=== PATIENT | male | born 1970 | race Caucasian/White ===

== ENCOUNTER 2018-02-13 12:53 | Inpatient (IN) | payer OTHER ==
[~2018-02-13] VITALS: Ht 175.3 cm; Wt 46.7 kg
--- NOTE | 2018-02-13 12:53 | NUR ---
PT BIBA ALS TO BED 5
[2018-02-13 12:59] VITALS: BP 98/42
[2018-02-13] MEDS ORDERED: NACL 0.9% 1,000 ML IV ONE (13:00)
--- NOTE | 2018-02-13 13:00 | NUR ---
47Y/M BIBA FROM [facility] PER NURSES PT HAS ABNORMAL HGB 5.8. UNABLE TO VERBALIZE BUT ALERT AND PERRLA. PT HAS MULTIPLE PRESSURE WOUNDS ON BACK AND HEELS. PT HAS G-TUBE, TRACH, KISER CATH AND FEVER OF 101.9, PT WAS GIVEN TYLENOL 650MG PER PROTOCOL. PT IS AAOX2, VSS AT THIS TIME, BED DOWN, BEDRAIL UP X 1, ER MD AWARE AND NOTIFIED OF PT STATUS. HX-- G TUBE, TRACH, MULTIPLE INFECTIONS (CHRONIC CRYPTOCOCCAL MENINGITIS, BACTEREMIA C/ KLEBSIELLA, PSEUDOMONAS AND VRE INFECTIONS) MEDS-- SEE MED REC
--- NOTE | 2018-02-13 13:10 | NUR ---
lab at bedside
[2018-02-13] MEDS ORDERED: LANS15EC28 PO (13:13)
[2018-02-13] MEDS ORDERED: DARBEPOETIN ALFA SQ (13:13)
[2018-02-13] MEDS ORDERED: ROC2I (13:13)
[2018-02-13] MEDS ORDERED: METO25TA PO (13:13)
[2018-02-13] MEDS ORDERED: DOCU-299 PO (13:13)
[2018-02-13] MEDS ORDERED: HYDR-5092 PO (13:13)
--- NOTE | 2018-02-13 13:13 | NUR ---
PT TRIAGED AND PLACED IN BED 5
[2018-02-13 13:30] LABS: BASOPHILS # (AUTO) 0.1 K/uL (0.00-0.22); BASOPHILS % (AUTO) 0.5 % (0.0-2.0); EOSINOPHILS # (AUTO) 0.2 K/uL (0-0.4); LYMPHOCYTES # (AUTO) 1.8 K/uL (2.0-11.5); LYMPHOCYTES % (AUTO) 9.4 % (20.5-51.1); MEAN CORPUSCULAR HEMOGLOBIN 23 pg (27-31); MEAN CORPUSCULAR HGB CONC 29 g/dL (33-37); MEAN CORPUSCULAR VOLUME 79.6 fL (80-94); MONOCYTES # (AUTO) 1.1 K/uL (0.8-1.0); MONOCYTES % (AUTO) 5.7 % (1.7-9.3); NEUTROPHILS # (AUTO) 15.6 K/uL (1.8-7.7); NEUTROPHILS % (AUTO) 83.4 % (42.2-75.2); RED BLOOD CELL COUNT(AUTO) 2.58 MIL/uL (4.20-6.10); RED CELL DISTRIBUTION WIDTH 18.5 % (11.6-13.7)
--- NOTE | 2018-02-13 13:36 | NUR ---
Patient being evaluated by physician at bedside.
[2018-02-13] MEDS ORDERED: ACETAMINOPHEN 650 MG SUPP RC ONE (13:41)
[2018-02-13 13:46] LABS: HEMATOCRIT 20.5 % (36-52)
[2018-02-13 13:48] LABS: PLATELET COUNT (AUTO) 1085 K/uL (140-450); PROTHROMBIN TIME 11.3 secs (10.8-13.4)
[2018-02-13 13:49] LABS: CARBON DIOXIDE 25.5 mmol/L (21-32); CREATININE 0.7 mg/dL (0.7-1.3); POTASSIUM 4.5 mmol/L (3.5-5.1)
[2018-02-13 13:50] LABS: WHITE BLOOD COUNT (AUTO) 18.7 K/uL (4.8-10.8)
[2018-02-13 13:55] LABS: COLOR,URINE YELLOW (YELLOW)
[2018-02-13 13:55] LABS: ALBUMIN 1.7 g/dL (3.4-5.0); TOTAL BILIRUBIN 0.2 mg/dL (0.0-1.0)
[2018-02-13 13:57] LABS: BILIRUBIN,URINE NEGATIVE (NEGATIVE); BLOOD, URINE TRACE (NEGATIVE); NITRITE, URINE NEGATIVE (NEGATIVE); UGLUCOSE NEGATIVE (NEGATIVE)
[2018-02-13 14:01] LABS: RBC,URINE 0-5 (RARE) /HPF (0-5); WBC,URINE TOO MANY TO COUNT /HPF (0-5)
--- NOTE | 2018-02-13 14:01 | NUR ---
XRAY AT BEDSIDE
[2018-02-13 14:04] LABS: APPEARANCE,URINE CLOUDY (CLEAR); LEUKOCYTE ESTERASE ,URINE 2+ (NEGATIVE)
[2018-02-13] MEDS ORDERED: LEVOFLOXACIN 500 MG/D5W PREMIX 100 ML IV ONE (14:55)
[2018-02-13] MEDS ORDERED: MORPHINE SULFATE 2 MG/ML SYR IVP ONE (15:55)
[2018-02-13] MEDS: DEXT 5% / NACL 0.45% 1,000 ML IV SCH (16:04)
[2018-02-13] MEDS ORDERED: ONDANSETRON 4 MG/2 ML VIAL IVP PRN (16:05)
[2018-02-13] MEDS ORDERED: ACETAMINOPHEN 325 MG TAB PO PRN (16:05)
--- NOTE | 2018-02-13 17:08 | NUR ---
Patient will be admitted to care of DR. GALLEGOS. Admited to ICU FOR TELE CONVENIENCE. Will go to room 1CU-1. Belongings list completed. Report to PIERRE WALKER.
--- NOTE | 2018-02-13 17:09 | NUR ---
PT TAKEN TO ICU 1 FOR CONVIENIENCE BY RN SANCHEZ AND EMT LAMONT
[2018-02-13 17:25] VITALS: BP 109/83
--- NOTE | 2018-02-13 17:25 | NUR ---
RECEIVED PT TRANSFERRED FROM ER VIA [facility], OBTAINED REPORT FROM SUPERVISOR STENO POOL AT BEDSIDE, PT IS AAOX2, APHASIC, ABLE TO FOLLOW COMMANDS AND MAKE NEEDS KNOWN. AFEBRILE, VSS, FLACC 0, TRACH TO T-PIECE WITH SETTING FIO2 28, O2 SAT 99%. NO S/S OF DISTRESS, CLEAR LUNG SOUNDS BLANCA. ST ON LEAD INFORMATICA DEVELOPER. SOFT ABDOMEN WITH ACTIVE BOWEL SOUND, GT IN PLACE, PATENT, NO FEEDING ORDERED AT THIS TIME. INCONTINENT WITH B&B'S, F/C IN PLACE WITH CLEAR YELLOW URINE VIA GRAVITY, SKIN IS WARM AND DRY TO TOUCH, MULTIPLE OPEN WOUND PRESENT, CONTRACTURES TO ALL EXTREMITIES NOTED, IV LINE TO RIGHT FOREARM, 24GA, PATENT AND SL, IV LINE TO LEFT WRIST, 22GA, PATENT AND SL. SAFETY MEASURES IN PLACE, HOB ELEVATED, PILLOW SUPPORT PROVIDED, CALL LIGHT WITHIN REACH, WILL CONTINUE TO MONITOR.
--- NOTE | 2018-02-13 17:45 | NUR ---
1 UNIT OF RBC TRANSFUSION STARTED, PT TOLERATED WELL, WILL CONTINUE TO MONITOR.
--- NOTE | 2018-02-13 19:15 | NUR ---
REPORT GIVEN TO CRIMPING MACHINE OPERATOR RN AT BEDSIDE FOR CONTINUE OF CARE, PT IS IN STABLE CONDITION AND STILL ON BLOOD TRANSFUSION.
--- NOTE | 2018-02-13 19:45 | NUR ---
PT AWAKE SITTING UP IN BED WATCHING TELEVISION. PT ABLE TO COMMUNICATE WITH HEAD NOD AND VERBALIZE SIMPLE COMMANDS OVER HIS TRACH. PT AAOX1 +4 PERRL UNABLE TO MOVE PERIPHERAL EXTREMITIES; CONTRACTED UPPER AND LOWER EXTREMITIES. PT HAS SHILEY XLT TRACH HOOKED TO T PIECE @ 28% FIO2 LUNGS CLEAR UPPER LOBES, DIMINISHED LOWER LOBES. SINUS TACHYCARDIA 120S, NO EDEMA NOTED, WEAK PALPABLE PULSES. ABD SOFT NON DISTENDED G TUBE PRESENT, + placement via auscultation, + BOWEL SOUNDS X4 QUADRANTS. KISER CATH IN PLACE CLEAR YELLOW URINE DRAINING VIA GRAVITY. SKIN NON INTACT, MULTIPLE OPEN WOUNDS/ PRESSURE ULCERS TO BONY PROMINENCES; SEE WOUND CARE ASSESSMENT FOR FURTHER DETAILS. PT ON AIR MATTRESS FOR SKIN PROTECTION, PT TOTAL ASSIST FOR TURNS AND REPOSITIONING. PERIPHERAL IVS TO L FOREARM 22 G AND R FOREARM 24 G PRESENT. BLOOD TRANSFUSION INFUSING NO S/S OF ACUTE DISTRESS NOTED. WILL CONTINUE TO OBSERVE.
--- NOTE | 2018-02-13 19:50 | NUR ---
CALLED DR GALLEGOS FOR PAIN MANAGEMENT.PT HAS MULTIPLE OPEN WOUNDS, CONTRACTED, UNABLE TO TURN INDEPENDENTLY. PT TACHYPNEIC HR 120S BP 114/73, RR 24 99% SPO2 PT VERBALIZED "IM IN PAIN" OVER TRACH. ORDERED MS CONTIN 15 MG PO VIA GTUBE PRN Q4H FOR MODERATE AND SEVERE PAIN, SEE EMAR FOR FURTHER DETAILS.
[2018-02-13] MEDS ORDERED: MORPHINE TAB ER 15 MG TABER PO PRN (19:55)
[2018-02-13 20:00] VITALS: BP 114/73
[2018-02-13] MEDS: MORPHINE TAB ER 15 MG TABER PO PRN (23:01)
[2018-02-14] VITALS: BP 120/68
[2018-02-14] MEDS: LORazepam 2 MG/ML VIAL IVP PRN ×2 (03:40→15:00)
[2018-02-14 04:00] VITALS: BP 108/60
[2018-02-14 06:57] LABS: RED BLOOD CELL COUNT(AUTO) 2.53 MIL/uL (4.20-6.10)
[2018-02-14 06:58] LABS: HEMATOCRIT 20.8 % (36-52); HEMOGLOBIN 6.7 g/dL (12.0-18.0); MEAN CORPUSCULAR VOLUME 82.4 fL (80-94)
[2018-02-14 06:59] LABS: MEAN CORPUSCULAR HEMOGLOBIN 26 pg (27-31); MEAN CORPUSCULAR HGB CONC 32 g/dL (33-37); RED CELL DISTRIBUTION WIDTH 17.3 % (11.6-13.7)
[2018-02-14 07:00] LABS: BASOPHILS % (AUTO) 0.3 % (0.0-2.0); EOSINOPHILS % (AUTO) 0.9 % (0.0-4.0); LYMPHOCYTES % (AUTO) 13.5 % (20.5-51.1); MONOCYTES % (AUTO) 5.6 % (1.7-9.3); NEUTROPHILS % (AUTO) 79.7 % (42.2-75.2); PLATELET COUNT (AUTO) 925 K/uL (140-450)
[2018-02-14 07:01] LABS: EOSINOPHILS # (AUTO) 0.1 K/uL (0-0.4); LYMPHOCYTES # (AUTO) 1.8 K/uL (2.0-11.5); MONOCYTES # (AUTO) 0.7 K/uL (0.8-1.0); NEUTROPHILS # (AUTO) 10.4 K/uL (1.8-7.7)
--- NOTE | 2018-02-14 07:07 | NUR ---
RECEIVED BEDSIDE REPORT FROMPREET, MEDICAL TRANSLATOR RN FOR CONTINUITY OF CARE. PATIENT IS AAOX1, NONVERBAL. PATIENT SKIN IS NOT INTACT, HE HAS MULTIPLE PRESSURE WOUNDS. PATIENT HAS PERIPHERAL IV SITE TO L. FA AND R. UA, ASYMPTOMATIC, PATENT AND INTACT. PATIENT HAS TRACH TO T-PIECE IN PLACE, BREATHING IS EVEN AND UNLABORED. PATIENT IS ST ON MONITOR, FLACC 0. PATIENT HAS PEG TUBE IN PLACE TO TUBE FEEDING, JEVITY AT 30ML/HR WITH 50 ML Q4H. PATIENT HAS KISER CATHETER IN PLACE TO YELLOW URINE. HOB IS 30 DEGREES IN LOW POSITION, NO SIGNS OF DISTRESS NOTED AT THIS TIME. ALL SAFETY PRECAUTIONS IN PLACE AND ENFORCED. CALL LIGHT WITHIN REACH, WILL CONTINUE TO MONITOR.
[2018-02-14 07:38] LABS: PHOSPHORUS 2.9 mg/dL (2.5-4.9)
[2018-02-14 07:39] LABS: ALBUMIN 1.6 g/dL (3.4-5.0); ANION GAP 8.8 (8-16); CARBON DIOXIDE 25.7 mmol/L (21-32); CREATININE 0.7 mg/dL (0.7-1.3); POTASSIUM 3.5 mmol/L (3.5-5.1); TOTAL BILIRUBIN 0.5 mg/dL (0.0-1.0)
[2018-02-14 08:00] VITALS: BP 124/66
--- NOTE | 2018-02-14 08:35 | NUR ---
PATIENT HAS BEEN SCREENED AND CATEGORIZED HIGH NUTRITION RISK. PATIENT WILL BE SEEN WITHIN 1-2 DAYS OF ADMISSION. 02/14/18 02/15/[address]
[2018-02-14] MEDS: FAMOTIDINE 20 MG TAB GT SCH (09:02)
--- NOTE | 2018-02-14 10:06 | NUR ---
DR. GALLEGOS IN TO SEE AND EXAMINE PATIENT, UPDATED ON PATIENT'S CONDITION. WILL FOLLOW UP WITH ANY ORDERS.
--- NOTE | 2018-02-14 10:29 | NUR ---
BLOOD TRANSFUSION STARTED, VS STABLE AT THIS TIME. WILL CONTINUE TO MONITOR PATIENT
[2018-02-14] MEDS: DEXT 5% / NACL 0.45% 1,000 ML IV SCH ×2 (10:59→18:09)
--- NOTE | 2018-02-14 11:12 | NUR ---
Initial review faxed to [facility].
[2018-02-14 12:00] VITALS: BP 126/74
--- NOTE | 2018-02-14 13:02 | NUR ---
BLOOD TRANSFUSION COMPLETE, NO S/S OF REACTION, NO SIGNS OF DISTRESS NOTED, DENIES ANY PAIN, . WILL CONTINUE TO MONITOR
--- NOTE | 2018-02-14 14:07 | NUR ---
02/14/18 RD INITIAL ASSESSMENT COMPLETED PLEASE REFER TO NUTRITION ASSESSMENT UNDER CARE ACTIVITY FOR ESTIMATED NUTRITIONAL NEEDS. 1. CONTINUE JEVITY @65 ML/HR WITH 1 PACK PROSOURCE TID -JEVITY WILL PROVIDE 1560 ML OF VOLUME, 1872 KCAL, 86 GM OF PROTEIN. -PROSOURCE TID WILL PROVIDE AN ADDITIONAL 120 KCAL AND 33 GM OF PROTEIN, WHICH IN TOTAL PROVIDES 1992 KCAL AND 119 GM OF PROTEIN. THIS WILL MEET 100% OF ESTIMATED NEEDS. 2. RECOMMEND INCREASING FREE WATER FLUSH TO 100 ML Q4H. 3. RECOMMEND FERROUS SULFATE QD, VITAMIN C 500 MG BID, AND ZINC SULFATE [address] TO FOLLOW-UP 2-3 DAYS, HIGH RISK JESSICA LEON RD
--- NOTE | 2018-02-14 14:26 | NUR ---
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 She stated patient's daughter Sho Khalil is his healthcare decision maker.
[2018-02-14] MEDS: MORPHINE TAB ER 15 MG TABER PO PRN (14:39)
[2018-02-14] MEDS ORDERED: LEVOFLOXACIN 500 MG/D5W PREMIX 100 ML IV SCH (15:00)
[2018-02-14] MEDS ORDERED: HYDROcodone/APAP 10/325 MG 1 TAB TAB GT PRN (15:55)
[2018-02-14 16:00] VITALS: BP 116/71
--- NOTE | 2018-02-14 16:03 | NUR ---
DR. STEVEN AT BEDSIDE TO EXAMINE AND SEE PATIENT, UPDATED ON PATIENT'S CONDITION. WILL FOLLOW UP ON ANY ORDERS.
[2018-02-14] MEDS: MORPHINE SULFATE 4 MG/ML SYR IVP PRN (16:24)
--- NOTE | 2018-02-14 17:45 | NUR ---
PT RECEIVED FROM ICU. PT IS NONVERBAL. AWAKE, AND ALERT X 1. PT IS TRACH TO T-PIECE. IV SITES NOTED ON L FA, 22 GAUGE, AND R FA 20 GAUGE. CURRENTLY INFUSING D5 1/2 NS AT 75 ML/HR. GEVITY INFUSING AT 65 ML/HR VIA PEG TUBE. PT HAS CONTRACTURES OF BLE'S AND BUE'S. PT HAS PRESSURE ULCERS ON BOTH BUTTOCKS AND SACRUM, L HIP, AND L FOOT. BLANCHABLE REDNESS ON R HIP AND R HEEL. PT'S VITAL SIGNS ARE STABLE AT THIS TIME, SINUS TACH ON TELE. CALL LIGHT WITHIN REACH. WILL CONTINUE TO MONITOR.
--- NOTE | 2018-02-14 17:50 | NUR ---
PT'S VITAL SIGNS UPON TRANSFER FROM ICU: BP 124/73, O2 97, HR 115, TEMP 99.3, RESP 20
--- NOTE | 2018-02-14 17:50 | NUR ---
TRANSFERRED PATIENT TO [facility], BED 113B. PATIENT HAD NO EPISODES OF DISTRESS DURING TRANSFER, VITAL SIGNS STABLE. ENDORSED CONTINUITY OF CARE TO [facility] RNJULIUS, FOR CONTINUITY OF CARE.
[2018-02-14] MEDS ORDERED: VANCOMYCIN PER PHARMACY MC PRN (18:35)
--- NOTE | 2018-02-14 19:15 | NUR ---
PT REPORT GIVEN AT BEDSIDE TO PLASMA CENTER NURSE NURSE. PT ENDORSED IN STABLE CONDITION.
--- NOTE | 2018-02-14 19:17 | NUR ---
RECEIVED PT FROM JULIUS RN PT ALERT IN PERSON CONTRACTED TRACH TO T PIECE 28% on telEmetry ST, skin with multiples ulcer g tube feeding well tolerated, FOLEYCATH DRAINIG WELL YELLLOW URINE NOT DISTRESS NOTED INITIAL ASSESSMENT DONE
[2018-02-14 20:00] VITALS: BP 124/77
--- NOTE | 2018-02-14 22:00 | NUR ---
RESP THERAPY IS HERE AND GIVE BREATHING TX PT SIS SUCTIONED NECESSARY ON TELEMETRY ST
[2018-02-14] MEDS: VANCOMYCIN 750 MG in DEXTROSE 5% 250 ML IV SCH (22:01)
[2018-02-15] VITALS: BP 129/73
[2018-02-15] MEDS: PIPER/TAZO 3.375GM/D5W PREMIX 50 ML IV SCH ×5 (00:30→23:08)
--- NOTE | 2018-02-15 02:00 | NUR ---
PT CONTRACTED REPOSITIONED NOT RESP DISTRESS NOTED ON TELE ST SUCTIONED NECESSARY
[2018-02-15 04:00] VITALS: BP 138/80
[2018-02-15] MEDS: DEXT 5% / NACL 0.45% 1,000 ML IV SCH ×2 (04:09→21:27)
--- NOTE | 2018-02-15 05:00 | NUR ---
SPONGE BATH GIVEN LINEN CHANGED PT CONTRACTED SUCTIONED NECESSARY ON TELEMETRY ST
--- NOTE | 2018-02-15 06:41 | NUR ---
NOT DISTRESS NOTED SUCTIONED CREAMY , PT CONTRACTED NOT DISTRESS NOTED
[2018-02-15 06:48] LABS: BASOPHILS # (AUTO) 0.1 K/uL (0.00-0.22); EOSINOPHILS # (AUTO) 0.1 K/uL (0-0.4); LYMPHOCYTES # (AUTO) 1.1 K/uL (2.0-11.5)
[2018-02-15 07:11] LABS: MEAN CORPUSCULAR HEMOGLOBIN 26 pg (27-31); MEAN CORPUSCULAR HGB CONC 31 g/dL (33-37)
[2018-02-15 07:21] LABS: RED BLOOD CELL COUNT(AUTO) 3.12 MIL/uL (4.20-6.10)
[2018-02-15 07:22] LABS: HEMATOCRIT 25.9 % (36-52); PLATELET COUNT (AUTO) 859 K/uL (140-450); RED CELL DISTRIBUTION WIDTH 17.7 % (11.6-13.7)
[2018-02-15 07:24] LABS: BASOPHILS % (AUTO) 0.7 % (0.0-2.0); EOSINOPHILS % (AUTO) 0.8 % (0.0-4.0); LYMPHOCYTES % (AUTO) 6.2 % (20.5-51.1); MONOCYTES % (AUTO) 5.7 % (1.7-9.3); NEUTROPHILS # (AUTO) 15.6 K/uL (1.8-7.7); NEUTROPHILS % (AUTO) 86.6 % (42.2-75.2)
[2018-02-15 07:43] LABS: ALBUMIN 1.5 g/dL (3.4-5.0); ANION GAP 15.2 (8-16); CARBON DIOXIDE 22.2 mmol/L (21-32); CREATININE 0.6 mg/dL (0.7-1.3); POTASSIUM 3.4 mmol/L (3.5-5.1); TOTAL BILIRUBIN 0.3 mg/dL (0.0-1.0)
--- NOTE | 2018-02-15 07:45 | NUR ---
PATIENT WAS AWAKE, RESPONSIVE TO NAME. RESPIRATION EVEN, UNLABOR ON TRACH TO TPIECE. SKIN DRY AND WARM. IV PATENT AND INTACT. GTUBE DRESSING DRY AND IN PLACE. FLACC 0. KISER DRAINING CLEAR YELLOW URINE. PLAN OF CARE WAS DISCUSSED WITH PATIENT. BED AT LOW POSITION, SIDE RAILS UP AND PADDED. CALL LIGHT WITHIN REACH
[2018-02-15 08:00] VITALS: BP 127/65
[2018-02-15] MEDS: FAMOTIDINE 20 MG TAB GT SCH (09:08)
[2018-02-15] MEDS: VANCOMYCIN 750 MG in DEXTROSE 5% 250 ML IV SCH ×2 (09:08→20:54)
--- NOTE | 2018-02-15 10:00 | NUR ---
WOUND DRESSING WAS CHANGED BY DENISE JAY. PATIENT WAS AWAKE, RESPONSIVE TO NAME. PATIENT WAS SUCTIONED WITH MODERATED WHITE SPUTUM. NO DISTRESS NOTED AT THIS TIME
--- NOTE | 2018-02-15 11:46 | NUR ---
called to room by nurse to changed trach raygoza and cielo pt large amt of frothy yellow secretions
--- NOTE | 2018-02-15 11:56 | NUR ---
WOUND CARE EVALUATION REASON FOR EVALUATION: LOW CECIL SCORE AND MULTIPLES PRESSURE INJURIES SKIN ASSESSMENT DONE WITH THIS 47 Y/O MALE PT ADMITTED FROM SNF TO [facility] WITH INITIAL DX FEVER. PAST MEDICAL HX INCLUDES CHRONIC TRACH, PRESSURE INJURY WOUNDS, QUADRIPLEGIA, CONTRACTURES, G-TUBE AND ENCEPHALOPATHY. ALL ABOVE INFORMATION OBTAINED FROM ADMISSION H&P. LABS ARE WBC 18, H/H 8.0/25.9, GLUCOSE 122 AND ALBUMIN 1.5. PT IS AWAKE. SKIN IS WARM AND DRY, BLE FEW HAIR GROWTH, NO EDEMA. DORSAL PEDAL PULSES PRESENT AND NORMAL. CAPILLARY REFILLED < 2 SEC. X 10 TOES. INCONTINENT OF BOWEL AND F/C PATENT WITH MODERATE AMOUNT OF CLEAR YELLOW URINE OUTPUT OBSERVED. PLAN OF CARE DISCUSSED WITH PRIMARY RN. INTEGUMENTARY: -TRACH SITE VAISHALI STOMA SKIN DRY AND CLEAN. SKIN INTACT. - GT SITE VAISHALI STOMA SKIN WITH SKIN INTACT. -INCONTINENT ASSOCIATE DERMATITIS TO R/L GIOVANNI AND SCROTUM, REDNESS WITH SKIN INTACT -PRESSURE INJURY STAGE 1 TO LEFT SCAPULAR 2X4CM PALE PINK IN COLOR - PRESSURE INJURY STAGE 4 TO LEFT TROCHANTER 7X9X0.3CM, UNDERMINING BETWEEN 6-12 OCLOCK WITH 0.5CM DEEP. WOUND BED IS RED, SMALL AMOUNT SEROUS DRAINAGE, NO ODOR, VAISHALI-WOUND SKIN INTACT -PRESSURE INJURY STAGE 4 TO LEFT ISCHIUM, 9.6X6.5X0.5 CM , UNDERMINING BETWEEN 10-1 OCLOCK 1CM DEEP, BONE OBSERVED IN THE CENTER OF WOUND BED, WOUND BED IS RED, SMALL AMOUNT SEROSANGUINEOUS DRAINAGE, NO ODOR, VAISHALI-WOUND SKIN INTACT. -PRESSURE INJURY STAGE 3 TO LEFT LATERAL FOOT, 6X2X0.5CM, WOUND BED IS RED, SMALL AMOUNT SEROSANGUINEOUS DRAINAGE, NO ODOR, VAISHALI-WOUND SKIN INTACT. -PRESSURE INJURY STAGE 4 TO RIGHT ISCHIUM, 5X5X0.8 CM , UNDERMINING BETWEEN 5-6 OCLOCK 1CM DEEP, WOUND BED IS RED, SMALL AMOUNT SEROSANGUINEOUS DRAINAGE, NO ODOR, VAISHALI-WOUND SKIN INTACT. -PRESSURE INJURY STAGE 4 TO RIGHT ISCHIUM, 5X5X0.8 CM , UNDERMINING BETWEEN 5-6 OCLOCK 1CM DEEP, WOUND BED IS RED, SMALL AMOUNT SEROSANGUINEOUS DRAINAGE, NO ODOR, VAISHALI-WOUND SKIN INTACT. --PRESSURE INJURY STAGE 1 TO RIGHT HEEL 3X3 CM. -PRESSURE INJURY STAGE 4 TO SACRALCOCCYX, BUTTERFLY SHAPE 6X11X0.5 CM , UNDERMINING BETWEEN 8-12OCLOCK WITH 1.5CM DEEP, WOUND BED IS RED, NO DRAINAGE, NO ODOR, VAISHALI-WOUND SKIN DENUDED RECOMMENDATIONS: -RECTAL BAG FOR MOISTURE CONTROL AND WOUND CARE MANAGEMENT -APPLY HYDRAGUARD TO R/L GROINS EXTENDED TO SCROTUM BID AND PRN IF SOILING, LEAVE IT OPEN TO AIR - CLEANSE MULTIPLE PRESSURE INJURIES STAGE 3 AND STAGE 4 WITH WOUND CLEANSING SOLUTION, PAT DRY AND APPLY HYDROGEL WITH ADAPTIC DRESSING AND COVER WITH DRY DRESSING SECURE WITH PAPER TAPE QD AND PRN IF SOILING -APPLY FORM DRESSING TO PRESSURE INJURIES STAGE 1 LEFT SCAPULAR AND RIGHT HEEL CHANGE Q7 DAYS AND PRN IF SOILING -APPLY HEEL RAISER TO BILATERAL HEELS AT ALL TIMES -PLEASE PLACE PILLOWS IN BETWEEN KNEES AT ALL TIMES -OFFLOAD BILATERAL HEELS BY PLACING PILLOWS UNDER CALVES UNLESS OTHERWISE CONTRAINDICATED -PRESSURE REDISTRIBUTION SURFACE THERAPY -KEEP SKIN DRY AND CLEAN AT ALL TIMES, PLEASE CHECK Q2H AND PRN -TURN AND REPOSITION Q2H, OFFLOAD SACRALCOCCYX AND BUTTOCKS -CONTINUE TO FOLLOW RD RECOMMENDATIONS COMORBIDITIES RELATED TO DELAY WOUND HEALING AND FURTHER SKIN BREAKS: INFECTION, SEVERE CONTRACTION TO LOWER EXTREMITIES, CHRONIC INCONTINENT OF BOWEL AND BLADDER AND HEAD OF BED ELEVATED MOST OF THE DAY DUE TO MEDICAL CONDITION. ALL ABOVE RECOMMENDATIONS DISCUSSED WITH PRIMARY RN. WILL FOLLOW UP PT Q7-10 DAYS. PLEASE CONTACT WOUND CARE NURSE FOR ANY QUESTION AND CHANGE OF WOUND CONDITION. Addendum: 02/15/18 at 1237 by Antonio Sevilla (Grace) RN PT. ADMITTED WITH PRESSURE INJURY STAGE 3 TO LEFT HEEL, 1.5X2X0.2CM,WOUND BED IS RED,NO DRAINAGE, NO ODOR, VAISHALI-WOUND SKIN INTACT.
[2018-02-15 12:00] VITALS: BP 113/78
--- NOTE | 2018-02-15 12:03 | NUR ---
increase fio2 to 30% cool aerosol spo2 94 i\l sx copious yellow
[2018-02-15] MEDS: HYDRAGUARD CREAM TP SCH (12:28)
[2018-02-15] MEDS: SKINTEGRITY HYDROGEL TP SCH ×2 (12:29)
--- NOTE | 2018-02-15 12:30 | NUR ---
PATIENT WAS RESTING COMFORTABLY. RESPIRATION EVEN, UNLABOR ON 30% TPIECE. FLACC 0. VS IS STABLE. NO DISTRESS NOTED AT THIS TIME. RESIDUAL CHECK AT 5ML. PATIENT TOLERATING FEEDING WELL. CALL LIGHT WITHIN REACH
--- NOTE | 2018-02-15 14:00 | NUR ---
PATIENT WAS RESTING COMFORTABLY. RESPIRATION EVEN, UNLABOR ON 30%TPIECE. NO DISTRESS NOTED AT THIS TIME. CALL LIGHT WITHIN REACH
--- NOTE | 2018-02-15 15:53 | NUR ---
PATIENT WAS AWAKE, RESPONSIVE TO NAME. RESPIRATION EVEN, UNLABOR ON 30% TPIECE. ORAL CARE WAS GIVEN. PATIENT WAS SUCTION WITH MODERATED AMOUNT OF WHITE SPUTUM. NO DISTRESS NOTED AT THIS TIME. CALL LIGHT WITHIN REACH
[2018-02-15 16:00] VITALS: BP 131/85
--- NOTE | 2018-02-15 16:14 | NUR ---
Concurrent review faxed to [facility] along with Software Development Specialist's Notes.
[2018-02-15] MEDS ORDERED: POTASSIUM CHLORIDE 20% 40 MEQ/15 ML UDC GT SCH (16:30)
--- NOTE | 2018-02-15 18:16 | NUR ---
PATIENT WAS RESTING COMFORTABLY. RESPIRATION EVEN, UNLABOR ON 30%TPIECE. IV PATENT AND INTACT. GTUBE RESIDUAL 5ML. PATIENT TOLERATING FEEDING WELL. NO DISTRESS NOTED AT THIS TIME. CALL LIGHT WITHIN REACH
--- NOTE | 2018-02-15 19:11 | NUR ---
ENDORSEMENT GIVEN TO THE HYPNOTHERAPIST NURSE. PATIENT IS STABLE AT THIS TIME
--- NOTE | 2018-02-15 19:12 | NUR ---
REPORT RECEIVED FROM AM NURSE AT BEDSIDE. PT IN STABLE CONDITION. AAOX1 AND EYES OPEN SPONTANEOUSLY. INTRODUCED SELF TO PT. BOARD UPDATED. IV SITE R FA 20G RUNNING D5 1/2NS@75ML/HR AND L WRIST 22G PATENT AND INTACT. SKIN WARM, DRY, AND NOT INTACT DUE TO WOUNDS ON THE L FOOT, L HIP, L BUTTOCK, AND SACRAL. WOUND CONSULT COMPLETE. PT HAS KISER DRAINING PROPERLY. PT HAS TRACH WITH O2@30%. PT IS CURRENTLY SINUS TACHY. PT ON TUBE FEEDING JEVITY @65ML/HR 50ML FLUSH Q4H. WOUND BED LOCKED IN LOW POSITION. CALL MURO WITHIN REACH. FLACC 0. NO SOB.
--- NOTE | 2018-02-15 19:40 | NUR ---
DELIVERY ARCHITECT SAYING PT HAS AN INCREASED AMOUNT OF FROTHY SPUTUM. WILL NOTIFY
[2018-02-15 20:00] VITALS: BP 129/82
--- NOTE | 2018-02-15 20:15 | NUR ---
PT HAD BIG BM. WOUND CARE DONE.
--- NOTE | 2018-02-15 20:54 | NUR ---
SIMON DWYER AND RUNNING. PT TOLERATING WELL.
--- NOTE | 2018-02-15 23:08 | NUR ---
WEN HUNG AND RUNNING. PT TOLERATING WELL.
[2018-02-16] VITALS: BP 122/84
[2018-02-16] MEDS: HYDRAGUARD CREAM TP SCH ×2 (01:16→13:00)
--- NOTE | 2018-02-16 02:45 | NUR ---
PT SLEEPING COMFORTABLY IN BED. NO S/S OF DISTRESS NOTED. WILL CONTINUE TO MONITOR.
[2018-02-16 04:00] VITALS: BP 134/79
[2018-02-16] MEDS: PIPER/TAZO 3.375GM/D5W PREMIX 50 ML IV SCH ×3 (05:14→18:34)
--- NOTE | 2018-02-16 05:14 | NUR ---
WEN DWYER AND RUNNING. PT TOLERATED WELL. Addendum: 02/16/18 at 0554 by Troy Gutierres RN PT HAS RESIDUAL OF 10ML. PT TOLERATING FEEDING WELL.
--- NOTE | 2018-02-16 07:15 | NUR ---
REPORT GIVEN TO AM NURSE AT BEDSIDE. PT IN STABLE CONDITION.
--- NOTE | 2018-02-16 07:16 | NUR ---
RECEIVED REPORT FORM PM NURSE AT BEDSIDE. PT LYING ON HIS BED. IS TRACH TO T-COLLAR DEPENDENT FOR RESPIRATION. PT ON CONTACT ISOLATION FOR MRSA IN WOUND. HAS FC IN PLACE. SKIN IS NON-INTACT. HAS G-TUBE FEEDING , INFUSING CONTINUOUSLY, PATENT . HAS IV ACCESS ON BOTH HAND, 22 G IV ON LFT FA , SALINE LOCK, HAS 20 G IV ACCESS ON RT FA, IVF INFUSING WELL. IV SITE INTACT AND PATENT. ALL SAFETY MEASURE IN PLACE. UPDATED BOARD.WILL CONTINUE TO MONITOR PT.
[2018-02-16 08:08] VITALS: BP 120/78
[2018-02-16 08:20] LABS: BASOPHILS # (AUTO) 0.1 K/uL (0.00-0.22); BASOPHILS % (AUTO) 0.5 % (0.0-2.0); EOSINOPHILS # (AUTO) 0.2 K/uL (0-0.4); EOSINOPHILS % (AUTO) 1.8 % (0.0-4.0); HEMATOCRIT 24.5 % (36-52); HEMOGLOBIN 7.6 g/dL (12.0-18.0); LYMPHOCYTES # (AUTO) 0.9 K/uL (2.0-11.5); LYMPHOCYTES % (AUTO) 7.7 % (20.5-51.1); MEAN CORPUSCULAR HEMOGLOBIN 26 pg (27-31); MEAN CORPUSCULAR HGB CONC 31 g/dL (33-37); MEAN CORPUSCULAR VOLUME 82.8 fL (80-94); MONOCYTES # (AUTO) 0.8 K/uL (0.8-1.0); MONOCYTES % (AUTO) 6.7 % (1.7-9.3); NEUTROPHILS # (AUTO) 10.3 K/uL (1.8-7.7); NEUTROPHILS % (AUTO) 83.3 % (42.2-75.2); RED BLOOD CELL COUNT(AUTO) 2.96 MIL/uL (4.20-6.10); RED CELL DISTRIBUTION WIDTH 18.2 % (11.6-13.7); WHITE BLOOD COUNT (AUTO) 12.3 K/uL (4.8-10.8)
[2018-02-16 08:42] LABS: ALBUMIN 1.5 g/dL (3.4-5.0); ANION GAP 13.5 (8-16); CARBON DIOXIDE 22.4 mmol/L (21-32); CREATININE 0.6 mg/dL (0.7-1.3); TOTAL BILIRUBIN 0.3 mg/dL (0.0-1.0)
[2018-02-16] MEDS: POTASSIUM CHLORIDE 20% 40 MEQ/15 ML UDC GT SCH (08:48)
[2018-02-16] MEDS: FAMOTIDINE 20 MG TAB GT SCH (08:49)
[2018-02-16 08:50] LABS: PLATELET COUNT (AUTO) 801 K/uL (140-450)
[2018-02-16] MEDS: VANCOMYCIN 750 MG in DEXTROSE 5% 250 ML IV SCH ×2 (08:51→20:21)
[2018-02-16 09:00] LABS: POTASSIUM 2.9 mmol/L (3.5-5.1)
--- NOTE | 2018-02-16 09:00 | NUR ---
ADMINISTERED MEDS TO PT. TOLERATED WELL. NO SIGN OF DISTRESS NOTED. ALL SAFETY MEASURE IN PLACE. WILL CONTINUE TO MONITOR PT.
--- NOTE | 2018-02-16 09:15 | NUR ---
INFORMED MD QUAN PT CRITICAL VALUE FOR LOWER POTASSIUM 2.9. REVEOVED TORB FOR K-RIDER INFUSION WITH LIDOCAINE. CALLED PHARMACY, PLACED ORDER FOR K-RIDER. WAITING FOR VERIFICATION. WILL CONTINUE TO MONITOR PT.
[2018-02-16] MEDS ORDERED: POTASSIUM CHLORIDE 40 MEQ, LIDOCAINE MPF 1% - 5 mL VIAL 25 MG in NACL 0.9% 250 ML IV SCH (10:30)
[2018-02-16] MEDS: DEXT 5% / NACL 0.45% 1,000 ML IV SCH ×2 (10:44→20:22)
[2018-02-16 12:00] VITALS: BP 113/79
[2018-02-16] MEDS: SKINTEGRITY HYDROGEL TP SCH ×2 (13:00)
--- NOTE | 2018-02-16 13:00 | NUR ---
CHANGED THE WOUND DRESSING X2, PER WOUND CARE NOTE. WILL CONTINUE TO MONITOR PT.
--- NOTE | 2018-02-16 14:10 | NUR ---
CM NOTE FAXED CLINICAL PACKET INCLUDING MICROBIOLOGY RESULTS TO [facility] [phone]. [facility] OF [facility] PH# [phone] AWARE.
--- NOTE | 2018-02-16 15:07 | NUR ---
CM NOTE RECEIVED CALL FROM KATHLEEN OF [facility] STATING THAT THEY ARE UNABLE TO TAKE BACK PATIENT TOMORROW UNLESS COLONIZED BECAUSE THEY DON'T HAVE ANY ISOLATION BED AVAILABLE. CHARGE NURSE NAKUL RAMIREZ.
[2018-02-16 16:00] VITALS: BP 117/77
--- NOTE | 2018-02-16 19:10 | NUR ---
ENDORSED PT TO PM NURSE AT BEDSIDE FOR CONTINUITY OF CARE. PT IN STABLE CONDITION.
--- NOTE | 2018-02-16 19:11 | NUR ---
REPORT RECEIVED FROM AM NURSE AT BEDSIDE. PT IN STABLE CONDITION. AAOX2. INTRODUCED SELF TO PT. BOARD UPDATED. FLACC 0. NO SOB. PT HAS TRACH TO T-PIECE RUNNING O2@30%. IV SITE R FA 20G RUNNING D5 1/2NS@75ML/HR AND L WRIST 22G SL PATENT AND INTACT. SKIN WARM, DRY, AND NOT INTACT DUE TO WOUNDS OF THE SACROCOCCYX, BUTTOCKS, HIPS, AND FEET. PT HAS KISER. TUBE FEEDING JEVITY 1.2 RUNNING @65ML/HR WITH A 50ML H2O FLUSH Q4H. WOUND BED LOCKED IN LOW POSITION. CALL MURO WITHIN REACH. SAFETY PRECAUTIONS IN PLACE.
[2018-02-16 20:00] VITALS: BP 126/76
--- NOTE | 2018-02-16 20:21 | NUR ---
SIMON DWYER AND RUNNING. PT TOLERATING WELL.
--- NOTE | 2018-02-16 21:03 | NUR ---
CRITICAL LAB VALUES FOR SPUTUM CULTURE IN. TRACHEA SITE HAS PSEUDOMONAS, FEW KLEBS, PNA, ESBL, NURSING MANAGER/MDRO.
--- NOTE | 2018-02-16 22:01 | NUR ---
PATIENT ASSESSED. VITALS STABLE. TRACH PATENT, DRY, AND CLEAN. PT ON AEROSOL 30%. NO SOB OR DISTRESS NOTED.
[2018-02-16] MEDS: MORPHINE SULFATE 4 MG/ML SYR IVP PRN (22:27)
--- NOTE | 2018-02-16 22:27 | NUR ---
MEDICATED FOR WOUND CARE. 02/01 PAIN ON THE WOUNDS.
--- NOTE | 2018-02-16 22:30 | NUR ---
WOUND CARE DONE. BUTTOCK, SACRAL, AND HIP DRESSINGS CHANGED. PT TOLERATED WELL.
[2018-02-17] VITALS: BP 118/78
--- NOTE | 2018-02-17 01:00 | NUR ---
NEW JEVITY 1.2 FEEDING HUNG. PROSOURCE MIXED WITH 30ML OF WATER AND GIVEN THROUGH GTUBE. PT TOLERATED WELL. FEEDING TOLERATED WELL. RESIDUAL OF 45 ML.
[2018-02-17] MEDS: HYDRAGUARD CREAM TP SCH ×2 (01:18→13:36)
--- NOTE | 2018-02-17 01:18 | NUR ---
HYDRAGUARD CREAM APPLIED.
--- NOTE | 2018-02-17 03:27 | NUR ---
AEROSOL BOTTLE REPLACED. NO SOB OR DISTRESS NOTED. PT SLEEPING CALMLY. VITALS REMAIN STABLE.
[2018-02-17 04:00] VITALS: BP 135/87
--- NOTE | 2018-02-17 04:25 | NUR ---
BOTTLE OF STERILE WATER REPLACED. INNER CANNULA RINSED THOROUGHLY WITH NORMAL SALINE. NO SOB OR DISTRESS NOTED. TRACH TIE CLEAN AND DRY. DRESSING CHANGED. TRACH CLEAN, PATENT AND SECURE. VITALS STABLE. NURSE AT BEDSIDE.
[2018-02-17] MEDS ORDERED: MEROPENEM 1,000 MG VIAL IV ONE (04:40)
[2018-02-17] MEDS: MEROPENEM 1,000 MG in NACL 0.9% 100 ML IV SCH ×4 (04:48→21:30)
--- NOTE | 2018-02-17 04:48 | NUR ---
MILAREM HUNG AND RUNNING. PT TOLERATING WELL. PT AWAKE AND ALERT WITH EYES OPEN. WILL CONTINUE TO MONITOR.
[2018-02-17 06:54] LABS: BASOPHILS # (AUTO) 0.1 K/uL (0.00-0.22); BASOPHILS % (AUTO) 0.5 % (0.0-2.0); EOSINOPHILS # (AUTO) 0.4 K/uL (0-0.4); EOSINOPHILS % (AUTO) 3.3 % (0.0-4.0); HEMATOCRIT 26.6 % (36-52); HEMOGLOBIN 8.1 g/dL (12.0-18.0); LYMPHOCYTES % (AUTO) 8.4 % (20.5-51.1); MEAN CORPUSCULAR HEMOGLOBIN 26 pg (27-31); MEAN CORPUSCULAR HGB CONC 30 g/dL (33-37); MONOCYTES # (AUTO) 0.7 K/uL (0.8-1.0); MONOCYTES % (AUTO) 6.1 % (1.7-9.3); NEUTROPHILS # (AUTO) 10.1 K/uL (1.8-7.7); NEUTROPHILS % (AUTO) 81.7 % (42.2-75.2); RED BLOOD CELL COUNT(AUTO) 3.17 MIL/uL (4.20-6.10); RED CELL DISTRIBUTION WIDTH 18.6 % (11.6-13.7); WHITE BLOOD COUNT (AUTO) 12.3 K/uL (4.8-10.8)
--- NOTE | 2018-02-17 07:20 | NUR ---
REPORT GIVEN TO AM NURSE AT BEDSIDE. PT IN STABLE CONDITION.
[2018-02-17 07:23] LABS: PLATELET COUNT (AUTO) 838 K/uL (140-450)
[2018-02-17 07:33] LABS: ALBUMIN 1.5 g/dL (3.4-5.0); ANION GAP 13.9 (8-16); CARBON DIOXIDE 22.6 mmol/L (21-32); CREATININE 0.5 mg/dL (0.7-1.3); POTASSIUM 3.5 mmol/L (3.5-5.1); TOTAL BILIRUBIN 0.2 mg/dL (0.0-1.0)
[2018-02-17 08:00] VITALS: BP 133/91
[2018-02-17] MEDS: FLUCONAZOLE 100 MG TAB PO SCH (09:33)
[2018-02-17] MEDS: FAMOTIDINE 20 MG TAB GT SCH (09:34)
[2018-02-17] MEDS: COLISTIMETHATE SODIUM 150 MG in NACL 0.9% 100 ML IV SCH ×2 (09:34→20:40)
[2018-02-17] MEDS: POTASSIUM CHLORIDE 20% 40 MEQ/15 ML UDC GT SCH (09:34)
[2018-02-17] MEDS: VANCOMYCIN 750 MG in DEXTROSE 5% 250 ML IV SCH (10:40)
--- NOTE | 2018-02-17 11:04 | NUR ---
CALLED KATHLEEN AT [facility]. SHE SAID AT PRESENT THEY HAVE NO ISOLATION BEDS. SHE SAID SHE WOULD CALL ME BACK LATER.
--- NOTE | 2018-02-17 11:42 | NUR ---
CALLED ARNOLD FROM [facility]. WHEN THE PATIENT IS TRANSFERED TO [facility], THE AUTH FOR [facility] IS [id number].
[2018-02-17 12:00] VITALS: BP 130/80
[2018-02-17] MEDS: DEXT 5% / NACL 0.45% 1,000 ML IV SCH (13:24)
[2018-02-17] MEDS: SKINTEGRITY HYDROGEL TP SCH ×2 (13:36→13:37)
--- NOTE | 2018-02-17 14:40 | NUR ---
Concurrent review faxed to [facility] along with [facility] Transfer order.
--- NOTE | 2018-02-17 15:33 | NUR ---
02/17/18 RD FOLLOW UP COMPLETED PLEASE REFER TO NUTRITION ASSESSMENT UNDER CARE ACTIVITY FOR ESTIMATED NUTRITIONAL NEEDS. 1. CONTINUE JEVITY @65 ML/HR WITH 1 PACK PROSOURCE TID -THIS WILL PROVIDE 1992 KCAL AND 119 GM OF PROTEIN, WHICH MEETS 100% OF ESTIMATED NEEDS. 2. RECOMMEND INCREASING FREE WATER FLUSH TO 100 ML Q4H. 3. RECOMMEND MULTIVITAMIN QD AND VITAMIN C [address] TO FOLLOW-UP 2-3 DAYS, HIGH RISK JESSICA LEON RD
[2018-02-17 16:00] VITALS: BP 130/92
--- NOTE | 2018-02-17 16:00 | NUR ---
CHECKED ON PT. NO FAMILY MEMBER AT BEDSIDE. RECORDED VS, IN NORMAL RANGE. SUCTIONED PT. NO SIGN OF DISTRESS NOTED. ALL SAFETY MEASURE IN PLACE. WILL CONTINUE TO MONITOR PT.
--- NOTE | 2018-02-17 16:11 | NUR ---
Log Tumbler Note: Per Terence from [facility] , they were not able to make room changes, no isolation bed available at this time, she stated they are not anticipating having any this weekend, charge nurse Yeny made aware.
--- NOTE | 2018-02-17 18:00 | NUR ---
CHECKED ON PT. DR GALLEGOS INFORMED THAT [facility] MADE RECOMMENDATION FOR MULTIVITAMIN AND VITAMIC C [address] GALLEGOS GAVE VERBAL ORDER TO PUT ODER , PLACED ORDER FOR VITAMIN C. ORDER FOR MULTIVITAMIN CANNOT BE PLACED, OUT OF STOCK, CHARGE NURSE AWARE. ALL SAFETY MEASURE IN PLACE. WILL CONTINUE TO MONITOR PT.
--- NOTE | 2018-02-17 19:15 | NUR ---
ENDORSED PT TO PM NURSE AT BEDSIDE FOR CONTINUITY OF CARE. PT IN STABLE CONDITION.
--- NOTE | 2018-02-17 19:16 | NUR ---
RECEIVED REPORT FROM DAY SHIFT NURSE. PT SLEEPING. NO S/S OF PAIN OR SOB. PT HAS TRACH TO T-PIECE WITH O2 AT 6 L/MIN. IV TO LEFT FA #22G, SALINE LOCK AND RIGHT FA #20G, D5 1/2NS AT 75 ML, INFUSING WELL. G-TUBE IN PLACE WITH FEEDING, JEVITY 1.2 AT 65 ML/HR, INFUSING WELL. KISER CATH IN PLACE, DRAINING CLEAR YELLOW URINE. PT HAS DRESSING TO SACRAL AREA, BUTTOCKS, LEFT HIP, RIGHT FOOT AND LEFT FOOT, DRY AND INTACT. SAFETY AND ASPIRATION PRECAUTION IN PLACE.
[2018-02-17 20:00] VITALS: BP 130/87
[2018-02-17] MEDS: ASCORBIC ACID 500 MG/5 ML ORASYR GT SCH (20:39)
[2018-02-17] MEDS: LINEZOLID 600 MG TAB GT SCH (20:40)
--- NOTE | 2018-02-17 21:00 | NUR ---
RIGHT FA IV AND LEFT FA IV INFILTRATED. D/C IV LINE. CANNULA TIP INTACT. INSERTED NEW LINE TO RIGHT HAND #22G. GOOD FLUSH AND BLOOD RETURN. PT TOLERATED PROCEDURE WELL.
--- NOTE | 2018-02-17 21:30 | NUR ---
CHECKED G-TUBE RESIDUAL 30 ML. DUE MEDS GIVEN. PT TOLERATED WELL. REPOSITIONED PT Q2HRS.
--- NOTE | 2018-02-17 23:20 | NUR ---
PT AWAKE. NO S/S OF PAIN OR SOB. PT KEPT DRY AND COMFORTABLE. PT TOLERATING FEEDING WELL. ASPIRATION AND FALL PRECAUTION IN PLACE.
[2018-02-18] VITALS: BP 132/88
--- NOTE | 2018-02-18 01:00 | NUR ---
CHECKED G-TUBE RESIDUAL 5 ML. HUNG NEW BAG OF Say-Hey 1.2.
[2018-02-18] MEDS: HYDRAGUARD CREAM TP SCH ×2 (01:18→13:00)
--- NOTE | 2018-02-18 02:45 | NUR ---
PT AWAKE. NO S/S OF PAIN. NO S/S OF RESP DISTRESS. PT TOLERATING FEEDING WELL.
[2018-02-18 04:00] VITALS: BP 133/88
--- NOTE | 2018-02-18 04:30 | NUR ---
PT WAS CLEANED AND CHANGED BY HEAVY FORGER. TURNED AND REPOSITIONED Q2H. PT KEPT DRY AND COMFORTABLE. FALL AND SAFETY PRECAUTION IN PLACE.
[2018-02-18] MEDS: MEROPENEM 1,000 MG in NACL 0.9% 100 ML IV SCH ×3 (05:23→21:06)
[2018-02-18] MEDS: DEXT 5% / NACL 0.45% 1,000 ML IV SCH ×3 (05:28→21:17)
--- NOTE | 2018-02-18 07:30 | NUR ---
ENDORSED PT TO DAY SHIFT NURSE. PT IN STABLE CONDITION.
--- NOTE | 2018-02-18 07:30 | NUR ---
RECEIVED PATIENT REPORT AT BEDSIDE. PATIENT ASLEEP BUT AROUSABLE. PATIENT IS APHASIC. PATIENT IS TRACH TO T-PIECE ON 28% FIO2. O2 SAT 98% AT THIS TIME. KISER CATHETER IN PLACE, DRAINING CLEAR YELLOW URINE. G-TUBE IN PLACE WITH FEEDING INFUSING. NO S/S OF DISTRESS NOTED AT THIS TIME. BED IN THE LOWEST POSITION. CALL LIGHT WITHIN REACH. WILL CONTINUE TO MONITOR
[2018-02-18 08:00] VITALS: BP 136/89
[2018-02-18] MEDS: FLUCONAZOLE 100 MG TAB PO SCH (08:34)
[2018-02-18] MEDS: FAMOTIDINE 20 MG TAB GT SCH (08:38)
[2018-02-18] MEDS: LINEZOLID 600 MG TAB GT SCH ×2 (08:39→20:06)
[2018-02-18] MEDS: POTASSIUM CHLORIDE 20% 40 MEQ/15 ML UDC GT SCH (08:39)
[2018-02-18] MEDS: ASCORBIC ACID 500 MG/5 ML ORASYR GT SCH ×2 (08:39→20:06)
--- NOTE | 2018-02-18 08:39 | NUR ---
SCHEDULED MEDS ADMINISTERED VIA G-TUBE. 30 ML RESIDUALS NOTED. PATIENT TOLERATED WELL
[2018-02-18] MEDS: COLISTIMETHATE SODIUM 150 MG in NACL 0.9% 100 ML IV SCH ×2 (08:40→20:07)
--- NOTE | 2018-02-18 10:38 | NUR ---
SX MOD WHITE SECRETIONS PTS TRACH IS SECURE
--- NOTE | 2018-02-18 10:45 | NUR ---
PATIENT GIVEN BED BATH. WOUND DRESSING CHANGED. PATIENT TOLERATED WELL
[2018-02-18 12:00] VITALS: BP 107/77
[2018-02-18] MEDS: MULTIVITAMIN/MINERALS 15 ML UDBTL GT SCH (12:59)
[2018-02-18] MEDS: SKINTEGRITY HYDROGEL TP SCH ×2 (13:00)
--- NOTE | 2018-02-18 13:17 | NUR ---
ORAL CARE GIVEN. PATIENT TOLERATED WELL
[2018-02-18 16:00] VITALS: BP 127/87
--- NOTE | 2018-02-18 16:45 | NUR ---
PATIENT ASLEEP IN BED. NO S/S OF DISTRESS NOTED
--- NOTE | 2018-02-18 19:22 | NUR ---
PATIENT REPORT GIVEN AT BEDSIDE. PATIENT ENDORSED IN STABLE CONDITION
--- NOTE | 2018-02-18 19:23 | NUR ---
REPORT RECEIVED FROM AM NURSE AT BEDSIDE. PT IN STABLE CONDITION. AAOX1. INTRODUCED SELF. BOARD UPDATED. FLACC 0. NO SOB. IV SITE L HAND 22G RUNNING D5 1/2NS@75ML/HR PATENT AND INTACT. SKIN WARM, DRY, AND NOT INTACT DUE TO MULTIPLE PRESSURE ULCERS. SEE WOUND NOTES. PT HAS KISER. TRACH TO T-PIECE. GTUBE IN PLACE. BED LOCKED IN LOW POSITION. CALL MURO WITHIN REACH. SAFETY PRECAUTIONS IN PLACE.
[2018-02-18 20:00] VITALS: BP 116/76
--- NOTE | 2018-02-18 20:06 | NUR ---
ZYVOX AND VITAMIN C GIVEN THROUGH GTUBE. COLY-MYCIN GIVEN IVPB. PT TOLERATED WELL.
--- NOTE | 2018-02-18 21:06 | NUR ---
MERREM GIVEN IVPB HUNG AND RUNNING. PT TOLERATING WELL.
--- NOTE | 2018-02-18 22:00 | NUR ---
JEVITY 1.2 FEEDING BAG HUNG. PROSOURCE GIVEN THROUGH GTUBE. PT TOLERATED WELL.
[2018-02-19] VITALS: BP 118/80
[2018-02-19] MEDS: HYDRAGUARD CREAM TP SCH ×2 (01:14→13:05)
[2018-02-19 04:00] VITALS: BP 110/72
[2018-02-19] MEDS: MEROPENEM 1,000 MG in NACL 0.9% 100 ML IV SCH ×3 (04:23→21:45)
--- NOTE | 2018-02-19 04:23 | NUR ---
RAMÓN HUNG AND RUNNING. PT TOLERATED WELL.
--- NOTE | 2018-02-19 06:15 | NUR ---
PT SLEEPING COMFORTABLY IN BED. NO S/S OF DISTRESS NOTED. FLACC 0. NO SOB. BREATHING EVEN, UNLABORED, AND WNL. WILL CONTINUE TO MONITOR.
--- NOTE | 2018-02-19 07:15 | NUR ---
REPORT GIVEN TO AM NURSE AT BEDSIDE. PT IN STABLE CONDITION.
--- NOTE | 2018-02-19 07:35 | NUR ---
RECEIVED PATIENT FROM BELT TURNER ON BEDSIDE. PATIENT IS IN STABLE CONDITION WITH NO APPARENT DISTRESS. PATIENT IS ON TRACH TO T-PIECE ON 6L OF O2 WITH FIO2 30%. G-TUBE IN PLACE WITH FEEDING RATE AT 65 ML/HR. KISER PLACED ON 02/13/18. V/S ARE T 98.9, BP 124/86, BPM 105, SPO2 98%, RR 16
[2018-02-19 07:51] LABS: BASOPHILS # (AUTO) 0.1 K/uL (0.00-0.22); BASOPHILS % (AUTO) 0.7 % (0.0-2.0); EOSINOPHILS # (AUTO) 0.6 K/uL (0-0.4); EOSINOPHILS % (AUTO) 5.7 % (0.0-4.0); HEMATOCRIT 28.2 % (36-52); HEMOGLOBIN 8.7 g/dL (12.0-18.0); LYMPHOCYTES # (AUTO) 1.4 K/uL (2.0-11.5); LYMPHOCYTES % (AUTO) 13.3 % (20.5-51.1); MEAN CORPUSCULAR HEMOGLOBIN 26 pg (27-31); MEAN CORPUSCULAR HGB CONC 31 g/dL (33-37); MONOCYTES # (AUTO) 0.9 K/uL (0.8-1.0); MONOCYTES % (AUTO) 8.5 % (1.7-9.3); NEUTROPHILS # (AUTO) 7.6 K/uL (1.8-7.7); NEUTROPHILS % (AUTO) 71.8 % (42.2-75.2); RED BLOOD CELL COUNT(AUTO) 3.36 MIL/uL (4.20-6.10); RED CELL DISTRIBUTION WIDTH 19.4 % (11.6-13.7); WHITE BLOOD COUNT (AUTO) 10.5 K/uL (4.8-10.8)
[2018-02-19 08:00] VITALS: BP 124/86
[2018-02-19 08:22] LABS: PLATELET COUNT (AUTO) 913 K/uL (140-450)
[2018-02-19 10:05] LABS: ANION GAP 15.2 (8-16); CARBON DIOXIDE 23.5 mmol/L (21-32); CREATININE 0.6 mg/dL (0.7-1.3); POTASSIUM 3.7 mmol/L (3.5-5.1)
[2018-02-19 10:09] LABS: ALBUMIN 1.6 g/dL (3.4-5.0); TOTAL BILIRUBIN 0.1 mg/dL (0.0-1.0)
[2018-02-19] MEDS: COLISTIMETHATE SODIUM 150 MG in NACL 0.9% 100 ML IV SCH ×2 (10:26→21:46)
[2018-02-19] MEDS: LINEZOLID 600 MG TAB GT SCH ×2 (10:27→21:44)
[2018-02-19] MEDS: FLUCONAZOLE 100 MG TAB PO SCH (10:27)
[2018-02-19] MEDS: FAMOTIDINE 20 MG TAB GT SCH (10:27)
[2018-02-19] MEDS: MULTIVITAMIN/MINERALS 15 ML UDBTL GT SCH (10:28)
[2018-02-19] MEDS: ASCORBIC ACID 500 MG/5 ML ORASYR GT SCH ×2 (10:28→21:44)
[2018-02-19] MEDS: POTASSIUM CHLORIDE 20% 40 MEQ/15 ML UDC GT SCH (10:29)
--- NOTE | 2018-02-19 10:30 | NUR ---
NOTIFIED DR GALLEGOS ABOUT THE LEAK IN THE PATIENT'S G-TUBE SITE. TO SEE THE PATIENT
--- NOTE | 2018-02-19 11:35 | NUR ---
PATIENT GIVEN SPONGE BATH AND ALSO WOUND DRESSING CHANGE DONE. PATIENT HAS BEEN TURNED AND REPOSITIONED FOR COMFORT.
[2018-02-19 12:00] VITALS: BP 113/73
[2018-02-19] MEDS: SKINTEGRITY HYDROGEL TP SCH ×2 (13:05)
--- NOTE | 2018-02-19 15:08 | NUR ---
ORAL CARE DONE ON THE PATIENT. PATIENT TOLERATED WELL.
--- NOTE | 2018-02-19 15:14 | NUR ---
WOUND DRESSING CHANGE ON THE LEFT LATERAL FOOT.
[2018-02-19 17:00] VITALS: BP 105/69
[2018-02-19] MEDS: DEXT 5% / NACL 0.45% 1,000 ML IV SCH (18:44)
--- NOTE | 2018-02-19 19:35 | NUR ---
ENDORSED PATIENT TO THE COMMUNICATION PROFESSOR RN. THE PATIENT IS AWAKE AND IN STABLE CONDITION WITH NO SIGNS OF DISTRESS.
--- NOTE | 2018-02-19 19:40 | NUR ---
RECEIVED PT FROM CLOTILDE RN PT AWAKE NON VERBAL TRACH TO T PIECE 99 IV ON RT HAND INFUSING WELL ON TELMETRY ST PT CONTRACTED WITH MULTIPLES WOUNS AND RACTAL BAG SMALL AMOUNT OF PASTE STOOL, G TUBE LEAKING ACCORDING TO CLOTILDE RUSSELL AWARE FEEDING WELL TOLERATED. REPOSITIONED KISER CATH DRAINING WELL YELLOW URINE INITIAL ASSESSMENT DONE
[2018-02-19 20:00] VITALS: BP 110/54
--- NOTE | 2018-02-19 22:00 | NUR ---
;PT HAS BEEN REPOSITIONED Q2H CONTRACTED SUCTIONED NECESSARY ON TELE ST
[2018-02-20] VITALS: BP 99/65
--- NOTE | 2018-02-20 | NUR ---
DRESSING CHANGED ORDER ON TELE ST REPOSITIONED SUCTIONED NECESSARY
[2018-02-20] MEDS: DEXT 5% / NACL 0.45% 1,000 ML IV SCH ×2 (00:56→15:46)
[2018-02-20] MEDS: HYDRAGUARD CREAM TP SCH ×2 (01:00→13:17)
[2018-02-20 04:00] VITALS: BP 102/67
--- NOTE | 2018-02-20 04:00 | NUR ---
G TUBE STILL LEAKING DR AWARE DRESSING CHAGED FEEDING WELL TOLERATED ON TELE ST NOT FEVER
[2018-02-20] MEDS: MEROPENEM 1,000 MG in NACL 0.9% 100 ML IV SCH ×3 (05:03→22:27)
--- NOTE | 2018-02-20 06:00 | NUR ---
PT OPEN EYES DOES NOT FOLLOW COMMANDS ON TELEMETRY ST G TUBE FEEDING WELL TOLERATED PT REPOSITIONED Q2H AND KISER CATH DRAINING WELL YELLOW URINE PASTE STOOL ON RECTAL BAG
--- NOTE | 2018-02-20 07:10 | NUR ---
RECEIVED PT FROM HOST/HOSTESS NURSEDEBORA, PT IS AWAKE AND LYING ON THE BED, PT IS ON CONTACT ISOLATION, ON A TRACH TO T PIECE, FALL PRECAUTION ENFORCED, BED IN LOW POSITION, YELLOW GOWN, YELLOW ARM BAND, AND YELLOW SIGN WERE PLACED. CALL LIGHT WITHIN REACH, KISER CATHETER IN PLACE, PT WAS SUCTIONED ON TRACH, RECTAL BAG IN PLACE, G-TUBE INTACT, PT HAS IV LINES ON THE RT HAND G.22 WITH NS INFUSING AT 75 ML/HR AND ON THE RT UA G.18 ON SALINE LOCK, INTACT. NO SOB AND NO SIGN OF DISTRESS NOTED. WILL CONTINUE TO MONITOR PT.
[2018-02-20 07:54] LABS: BASOPHILS # (AUTO) 0.1 K/uL (0.00-0.22); BASOPHILS % (AUTO) 0.6 % (0.0-2.0); EOSINOPHILS # (AUTO) 0.6 K/uL (0-0.4); EOSINOPHILS % (AUTO) 4.6 % (0.0-4.0); HEMATOCRIT 29.5 % (36-52); HEMOGLOBIN 8.8 g/dL (12.0-18.0); MEAN CORPUSCULAR HEMOGLOBIN 25 pg (27-31); MEAN CORPUSCULAR HGB CONC 30 g/dL (33-37); MEAN CORPUSCULAR VOLUME 84.6 fL (80-94); MONOCYTES # (AUTO) 1.4 K/uL (0.8-1.0); MONOCYTES % (AUTO) 10.5 % (1.7-9.3); NEUTROPHILS # (AUTO) 9.3 K/uL (1.8-7.7); NEUTROPHILS % (AUTO) 69.3 % (42.2-75.2); RED BLOOD CELL COUNT(AUTO) 3.49 MIL/uL (4.20-6.10); RED CELL DISTRIBUTION WIDTH 19.6 % (11.6-13.7); WHITE BLOOD COUNT (AUTO) 13.4 K/uL (4.8-10.8)
[2018-02-20 08:00] VITALS: BP 109/74
[2018-02-20 08:07] LABS: ALBUMIN 1.7 g/dL (3.4-5.0); ANION GAP 15.5 (8-16); CARBON DIOXIDE 23.3 mmol/L (21-32); POTASSIUM 3.8 mmol/L (3.5-5.1); TOTAL BILIRUBIN 0.2 mg/dL (0.0-1.0)
[2018-02-20 08:20] LABS: PLATELET COUNT (AUTO) 929 K/uL (140-450)
[2018-02-20] MEDS: MULTIVITAMIN/MINERALS 15 ML UDBTL GT SCH (09:25)
[2018-02-20] MEDS: LINEZOLID 600 MG TAB GT SCH ×2 (09:25→22:31)
[2018-02-20] MEDS: FAMOTIDINE 20 MG TAB GT SCH (09:25)
[2018-02-20] MEDS: POTASSIUM CHLORIDE 20% 40 MEQ/15 ML UDC GT SCH (09:26)
[2018-02-20] MEDS: ASCORBIC ACID 500 MG/5 ML ORASYR GT SCH ×2 (09:26→22:31)
[2018-02-20] MEDS: COLISTIMETHATE SODIUM 150 MG in NACL 0.9% 100 ML IV SCH ×2 (09:28→21:00)
[2018-02-20] MEDS: ENOXAPARIN 30 MG/0.3 ML SYR SUBQ SCH (09:34)
[2018-02-20 12:00] VITALS: BP_SYST 103; BP_SYST 109; BP_DIAS 69; BP_DIAS 74
--- NOTE | 2018-02-20 12:05 | NUR ---
VITALS TAKEN, GIVEN TO PIERRE JACOBS
[2018-02-20] MEDS: SKINTEGRITY HYDROGEL TP SCH ×2 (13:17→13:18)
--- NOTE | 2018-02-20 13:28 | NUR ---
PT IS AWAKE AND RT CAME TO ROOM AND ASSESSED AND SUCTIONED PT, IV MEDICATION GIVEN AND PT TOLERATED IT. NO SIGN OF DISTRESS NOTED AND WILL CONTINUE TO MONITOR PT.
--- NOTE | 2018-02-20 13:30 | NUR ---
WOUND ASSESSMENT DONE TO THE PT AND REINFORCED WITH DRESSINGS AND RECTAL BAG WAS CHANGED. WILL MONITOR PT.
--- NOTE | 2018-02-20 15:41 | NUR ---
02/20/18 RD FOLLOW UP COMPLETED PLEASE REFER TO NUTRITION ASSESSMENT UNDER CARE ACTIVITY FOR ESTIMATED NUTRITIONAL NEEDS. 1. CONTINUE JEVITY 1.2 @65 ML/HR WITH 1 PACK PROSOURCE TID -THIS WILL PROVIDE 1992 KCAL AND 119 GM OF PROTEIN, WHICH MEETS 100% OF ESTIMATED NEEDS. 2. RD TO FOLLOW-UP 2-3 DAYS, HIGH RISK JESSICA LEON, RD
[2018-02-20 16:00] VITALS: BP 105/58
--- NOTE | 2018-02-20 16:00 | NUR ---
LEFT 2 MESSAGES FOR KATHLEEN AT [facility] [place] TO CALL ME BACK ABOUT WHETHER SHE HAD AN ISOLATION BED FOR THIS PATIENT.
--- NOTE | 2018-02-20 16:31 | NUR ---
PT WAS REPOSITIONED AND VITAL SIGNS WAS TAKEN, PT WAS STARTED ON A NEW BAG OF FEEDING AND A NEW FEEDING TUBE, SIGNS ATTACHED. NO SIGN OF DISTRESS NOTED AND WILL CONTINUE TO MONITOR PT.
--- NOTE | 2018-02-20 18:52 | NUR ---
PT AWAKE AND QUIET. TRACH PATENT, DRY AND CLEAN. VITALS STABLE: 99%, PULSE 116, RATE 20, BREATH SOUNDS COARSE. COOL AEROSOL BOTTLE AT ADEQUATE LEVEL AND FUNCTIONING. DRAIN BAG EMPTY. SUCTIONED X1 FOR SCANT AMOUNT OF THICK WHITE SECRETIONS. AMBU BAG AT BEDSIDE.
--- NOTE | 2018-02-20 19:20 | NUR ---
RECEIVED ENDORSEMENT FROM ARLENE JAY DAYSHIFT NURSE FOR CONTINUITY OF CARE, PT IN STABLE CONDITION.
--- NOTE | 2018-02-20 19:20 | NUR ---
ENDORSED PT TO CNC MAINTENANCE TECHNICIAN NURSESANCHEZ FOR CONTINUITY OF CARE. PT IS AWAKE AND IS STABLE AT THIS TIME.
[2018-02-20 20:00] VITALS: BP 92/65
--- NOTE | 2018-02-20 21:00 | NUR ---
PT IN BED WITH FALLS PRECAUTIONS IN PLACE. PT HAS ON HEEL/BOOT PROTECTORS TO PREVENT BREAKDOWN OF HEELS. PT HAS TRACH AND IS GETTING 02 AT 6 LITERS OF HUMIDIFIED AIR VIA TRACH. PT ALSO HAS G TUBE WITH JEVITY RUNNING AT 65ML/HR. 60MLS OF RESIDUAL NOTED, AND FEEDING HELD TEMPORARILY. PT RECEIVED ALL MEDS DUE AT THIS TIME VIA GT.
--- NOTE | 2018-02-20 21:30 | NUR ---
PT V/S FOLLOWS T 99.8 P 119 R 16 B/P 92/65 02 98% WITH 6L OF HUMIDIFED AIR VIA TRACH. ORAL CARE PROVIDED.
--- NOTE | 2018-02-20 22:30 | NUR ---
PT TEMP RETAKEN, T 100, PT GIVEN COOLING MEASURES AND WAS SUCTIONED BY RT AT BEDSIDE. 02 RUNNING AT 94%.
[2018-02-20] MEDS ORDERED: COLISTIMETHATE SODIUM 150 MG VIAL ONE (23:00)
[2018-02-21] VITALS: BP 108/73
--- NOTE | 2018-02-21 00:30 | NUR ---
PT IN BED WITH ALL FALLS PRECAUTIONS IN PLACE. PT SUCTIONED X 2, GT RUNNING AT 65MLS/ ORDERED NO RESIDUAL NOTED, NO S/S OF PAIN OR DISTRESS NOTED V//S FOLLOWS T 97.6 P 116 R 16 B/P 108/73 02 96 WITH 6L VIA TRACH. IV SITE ON R HAND IN TACT AND RUNNING D5 AND 1/2 ORDERED IV SITE FLUSHED PATENT.
[2018-02-21] MEDS: HYDRAGUARD CREAM TP SCH ×2 (01:00→12:54)
[2018-02-21 04:00] VITALS: BP 111/75
[2018-02-21] MEDS: MEROPENEM 1,000 MG in NACL 0.9% 100 ML IV SCH ×2 (05:15→13:26)
--- NOTE | 2018-02-21 05:50 | NUR ---
AWAKE STABLE NO PULMONARY DISTRESS NOTED GOOD CHEST RISE DEEP TRACHEAL SUCTIN FOR SMALL THIN YELLOW SECRETIONS AIRWAY PATENT COOL AEROSOL TO TRACH FUNCTIONING WELL FIO2 28%/6 LPM HR 114 RR 20 INLINE SUCTION CATHETER CHANGED
--- NOTE | 2018-02-21 07:20 | NUR ---
GAVE REPORT TO LEATHA RN DAYSHIFT NURSE AT BEDSIDE, PT IN STABLE CONDITION.
--- NOTE | 2018-02-21 07:21 | NUR ---
RECEIVED BEDSIDE REPORT FROM LIFE SKILLS COORDINATOR VOLUNTEER NURSE. PATIENT IS ASLEEP, APHASIC. NO SIGNS OF DISTRESS ON TRACH TO AEROSOL MIST. FALL RISK, ASP PRECAUTIONS IN PLACE. CONTACT IN PLACE. NON AMBULATORY, PATIENT IS INCONTINENT. SKIN HAS SACRAL, BLANCA HIP, LOWER BUTTOCKS, UPPER HIP WOUNDS. HEEL BOOTS IN PLACE. WOUND BED. GTUBE IS CLEAN, DRY AND INTACT. INFUSING JEVITY AT 65ML/HR W H20 FLUSH 50ML Q4HR. R HAND 20G INFUSING D5 1/2NS AT 75ML, CLEAN, DRY AND INTACT. RUBA 18 SALINE LOCK, CLEAN, DRY AND INTACT. BED IN LOW POSITION. WILL CONTINUE TO MONITOR
[2018-02-21 08:00] VITALS: BP 97/69
[2018-02-21 08:01] LABS: BASOPHILS # (AUTO) 0.1 K/uL (0.00-0.22); BASOPHILS % (AUTO) 0.7 % (0.0-2.0); EOSINOPHILS # (AUTO) 0.7 K/uL (0-0.4); EOSINOPHILS % (AUTO) 4.7 % (0.0-4.0); HEMATOCRIT 27.7 % (36-52); HEMOGLOBIN 8.6 g/dL (12.0-18.0); LYMPHOCYTES # (AUTO) 1.7 K/uL (2.0-11.5); LYMPHOCYTES % (AUTO) 11.5 % (20.5-51.1); MEAN CORPUSCULAR HEMOGLOBIN 26 pg (27-31); MEAN CORPUSCULAR HGB CONC 31 g/dL (33-37); MEAN CORPUSCULAR VOLUME 83.6 fL (80-94); MONOCYTES # (AUTO) 1.1 K/uL (0.8-1.0); NEUTROPHILS # (AUTO) 10.7 K/uL (1.8-7.7); NEUTROPHILS % (AUTO) 75.1 % (42.2-75.2); RED BLOOD CELL COUNT(AUTO) 3.31 MIL/uL (4.20-6.10); RED CELL DISTRIBUTION WIDTH 19.5 % (11.6-13.7); WHITE BLOOD COUNT (AUTO) 14.3 K/uL (4.8-10.8)
[2018-02-21 08:33] LABS: ALBUMIN 1.7 g/dL (3.4-5.0); ANION GAP 14.5 (8-16); CARBON DIOXIDE 23.3 mmol/L (21-32); POTASSIUM 3.8 mmol/L (3.5-5.1); TOTAL BILIRUBIN 0.2 mg/dL (0.0-1.0)
--- NOTE | 2018-02-21 09:00 | NUR ---
SPOKE WITH KATHLEEN FROM [facility] [place] . SHE SAID SHE IS DOING SOME BED CHANGES AND COULD TAKE THE PATIENT TODAY. SHE WOULD CALL LATER. I FAXED HER THE MICROS AND MED LIST TO HER AT [phone].
--- NOTE | 2018-02-21 09:10 | NUR ---
CALLED [facility] FOR AIR CONTROL BOARD SYSTEM ERROR, THEY SAID A WOOL CLASSER WILL COME AND FIX IT OR EXCHANGE THE BED. CONFIRMATION NUMBER IS [id number]
[2018-02-21 09:21] LABS: PLATELET COUNT (AUTO) 923 K/uL (140-450)
[2018-02-21] MEDS: ASCORBIC ACID 500 MG/5 ML ORASYR GT SCH (09:44)
[2018-02-21] MEDS: FAMOTIDINE 20 MG TAB GT SCH (09:45)
[2018-02-21] MEDS: LINEZOLID 600 MG TAB GT SCH (09:45)
[2018-02-21] MEDS: POTASSIUM CHLORIDE 20% 40 MEQ/15 ML UDC GT SCH (09:48)
[2018-02-21] MEDS: MULTIVITAMIN/MINERALS 15 ML UDBTL GT SCH (09:48)
[2018-02-21] MEDS: COLISTIMETHATE SODIUM 150 MG in NACL 0.9% 100 ML IV SCH (09:49)
[2018-02-21] MEDS: ENOXAPARIN 30 MG/0.3 ML SYR SUBQ SCH (10:04)
--- NOTE | 2018-02-21 10:08 | NUR ---
CHECKED GTUBE PLACEMENT USING SWOOSH, RESIDUAL 60, PLACED BACK IN. WILL CHECK RESIDUAL AGAIN IN AN HOUR. CRUSHED AND ADMINISTERED MEDS. PATIENT TOLERATED WELL. FEEDING STARTED AGAIN. REMOVED IV ON RUBA, NOT PATIENT. TIP INTACT. BED IN LOW POSITION. BED ALARM ON. WILL CONTINUE TO MONITOR THE PATIENT
[2018-02-21] MEDS: DEXT 5% / NACL 0.45% 1,000 ML IV SCH (10:44)
--- NOTE | 2018-02-21 11:10 | NUR ---
STOPPED FEEDING. RESIDUAL 110.
[2018-02-21] MEDS ORDERED: FLUC100T1 PO (11:49)
[2018-02-21] MEDS ORDERED: MER1I IV (11:49)
[2018-02-21] MEDS ORDERED: LINE600T GT (11:49)
[2018-02-21] MEDS ORDERED: COLI1POW (11:51)
[2018-02-21 12:00] VITALS: BP 101/75
--- NOTE | 2018-02-21 12:39 | NUR ---
RECEIVED A CALL FROM DANO [place] [facility] CAN GO TO ROOM 24A UNDER DR. GALLEGOS ANYTIME. I CALLED JUAN JOSE ITEM REPAIR MANAGER NURSE AND INFORMED HER I CALLED ARNOLD FROM [facility] AND GAVE REPORT AND SHE SAID IT WAS OK TO FAX RECENT PROGRESS NOTES, MICROS AND MEDICATION LIST TO HER AT [phone],WHICH I DID. THE AUTH FOR TRANSPORT IS [id number].
[2018-02-21] MEDS: SKINTEGRITY HYDROGEL TP SCH ×2 (12:54)
--- NOTE | 2018-02-21 13:02 | NUR ---
CALLED [facility] AND SPOKE WITH ELENA AND SET UP TRANSPORT FOR 2P.Zeke INGRAM RN CHARGE NURSE AWARE. SHE SAID SHE WOULD HAVE RT DEEP SUCTION PATIENT PRIOR TO TRANSFER.
--- NOTE | 2018-02-21 13:30 | NUR ---
GAVE REPORT TO PIERRE APARICIO AT [facility] [place]. ANSWERED ALL QUESTIONS AT THIS TIME. GAVE CALL BACK NUMBER.
--- NOTE | 2018-02-21 14:30 | NUR ---
GAVE REPORT TO [facility] STAFF. PATIENT LEFT W KISER AND RECTAL BAG REQUESTED BY [facility]. ID BANDS REMOVED. TELE REMOVED. GTUBE LOCKED. WOUNDS DRESSINGS ARE INTACT. IV REMOVED, TIP INTACT. VACCINES ARE UP TO DATE. PATIENT NON VERBAL AND UNABLE TO VERBALIZE UNDERSTANDING. EDUCATED DR SANTIAGO THROUGH THE PHONE. PATIENT LEFT IN STABLE CONDITION. VIA [employer]
[2018-02-22] MEDS ORDERED: FOAM DRESSING TP SCH (09:00)
== END 2018-02-21 14:30 | DRG 720 ==
LOC: MED 12:53 → MIC 16:04 → MTU 02-14 17:50
PROVIDERS: ADMIT Hospitalist; ATTEND Hospitalist
PROC: 30233N1 Transfusion of Nonautologous Red Blood Cells into Peripheral Vein, Percutaneous Approach (ICD-10-PCS; principal; 2018-02-13)
DX: A41.9 Sepsis, unspecified organism (principal); E43 Unspecified severe protein-calorie malnutrition; G93.40 Encephalopathy, unspecified; B45.1 Cerebral cryptococcosis; J96.11 Chronic respiratory failure with hypoxia; L89.154 Pressure ulcer of sacral region, stage 4; L89.214 Pressure ulcer of right hip, stage 4; L89.894 Pressure ulcer of other site, stage 4; L89.224 Pressure ulcer of left hip, stage 4; L89.324 Pressure ulcer of left buttock, stage 4; L89.314 Pressure ulcer of right buttock, stage 4; R53.2 Functional quadriplegia; I11.9 Hypertensive heart disease without heart failure; N39.0 Urinary tract infection, site not specified; E11.9 Type 2 diabetes mellitus without complications; R13.10 Dysphagia, unspecified; D63.8 Anemia in other chronic diseases classified elsewhere; E87.6 Hypokalemia; B95.62 Methicillin resistant Staphylococcus aureus infection as the cause of diseases classified elsewhere; B96.1 Klebsiella pneumoniae [K. pneumoniae] as the cause of diseases classified elsewhere; B96.4 Proteus (mirabilis) (morganii) as the cause of diseases classified elsewhere; Z16.12 Extended spectrum beta lactamase (ESBL) resistance; B95.2 Enterococcus as the cause of diseases classified elsewhere; Z93.0 Tracheostomy status; Z93.1 Gastrostomy status; Z86.73 Personal history of transient ischemic attack (TIA), and cerebral infarction without residual deficits; Z88.1 Allergy status to other antibiotic agents; Z79.899 Other long term (current) drug therapy; Z68.1 Body mass index [BMI] 19.9 or less, adult
CPT/HCPCS: 36415; 71045; 80053; 80202; 81001; 83036; 83540; 83605; 83735; 83880; 84100; 84484; 85025; 85610; 85730; 86360; 86702; 86886; 86900; 86901; 86920; 87040; 87070; 87081; 87086; 87186; 87205; 89220; 93005; 96361; 96365; 96375; 99285; A6248; J0770; J1650; J1956; J2001; J2060; J2185; J2270; J2543; J3370; J3480; J7030; J7042; J7060; P9016; Q0092

== ENCOUNTER 2018-03-30 00:30 | Inpatient (IN) | payer OTHER ==
[2018-03-30] VITALS (7 sets, daily range): BP systolic 90–104; BP diastolic 54–68
[~2018-03-30] VITALS: Ht 162.6 cm; Wt 45.4 kg
[~2018-03-30 00:30] MED LIST: COLI1POW; DARBEPOETIN ALFA SQ; DOCU-299 PO; FLUC100T1 PO; HYDR-5092 PO; LANS15EC28 PO; LINE600T GT; MER1I IV; METO25TA PO
[2018-03-30] MEDS ORDERED: NACL 0.9% 500 ML IV ONE (00:35)
[2018-03-30] MEDS ORDERED: ACETAMINOPHEN 650 MG SUPP RC ONE (01:35)
[2018-03-30 01:44] LABS: BASOPHILS # (AUTO) 0.2 K/uL (0.00-0.22); BASOPHILS % (AUTO) 0.7 % (0.0-2.0); EOSINOPHILS # (AUTO) 0.1 K/uL (0-0.4); EOSINOPHILS % (AUTO) 0.2 % (0.0-4.0); MEAN CORPUSCULAR HEMOGLOBIN 23 pg (27-31); MEAN CORPUSCULAR HGB CONC 28 g/dL (33-37); MEAN CORPUSCULAR VOLUME 83.7 fL (80-94); MONOCYTES # (AUTO) 1.3 K/uL (0.8-1.0); MONOCYTES % (AUTO) 3.8 % (1.7-9.3); NEUTROPHILS # (AUTO) 31.8 K/uL (1.8-7.7); NEUTROPHILS % (AUTO) 89.7 % (42.2-75.2); RED BLOOD CELL COUNT(AUTO) 2.25 MIL/uL (4.20-6.10); RED CELL DISTRIBUTION WIDTH 21.1 % (11.6-13.7)
[2018-03-30 01:46] LABS: ALBUMIN 1.8 g/dL (3.4-5.0); ANION GAP 17.1 (8-16); CARBON DIOXIDE 25.4 mmol/L (21-32); POTASSIUM 3.5 mmol/L (3.5-5.1); TOTAL BILIRUBIN 0.2 mg/dL (0.0-1.0)
[2018-03-30 01:48] LABS: PROTHROMBIN TIME 11.8 secs (10.8-13.4)
[2018-03-30 02:04] LABS: HEMOGLOBIN 5.3 g/dL (12.0-18.0); WHITE BLOOD COUNT (AUTO) 35.4 K/uL (4.8-10.8)
[2018-03-30 02:05] LABS: PLATELET COUNT (AUTO) 943 K/uL (140-450)
[2018-03-30] MEDS ORDERED: LEVOFLOXACIN 500 MG/D5W PREMIX 100 ML IV ONE (02:05)
[2018-03-30] MEDS ORDERED: PIPERACILLIN/TAZOBACTAM 3.375 GM in DEXTROSE 5% 50 ML IV ONE (02:05)
[2018-03-30] MEDS ORDERED: NACL 0.9% 1,000 ML IV ONE (02:05)
[2018-03-30 02:06] LABS: HEMATOCRIT 15.9 % (36-52); LYMPHOCYTES % (AUTO) 5.6 % (20.5-51.1)
[2018-03-30 02:16] LABS: APPEARANCE,URINE CLOUDY (CLEAR); BILIRUBIN,URINE NEGATIVE (NEGATIVE); BLOOD, URINE NEGATIVE (NEGATIVE); COLOR,URINE YELLOW (YELLOW); LEUKOCYTE ESTERASE ,URINE 4+ (NEGATIVE); NITRITE, URINE NEGATIVE (NEGATIVE); PH,URINE >=9.0 (5.0-9.0); UGLUCOSE NEGATIVE (NEGATIVE)
[2018-03-30 02:17] LABS: RBC,URINE 0-5 (RARE) /HPF (0-5); TRIPLE PHOSPHATE CRYSTAL,UR 30-50 /HPF (None Seen); WBC,URINE TOO MANY TO COUNT /HPF (0-5)
[2018-03-30] MEDS ORDERED: NACL 0.9% 1,000 ML IV SCH (02:22)
[2018-03-30] MEDS ORDERED: ONDANSETRON 4 MG/2 ML VIAL IVP PRN (02:25)
[2018-03-30] MEDS ORDERED: ACETAMINOPHEN 325 MG TAB PO PRN (02:25)
[2018-03-30] MEDS ORDERED: ALBUTEROL 0.083% 2.5 MG/3 ML NEBU INH PRN ×2 (02:25→10:25)
[2018-03-30] MEDS ORDERED: PIPERACILLIN/TAZOBACTAM 3.375 GM VIAL IV ONE (03:33)
[2018-03-30] MEDS ORDERED: LANSOPRAZOLE 30 MG CAPDR GT SCH (06:30)
[2018-03-30] MEDS ORDERED: IPRATROPIUM 0.02% 0.5 MG/2.5 ML NEBU INH SCH (07:00)
[2018-03-30] MEDS: METOPROLOL 25 MG TAB GT SCH ×2 (09:00→21:00)
[2018-03-30] MEDS ORDERED: VANCOMYCIN PER PHARMACY MC PRN (12:40)
[2018-03-30] MEDS ORDERED: METOPROLOL TARTRATE 25 MG PO SCH (13:00)
[2018-03-30] MEDS ORDERED: PIPER/TAZO 3.375GM/D5W PREMIX 50 ML IV SCH (13:00)
[2018-03-30] MEDS ORDERED: PIPERACILLIN/TAZOBACTAM 3.375 GM in DEXTROSE 5% 50 ML IV SCH (13:00)
[2018-03-30] MEDS: ALBUTEROL SULFATE/IPRATROPIU 3 ML SOL IH SCH (13:27)
[2018-03-30] MEDS ORDERED: VANCOMYCIN 500 MG in DEXTROSE 5% 100 ML IV SCH (14:00)
[2018-03-30] MEDS: ASCORBIC ACID 500 MG/5 ML ORASYR GT SCH (16:00)
[2018-03-30] MEDS: NACL 0.45% 1,000 ML IV SCH (16:30)
[2018-03-30] MEDS ORDERED: METOPROLOL 25 MG TAB GT SCH (17:00)
[2018-03-30] MEDS: PANTOPRAZOLE 40 MG INJ VIAL IVP SCH (23:46)
[2018-03-31] VITALS: BP 106/68
[2018-03-31] MEDS: ALBUTEROL SULFATE/IPRATROPIU 3 ML SOL IH SCH ×4 (01:13→20:27)
[2018-03-31] MEDS: NACL 0.45% 1,000 ML IV SCH ×2 (02:30→12:40)
[2018-03-31 04:00] VITALS: BP 116/76
[2018-03-31 05:33] LABS: RED BLOOD CELL COUNT(AUTO) 3.47 MIL/uL (4.20-6.10); WHITE BLOOD COUNT (AUTO) 27.4 K/uL (4.8-10.8)
[2018-03-31 05:34] LABS: HEMATOCRIT 29.1 % (36-52); HEMOGLOBIN 8.9 g/dL (12.0-18.0); MEAN CORPUSCULAR HEMOGLOBIN 26 pg (27-31); MEAN CORPUSCULAR HGB CONC 31 g/dL (33-37); MEAN CORPUSCULAR VOLUME 83.7 fL (80-94); RED CELL DISTRIBUTION WIDTH 17.5 % (11.6-13.7)
[2018-03-31 05:37] LABS: LYMPHOCYTES % (MANUAL) 1 % (20-46); MONOCYTES % (MANUAL) 0 % (5-12); PLATELET COUNT (AUTO) 877 K/uL (140-450)
[2018-03-31 06:50] LABS: ALBUMIN 1.7 g/dL (3.4-5.0); CARBON DIOXIDE 20.3 mmol/L (21-32); CREATININE 0.9 mg/dL (0.7-1.3); MAGNESIUM 1.7 mg/dL (1.8-2.4); POTASSIUM 3.3 mmol/L (3.5-5.1); TOTAL BILIRUBIN 0.5 mg/dL (0.0-1.0)
[2018-03-31 08:00] VITALS: BP 120/78
[2018-03-31] MEDS ORDERED: FLUCONAZOLE 400 MG PO SCH (09:00)
[2018-03-31] MEDS: LINEZOLID 600MG PREMIX 300 ML IV SCH ×2 (09:27→21:06)
[2018-03-31] MEDS: ASCORBIC ACID 500 MG/5 ML ORASYR GT SCH ×2 (09:28→17:00)
[2018-03-31] MEDS: PANTOPRAZOLE 40 MG INJ VIAL IVP SCH ×2 (09:28→21:07)
[2018-03-31] MEDS: ZINC SULF 220 MG CAP PO SCH (09:29)
[2018-03-31] MEDS: FLUCONAZOLE 100 MG TAB PO SCH (09:29)
[2018-03-31] MEDS: METOPROLOL 25 MG TAB GT SCH ×2 (09:29→21:06)
[2018-03-31 09:44] LABS: BASOPHILS % (AUTO) 0.2 % (0.0-2.0); EOSINOPHILS % (AUTO) 0.1 % (0.0-4.0); HEMATOCRIT 28.4 % (36-52); HEMOGLOBIN 8.6 g/dL (12.0-18.0); LYMPHOCYTES # (AUTO) 1.1 K/uL (2.0-11.5); LYMPHOCYTES % (AUTO) 4.6 % (20.5-51.1); MEAN CORPUSCULAR HEMOGLOBIN 26 pg (27-31); MEAN CORPUSCULAR HGB CONC 30 g/dL (33-37); MEAN CORPUSCULAR VOLUME 85.6 fL (80-94); MONOCYTES # (AUTO) 0.7 K/uL (0.8-1.0); MONOCYTES % (AUTO) 2.7 % (1.7-9.3); NEUTROPHILS # (AUTO) 22.7 K/uL (1.8-7.7); NEUTROPHILS % (AUTO) 92.4 % (42.2-75.2); RED BLOOD CELL COUNT(AUTO) 3.31 MIL/uL (4.20-6.10); RED CELL DISTRIBUTION WIDTH 17.7 % (11.6-13.7); WHITE BLOOD COUNT (AUTO) 24.6 K/uL (4.8-10.8)
[2018-03-31 09:53] LABS: PLATELET COUNT (AUTO) 824 K/uL (140-450)
[2018-03-31 12:00] VITALS: BP 111/72
[2018-03-31] MEDS ORDERED: THERAHONEY GEL 42.5 GM TP PRN (14:15)
[2018-03-31] MEDS ORDERED: HYDRAGUARD CREAM TP PRN (14:15)
[2018-03-31] MEDS ORDERED: POTASSIUM CHL 40 MEQ/ D5-1/2NS 1,000 ML IV SCH (14:20)
[2018-03-31] MEDS: DEXTROSE 5% 1,000 ML IV SCH (14:20)
[2018-03-31] MEDS ORDERED: FOAM DRESSING TP PRN (14:20)
[2018-03-31] MEDS ORDERED: MAG SULF 2000 MG/WATER PREMIX 50 ML IV ONE (14:20)
[2018-03-31] MEDS ORDERED: POTASSIUM CHLORIDE IV SCH (15:15)
[2018-03-31] MEDS ORDERED: MAGNESIUM SULFATE IV SCH (15:15)
[2018-03-31] MEDS ORDERED: NACL 0.9% IV SCH (15:15)
[2018-03-31 16:00] VITALS: BP 105/59
[2018-03-31 17:20] LABS: FREE T4 (FREE THYROXINE) 1.09 ng/dL (0.76-1.46)
[2018-03-31 20:00] VITALS: BP 106/60
[2018-03-31] MEDS: MEROPENEM 1,000 MG in NACL 0.9% 100 ML IV SCH (21:06)
[2018-03-31] MEDS: LACTULOSE 20 GM/30 ML UDC PO SCH (21:07)
[2018-04-01] VITALS: BP 110/60
[2018-04-01] MEDS: DEXTROSE 5% 1,000 ML IV SCH ×3 (00:20→22:00)
[2018-04-01] MEDS: HYDRAGUARD CREAM TP SCH ×2 (01:00→13:09)
[2018-04-01] MEDS: ALBUTEROL SULFATE/IPRATROPIU 3 ML SOL IH SCH ×4 (01:59→19:26)
[2018-04-01 04:00] VITALS: BP 110/60
[2018-04-01] MEDS: MEROPENEM 1,000 MG in NACL 0.9% 100 ML IV SCH ×3 (05:00→20:11)
[2018-04-01 06:39] LABS: HEMOGLOBIN 8.4 g/dL (12.0-18.0); MEAN CORPUSCULAR HEMOGLOBIN 26 pg (27-31); MEAN CORPUSCULAR HGB CONC 31 g/dL (33-37); MEAN CORPUSCULAR VOLUME 84.1 fL (80-94); RED BLOOD CELL COUNT(AUTO) 3.21 MIL/uL (4.20-6.10); RED CELL DISTRIBUTION WIDTH 17.9 % (11.6-13.7); WHITE BLOOD COUNT (AUTO) 20.7 K/uL (4.8-10.8)
[2018-04-01 06:46] LABS: FOLIC ACID > 20.00 ng/mL (>3.0)
[2018-04-01 08:00] VITALS: BP 115/70
[2018-04-01 08:14] LABS: ANION GAP 19.5 (8-16); CARBON DIOXIDE 21.2 mmol/L (21-32); POTASSIUM 2.7 mmol/L (3.5-5.1)
[2018-04-01 08:15] LABS: ALBUMIN 1.7 g/dL (3.4-5.0); CREATININE 0.9 mg/dL (0.7-1.3); TOTAL BILIRUBIN 0.4 mg/dL (0.0-1.0)
[2018-04-01 08:24] LABS: PLATELET COUNT (AUTO) 891 K/uL (140-450)
[2018-04-01 09:06] LABS: BASOPHILS % (MANUAL) 0 % (0-2); EOSINOPHILS % (MANUAL) 0 % (0-4); LYMPHOCYTES % (MANUAL) 6 % (20-46); MONOCYTES % (MANUAL) 4 % (5-12)
[2018-04-01] MEDS: LINEZOLID 600MG PREMIX 300 ML IV SCH ×2 (09:40→21:09)
[2018-04-01] MEDS: PANTOPRAZOLE 40 MG INJ VIAL IVP SCH ×2 (09:43→21:08)
[2018-04-01] MEDS: FLUCONAZOLE 100 MG TAB PO SCH (09:44)
[2018-04-01] MEDS: ZINC SULF 220 MG CAP PO SCH (09:49)
[2018-04-01] MEDS: CHLORHEXADINE GLUC 2% CLOTH TP SCH (09:49)
[2018-04-01] MEDS: SENNA 8.6 MG TAB PO SCH (09:49)
[2018-04-01] MEDS: LACTULOSE 20 GM/30 ML UDC PO SCH ×2 (09:49→21:08)
[2018-04-01] MEDS: METOPROLOL 25 MG TAB GT SCH ×2 (09:49→21:08)
[2018-04-01] MEDS: MUPIROCIN CA NASAL 2% 1GM TUBE NS SCH ×2 (09:50→21:09)
[2018-04-01] MEDS: ASCORBIC ACID 500 MG/5 ML ORASYR GT SCH ×2 (09:50→16:53)
[2018-04-01] MEDS ORDERED: POTASSIUM CHLORIDE 40 MEQ, LIDOCAINE MPF 1% - 5 mL VIAL 25 MG in NACL 0.9% 250 ML IV SCH (10:00)
[2018-04-01 12:00] VITALS: BP 106/68
[2018-04-01] MEDS: FOAM DRESSING TP SCH (13:09)
[2018-04-01] MEDS: THERAHONEY GEL 42.5 GM TP SCH (13:10)
[2018-04-01 16:00] VITALS: BP 117/79
[2018-04-01 18:59] LABS: ANION GAP 16.6 (8-16); CARBON DIOXIDE 22.4 mmol/L (21-32); CREATININE 0.8 mg/dL (0.7-1.3)
[2018-04-01 20:00] VITALS: BP 117/72
[2018-04-01 23:20] LABS: FERRITIN 3306 ng/mL (30-400)
[2018-04-02] VITALS: BP 112/77
[2018-04-02] MEDS: ALBUTEROL SULFATE/IPRATROPIU 3 ML SOL IH SCH ×4 (00:37→19:22)
[2018-04-02] MEDS: HYDRAGUARD CREAM TP SCH ×2 (01:00→13:00)
[2018-04-02 04:00] VITALS: BP 116/77
[2018-04-02] MEDS: MEROPENEM 1,000 MG in NACL 0.9% 100 ML IV SCH ×3 (05:28→20:38)
[2018-04-02] MEDS: DEXTROSE 5% 1,000 ML IV SCH ×2 (06:20→09:34)
[2018-04-02 07:43] LABS: HEMOGLOBIN 8.5 g/dL (12.0-18.0); MEAN CORPUSCULAR HEMOGLOBIN 26 pg (27-31); MEAN CORPUSCULAR HGB CONC 30 g/dL (33-37); MEAN CORPUSCULAR VOLUME 84.9 fL (80-94); RED BLOOD CELL COUNT(AUTO) 3.29 MIL/uL (4.20-6.10); RED CELL DISTRIBUTION WIDTH 18.5 % (11.6-13.7); WHITE BLOOD COUNT (AUTO) 17.7 K/uL (4.8-10.8)
[2018-04-02 07:48] LABS: PLATELET COUNT (AUTO) 755 K/uL (140-450)
[2018-04-02 08:00] VITALS: BP 118/79
[2018-04-02 08:17] LABS: ALBUMIN 1.6 g/dL (3.4-5.0); ANION GAP 19.5 (8-16); CREATININE 0.6 mg/dL (0.7-1.3); TOTAL BILIRUBIN 0.3 mg/dL (0.0-1.0)
[2018-04-02 08:32] LABS: POTASSIUM 2.5 mmol/L (3.5-5.1)
[2018-04-02 08:44] LABS: BASOPHILS % (MANUAL) 0 % (0-2); EOSINOPHILS % (MANUAL) 4 % (0-4); LYMPHOCYTES % (MANUAL) 5 % (20-46); MONOCYTES % (MANUAL) 4 % (5-12)
[2018-04-02] MEDS: SENNA 8.6 MG TAB PO SCH (09:00)
[2018-04-02] MEDS: LACTULOSE 20 GM/30 ML UDC PO SCH ×2 (09:00→21:46)
[2018-04-02] MEDS ORDERED: COMMUNICATION ORDER MC PRN (09:05)
[2018-04-02] MEDS: LINEZOLID 600MG PREMIX 300 ML IV SCH ×2 (09:35→23:15)
[2018-04-02] MEDS: ZINC SULF 220 MG CAP PO SCH (09:42)
[2018-04-02] MEDS: FLUCONAZOLE 100 MG TAB PO SCH (09:46)
[2018-04-02] MEDS: METOPROLOL 25 MG TAB GT SCH ×3 (09:46→21:45)
[2018-04-02] MEDS: PANTOPRAZOLE 40 MG INJ VIAL IVP SCH ×2 (09:46→21:45)
[2018-04-02] MEDS: MUPIROCIN CA NASAL 2% 1GM TUBE NS SCH ×2 (09:48→21:46)
[2018-04-02] MEDS ORDERED: MAGNESIUM SULFATE IV SCH (10:00)
[2018-04-02] MEDS ORDERED: NACL 0.9% IV SCH ×2 (10:00→19:30)
[2018-04-02] MEDS ORDERED: POTASSIUM CHLORIDE IV SCH (10:00)
[2018-04-02] MEDS: CHLORHEXADINE GLUC 2% CLOTH TP SCH (10:06)
[2018-04-02] MEDS: ASCORBIC ACID 500 MG/5 ML ORASYR GT SCH ×2 (10:06→17:12)
[2018-04-02 12:00] VITALS: BP 107/67
[2018-04-02] MEDS: THERAHONEY GEL 42.5 GM TP SCH (13:00)
[2018-04-02] MEDS: FOAM DRESSING TP SCH (13:00)
[2018-04-02 16:00] VITALS: BP 103/64
[2018-04-02] MEDS ORDERED: TOBRAMYCIN PER PHARMACY MC PRN (16:25)
[2018-04-02] MEDS ORDERED: TOBRAMYCIN IV SCH (19:30)
[2018-04-02 20:00] VITALS: BP 113/71
[2018-04-02] MEDS ORDERED: TOBRAMYCIN 80 MG/2 ML VIAL ONE (21:01)
[2018-04-03] VITALS: BP 93/61
[2018-04-03] MEDS: HYDRAGUARD CREAM TP SCH ×2 (01:00→13:00)
[2018-04-03] MEDS: ALBUTEROL SULFATE/IPRATROPIU 3 ML SOL IH SCH ×4 (01:43→19:52)
[2018-04-03] MEDS: DEXTROSE 5% 1,000 ML IV SCH ×3 (03:22→20:37)
[2018-04-03 04:00] VITALS: BP 112/66
[2018-04-03] MEDS: MEROPENEM 1,000 MG in NACL 0.9% 100 ML IV SCH ×3 (04:35→20:37)
[2018-04-03 08:00] VITALS: BP 114/70
[2018-04-03 08:14] LABS: HEMATOCRIT 24.6 % (36-52); HEMOGLOBIN 7.7 g/dL (12.0-18.0); MEAN CORPUSCULAR HEMOGLOBIN 26 pg (27-31); MEAN CORPUSCULAR HGB CONC 31 g/dL (33-37); MEAN CORPUSCULAR VOLUME 83.3 fL (80-94); PLATELET COUNT (AUTO) 747 K/uL (140-450); RED BLOOD CELL COUNT(AUTO) 2.95 MIL/uL (4.20-6.10); RED CELL DISTRIBUTION WIDTH 18.3 % (11.6-13.7); WHITE BLOOD COUNT (AUTO) 20.2 K/uL (4.8-10.8)
[2018-04-03 08:32] LABS: EOSINOPHILS % (MANUAL) 3 % (0-4); LYMPHOCYTES % (MANUAL) 3 % (20-46); MONOCYTES % (MANUAL) 2 % (5-12)
[2018-04-03] MEDS: ZINC SULF 220 MG CAP PO SCH (09:24)
[2018-04-03] MEDS: PANTOPRAZOLE 40 MG INJ VIAL IVP SCH ×2 (09:24→20:37)
[2018-04-03] MEDS: LINEZOLID 600MG PREMIX 300 ML IV SCH ×2 (09:24→20:37)
[2018-04-03] MEDS: LACTULOSE 20 GM/30 ML UDC PO SCH (09:24)
[2018-04-03] MEDS: SENNA 8.6 MG TAB PO SCH (09:24)
[2018-04-03] MEDS: MUPIROCIN CA NASAL 2% 1GM TUBE NS SCH ×2 (09:25→20:36)
[2018-04-03] MEDS: ASCORBIC ACID 500 MG/5 ML ORASYR GT SCH ×2 (09:25→17:00)
[2018-04-03] MEDS: CHLORHEXADINE GLUC 2% CLOTH TP SCH (09:53)
[2018-04-03 10:10] LABS: CARBON DIOXIDE 22.5 mmol/L (21-32); CREATININE 0.6 mg/dL (0.7-1.3); TOTAL BILIRUBIN 0.2 mg/dL (0.0-1.0)
[2018-04-03 10:11] LABS: ALBUMIN 1.5 g/dL (3.4-5.0)
[2018-04-03 10:13] LABS: ANION GAP 15.6 (8-16); POTASSIUM 2.1 mmol/L (3.5-5.1)
[2018-04-03] MEDS ORDERED: POTASSIUM CHLORIDE 10 MEQ TABER PO SCH (11:00)
[2018-04-03] MEDS: KCL 20 MEQ/WATER INJ PREMIX 100 ML IV SCH ×2 (11:10→14:25)
[2018-04-03 12:00] VITALS: BP 116/70
[2018-04-03] MEDS: FOAM DRESSING TP SCH (13:00)
[2018-04-03] MEDS: THERAHONEY GEL 42.5 GM TP SCH (13:00)
[2018-04-03] MEDS: TOBRAMYCIN IV SCH (15:00)
[2018-04-03] MEDS: DEXTROSE 5% IV SCH (15:00)
[2018-04-03 16:00] VITALS: BP 111/68
[2018-04-03] MEDS ORDERED: POTASSIUM CHLORIDE 20% 40 MEQ/15 ML UDC GT SCH (16:00)
[2018-04-03 20:00] VITALS: BP 109/64
[2018-04-03] MEDS: LOPERAMIDE 1 MG/5 ML ORASYR GT SCH (20:36)
[2018-04-03] MEDS: METOPROLOL 25 MG TAB GT SCH (20:37)
[2018-04-04] VITALS: BP 101/69
[2018-04-04] MEDS: HYDRAGUARD CREAM TP SCH ×2 (00:22→13:31)
[2018-04-04] MEDS: ALBUTEROL SULFATE/IPRATROPIU 3 ML SOL IH SCH ×4 (01:18→20:14)
[2018-04-04 04:00] VITALS: BP 95/59
[2018-04-04] MEDS: MEROPENEM 1,000 MG in NACL 0.9% 100 ML IV SCH ×3 (05:13→20:48)
[2018-04-04] MEDS: LOPERAMIDE 1 MG/5 ML ORASYR GT SCH ×3 (05:13→20:49)
[2018-04-04 06:58] LABS: BASOPHILS % (AUTO) 0.2 % (0.0-2.0); EOSINOPHILS # (AUTO) 1.2 K/uL (0-0.4); EOSINOPHILS % (AUTO) 5.7 % (0.0-4.0); HEMATOCRIT 28.1 % (36-52); HEMOGLOBIN 8.6 g/dL (12.0-18.0); LYMPHOCYTES # (AUTO) 1.3 K/uL (2.0-11.5); LYMPHOCYTES % (AUTO) 6.6 % (20.5-51.1); MEAN CORPUSCULAR HEMOGLOBIN 26 pg (27-31); MEAN CORPUSCULAR HGB CONC 31 g/dL (33-37); MEAN CORPUSCULAR VOLUME 84.8 fL (80-94); MONOCYTES # (AUTO) 0.8 K/uL (0.8-1.0); MONOCYTES % (AUTO) 3.9 % (1.7-9.3); NEUTROPHILS # (AUTO) 17.2 K/uL (1.8-7.7); NEUTROPHILS % (AUTO) 83.6 % (42.2-75.2); RED BLOOD CELL COUNT(AUTO) 3.31 MIL/uL (4.20-6.10); RED CELL DISTRIBUTION WIDTH 19.2 % (11.6-13.7); WHITE BLOOD COUNT (AUTO) 20.5 K/uL (4.8-10.8)
[2018-04-04 07:25] LABS: PLATELET COUNT (AUTO) 828 K/uL (140-450)
[2018-04-04 08:00] VITALS: BP 106/67
[2018-04-04] MEDS: DEXTROSE 5% 1,000 ML IV SCH (08:13)
[2018-04-04 08:33] LABS: CARBON DIOXIDE 24.6 mmol/L (21-32); CREATININE 0.6 mg/dL (0.7-1.3); TOTAL BILIRUBIN 0.2 mg/dL (0.0-1.0)
[2018-04-04 08:34] LABS: ALBUMIN 1.6 g/dL (3.4-5.0)
[2018-04-04 08:35] LABS: ANION GAP 14.1 (8-16); POTASSIUM 2.7 mmol/L (3.5-5.1)
[2018-04-04] MEDS: PANTOPRAZOLE 40 MG INJ VIAL IVP SCH ×2 (09:14→20:48)
[2018-04-04] MEDS: CHLORHEXADINE GLUC 2% CLOTH TP SCH (09:15)
[2018-04-04] MEDS: ASCORBIC ACID 500 MG/5 ML ORASYR GT SCH ×2 (09:15→16:21)
[2018-04-04] MEDS: METOPROLOL 25 MG TAB GT SCH ×2 (09:15→20:48)
[2018-04-04] MEDS: MUPIROCIN CA NASAL 2% 1GM TUBE NS SCH (09:15)
[2018-04-04] MEDS: LINEZOLID 600MG PREMIX 300 ML IV SCH ×2 (09:15→20:48)
[2018-04-04] MEDS: ZINC SULF 220 MG CAP PO SCH (09:15)
[2018-04-04] MEDS ORDERED: KCL 20 MEQ/WATER INJ PREMIX 200 ML IV SCH (10:00)
[2018-04-04] MEDS: NACL 0.45% 1,000 ML IV SCH (10:41)
[2018-04-04] MEDS: POTASSIUM CHLORIDE 20% 40 MEQ/15 ML UDC GT SCH ×2 (10:47→14:10)
[2018-04-04 12:00] VITALS: BP 95/62
[2018-04-04] MEDS: FOAM DRESSING TP SCH (13:31)
[2018-04-04] MEDS: THERAHONEY GEL 42.5 GM TP SCH (13:31)
[2018-04-04] MEDS ORDERED: MAG SULF 2000 MG/WATER PREMIX 50 ML IV ONE (15:00)
[2018-04-04] MEDS ORDERED: POTASSIUM CHLORIDE 20% 40 MEQ/15 ML UDC GT SCH (15:00)
[2018-04-04] MEDS: TOBRAMYCIN IV SCH (15:56)
[2018-04-04] MEDS: DEXTROSE 5% IV SCH (15:56)
[2018-04-04 16:00] VITALS: BP 94/55
[2018-04-04] MEDS: MAGNESIUM SULFATE 1GM in DEXTROSE 5% 100 ML PREMIX IV SCH ×2 (16:50→18:13)
[2018-04-04 20:00] VITALS: BP 103/64
[2018-04-05] VITALS: BP 94/57
[2018-04-05] MEDS: HYDRAGUARD CREAM TP SCH ×2 (00:04→14:16)
[2018-04-05] MEDS: NACL 0.45% 1,000 ML IV SCH (00:04)
[2018-04-05] MEDS: ALBUTEROL SULFATE/IPRATROPIU 3 ML SOL IH SCH ×4 (01:48→18:53)
[2018-04-05 04:00] VITALS: BP 101/67
[2018-04-05] MEDS: MEROPENEM 1,000 MG in NACL 0.9% 100 ML IV SCH ×3 (04:36→21:10)
[2018-04-05] MEDS: LOPERAMIDE 1 MG/5 ML ORASYR GT SCH ×3 (04:37→21:19)
[2018-04-05 06:52] LABS: HEMATOCRIT 27.8 % (36-52); HEMOGLOBIN 8.4 g/dL (12.0-18.0); MEAN CORPUSCULAR HEMOGLOBIN 26 pg (27-31); MEAN CORPUSCULAR HGB CONC 30 g/dL (33-37); MEAN CORPUSCULAR VOLUME 87.1 fL (80-94); RED BLOOD CELL COUNT(AUTO) 3.19 MIL/uL (4.20-6.10); RED CELL DISTRIBUTION WIDTH 18.9 % (11.6-13.7); WHITE BLOOD COUNT (AUTO) 18.3 K/uL (4.8-10.8)
[2018-04-05 07:32] LABS: PLATELET COUNT (AUTO) 853 K/uL (140-450)
[2018-04-05 08:00] VITALS: BP 100/65
[2018-04-05 08:04] LABS: EOSINOPHILS % (MANUAL) 5 % (0-4); LYMPHOCYTES % (MANUAL) 11 % (20-46); MONOCYTES % (MANUAL) 5 % (5-12)
[2018-04-05 08:12] LABS: ALBUMIN 1.6 g/dL (3.4-5.0); ANION GAP 18.1 (8-16); CREATININE 0.6 mg/dL (0.7-1.3); POTASSIUM 3.5 mmol/L (3.5-5.1); TOTAL BILIRUBIN 0.2 mg/dL (0.0-1.0)
[2018-04-05] MEDS: ASCORBIC ACID 500 MG/5 ML ORASYR GT SCH ×2 (09:00→17:00)
[2018-04-05] MEDS ORDERED: EPOETIN ALFA 10,000 UNITS/ML VIAL SUBQ SCH (09:00)
[2018-04-05] MEDS ORDERED: DARBEPOETIN ALFA 40 MCG SQ SCH (09:00)
[2018-04-05] MEDS ORDERED: MUPIROCIN CA NASAL 2% 1GM TUBE NS SCH (09:00)
[2018-04-05] MEDS: CHLORHEXADINE GLUC 2% CLOTH TP SCH (09:00)
[2018-04-05] MEDS: METOPROLOL 25 MG TAB GT SCH ×2 (09:02→21:17)
[2018-04-05] MEDS: LINEZOLID 600MG PREMIX 300 ML IV SCH ×2 (09:03→21:14)
[2018-04-05] MEDS: PANTOPRAZOLE 40 MG INJ VIAL IVP SCH ×2 (09:04→21:16)
[2018-04-05] MEDS: ZINC SULF 220 MG CAP PO SCH (09:04)
[2018-04-05 09:37] LABS: CARBON DIOXIDE 20.5 mmol/L (21-32)
[2018-04-05 12:00] VITALS: BP 102/68
[2018-04-05] MEDS: POTASSIUM CHL 20 MEQ/ 1/2 NS 1,000 ML IV SCH ×2 (12:06→22:55)
[2018-04-05] MEDS ORDERED: PRON INH (12:51)
[2018-04-05] MEDS ORDERED: ALBU3SOL83 IH (12:53)
[2018-04-05] MEDS ORDERED: MERO1PDS2 IV (12:54)
[2018-04-05] MEDS ORDERED: LINE600T PO (12:56)
[2018-04-05] MEDS ORDERED: TOBRAMYCIN PER PHARMACY MC (12:57)
[2018-04-05] MEDS: FOAM DRESSING TP SCH (13:00)
[2018-04-05] MEDS: THERAHONEY GEL 42.5 GM TP SCH (14:14)
[2018-04-05 16:00] VITALS: BP 100/60
[2018-04-05] MEDS: TOBRAMYCIN IV SCH (16:48)
[2018-04-05] MEDS: DEXTROSE 5% IV SCH (16:48)
[2018-04-05 20:00] VITALS: BP 117/78
[2018-04-06] VITALS: BP 103/64
[2018-04-06] MEDS: ALBUTEROL SULFATE/IPRATROPIU 3 ML SOL IH SCH ×2 (01:11→07:07)
[2018-04-06] MEDS: HYDRAGUARD CREAM TP SCH (01:22)
[2018-04-06] MEDS: MEROPENEM 1,000 MG in NACL 0.9% 100 ML IV SCH (03:56)
[2018-04-06] MEDS: LOPERAMIDE 1 MG/5 ML ORASYR GT SCH (03:56)
[2018-04-06 04:00] VITALS: BP 106/70
[2018-04-06] MEDS: POTASSIUM CHL 20 MEQ/ 1/2 NS 1,000 ML IV SCH (05:19)
[2018-04-06 07:52] VITALS: BP 111/74
[2018-04-06] MEDS: ZINC SULF 220 MG CAP PO SCH (09:04)
[2018-04-06] MEDS: ASCORBIC ACID 500 MG/5 ML ORASYR GT SCH (09:04)
[2018-04-06] MEDS: PANTOPRAZOLE 40 MG INJ VIAL IVP SCH (09:04)
[2018-04-06] MEDS: METOPROLOL 25 MG TAB GT SCH (09:04)
[2018-04-06] MEDS: LINEZOLID 600MG PREMIX 300 ML IV SCH (09:05)
== END 2018-04-06 12:14 | DRG 720 ==
LOC: MED 00:30 → MTU 02:30
PROVIDERS: ADMIT Hospitalist; ATTEND Hospitalist
PROC: 30233N1 Transfusion of Nonautologous Red Blood Cells into Peripheral Vein, Percutaneous Approach (ICD-10-PCS; principal; 2018-03-30)
DX: A41.02 Sepsis due to Methicillin resistant Staphylococcus aureus (principal); E41 Nutritional marasmus; Z99.11 Dependence on respirator [ventilator] status; J96.10 Chronic respiratory failure, unspecified whether with hypoxia or hypercapnia; L89.894 Pressure ulcer of other site, stage 4; R53.2 Functional quadriplegia; Z93.0 Tracheostomy status; E43 Unspecified severe protein-calorie malnutrition; J18.9 Pneumonia, unspecified organism; E87.0 Hyperosmolality and hypernatremia; E86.0 Dehydration; N39.0 Urinary tract infection, site not specified; N18.2 Chronic kidney disease, stage 2 (mild); F41.9 Anxiety disorder, unspecified; F31.9 Bipolar disorder, unspecified; B96.4 Proteus (mirabilis) (morganii) as the cause of diseases classified elsewhere; J40 Bronchitis, not specified as acute or chronic; E87.6 Hypokalemia; D63.8 Anemia in other chronic diseases classified elsewhere; E86.1 Hypovolemia; Z88.1 Allergy status to other antibiotic agents; Z79.1 Long term (current) use of non-steroidal anti-inflammatories (NSAID); Z79.899 Other long term (current) drug therapy; Z74.01 Bed confinement status; Z93.1 Gastrostomy status
CPT/HCPCS: 36415; 51702; 71045; 74018; 80048; 80053; 80200; 80202; 81001; 82271; 82272; 82607; 82728; 82746; 82948; 83540; 83605; 83735; 84439; 84484; 85025; 85045; 85610; 85730; 86886; 86900; 86901; 86920; 87040; 87070; 87081; 87086; 87186; 87205; 89220; 93005; 94640; 96361; 96374; 96375; 99291; C9113; J0885; J1956; J2001; J2020; J2185; J2543; J3260; J3370; J3475; J3480; J7030; J7060; J7613; J7620; P9016; Q0092

== ENCOUNTER 2018-05-13 20:22 | Inpatient (IN) | payer OTHER ==
[~2018-05-13] VITALS: Ht 160 cm; Wt 44.5 kg
[2018-05-13 20:22] VITALS: BP 103/61
[~2018-05-13 20:22] MED LIST changes: +ALBU3SOL83 IH; -DOCU-299 PO; -LINE600T GT; +LINE600T PO; -MER1I IV; +MERO1PDS2 IV; +PRON INH; +TOBRAMYCIN PER PHARMACY MC
[2018-05-13] MEDS ORDERED: ACETAMINOPHEN 650 MG SUPP RC ONE ×2 (20:30)
[2018-05-13] MEDS ORDERED: PIPERACILLIN/TAZOBACTAM 4.5 GM in DEXTROSE 5% 100 ML IV ONE (20:30)
[2018-05-13] MEDS ORDERED: NACL 0.9% 1,500 ML IV ONE (20:30)
[2018-05-13 21:02] LABS: BASOPHILS # (AUTO) 0.1 K/uL (0.00-0.22); BASOPHILS % (AUTO) 0.3 % (0.0-2.0); EOSINOPHILS % (AUTO) 0.2 % (0.0-4.0); HEMATOCRIT 22.4 % (36-52); LYMPHOCYTES # (AUTO) 2.2 K/uL (2.0-11.5); LYMPHOCYTES % (AUTO) 9.1 % (20.5-51.1); MEAN CORPUSCULAR HEMOGLOBIN 25 pg (27-31); MEAN CORPUSCULAR HGB CONC 30 g/dL (33-37); MONOCYTES # (AUTO) 1.3 K/uL (0.8-1.0); MONOCYTES % (AUTO) 5.3 % (1.7-9.3); NEUTROPHILS # (AUTO) 20.1 K/uL (1.8-7.7); NEUTROPHILS % (AUTO) 85.1 % (42.2-75.2); RED BLOOD CELL COUNT(AUTO) 2.69 MIL/uL (4.20-6.10); RED CELL DISTRIBUTION WIDTH 17.4 % (11.6-13.7); WHITE BLOOD COUNT (AUTO) 23.7 K/uL (4.8-10.8)
[2018-05-13 21:05] LABS: HEMOGLOBIN 6.7 g/dL (12.0-18.0); PLATELET COUNT (AUTO) 791 K/uL (140-450)
[2018-05-13 21:10] LABS: BILIRUBIN,URINE NEGATIVE (NEGATIVE); BLOOD, URINE NEGATIVE (NEGATIVE); COLOR,URINE YELLOW (YELLOW); LEUKOCYTE ESTERASE ,URINE 2+ (NEGATIVE); NITRITE, URINE POSITIVE (NEGATIVE); UGLUCOSE NEGATIVE (NEGATIVE)
[2018-05-13 21:11] LABS: ANION GAP 9.7 (8-16); CARBON DIOXIDE 29.1 mmol/L (21-32); CREATININE 0.7 mg/dL (0.7-1.3); POTASSIUM 3.8 mmol/L (3.5-5.1)
[2018-05-13 21:11] LABS: APPEARANCE,URINE SLIGHTLY CLOUDY (CLEAR)
[2018-05-13 21:15] LABS: RBC,URINE 0-5 (RARE) /HPF (0-5); WBC,URINE 80-100 /HPF (0-5)
[2018-05-13 21:17] LABS: TOTAL BILIRUBIN 0.2 mg/dL (0.0-1.0)
[2018-05-13] MEDS ORDERED: PIPERACILLIN/TAZOBACTAM 4.5 GM VIAL IV ONE (21:21)
[2018-05-13] MEDS: DEXT 5% /NACL 0.9% 1,000 ML IV SCH (22:20)
[2018-05-13] MEDS ORDERED: MORPHINE SULFATE 2 MG/ML SYR IVP PRN (22:20)
[2018-05-13 23:05] VITALS: BP 93/54
[2018-05-14] VITALS: BP 99/60
[2018-05-14] MEDS ORDERED: ACETAMINOPHEN 650 MG SUPP RC PRN (00:55)
[2018-05-14] MEDS ORDERED: ACETAMINOPHEN 650 MG SUPP RC ONE (01:23)
[2018-05-14] MEDS: DEXT 5% /NACL 0.9% 1,000 ML IV SCH (02:54)
[2018-05-14 04:00] VITALS: BP 100/58
[2018-05-14] MEDS ORDERED: PIPERACILLIN/TAZOBACTAM 3.375 GM VIAL IV ONE (04:01)
[2018-05-14] MEDS ORDERED: PIPERACILLIN/TAZOBACTAM 3.375 GM in DEXTROSE 5% 50 ML IV SCH (05:00)
[2018-05-14 07:12] LABS: BASOPHILS % (AUTO) 0.2 % (0.0-2.0); EOSINOPHILS # (AUTO) 0.2 K/uL (0-0.4); LYMPHOCYTES # (AUTO) 1.6 K/uL (2.0-11.5); MEAN CORPUSCULAR HEMOGLOBIN 25 pg (27-31); MEAN CORPUSCULAR HGB CONC 30 g/dL (33-37); MEAN CORPUSCULAR VOLUME 84.2 fL (80-94); MONOCYTES # (AUTO) 1.1 K/uL (0.8-1.0); MONOCYTES % (AUTO) 5.5 % (1.7-9.3); NEUTROPHILS # (AUTO) 16.4 K/uL (1.8-7.7); PLATELET COUNT (AUTO) 705 K/uL (140-450); RED CELL DISTRIBUTION WIDTH 17.6 % (11.6-13.7); WHITE BLOOD COUNT (AUTO) 19.3 K/uL (4.8-10.8)
[2018-05-14 07:39] LABS: ALBUMIN 1.8 g/dL (3.4-5.0); CARBON DIOXIDE 23.3 mmol/L (21-32); CREATININE 0.7 mg/dL (0.7-1.3); MAGNESIUM 1.9 mg/dL (1.8-2.4); PHOSPHORUS 3.1 mg/dL (2.5-4.9); POTASSIUM 3.3 mmol/L (3.5-5.1); TOTAL BILIRUBIN 0.5 mg/dL (0.0-1.0)
[2018-05-14 07:42] LABS: HEMATOCRIT 20.2 % (36-52)
[2018-05-14 08:00] VITALS: BP 98/53
[2018-05-14 08:30] LABS: LYMPHOCYTES % (AUTO) 8.3 % (20.5-51.1)
[2018-05-14] MEDS ORDERED: ENOXAPARIN 40 MG/0.4 ML SYR SUBQ SCH (09:00)
[2018-05-14] MEDS ORDERED: COLISTIN SCH (09:30)
[2018-05-14] MEDS ORDERED: HYDROcodone/APAP 10/325 MG 1 TAB TAB PO PRN (09:30)
[2018-05-14] MEDS ORDERED: ACETAMINOPHEN 325 MG TAB PO PRN (09:35)
[2018-05-14] MEDS ORDERED: POTASSIUM CHLORIDE 20% 40 MEQ/15 ML UDC GT SCH (10:00)
[2018-05-14] MEDS ORDERED: FLUCONAZOLE 100 MG TAB PO SCH (11:00)
[2018-05-14 12:00] VITALS: BP 107/66
[2018-05-14] MEDS: METOPROLOL 25 MG TAB PO SCH ×2 (13:00→17:30)
[2018-05-14] MEDS: PIPER/TAZO 3.375GM/D5W PREMIX 50 ML IV SCH ×2 (13:41→21:08)
[2018-05-14 16:00] VITALS: BP 107/65
[2018-05-14 20:00] VITALS: BP_SYST 123; BP_SYST 98; BP_DIAS 57; BP_DIAS 71
[2018-05-14 23:52] LABS: HEMATOCRIT 28.7 % (36-52); HEMOGLOBIN 8.8 g/dL (12.0-18.0)
[2018-05-15] VITALS (7 sets, daily range): BP systolic 107–123; BP diastolic 64–71
[2018-05-15] MEDS ORDERED: MEROPENEM 1,000 MG VIAL IV ONE (04:40)
[2018-05-15] MEDS: MEROPENEM 1,000 MG in NACL 0.9% 100 ML IV SCH ×3 (04:52→21:47)
[2018-05-15] MEDS: DEXT 5% /NACL 0.9% 1,000 ML IV SCH (04:53)
[2018-05-15 06:29] LABS: BASOPHILS % (AUTO) 0.3 % (0.0-2.0); EOSINOPHILS # (AUTO) 0.1 K/uL (0-0.4); EOSINOPHILS % (AUTO) 0.6 % (0.0-4.0); HEMATOCRIT 29.6 % (36-52); HEMOGLOBIN 9.3 g/dL (12.0-18.0); LYMPHOCYTES # (AUTO) 1.5 K/uL (2.0-11.5); LYMPHOCYTES % (AUTO) 9.4 % (20.5-51.1); MEAN CORPUSCULAR HEMOGLOBIN 26 pg (27-31); MEAN CORPUSCULAR HGB CONC 31 g/dL (33-37); MONOCYTES % (AUTO) 6.2 % (1.7-9.3); NEUTROPHILS # (AUTO) 13.2 K/uL (1.8-7.7); NEUTROPHILS % (AUTO) 83.5 % (42.2-75.2); PLATELET COUNT (AUTO) 725 K/uL (140-450); RED BLOOD CELL COUNT(AUTO) 3.57 MIL/uL (4.20-6.10); RED CELL DISTRIBUTION WIDTH 16.3 % (11.6-13.7); WHITE BLOOD COUNT (AUTO) 15.8 K/uL (4.8-10.8)
[2018-05-15] MEDS ORDERED: FLUCONAZOLE 100 MG TAB PO SCH ×2 (09:00)
[2018-05-15] MEDS: LINEZOLID 600MG PREMIX 300 ML IV SCH ×2 (10:27→21:47)
[2018-05-15] MEDS: METOPROLOL 25 MG TAB PO SCH ×3 (10:28→17:47)
[2018-05-15] MEDS: FLUCONAZOLE 100 MG TAB PO SCH (10:28)
[2018-05-15] MEDS: CHLORHEXADINE GLUC 2% CLOTH TP SCH (15:35)
[2018-05-15] MEDS ORDERED: FOAM DRESSING TP SCH (16:07)
[2018-05-15] MEDS: MUPIROCIN CA NASAL 2% 1GM TUBE NS SCH (16:11)
[2018-05-15] MEDS: ASCORBIC ACID 500 MG/5 ML ORASYR GT SCH (21:51)
[2018-05-16] VITALS: BP 114/67
[2018-05-16] MEDS: DEXT 5% /NACL 0.9% 1,000 ML IV SCH ×2 (00:20→17:00)
[2018-05-16 04:00] VITALS: BP 115/68
[2018-05-16] MEDS: MEROPENEM 1,000 MG in NACL 0.9% 100 ML IV SCH ×3 (05:26→21:42)
[2018-05-16 08:00] VITALS: BP 116/78
[2018-05-16] MEDS: ASCORBIC ACID 500 MG/5 ML ORASYR GT SCH ×2 (09:46→20:43)
[2018-05-16] MEDS: METOPROLOL 25 MG TAB PO SCH ×3 (09:46→16:35)
[2018-05-16] MEDS: FLUCONAZOLE 100 MG TAB PO SCH (09:46)
[2018-05-16] MEDS: MULTIVITAMIN 1 TAB PO SCH (09:47)
[2018-05-16] MEDS: LINEZOLID 600MG PREMIX 300 ML IV SCH ×2 (09:47→22:12)
[2018-05-16] MEDS: ZINC SULF 220 MG CAP GT SCH (09:47)
[2018-05-16 12:00] VITALS: BP 107/72
[2018-05-16] MEDS: NACL 0.9% IRR 250 ML BOTTLE IR SCH (14:08)
[2018-05-16] MEDS: THERAHONEY GEL 42.5 GM TP SCH (14:09)
[2018-05-16 16:00] VITALS: BP 114/76
[2018-05-16] MEDS: CHLORHEXADINE GLUC 2% CLOTH TP SCH (16:36)
[2018-05-16] MEDS: MUPIROCIN CA NASAL 2% 1GM TUBE NS SCH (16:36)
[2018-05-16 20:00] VITALS: BP 116/74
[2018-05-17 00:17] VITALS: BP 120/78
[2018-05-17] MEDS: MEROPENEM 1,000 MG in NACL 0.9% 100 ML IV SCH ×3 (04:26→21:16)
[2018-05-17 04:41] VITALS: BP 126/79
[2018-05-17 08:00] VITALS: BP 110/67
[2018-05-17] MEDS: DEXT 5% /NACL 0.9% 1,000 ML IV SCH ×2 (09:40→13:19)
[2018-05-17] MEDS: FLUCONAZOLE 100 MG TAB PO SCH (10:58)
[2018-05-17] MEDS: MULTIVITAMIN 1 TAB PO SCH (10:58)
[2018-05-17] MEDS: METOPROLOL 25 MG TAB PO SCH ×3 (10:59→17:29)
[2018-05-17] MEDS: ZINC SULF 220 MG CAP GT SCH (10:59)
[2018-05-17] MEDS: LINEZOLID 600MG PREMIX 300 ML IV SCH ×2 (11:01→21:16)
[2018-05-17 12:00] VITALS: BP 110/68
[2018-05-17] MEDS: NACL 0.9% IRR 250 ML BOTTLE IR SCH (13:00)
[2018-05-17] MEDS: COLISTIMETHATE SODIUM 75 MG in NACL 0.9% 100 ML IV SCH ×2 (13:19→21:16)
[2018-05-17] MEDS: THERAHONEY GEL 42.5 GM TP SCH (13:20)
[2018-05-17] MEDS: ASCORBIC ACID 500 MG/5 ML ORASYR GT SCH ×2 (15:19→21:15)
[2018-05-17 16:00] VITALS: BP 118/78
[2018-05-17] MEDS: MUPIROCIN CA NASAL 2% 1GM TUBE NS SCH (16:00)
[2018-05-17] MEDS: CHLORHEXADINE GLUC 2% CLOTH TP SCH (16:00)
[2018-05-17 20:00] VITALS: BP 117/79
[2018-05-18] VITALS: BP 117/75
[2018-05-18 04:00] VITALS: BP 114/76
[2018-05-18] MEDS: MEROPENEM 1,000 MG in NACL 0.9% 100 ML IV SCH ×2 (04:27→13:47)
[2018-05-18 07:08] LABS: BASOPHILS % (AUTO) 0.4 % (0.0-2.0); EOSINOPHILS # (AUTO) 1.4 K/uL (0-0.4); EOSINOPHILS % (AUTO) 11.5 % (0.0-4.0); HEMATOCRIT 30.5 % (36-52); HEMOGLOBIN 9.5 g/dL (12.0-18.0); LYMPHOCYTES # (AUTO) 1.3 K/uL (2.0-11.5); LYMPHOCYTES % (AUTO) 10.4 % (20.5-51.1); MEAN CORPUSCULAR HEMOGLOBIN 26 pg (27-31); MEAN CORPUSCULAR HGB CONC 31 g/dL (33-37); MEAN CORPUSCULAR VOLUME 83.4 fL (80-94); MONOCYTES % (AUTO) 8.2 % (1.7-9.3); NEUTROPHILS # (AUTO) 8.4 K/uL (1.8-7.7); NEUTROPHILS % (AUTO) 69.5 % (42.2-75.2); RED BLOOD CELL COUNT(AUTO) 3.66 MIL/uL (4.20-6.10); RED CELL DISTRIBUTION WIDTH 16.6 % (11.6-13.7)
[2018-05-18 07:27] LABS: PLATELET COUNT (AUTO) 903 K/uL (140-450); WHITE BLOOD COUNT (AUTO) 12.1 K/uL (4.8-10.8)
[2018-05-18 07:36] LABS: ALBUMIN 1.7 g/dL (3.4-5.0); ANION GAP 12.5 (8-16); CARBON DIOXIDE 25.1 mmol/L (21-32); CREATININE 0.5 mg/dL (0.7-1.3); TOTAL BILIRUBIN 0.2 mg/dL (0.0-1.0)
[2018-05-18 08:00] VITALS: BP 138/78
[2018-05-18] MEDS: ASCORBIC ACID 500 MG/5 ML ORASYR GT SCH (08:45)
[2018-05-18] MEDS: FLUCONAZOLE 100 MG TAB PO SCH (08:45)
[2018-05-18] MEDS: MULTIVITAMIN 1 TAB PO SCH (08:45)
[2018-05-18] MEDS: METOPROLOL 25 MG TAB PO SCH ×3 (08:46→17:00)
[2018-05-18] MEDS: COLISTIMETHATE SODIUM 75 MG in NACL 0.9% 100 ML IV SCH (08:46)
[2018-05-18] MEDS: ZINC SULF 220 MG CAP GT SCH (08:46)
[2018-05-18 09:00] LABS: POTASSIUM 2.6 mmol/L (3.5-5.1)
[2018-05-18] MEDS ORDERED: FOAM DRESSING TP SCH (09:00)
[2018-05-18] MEDS: LINEZOLID 600MG PREMIX 300 ML IV SCH (09:44)
[2018-05-18] MEDS: DEXT 5% /NACL 0.9% 1,000 ML IV SCH (10:25)
[2018-05-18] MEDS ORDERED: KCL 20 MEQ/WATER INJ PREMIX 200 ML IV PRN (10:30)
[2018-05-18] MEDS ORDERED: POTASSIUM CHLORIDE 20% 40 MEQ/15 ML UDC GT PRN (10:30)
[2018-05-18] MEDS ORDERED: MAG SULF 2000 MG/WATER PREMIX 50 ML IV PRN (10:30)
[2018-05-18 12:00] VITALS: BP 121/76
[2018-05-18] MEDS: NACL 0.9% IRR 250 ML BOTTLE IR SCH (13:47)
[2018-05-18] MEDS: THERAHONEY GEL 42.5 GM TP SCH (13:48)
[2018-05-18 16:00] VITALS: BP 113/75
[2018-05-18] MEDS: CHLORHEXADINE GLUC 2% CLOTH TP SCH (17:37)
[2018-05-18] MEDS: MUPIROCIN CA NASAL 2% 1GM TUBE NS SCH (17:37)
== END 2018-05-18 19:05 | DRG 720 ==
LOC: MED 20:22 → MTU 22:22
PROVIDERS: ADMIT Hospitalist; ATTEND Hospitalist
PROC: 30233N1 Transfusion of Nonautologous Red Blood Cells into Peripheral Vein, Percutaneous Approach (ICD-10-PCS; principal; 2018-05-14)
DX: A41.50 Gram-negative sepsis, unspecified (principal); E43 Unspecified severe protein-calorie malnutrition; B45.1 Cerebral cryptococcosis; Z99.11 Dependence on respirator [ventilator] status; G93.49 Other encephalopathy; J96.10 Chronic respiratory failure, unspecified whether with hypoxia or hypercapnia; L89.94 Pressure ulcer of unspecified site, stage 4; R53.2 Functional quadriplegia; R13.10 Dysphagia, unspecified; N39.0 Urinary tract infection, site not specified; L03.311 Cellulitis of abdominal wall; B96.5 Pseudomonas (aeruginosa) (mallei) (pseudomallei) as the cause of diseases classified elsewhere; D63.8 Anemia in other chronic diseases classified elsewhere; B96.1 Klebsiella pneumoniae [K. pneumoniae] as the cause of diseases classified elsewhere; Z93.1 Gastrostomy status; Z93.0 Tracheostomy status; J40 Bronchitis, not specified as acute or chronic; Z68.1 Body mass index [BMI] 19.9 or less, adult; Z88.1 Allergy status to other antibiotic agents; Z79.899 Other long term (current) drug therapy; Z74.01 Bed confinement status; Z22.322 Carrier or suspected carrier of Methicillin resistant Staphylococcus aureus
CPT/HCPCS: 36415; 51702; 71045; 74018; 80053; 81001; 83605; 83735; 84100; 85018; 85025; 86886; 86900; 86901; 86920; 87040; 87070; 87075; 87081; 87086; 87186; 87205; 87804; 89220; 96365; 99291; A4649; C1758; J0770; J1644; J2020; J2185; J2543; J3480; J7030; J7042; J7060; P9016; Q0092

== ENCOUNTER 2018-06-03 18:41 | Inpatient (IN) | payer OTHER ==
[~2018-06-03] VITALS: Ht 165.1 cm; Wt 46.7 kg
[2018-06-03 18:44] VITALS: BP 82/42
[2018-06-03] MEDS ORDERED: NACL 0.9% 500 ML IV SCH (18:57)
--- NOTE | 2018-06-03 19:00 | NUR ---
PATIENT BIBA WITH C/O ABNORMAL LABS. PT CAME FROM [facility] [place]. PATIENT STATES PAIN OF 0/10 AT THIS TIME; VSS; PATIENT POSITIONED FOR COMFORT; HOB ELEVATED; BEDRAILS UP X2; BED DOWN. ER MD MADE AWARE OF PT STATUS. PT HAS A HX RESP FAILURE, TRACHIOSTOMY, DVT, ANXIETY, BIPOLAR, MRSA OF WOUND, MUSCLE WEAKNESS, THYRIOD DISEASE, RENAL DISEASE, GENERAL MUSCLE WEAKNESS, CONTRACTURES ALL EXTREMETIES. PT IS NON VERBAL AND IS ALERT. RESPONDS TO PAIN.
[2018-06-03 19:54] LABS: BASOPHILS # (AUTO) 0.2 K/uL (0.00-0.22); BASOPHILS % (AUTO) 1.1 % (0.0-2.0); EOSINOPHILS # (AUTO) 1.5 K/uL (0-0.4); HEMATOCRIT 21.9 % (36-52); LYMPHOCYTES # (AUTO) 1.6 K/uL (2.0-11.5); LYMPHOCYTES % (AUTO) 9.7 % (20.5-51.1); MEAN CORPUSCULAR HEMOGLOBIN 25 pg (27-31); MEAN CORPUSCULAR HGB CONC 29 g/dL (33-37); MEAN CORPUSCULAR VOLUME 84.8 fL (80-94); MONOCYTES % (AUTO) 5.9 % (1.7-9.3); NEUTROPHILS # (AUTO) 12.4 K/uL (1.8-7.7); NEUTROPHILS % (AUTO) 74.3 % (42.2-75.2); PLATELET COUNT (AUTO) 549 K/uL (140-450); RED BLOOD CELL COUNT(AUTO) 2.59 MIL/uL (4.20-6.10); RED CELL DISTRIBUTION WIDTH 18.1 % (11.6-13.7); WHITE BLOOD COUNT (AUTO) 16.7 K/uL (4.8-10.8)
--- NOTE | 2018-06-03 19:55 | NUR ---
u/a was collected. lab to product picker er made aware.
[2018-06-03 20:06] LABS: ALBUMIN 1.8 g/dL (3.4-5.0); ANION GAP 12.2 (8-16); CARBON DIOXIDE 29.7 mmol/L (21-32); CREATININE 2.5 mg/dL (0.7-1.3); HEMOGLOBIN 6.4 g/dL (12.0-18.0); POTASSIUM 4.9 mmol/L (3.5-5.1); TOTAL BILIRUBIN 0.3 mg/dL (0.0-1.0)
[2018-06-03 20:11] LABS: PROTHROMBIN TIME 10.9 secs (10.8-13.4)
--- NOTE | 2018-06-03 20:19 | NUR ---
Dr. Hernandez evaluating patient at bedside.
--- NOTE | 2018-06-03 20:22 | NUR ---
sputum specimen collected, sent to lab
--- NOTE | 2018-06-03 20:25 | NUR ---
SUCTION PT, MOD YELLOW THIN SECRETION AND SENDED TO THE LAB FOR CULTURE
[2018-06-03 21:13] LABS: APPEARANCE,URINE HAZY (CLEAR); BILIRUBIN,URINE NEGATIVE (NEGATIVE); BLOOD, URINE NEGATIVE (NEGATIVE); COLOR,URINE YELLOW (YELLOW); LEUKOCYTE ESTERASE ,URINE 1+ (NEGATIVE); NITRITE, URINE NEGATIVE (NEGATIVE); UGLUCOSE NEGATIVE (NEGATIVE)
[2018-06-03 21:14] LABS: RBC,URINE 0-5 (RARE) /HPF (0-5)
[2018-06-03 21:16] LABS: CALCIUM OXALATE CRYSTALS,UR 0-10 /HPF (None Seen)
[2018-06-03] MEDS ORDERED: cefTRIAXone 1,000 MG VIAL ONE (21:45)
--- NOTE | 2018-06-03 21:50 | NUR ---
F/C WAS INSERTED. PT TOLERATED WELL. PT HAS A LARGE BM. PT HAS LOOSE STOOL. ER MADE AWARE.
[2018-06-03] MEDS ORDERED: ONDANSETRON 4 MG/2 ML VIAL IVP PRN (21:55)
--- NOTE | 2018-06-03 22:20 | NUR ---
WOUND CARE WAS DONE. PATIENT HAS MULTIPLE WOUNDS. PICTURES WERE TAKEN. ER MD MADE AWARE.
--- NOTE | 2018-06-03 22:22 | NUR ---
GTUBE WAS CLEANED. PT HAD LEAKY RESIDUAL COMING OUT OF THE GTUBE SIGHT. DIEGO FAYE MADE AWARE.
--- NOTE | 2018-06-03 22:30 | NUR ---
Patient will be admitted to care of DR. JANG. Admited to ICU. Will go to room 7. Belongings list completed. Report to HORACIO JAY. PT VITALS STABLE
--- NOTE | 2018-06-03 22:30 | NUR ---
Pt report given to HAO JAY. Transfer of care at this time.VSS
[2018-06-03 22:40] VITALS: BP 80/47
--- NOTE | 2018-06-03 22:40 | NUR ---
RECEIVED REPORT FROM ICU STAFF. NO ACUTE DISTRESS NOTED WILL CONTINUE TO OBSERVE.
--- NOTE | 2018-06-03 22:50 | NUR ---
PT AWAKE SITTING UP IN BED, EYE TRACKING, ABLE TO FOLLOW SIMPLE COMMANDS. PERIPHERAL EXTREMITIES CONTRACTED. 6.0 SHILEY XLT TRACH TO T PIECE RECIEVED 28% FIO2, LUNG DIMINISHED BILATERAL UPPER AND LOWER LOBES, THICK YELLOW SPUTUM NOTED. S1 S2, +1 PALPABLE PULSES PERIPHERY. ABD SOFT NON DISTENDED, PEG TUBE IN PLACE, AUSCULTATED FOR PLACEMENT. KISER IN PLACE CLEAR YELLOW URINE NOTED. MULTIPLE SKIN BREAKDOWN/WOUNDS NOTED. PERIPHERAL 22 G IV TO R MIDDLE FINGER IN PLACE. PT HYPOTENSIVE @ THIS TIME, AWAITING BLOOD TYPE/SCREEN. WILL CONTINUE TO OBSERVE.
[2018-06-03] MEDS ORDERED: NOREPINEPHRINE 16 MG in DEXTROSE 5% 250 ML IV PRN (23:25)
--- NOTE | 2018-06-03 23:30 | NUR ---
SPOKE WITH DR. LINARES VMWARE ADMINISTRATOR FOR DR. JANG, UPDATED REGARDING LOW BLOOD PRESSURE. 80/42. HR 92. STATED TO GIVE BLOOD TRANSFUSION X2 UNITS. IF BP STILL HYPOTENSIVE WITH MAP<65, START LEVOPHED. ORDERS RECEIVED, WILL CONTINUE TO OBSERVE.
[2018-06-03] MEDS: DEXT 5% /NACL 0.9% 1,000 ML IV SCH (23:32)
[2018-06-04] VITALS (12 sets, daily range): BP systolic 86–108; BP diastolic 47–73
[2018-06-04] MEDS ORDERED: CEFEPIME 1,000 MG in DEXTROSE 5% 50 ML IV SCH ×2
--- NOTE | 2018-06-04 | NUR ---
PT TURNED AND REPOSITIONED WILL CONTINUE TO OBSERVE. FLACC 0.
[2018-06-04] MEDS ORDERED: CEFEPIME 1,000 MG VIAL ONE (00:10)
--- NOTE | 2018-06-04 01:00 | NUR ---
0045:BLOOD TRANSFUSION STARTED. 0100: NO S/S OF REACTION TO TRANSFUSION NOTED. FLACC 0. VSS 98.2 TEMP NSR 93 R16 82/67 BP. WILL CONTINUE TO OBSERVE.
--- NOTE | 2018-06-04 03:40 | NUR ---
#1 BLOOD TRANSFUSION DONE. NO REACTION NOTED. VSS. WILL CONTINUE TO OBSERVE
--- NOTE | 2018-06-04 04:00 | NUR ---
0345: 2ND TRANSFUSION STARTED 0400: NO REACTION NOTED. VSS. WILL CONTINUE TO OBSERVE.
[2018-06-04] MEDS: DEXT 5% /NACL 0.9% 1,000 ML IV SCH ×3 (07:00→20:57)
--- NOTE | 2018-06-04 07:25 | NUR ---
RECEIVED REPORT FROM ETHOLOGIST RN. PT RESTING IN BED. ALERT. SPONTANEOUS EYES OPENING, FOLLOWS SIMPLE COMMANDS. SKIN DY AND WARM TO TOUCH. HR 95, BP 88/55ON TRACH TO T-PIECE AEROSOL, FIO2 28%. LUNGS CLEAR. ABDOMEN SOFT ROUND AND NON-TENDER. ACTIVE BOWEL SOUND. G-TUBE IN LUQ, LEAKING WITH FOUL SMELLING. 0 RESIDUAL. PERIPHERAL LINES ON RIGHT MIDDLE FINGER AND RIGHT HAND 22 G. HAS BLOOD RETURNS. FLUSHED WELL. D5% NS INFUSING AT 120 ML/HR. CONTRACTED ALL EXTREMITIES. MULTIPLE OPEN WOUNDS NOTED ON RIGHT HIP, RIGHT BUTTOCK, LEFT HEEL, RIGHT SIN, G-TUBE SITE, RIGHT EAR. ON KISER CATH DRAINING CLEAR YELLOW URINE VIA GRAVITY. KEPT HOB ELEVATED BED IN LOW POSITION LOCKED. WILL CONTINUE TO MONITOR.
--- NOTE | 2018-06-04 07:55 | NUR ---
MORNING CARE PROVIDED. KEPT PT IN COMFORTABLE POSITION.
[2018-06-04] MEDS ORDERED: VANCOMYCIN PER PHARMACY MC PRN (08:40)
--- NOTE | 2018-06-04 08:40 | NUR ---
PT SEEN BY DT. LAURENT. UPDATED PATIENT CONDITION AND WOUND STATUS. MADE AWARE ABOUT G-TUGE SITE LEAKAGE AND BP. WILL FOLLOW UP ORDER.
[2018-06-04] MEDS ORDERED: LORazepam 2 MG/ML VIAL IVP PRN (08:45)
[2018-06-04] MEDS ORDERED: ACETAMINOPHEN 325 MG TAB PO PRN (08:45)
[2018-06-04] MEDS ORDERED: diphenhydrAMINE 50 MG/ML VIAL IVP PRN (08:45)
[2018-06-04] MEDS ORDERED: ZOLPIDEM 5 MG TAB PO PRN (08:45)
[2018-06-04] MEDS ORDERED: guaiFENesin DM 200/20 MG-10 ML 10 ML UDC PO PRN (08:45)
[2018-06-04] MEDS ORDERED: POTASSIUM CHLORIDE 10 MEQ TABER PO PRN (08:45)
[2018-06-04] MEDS ORDERED: MORPHINE SULFATE 2 MG/ML SYR IVP PRN (08:45)
[2018-06-04] MEDS ORDERED: HYDROcodone/APAP 5/325 MG 1 TAB TAB PO PRN (08:45)
[2018-06-04] MEDS ORDERED: MAGNESIUM OXIDE 400 MG TAB PO PRN (08:45)
[2018-06-04] MEDS ORDERED: cloNIDine 0.1 MG TAB PO PRN (08:45)
[2018-06-04] MEDS ORDERED: ALUMINUM HYD/MAG/SIMETHICONE 30 ML UDC PO PRN (08:45)
[2018-06-04] MEDS ORDERED: MAG SULF 2000 MG/WATER PREMIX 50 ML IV PRN (08:45)
[2018-06-04] MEDS ORDERED: POTASSIUM CHLORIDE 40 MEQ, LIDOCAINE 1% 25 MG in NACL 0.9% 250 ML IV PRN (08:45)
[2018-06-04] MEDS ORDERED: ONDANSETRON 4 MG/2 ML VIAL IVP PRN (08:45)
[2018-06-04] MEDS ORDERED: SODIUM PHOSPHATE 118 ML ENEM RC PRN (08:45)
[2018-06-04] MEDS ORDERED: FLUCONAZOLE 400 MG PO SCH (09:00)
--- NOTE | 2018-06-04 09:40 | NUR ---
DR. WHITLEY IN TO SEE PT. ASSISTED NEEDED. OLD G-TUBE REPLACED BY NEW ONE. G-TUBE DRESSING CHANGED. NO TAPE ON G-TUBE DRESSING SITE PER DOCTOR. ORDERED TO KEEP PT ON NPO EXCEPT MEDS STATUS. OKAY TO GIVE G-TUBE MEDS KEEP CLAMPING FOR 2 HOURS AFTER MEDICATION AND CONTINUE ON G-TUBE ON DRAINAGE BAG. WILL FOLLOW UP ON ORDER.
[2018-06-04] MEDS ORDERED: ACETAMINOPHEN 325 MG TAB GT PRN (09:46)
[2018-06-04] MEDS ORDERED: ALUMINUM HYD/MAG/SIMETHICONE 30 ML UDC GT PRN (09:47)
[2018-06-04] MEDS ORDERED: cloNIDine 0.1 MG TAB GT PRN (09:47)
[2018-06-04] MEDS ORDERED: guaiFENesin DM 200/20 MG-10 ML 10 ML UDC GT PRN (09:47)
[2018-06-04 09:53] LABS: BASOPHILS # (AUTO) 0.1 K/uL (0.00-0.22); BASOPHILS % (AUTO) 0.5 % (0.0-2.0); EOSINOPHILS # (AUTO) 1.8 K/uL (0-0.4); EOSINOPHILS % (AUTO) 14.2 % (0.0-4.0); HEMOGLOBIN 8.4 g/dL (12.0-18.0); LYMPHOCYTES # (AUTO) 0.5 K/uL (2.0-11.5); LYMPHOCYTES % (AUTO) 4.3 % (20.5-51.1); MEAN CORPUSCULAR HEMOGLOBIN 26 pg (27-31); MEAN CORPUSCULAR HGB CONC 31 g/dL (33-37); MEAN CORPUSCULAR VOLUME 84.4 fL (80-94); MONOCYTES # (AUTO) 0.6 K/uL (0.8-1.0); MONOCYTES % (AUTO) 4.9 % (1.7-9.3); NEUTROPHILS # (AUTO) 9.5 K/uL (1.8-7.7); NEUTROPHILS % (AUTO) 76.1 % (42.2-75.2); PLATELET COUNT (AUTO) 493 K/uL (140-450); RED CELL DISTRIBUTION WIDTH 17.9 % (11.6-13.7); WHITE BLOOD COUNT (AUTO) 12.5 K/uL (4.8-10.8)
[2018-06-04 10:11] LABS: ALBUMIN 1.6 g/dL (3.4-5.0); CARBON DIOXIDE 25.5 mmol/L (21-32); CREATININE 2.1 mg/dL (0.7-1.3); POTASSIUM 3.5 mmol/L (3.5-5.1); TOTAL BILIRUBIN 0.3 mg/dL (0.0-1.0)
[2018-06-04] MEDS ORDERED: THERAHONEY WOUND DRESSING TP PRN (10:50)
[2018-06-04] MEDS ORDERED: Z-GUARD PASTE TP PRN (10:50)
[2018-06-04] MEDS ORDERED: GAUZE TP PRN (11:00)
[2018-06-04] MEDS ORDERED: WOUND CARE PREPARATION 178 ML SPR TP PRN (11:00)
[2018-06-04] MEDS ORDERED: FOAM DRESSING TP PRN (11:00)
[2018-06-04] MEDS ORDERED: THERAHONEY GEL 42.5 GM TP PRN (11:00)
[2018-06-04] MEDS ORDERED: VANCOMYCIN 1GM/DEXT 5% PREMIX 200 ML IV SCH (11:00)
--- NOTE | 2018-06-04 11:15 | NUR ---
CALLED [facility]. SPOKE TO LUDA, CONFIRMATION #[id number].
--- NOTE | 2018-06-04 11:37 | NUR ---
CALLED [facility] [place] [phone], SPOKE WITH THERESA TO F/U FLUCONAZOLE MED. STATED MED WAS STARTED ON April. PHARMACY MADE AWARE.
[2018-06-04] MEDS ORDERED: FLUCONAZOLE 100 MG TAB PO SCH (12:00)
--- NOTE | 2018-06-04 12:00 | NUR ---
REPOSITIONED. WOUND CARE DONE. NO CHANGE IN CONDITION. AFEBRILE. PRN SUCTIONING DONE. VAP ORAL CARE DONE. WILL CONTINUE TO MONITOR.
[2018-06-04] MEDS: HYDROcodone/APAP 5/325 MG 1 TAB TAB PO PRN ×2 (12:19→17:14)
[2018-06-04] MEDS ORDERED: FOAM DRESSING TP SCH (13:00)
--- NOTE | 2018-06-04 14:00 | NUR ---
ST ON MONITOR. BP 95/57. AFEBRILE. COUGHING INTERMITTENTLY. SUCTIONED NEEDED. WOUND CARE PROVIDED. REPOSITIONED. CONTINUE ON MONITOR.
[2018-06-04] MEDS: GAUZE TP SCH (14:40)
[2018-06-04] MEDS: WOUND CARE PREPARATION 178 ML SPR TP SCH (14:40)
[2018-06-04] MEDS: THERAHONEY WOUND DRESSING TP SCH (14:41)
[2018-06-04] MEDS: Z-GUARD PASTE TP SCH (14:41)
--- NOTE | 2018-06-04 17:38 | NUR ---
PT NOTED COUGHING. SUCTIONED NEEDED. ADMINISTERED PRN ROBITUSSIN. G-TUBE CLAMPED FOR NOW.
--- NOTE | 2018-06-04 17:46 | NUR ---
BARREL PAINTER CALLED INFORMED US TO RECOLLECT SPUTUM, RT MADE AWARE.
--- NOTE | 2018-06-04 19:22 | NUR ---
REPORT GIVEN TO GAS ROLLER OPERATOR RN FOR CONTINUITY OF CARE.
--- NOTE | 2018-06-04 19:24 | NUR ---
RECEIVED REPORT FROM AM SHIFT. PT ALERT, BUT NONVERBAL. EYES TRACKING PERRL 3MM. AFEBRILE. ON CONTACT PRECAUTIONS FOR MDRO IN SPUTUM. TRACH TO TUBE 5L. EVEN UNLABORED BREATHING. SPUTUM SUCTION THICK WHITE SECRETIONS NOTED. ST ON MONITOR. GTUBE TO LUQ NOTED. OPEN TO GRAVITY. ABD SOFT, TENDER, NONDISTENDED. F/C IN PLACE. IV SITE MIDDLE FINGER 22G AND R HAND 20G. MULTIPLE PRESSURE INJURIES TO LOWER EXTREMITIES NOTED. DRESSING INTACT. BED IN LOWEST POSITION. SIDE RAILS UP X4. WILL CONTINUE TO MONITOR.
[2018-06-04] MEDS ORDERED: MEROPENEM 1,000 MG VIAL IV ONE (20:55)
[2018-06-04] MEDS: MEROPENEM 1,000 MG in NACL 0.9% 100 ML IV SCH (20:56)
--- NOTE | 2018-06-04 21:41 | NUR ---
PT TURNED AND REPOSITIONED. NO SIGNS OF ACUTE DISTRESS AT THIS TIME.
--- NOTE | 2018-06-04 23:09 | NUR ---
DR PLATA AT BEDSIDE. UPDATED ON PTS CURRENT CONDITION. WILL CONTINUE TO FOLLOW UP ANY ADDITIONAL ORDERS
[2018-06-05] VITALS (8 sets, daily range): BP systolic 96–118; BP diastolic 55–75
--- NOTE | 2018-06-05 00:05 | NUR ---
ORAL CARE PROVIDED AND PATIENT REPOSITIONED AT THIS TIME
[2018-06-05] MEDS: Z-GUARD PASTE TP SCH ×2 (01:41→12:31)
[2018-06-05] MEDS: THERAHONEY WOUND DRESSING TP SCH ×2 (01:41→12:31)
[2018-06-05] MEDS: WOUND CARE PREPARATION 178 ML SPR TP SCH ×2 (01:41→12:31)
--- NOTE | 2018-06-05 01:52 | NUR ---
PT. AFEBRILE. NO SIGNS OF ACUTE DISTRESS AT THIS TIME. CONTINUING TO MONITOR.
--- NOTE | 2018-06-05 03:30 | NUR ---
AM CARE PROVIDED AT THIS TIME. MULTIPLE WOUND DRESSINGS CHANGED. WOUNDS ASSESSED. NO SIGNS OF ACUTE DISTRESS NOTED.
--- NOTE | 2018-06-05 04:07 | NUR ---
PT REPOSITIONED AND ORAL CARE PROVIDED AT THIS TIME. PT TOLERATED WELL. CONTINUING TO OBSERVE.
--- NOTE | 2018-06-05 04:40 | NUR ---
LAB AT BEDSIDE AT THIS TIME FOR AM LAB DRAWS
[2018-06-05] MEDS: LANSOPRAZOLE 30 MG CAPDR GT SCH (05:46)
[2018-06-05 06:31] LABS: BASOPHILS % (AUTO) 0.5 % (0.0-2.0); EOSINOPHILS # (AUTO) 1.1 K/uL (0-0.4); EOSINOPHILS % (AUTO) 12.5 % (0.0-4.0); HEMATOCRIT 29.2 % (36-52); HEMOGLOBIN 9.1 g/dL (12.0-18.0); LYMPHOCYTES # (AUTO) 0.6 K/uL (2.0-11.5); LYMPHOCYTES % (AUTO) 6.3 % (20.5-51.1); MEAN CORPUSCULAR HEMOGLOBIN 27 pg (27-31); MEAN CORPUSCULAR HGB CONC 31 g/dL (33-37); MEAN CORPUSCULAR VOLUME 85.3 fL (80-94); MONOCYTES % (AUTO) 11.4 % (1.7-9.3); NEUTROPHILS # (AUTO) 6.1 K/uL (1.8-7.7); NEUTROPHILS % (AUTO) 69.3 % (42.2-75.2); PLATELET COUNT (AUTO) 537 K/uL (140-450); RED BLOOD CELL COUNT(AUTO) 3.42 MIL/uL (4.20-6.10); RED CELL DISTRIBUTION WIDTH 17.7 % (11.6-13.7); WHITE BLOOD COUNT (AUTO) 8.8 K/uL (4.8-10.8)
[2018-06-05 06:43] LABS: CARBON DIOXIDE 24.6 mmol/L (21-32); CREATININE 1.9 mg/dL (0.7-1.3)
[2018-06-05 06:50] LABS: MAGNESIUM 1.2 mg/dL (1.8-2.4); PHOSPHORUS 3.3 mg/dL (2.5-4.9)
[2018-06-05] MEDS: DEXT 5% /NACL 0.9% 1,000 ML IV SCH (07:02)
[2018-06-05 07:28] LABS: POTASSIUM 2.6 mmol/L (3.5-5.1)
--- NOTE | 2018-06-05 07:30 | NUR ---
RECEIVED BEDSIDE REPORT FROM DOCUMENT CONTROLLER RN. PT IS NONVERBAL, ALERT, EYES OPENING SPONTANEOUSLY. DOES NOT FOLLOW COMMANDS. SINUS TACHY ON MONITOR. TRACH TO T-PIECE COOL AEROSOL O2 AT 5 ML/HR. LUNGS SOUND CLEAR BILATERALLY. BREATHING EVEN AND UNLABORED. ABDOMEN SOFT, NONTENDER, NONDISTENDED W/ ACTIVE BOWEL SOUNDS. G-TUBE IN PLACE TO LUQ. PERIPHERAL IVS ON RIGHT MIDDLE FINGER G22 AND RIGHT HAND G22 PATENT AND INTACT. PT RECEIVING D5% NS AT 125 ML/HR. KISER CATH IN PLACE DRAINING CLEAR YELLOW URINE VIA GRAVITY. MULTIPLE OPEN WOUNDS PRESENT (SEE WOUND ASSESSMENT). ALL EXTREMITIES CONTRACTED. SKIN DRY AND WARM TO TOUCH. HOB ELEVATED 30 DEGREES, BED IN LOWEST POSITION LOCKED. CALL LIGHT WITHIN REACH. FLACC 0. AFEBRILE. WILL CONTINUE TO MONITOR.
--- NOTE | 2018-06-05 07:31 | NUR ---
ENDORSED CARE TO INCOMING SHIFT FOR CONTINUITY OF CARE.
[2018-06-05] MEDS ORDERED: NACL 0.45% 1,000 ML IV SCH (07:40)
[2018-06-05] MEDS ORDERED: POTASSIUM CHLORIDE 20% 40 MEQ/15 ML UDC PO SCH (08:00)
[2018-06-05 08:14] LABS: HEPATITIS A ANTIBODY IGM Negative (Negative); HEPATITIS B CORE AB TOTAL Negative (Negative); HEPATITIS B SURFACE ANTIBODY Non Reactive (.); HEPATITIS B SURFACE ANTIGEN Negative (Negative)
[2018-06-05] MEDS: MEROPENEM 1,000 MG in NACL 0.9% 100 ML IV SCH ×2 (08:15→21:10)
[2018-06-05] MEDS: FLUCONAZOLE 100 MG TAB PO SCH (08:15)
[2018-06-05 08:19] LABS: ANION GAP 15.3 (8-16); CARBON DIOXIDE 24.6 mmol/L (21-32); POTASSIUM 2.9 mmol/L (3.5-5.1)
[2018-06-05 08:20] LABS: CREATININE 1.8 mg/dL (0.7-1.3)
--- NOTE | 2018-06-05 08:22 | NUR ---
PATIENT HAS BEEN SCREENED AND CATEGORIZED HIGH NUTRITION RISK. PATIENT WILL BE SEEN WITHIN 1-2 DAYS OF ADMISSION. 06/05/[address]
--- NOTE | 2018-06-05 08:45 | NUR ---
PT SEEN AND EXAMINED BY DR. PRIEST. WILL FOLLOW UP ON ORDERS.
--- NOTE | 2018-06-05 08:55 | NUR ---
PT SEEN AND EXAMINED BY DR. WYATT. WILL FOLLOW UP ON ORDERS.
[2018-06-05] MEDS ORDERED: FLUCONAZOLE 100 MG TAB GT SCH (09:00)
[2018-06-05] MEDS ORDERED: MAG SULF 2000 MG/WATER PREMIX 50 ML IV SCH (09:00)
--- NOTE | 2018-06-05 09:10 | NUR ---
SPOKE TO DR. JANG, WOUND CARE TREATMENT DISCUSSED. PER DR. JANG SHE HAS DISCUSSED WITH DR. BELTRÁN AND NO SURGICAL DEBRIDEMENT AT THIS TIME. WILL CONTINUE DAILY DRESSING CHANGE WITH THERAHONEY ORDERED.
--- NOTE | 2018-06-05 09:10 | NUR ---
MEDICATIONS ADMINISTERED ORDERED.
--- NOTE | 2018-06-05 09:15 | NUR ---
DR. JANG IN TO SEE PT. WILL FOLLOW UP ON ORDERS.
[2018-06-05] MEDS: SPIRONOLACTONE 25 MG TAB PO SCH (09:55)
[2018-06-05] MEDS ORDERED: POTASSIUM CHLORIDE 40 MEQ in NACL 0.45% 1,000 ML IV SCH (10:30)
[2018-06-05] MEDS ORDERED: EPOETIN ALFA 10,000 UNITS/ML VIAL IV ONE (10:49)
[2018-06-05] MEDS ORDERED: POTASSIUM CHLORIDE 40 MEQ, LIDOCAINE 1% 25 MG in NACL 0.9% 250 ML IV SCH (11:00)
[2018-06-05] MEDS ORDERED: EPOETIN ALFA 10,000 UNITS/ML VIAL SUBQ SCH (11:04)
--- NOTE | 2018-06-05 11:20 | NUR ---
WOUND EVALUATION AND TREATMENT DONE WITH WOUND NURSE. PT TOLERATED WELL. NO S/SX OF DISTRESS NOTED.
[2018-06-05] MEDS: VANCOMYCIN 500 MG in DEXTROSE 5% 100 ML IV SCH (11:29)
[2018-06-05] MEDS: ALBUTEROL 0.083% 2.5 MG/3 ML NEBU INH PRN (11:44)
[2018-06-05] MEDS: IPRATROPIUM 0.02% 0.5 MG/2.5 ML NEBU INH PRN (11:44)
--- NOTE | 2018-06-05 11:55 | NUR ---
WOUND CARE EVALUATION REASON FOR EVALUATION: MULTIPLES PRESSURE INJURIES SKIN ASSESSMENT DONE WITH THIS 47 Y/O MALE PT ADMITTED FROM [facility] TO [facility] WITH INITIAL DX ABNORMAL LABS. PAST MEDICAL HX INCLUDES CHRONIC TRACH, CHRONIC PRESSURE INJURY WOUNDS, QUADRIPLEGIA, CONTRACTURES, G-TUBE AND ENCEPHALOPATHY. ALL ABOVE INFORMATION OBTAINED FROM ADMISSION H&P. PT IS AWAKE. SKIN IS WARM AND DRY, SEVERE CONTRACTURES TO ALL EXTREMITIES. BLE FEW HAIR GROWTH, NO EDEMA. DORSAL PEDAL PULSES PRESENT AND NORMAL. CAPILLARY REFILLED < 2 SEC. GT WITH DRAINAGE BAG, NO OUTPUT NOTICE AT TIME OF ASSESSMENT. F/C PATENT WITH MODERATE AMOUNT OF CLEAR YELLOW URINE OUTPUT. PLAN OF CARE DISCUSSED WITH PRIMARY RN. AND DR. JANG INTEGUMENTARY: -PRESSURE INJURY STAGE 4 TO RIGHT TROCHANTER, 3X2.5X0.5CM WOUND BED WITH 95% RED GRANULATING TISSUE WITH 5% DARK BROWN SLOUGH TO VAISHALI-WOUND SKIN, SURROUNDING REDNESS ARED INDICATED FURTHER DAMAGE - PRESSURE INJURY STAGE 4 TO RIGHT JANG, 8X2X0.5 CM WOUND BED 90% GRANULATING TISSUE WITH 10% YELLOW SLOUGH, SKIN INTACT, MOIST, NO ODOR, VAISHALI-WOUND REDNESS - PRESSURE INJURY STAGE 2 TO MID BACK THORACIC REGION, 1X1.5X0.1 CM, WOUND BED IS RED,MOIST, NO ODOR, VAISHALI-WOUND SKIN INTACT WITH SURROUNDING REDNESS RASHES - PRESSURE INJURY UN-STAGEABLE TO LEFT TROCHANTER [id number], UNDERMINING BETWEEN 8 TO 10 O�CLOCK WITH 2CM DEEP TOWARD 8 O�CLOCK. WOUND BED IS RED, 20% GRANULATING TISSUE AND 80% YELLOW SLOUGH TISSUE, MODERATE AMOUNT SEROUS DRAINAGE, NO ODOR, VAISHALI-WOUND SKIN INTACT WITH PURPLE /REDNESS COLOR WOUND EDGING, WITH SURROUNDING REDNESS AREA INDICATED FURTHER DAMAGE -PRESSURE INJURY STAGE 4 TO RIGHT ISCHIUM, 8X5X0.5 CM, UNDERMINING 0.5CM DEEP, WOUND BED IS 100 % GRANULATING RED, SMALL AMOUNT SEROSANGUINEOUS DRAINAGE, NO ODOR, VAISHALI-WOUND SKIN INTACT WITH SURROUNDING REDNESS MERGED WITH RIGHT TROCHANTER SURROUNDING REDNESS, FURTHER DAMAGE INDICATED -DEEP TISSUE INJURY RIGHT HEEL, 1X1.5CM 100% MAROON COLOR, VAISHALI WOUND TO RIGHT HEEL SKIN INTACT, MUSHY AND SURROUNDING REDNESS INDICATED FURTHER DAMAGE. -PRESSURE INJURY UN-STAGEABLE TO LEFT LATERAL FOOT, 8X2.5 CM WITH LIGHT BROWN SCAB 2X2CM AND VAISHALI-WOUND SKIN INTACT, SURROUNDING REDNESS AREA INDICATED FURTHER DAMAGE -PRESSURE INJURY STAGE 4 TO LEFT ISCHIUM, 6X7X0.3 CM , UNDERMINING BETWEEN 5 TO 8 O�CLOCK 0.5CM DEEP, WOUND BED 100% GRANULATING TISSUE, SMALL AMOUNT SEROUS DRAINAGE, NO ODOR, VAISHALI-WOUND SKIN INTACT. WITH SURROUNDING REDNESS AREA INDICATED FURTHER DAMAGE -PRESSURE INJURY LEFT HEEL OLD HEALED SCARS WITH FEW PIN POINTS SCABS, SKIN INTACT AND SURROUNDING REDNESS INDICATED FURTHER DAMAGE. -PRESSURE INJURY STAGE 4 TO SACRALCOCCYX, OVAL SHAPE 6X11X1 CM , UNDERMINING BETWEEN 9-12 O�CLOCK WITH 1.5CM DEEP, WOUND BED IS RED WITH 90% GRANULATING TISSUE, 10% SOFT YELLOW SLOUGH SCATTERED TO WOUND BED. SMALL AMOUNT OF SEROUS DRAINAGE, NO ODOR, VAISHALI-WOUND SKIN INTACT -TRACH SITE VAISHALI STOMA SKIN DRY AND CLEAN. SKIN INTACT. -GT SITE VAISHALI STOMA SKIN REDNESS WITH SKIN INTACT SMALL AMOUNT OF YELLOW FLUIDS, NO ODOR -UPPER BACK MULTIPLE RASHES REDNESS WITH SKIN INTACT RECOMMENDATIONS: -CLEANSE GT SITE REDNESS WITH WOUND CARE SOLUTION, PAT DRY, APPLY NYSTATIN CREAM TO AREA AND APPLY SPLIT GAUZE BID WC AND PRN IF SOILING -CLEANSE MULTIPLE PRESSURE INJURIES WITH WOUND CLEANSING SOLUTION, PAT DRY AND APPLY THERAHONEY WITH ADAPTIC DRESSING AND COVER WITH DRY DRESSING SECURE WITH PAPER TAPE QD AND PRN IF SOILING -APPLY FOAM DRESSING TO MID BACK, LEFT LATERAL FOOT AND LEFT HEEL AND RIGHT HEEL Q3DAYS AND PRN IF SOILING -APPLY HEEL PROTECTOR TO BILATERAL HEELS AT ALL TIMES -PLEASE PLACE PILLOWS IN BETWEEN KNEES, CUSHION HEEL TO ISCHIUM AREAS AT ALL TIMES -OFFLOAD BILATERAL HEELS BY PLACING PILLOWS UNDER CALVES UNLESS OTHERWISE CONTRAINDICATED -PRESSURE REDISTRIBUTION SURFACE THERAPY -KEEP SKIN DRY AND CLEAN AT ALL TIMES, PLEASE CHECK Q2H AND PRN -TURN AND REPOSITION Q2H, OFFLOAD SACRALCOCCYX AND BUTTOCKS -CONTINUE TO FOLLOW RD RECOMMENDATIONS ALL ABOVE RECOMMENDATIONS DISCUSSED WITH PRIMARY RN. WILL FOLLOW UP PT Q7-10 DAYS. PLEASE CONTACT WOUND CARE NURSE FOR ANY QUESTION AND CHANGE OF WOUND CONDITION. Addendum: 06/05/18 at 1551 by Antonio Sevilla RN (Grace) INCONTINENT ASSOCIATE DERMATITIS TO R/L GROINS AND SCROTAL AREA, PLEASE CLEANSE WITH SOAP AND WATER, PAT DRY AND APPLY Z-GUARD BIDWC AND PRN IF SOILING.
--- NOTE | 2018-06-05 12:12 | NUR ---
TRACH CARE PROCEDURE STOMA PRESENTING WITH COPIOUS AMOUNTS OF THICK YELLOW SECRETIONS CUFF DEFLATED DRY CLEANER TO ATTEMPT 7 TO 8 CC OF AIR IN TRACH CUFF
[2018-06-05] MEDS: GAUZE TP SCH (12:31)
--- NOTE | 2018-06-05 13:10 | NUR ---
PT HAD A LARGE AMOUNT OF BOWEL MOVEMENT. CLEANED AND REPOSITIONED. PT NOT IN ANY DISTRESS AT THIS TIME. VSS. WILL CONTINUE TO MONITOR.
[2018-06-05] MEDS: NYSTATIN OINT 100 MU/GM 15 GM TUBE TP SCH (13:11)
--- NOTE | 2018-06-05 14:50 | NUR ---
TRANSFERRED PATIENT TO [facility] ROOM #116 PLACED ON SUPPLEMENTAL OXYGEN AT 3 LPM VIA E-TANK SATURATION 100# HR 101 TOLERATED TRANSFER WELL WITHOUT ADVERSE REACTIONS NOTED Addendum: 06/05/18 at 1539 by Michael Cronin RT SUPPLEMENTAL OXYGEN TO TRACH
--- NOTE | 2018-06-05 14:53 | NUR ---
06/05/18 RD INITIAL ASSESSMENT COMPLETED PLEASE REFER TO NUTRITION ASSESSMENT UNDER CARE ACTIVITY FOR ESTIMATED NUTRITIONAL NEEDS. 1. CONTINUED NPO MEDICALLY NECESSARY 2. WHEN PT IS MEDICALLY STABLE TO BEGIN ENTERAL NUTRITION CONSIDER VITAL AF 1.2 @ 65 ML/HR -THIS WILL PROVIDE 1560 ML, 1870 KCAL, 117 GM OF PROTEIN WHICH MEETS 100% OF ESTIMATED KCAL AND 106% OF ESTIMATED PROTEIN NEEDS. 3. RECOMMEND VITAMIN C 1000 MG BID 4. RECOMMEND MULTIVITAMIN QD 5. RD TO FOLLOW-UP 2-3 DAYS, HIGH RISK JESSICA LEON RD
--- NOTE | 2018-06-05 15:03 | NUR ---
TRANSFERRED PATIENT TO [facility] BED WITHOUT INCIDENT PLACED BACK ON A COOL AEROSOL TO TRACH ON FIO2 AT 28%/6 LPM
--- NOTE | 2018-06-05 15:03 | NUR ---
PT TRANSFERRED TO TELEMETRY ROOM 116. REPORT GIVEN TO PIERRE SOTOMAYOR AT BEDSIDE. NO ACUTE DISTRESS NOTED AT THIS TIME.
--- NOTE | 2018-06-05 15:10 | NUR ---
RECEIVED BEDSIDE REPORT FROM CEMENT WORKER. PT ALERT WITH EYES OPENING SPONTANEOUSLY, BUT NONVERBAL. TRACH TO T PIECE 7 L/MIN. RESPIRATIONS EVEN AND UNLABORED. MULTIPLE OPEN WOUNDS/PRESSURE INJURIES TO LOWER EXTREMITIES AND BACK. DRESSINGS C/D/I. BILATERAL HEEL PROTECTORS IN PLACE. ALL EXTREMITIES CONTRACTED. F/C IN PLACE, DRAINING URINE. ERYTHEMA AROUND G-TUBE SITE. ABD SOFT AND NONDISTENDED. IV SITE PATENT AND ASYMPTOMATIC, INFUSING IVF PER MD ORDERS. PER CEMENT WORKER, RECHECK BMP AT 1540. IF K+ <3.5, ADMIN [address] PRIEST ORDERS. ALL SAFETY PRECAUTIONS IN PLACE, WILL CONTINUE TO MONITOR.
[2018-06-05 16:27] LABS: ANION GAP 16.9 (8-16); CARBON DIOXIDE 23.9 mmol/L (21-32); CREATININE 1.8 mg/dL (0.7-1.3); POTASSIUM 3.8 mmol/L (3.5-5.1)
--- NOTE | 2018-06-05 16:57 | NUR ---
K+ IS 3.8. NO FURTHER K+ REPLACEMENT NEEDED AT THIS TIME.
--- NOTE | 2018-06-05 17:09 | NUR ---
DEEP TRACHEAL SUCTION FOR SMALL THICK PALE YELLOW SECRETIONS AIRWAY PATENT COOL AEROSOL ON AND FUNCTIONING WELL
--- NOTE | 2018-06-05 17:25 | NUR ---
Manager Radio Note: Per Terence from [facility] , patient is on a 7 day bed hold and is one of their group home patients. She stated patient's daughter Sho Khalil is his health care decision maker
--- NOTE | 2018-06-05 19:22 | NUR ---
PER DR. WHITLEY, KEEP G-TUBE DRAIN TO GRAVITY FOR ONE MORE DAY.
--- NOTE | 2018-06-05 19:29 | NUR ---
ENDORSED POC TO ONLINE CONTENT DEVELOPER RN. PT IN STABLE CONDITION.
--- NOTE | 2018-06-05 19:30 | NUR ---
RECEIVED BEDSIDE REPORT FROM AM NURSE PT ALERT WITH EYES OPENING SPONTANEOUSLY, BUT NONVERBAL. TRACH TO T PIECE 7 L/MIN. RESPIRATIONS EVEN AND UNLABORED. MULTIPLE OPEN WOUNDS/PRESSURE INJURIES TO LOWER EXTREMITIES AND BACK. BILATERAL HEEL PROTECTORS IN PLACE. ALL EXTREMITIES CONTRACTED. F/C IN PLACE, DRAINING URINE.G TUBE DRAINING TO GRAVITY VIA CATHETER TO BAG. ERYTHEMA AROUND G-TUBE SITE. ABD SOFT AND NONDISTENDED.WITH IV KCL PER ORDERS IV ON IV SITE PATENT ON MIDDLE R PHALANX INFUSING WELL. ALL SAFETY PRECAUTIONS IN PLACE, WILL CONTINUE TO MONITOR.
[2018-06-05] MEDS: DEXTROSE 5% 1,000 ML IV SCH (20:40)
[2018-06-06] VITALS: BP 110/78
[2018-06-06] MEDS: NYSTATIN OINT 100 MU/GM 15 GM TUBE TP SCH ×2 (00:55→13:21)
[2018-06-06] MEDS: THERAHONEY WOUND DRESSING TP SCH ×2 (00:56→13:21)
[2018-06-06] MEDS: WOUND CARE PREPARATION 178 ML SPR TP SCH ×2 (00:56→13:21)
[2018-06-06] MEDS: Z-GUARD PASTE TP SCH ×2 (00:57→13:21)
--- NOTE | 2018-06-06 03:25 | NUR ---
CHANGED PT'S CHUX, PT SPASTIC. UPON CHANGE IN POSITION. PT HAS HIGH PULSE RATE- ST AT 132BPM.GIVEN MORPHINE, PT GRIMACING IN PAIN FLACC 7/10
--- NOTE | 2018-06-06 03:30 | NUR ---
INFORMED RT ON DUTY TO CHECK ON THE T PIECE MIGHT BE CAUSING INCREASED HEART RATE.
--- NOTE | 2018-06-06 03:45 | NUR ---
PAGED DR. GALLEGOS CANCELLATION CLERK FOR DR. JANG. REPORTED ON THE HIGH HEART RATE OF 132. TEMP IS 99.5, AFEBRILE. ORDERED FOR BOLUS 250 L OF NS.CARRIED OUT 'S ORDER.
--- NOTE | 2018-06-06 03:46 | NUR ---
DR. GALLEGOS INFORMED OF MORPHINE PRN GIVEN FOR PAIN ON MULTIPLE WOUNDS. PULSE RATE STILL HIGH AT 129
[2018-06-06] MEDS ORDERED: NACL 0.9% 250 ML IV SCH (03:55)
[2018-06-06 04:00] VITALS: BP 115/80
[2018-06-06] MEDS ORDERED: NACL 0.9% 250 ML IV ONE (04:55)
--- NOTE | 2018-06-06 04:55 | NUR ---
STARTED NS 250 BOLUS ONE TIME ORDERED BY DR GALLEGOS.
[2018-06-06] MEDS: LANSOPRAZOLE 30 MG CAPDR GT SCH (05:43)
[2018-06-06 06:43] LABS: BASOPHILS % (AUTO) 0.5 % (0.0-2.0); EOSINOPHILS # (AUTO) 0.8 K/uL (0-0.4); EOSINOPHILS % (AUTO) 8.9 % (0.0-4.0); HEMATOCRIT 27.9 % (36-52); HEMOGLOBIN 8.7 g/dL (12.0-18.0); LYMPHOCYTES # (AUTO) 1.2 K/uL (2.0-11.5); LYMPHOCYTES % (AUTO) 12.8 % (20.5-51.1); MEAN CORPUSCULAR HEMOGLOBIN 27 pg (27-31); MEAN CORPUSCULAR HGB CONC 31 g/dL (33-37); MEAN CORPUSCULAR VOLUME 86.3 fL (80-94); MONOCYTES # (AUTO) 0.8 K/uL (0.8-1.0); MONOCYTES % (AUTO) 8.8 % (1.7-9.3); NEUTROPHILS # (AUTO) 6.2 K/uL (1.8-7.7); PLATELET COUNT (AUTO) 656 K/uL (140-450); RED BLOOD CELL COUNT(AUTO) 3.23 MIL/uL (4.20-6.10); RED CELL DISTRIBUTION WIDTH 17.9 % (11.6-13.7)
[2018-06-06 06:51] LABS: ALBUMIN 1.7 g/dL (3.4-5.0); ANION GAP 18.3 (8-16); CREATININE 1.7 mg/dL (0.7-1.3); POTASSIUM 3.3 mmol/L (3.5-5.1); TOTAL BILIRUBIN 0.4 mg/dL (0.0-1.0)
--- NOTE | 2018-06-06 07:20 | NUR ---
ENDORSED TO NEXT SHIFT FOR CONTINUITY OF CARE, HR STILL HIGH AT 129BPM
--- NOTE | 2018-06-06 07:35 | NUR ---
RECEIVED REPORT FROM EXPERIMENTAL ASSEMBLER NURSE. PATIENT LYING DOWN IN BED, NO DISTRESS NOTED. ON TRACH TO T-TUBE WITH O2 AT 6L/MIN, RESPIRATIONS EVEN, UNLABORED, O2 SAT AT 96%. AAOX1, CALM, COOPERATIVE, SKIN COLOR APPROPRIATE TO ETHNICITY, WARM TO TOUCH. HAS MULTIPLE SKIN WOUNDS NOTED FROM SACRALCOCCYX TO BUTTOCKS TO HIPS. ALL DRESSINGS DRY AND INTACT. IV SITE INTACT, PATENT, AND INFUSING IVF PER MD ORDERS. GTUBE SITE INTACT PATENT, AND IN PLACE, MINIMAL DRAINAGE NOTED. KISER CATHETER IN PLACE. SAFETY MEASURES IN PLACE, CALL LIGHT WITHIN REACH. WILL CONTINUE TO MONITOR.
[2018-06-06 08:00] VITALS: BP_SYST 117; BP_SYST 123; BP_DIAS 73; BP_DIAS 81
--- NOTE | 2018-06-06 10:30 | NUR ---
PATIENT LYING DOWN IN BED. NO DISTRESS NOTED. FLACC 0. SCHEDULED MEDICATIONS DUE GIVEN. WILL CONTINUE TO MONITOR.
[2018-06-06] MEDS: MEROPENEM 1,000 MG in NACL 0.9% 100 ML IV SCH ×2 (10:44→20:48)
[2018-06-06] MEDS: SPIRONOLACTONE 25 MG TAB PO SCH (10:45)
[2018-06-06] MEDS: FLUCONAZOLE 100 MG TAB PO SCH (10:45)
[2018-06-06] MEDS: VANCOMYCIN 500 MG in DEXTROSE 5% 100 ML IV SCH (11:43)
[2018-06-06 12:00] VITALS: BP 117/73
[2018-06-06] MEDS ORDERED: KCL 20 MEQ/WATER INJ PREMIX 100 ML IV SCH (12:00)
[2018-06-06] MEDS: GAUZE TP SCH (13:20)
[2018-06-06] MEDS: DILTIAZEM 25 MG/5 ML VIAL IVP PRN (13:24)
--- NOTE | 2018-06-06 13:34 | NUR ---
PATIENT LYING DOWN IN BED SLEEPING, AROUSABLE BY VOICE. PER DR. JANG, CARDIZEM GIVEN DUE TO TACHYCARDIA. OTHER SCHEDULED MEDICATIONS DUE GIVEN. WILL CONTINUE TO MONITOR.
[2018-06-06] MEDS: DEXTROSE 5% 1,000 ML IV SCH ×2 (14:46→21:20)
[2018-06-06 16:00] VITALS: BP 123/79
--- NOTE | 2018-06-06 19:25 | NUR ---
GAVE REPORT TO DENT REMOVER NURSE FOR CONTINUITY OF CARE. PATIENT IN STABLE CONDITION.
--- NOTE | 2018-06-06 19:26 | NUR ---
RECEIVED REPORT FROM AM SHIFT NURSE. PATIENT LYING DOWN IN BED, NO DISTRESS NOTED. ON TRACH TO T-TUBE WITH O2 AT 6L/MIN, RESPIRATIONS EVEN, UNLABORED, O2 SAT AT 97%. AAOX1, PT IS NONVERBAL, SPASTIC QUADRIPLEGIA, SEVERE ON THE LE. MULTIPLE SKIN WOUNDS SACRALCOCCYX, BILATERAL BUTTOCKS, HIPS AND LOWER EXTREMITIES. ALL DRESSINGS DRY AND INTACT.W/ BOOTS IN PLACE, IV SITE INTACT, PATENT, AND INFUSING IVF PER MD ORDERS. GTUBE SITE INTACT PATENT, AND IN PLACE,INFUSING VITAL AF AT 10 ML/ HR, DUE FOR AN INCREASE OF 15ML EVERY 6 HRS TO REACH A GOAL OF 65ML/HR. KISER CATHETER IN PLACE. SAFETY MEASURES IN PLACE, CALL LIGHT WITHIN REACH. WILL CONTINUE TO MONITOR.
[2018-06-06] MEDS: ALBUTEROL 0.083% 2.5 MG/3 ML NEBU INH PRN (19:57)
[2018-06-06] MEDS: IPRATROPIUM 0.02% 0.5 MG/2.5 ML NEBU INH PRN (19:57)
[2018-06-06 20:00] VITALS: BP 120/76
[2018-06-06] MEDS: ACETAMINOPHEN 650 MG/20.3 ML UDC GT PRN (20:48)
--- NOTE | 2018-06-06 20:48 | NUR ---
TEMP HIGH AT 101.3 F. GAVE ACETAMINOPHEN SYRUP VIA GT TUBE Q6 PRN WILL CONTINUE TO MONITOR.
[2018-06-06] MEDS: METOPROLOL 25 MG TAB PO SCH (21:00)
--- NOTE | 2018-06-06 21:08 | NUR ---
KIANAPRESSOR NOT GIVEN BP 1S 120/76, LA 108. WILL CONTINUE TO MONITOR. WILL INFORM
[2018-06-07] VITALS: BP 117/78
--- NOTE | 2018-06-07 03:00 | NUR ---
DR. RAZA WAS INFORMED OF LOPRESSOR WITHHELD. DUE TO BP WNL.BP AT THIS TIME WAS 118/ 78; IL 87; PT AFEBRILE AT 99.5
[2018-06-07 04:01] VITALS: BP 118/80
[2018-06-07] MEDS: NYSTATIN OINT 100 MU/GM 15 GM TUBE TP SCH ×2 (04:54→12:34)
[2018-06-07] MEDS: WOUND CARE PREPARATION 178 ML SPR TP SCH ×2 (04:55→12:34)
[2018-06-07] MEDS: THERAHONEY WOUND DRESSING TP SCH ×2 (04:55→12:34)
[2018-06-07] MEDS: Z-GUARD PASTE TP SCH ×2 (04:56→12:35)
[2018-06-07] MEDS: LANSOPRAZOLE 30 MG CAPDR GT SCH (06:14)
--- NOTE | 2018-06-07 07:15 | NUR ---
ENDORSED TO NEXT SHIFT FOR CONTINUITY OF CARE. PT IN STABLE CONDITION. STILL FOR INCREASE OF FEEDING 15 ML Q 6 HRS TO REACH THE GOAL OF 65ML./HR. FOR MONITORING OF TEMP.
--- NOTE | 2018-06-07 07:16 | NUR ---
RECEIVED BEDSIDE REPORT FROM PURCHASING/RECEIVING NURSE. PATIENT APHASIC W TRACH O2 AT 4 L, NO DISTRESS NOTED. WOUNDS ON ABDOMEN, HIPS, JANG, HEELS AND DRESSINGS CLEAN DRY AND INTACT. IV ON R HAND 22 G INFUSING D5 AT 80. IV CLEAN DRY AND INTACT. PATIENT UNABLE TO AMBULATE AND INCONTINENT. PATIENT SPASTIC AND RIGID. PATIENT ON TELE MONITOR WITH CONTACT PRECAUTIONS IN PLACE FOR MRSA AND ESBL OF WOUND. G TUBE IN PLACE, DRESSING CLEAN AND DRY. FEEDING VITAL AF 1.2 AT 40/HR. PATIENT TOLERATING WELL. BED IN LOW POSITION, CALL LIGHT WITHIN REACH. WILL CONTINUE TO MONITOR.
[2018-06-07 07:21] LABS: HEMATOCRIT 32.3 % (36-52); HEMOGLOBIN 9.9 g/dL (12.0-18.0); MEAN CORPUSCULAR HEMOGLOBIN 26 pg (27-31); MEAN CORPUSCULAR HGB CONC 31 g/dL (33-37); MEAN CORPUSCULAR VOLUME 85.4 fL (80-94); RED BLOOD CELL COUNT(AUTO) 3.78 MIL/uL (4.20-6.10); RED CELL DISTRIBUTION WIDTH 17.6 % (11.6-13.7); WHITE BLOOD COUNT (AUTO) 12.5 K/uL (4.8-10.8)
[2018-06-07 07:22] LABS: ALBUMIN 1.8 g/dL (3.4-5.0); ANION GAP 14.2 (8-16); CARBON DIOXIDE 27.3 mmol/L (21-32); CREATININE 1.4 mg/dL (0.7-1.3); POTASSIUM 3.5 mmol/L (3.5-5.1); TOTAL BILIRUBIN 0.4 mg/dL (0.0-1.0)
[2018-06-07 08:00] VITALS: BP 126/87
[2018-06-07 08:21] LABS: PLATELET COUNT (AUTO) 754 K/uL (140-450)
[2018-06-07 08:38] LABS: EOSINOPHILS % (MANUAL) 7 % (0-4); LYMPHOCYTES % (MANUAL) 9 % (20-46); MONOCYTES % (MANUAL) 9 % (5-12)
[2018-06-07] MEDS: THERAHONEY GEL 42.5 GM TP SCH (09:00)
[2018-06-07] MEDS ORDERED: EPOETIN ALFA 10,000 UNITS/ML VIAL IV SCH (09:00)
[2018-06-07] MEDS: FOAM DRESSING TP SCH (09:00)
[2018-06-07] MEDS ORDERED: DARBEPOETIN ALFA 40 MCG SQ SCH (09:00)
[2018-06-07] MEDS ORDERED: VANC500F IV ×2 (09:03→11:29)
[2018-06-07] MEDS ORDERED: POTASSIUM CHLORIDE 10 MEQ TABER PO SCH (10:00)
[2018-06-07] MEDS: MEROPENEM 1,000 MG in NACL 0.9% 100 ML IV SCH ×2 (10:04→21:11)
[2018-06-07] MEDS: SPIRONOLACTONE 25 MG TAB PO SCH (10:04)
[2018-06-07] MEDS: METOPROLOL 25 MG TAB PO SCH ×2 (10:05→21:12)
[2018-06-07] MEDS: FLUCONAZOLE 100 MG TAB PO SCH (10:05)
[2018-06-07] MEDS: EPOETIN ALFA 10,000 UNITS/ML VIAL SUBQ SCH (10:06)
--- NOTE | 2018-06-07 10:30 | NUR ---
DOCTOR STATED H20 FLUSH SHOULD BE CHANGED TO 200/HR Q4. CHANGED H2O FLUSH TO 200/HR. WILL CONTINUE TO MONITOR PATIENT.
--- NOTE | 2018-06-07 10:41 | NUR ---
ADMINISTERED SCHEDULED MEDS. PATIENT TOLERATED WELL. WILL CONTINUE TO MONITOR.
--- NOTE | 2018-06-07 10:42 | NUR ---
ORAL HYGIENE GIVEN MOUTH WASH AND MOISTURIZER FOR LIPS APPLIED. NO DISTRESS NOTED. WILL CONTINUE TO MONITOR.
--- NOTE | 2018-06-07 11:13 | NUR ---
PAGED DR. PLATA REGARDING PT'S DISCHARGE BACK TO SNF WITH WHAT IV ABX PT WILL GO WITH. AWAITING FOR CALL BACK.
[2018-06-07] MEDS ORDERED: MER1I IV (11:30)
[2018-06-07] MEDS ORDERED: FLUC200T PEG (11:31)
[2018-06-07 12:00] VITALS: BP 122/84
[2018-06-07] MEDS: VANCOMYCIN 500 MG in DEXTROSE 5% 100 ML IV SCH (12:33)
[2018-06-07] MEDS: GAUZE TP SCH (12:34)
[2018-06-07] MEDS ORDERED: POTASSIUM CHLORIDE 20% 40 MEQ/15 ML UDC PO SCH (12:46)
--- NOTE | 2018-06-07 12:59 | NUR ---
ADMINISTERED SCHEDULED MEDS AND CHANGED GAUZE ON G TUBE SITE. GAUZE DRESSING CLEAN DRY AND INTACT. PATIENT T OF 100.4. WILL ADMINISTER PRN MEDICATION. WILL CONTINUE TO MONITOR.
[2018-06-07] MEDS: ACETAMINOPHEN 650 MG/20.3 ML UDC GT PRN (13:10)
--- NOTE | 2018-06-07 14:15 | NUR ---
CM NOTE PER PATIENT'S DAUGHTER LANEY DODD PH# [phone], SHE WANTS PATIENT TO GO BACK TO [facility] WHEN READY FOR DISCHARGE. FAXED CLINICAL PACKET INCLUDING MICROS TO [facility]. PER KATHLEEN OF [facility], NO ISOLATION BED AT THIS TIME. TRACI JAY AWARE.
--- NOTE | 2018-06-07 15:39 | NUR ---
RECHECKED T AFTER TYLENOL PRN. T NOW 99.1. WILL CONTINUE TO MONITOR PATIENT.
[2018-06-07 16:00] VITALS: BP 113/73
--- NOTE | 2018-06-07 16:16 | NUR ---
CHANGED WOUND DRESSINGS ON SACRAL COCCYX AND R AND L BUTTOCKS. PATIENT HAD BOWEL MOVEMENT. DRESSINGS CLEAN DRY AND INTACT. PATIENT ALSO REPOSITIONED.
--- NOTE | 2018-06-07 19:15 | NUR ---
GAVE REPORT TO ENGINEERING GROUP LEADER NURSE BRANDY. PATIENT ENDORSED IN STABLE CONDITION.
--- NOTE | 2018-06-07 19:16 | NUR ---
RECEIVED BEDSIDE REPORT FROM DAY SHIFT NURSE TRACI RN, PT STABLE, NO DISTRESS NOTED, IV TO R HAND 22G PATENT, INTACT AND IV TO R MIDDLE FINGER 22G PATENT, INTACT, G TUBE IN PLACE WITH TUBE FEEDINGS, PT ON 4LPM TRACH TO T BAR, NO SOB NOTED, INITIAL ASSESSMENT DONE, ALL SAFETY PRECAUTION MET, CALL LIGHT WITHIN REACH, WILL CONTINUE TO MONITOR.
[2018-06-07 20:00] VITALS: BP 117/74
--- NOTE | 2018-06-07 21:11 | NUR ---
DUE MEDICATION ADMINISTERED, PT TOLERATED WELL, NO DISTRESS NOTED, CALL LIGHT WITHIN REACH, WILL CONTINUE TO MONITOR.
--- NOTE | 2018-06-07 21:40 | NUR ---
IV INFILTRATED, NEW IV INSERTED TO L FA 22G PATENT INTACT, IV T R HAND AND R MIDDLE FINGER TAKEN OUT, CATH INTACT. PT TOLERATED WELL, CALL LIGHT WITHIN REACH, WILL CONTINUE TO MONITOR.
[2018-06-07] MEDS: DEXTROSE 5% 1,000 ML IV SCH (22:26)
--- NOTE | 2018-06-07 23:55 | NUR ---
PT RESTING, NO DISTRESS NOTED, V/S TAKEN, WNL, CALL LIGHT WITHIN REACH, WILL CONTINUE TO MONITOR.
[2018-06-08] VITALS: BP 127/71
[2018-06-08] MEDS: Z-GUARD PASTE TP SCH ×2 (00:50→13:00)
[2018-06-08] MEDS: THERAHONEY WOUND DRESSING TP SCH ×2 (00:50→13:00)
[2018-06-08] MEDS: NYSTATIN OINT 100 MU/GM 15 GM TUBE TP SCH ×2 (00:50→13:00)
[2018-06-08] MEDS: WOUND CARE PREPARATION 178 ML SPR TP SCH ×2 (00:50→13:00)
--- NOTE | 2018-06-08 00:50 | NUR ---
WOUND CARE DONE PER ORDER, PT TOLERATED WELL, NO DISTRESS NOTED, CALL LIGHT WITHIN REACH, WILL CONTINUE TO MONITOR.
--- NOTE | 2018-06-08 02:44 | NUR ---
PT SLEEPING, NO DISTRESS NOTED, CALL LIGHT WITHIN REACH, WILL CONTINUE TO MONITOR.
[2018-06-08 04:00] VITALS: BP 137/77
[2018-06-08] MEDS: LANSOPRAZOLE 30 MG CAPDR GT SCH (05:46)
--- NOTE | 2018-06-08 05:46 | NUR ---
DUE MEDICATION ADMINISTERED, PT TOLERATED WELL, NO DISTRESS NOTED, CALL LIGHT WITHIN REACH, WILL CONTINUE TO MONITOR.
--- NOTE | 2018-06-08 07:26 | NUR ---
ENDORSED PT TO DAY SHIFT NURSE TRACI JAY, PT IN STABLE CONDITION NO DISTRESS NOTED.
--- NOTE | 2018-06-08 07:27 | NUR ---
RECEIVED BEDSIDE REPORT FROM AUDIT CONTROL CLERK NURSE BRANDY. PATIENT SLEEPING. ON TRACH TO T PIECE 4 L, NO DISTRESS NOTED. FALL RISK PROTOCOL IN PLACE. PATIENT ON CONTACT PRECAUTIONS FOR MRSA AND ESBL OF WOUNDS. PATIENT ON TELE MONITOR. SKIN WOUND DRESSINGS CHANGED DURING AUDIT CONTROL CLERK. HEEL PROTECTORS IN PLACE. PATIENT ON WOUND CARE BED. BED IN LOW POSITION, CALL LIGHT WITHIN REACH. WILL CONTINUE TO MONITOR.
[2018-06-08 07:48] VITALS: BP 148/97
[2018-06-08 09:15] LABS: EOSINOPHILS # (AUTO) 1.1 K/uL (0-0.4); EOSINOPHILS % (AUTO) 8.4 % (0.0-4.0); HEMOGLOBIN 10.1 g/dL (12.0-18.0); MONOCYTES # (AUTO) 0.9 K/uL (0.8-1.0)
[2018-06-08 09:33] LABS: BASOPHILS % (AUTO) 0.1 % (0.0-2.0); HEMATOCRIT 32.9 % (36-52); LYMPHOCYTES # (AUTO) 1.4 K/uL (2.0-11.5); LYMPHOCYTES % (AUTO) 10.9 % (20.5-51.1); MEAN CORPUSCULAR HEMOGLOBIN 26 pg (27-31); MEAN CORPUSCULAR HGB CONC 31 g/dL (33-37); MEAN CORPUSCULAR VOLUME 84.6 fL (80-94); MONOCYTES % (AUTO) 7.1 % (1.7-9.3); NEUTROPHILS # (AUTO) 9.7 K/uL (1.8-7.7); NEUTROPHILS % (AUTO) 73.5 % (42.2-75.2); RED BLOOD CELL COUNT(AUTO) 3.89 MIL/uL (4.20-6.10); RED CELL DISTRIBUTION WIDTH 18.2 % (11.6-13.7); WHITE BLOOD COUNT (AUTO) 13.2 K/uL (4.8-10.8)
[2018-06-08] MEDS: FLUCONAZOLE 100 MG TAB PO SCH (09:36)
[2018-06-08] MEDS: SPIRONOLACTONE 25 MG TAB PO SCH (09:36)
[2018-06-08] MEDS: METOPROLOL 25 MG TAB PO SCH ×2 (09:36→20:52)
[2018-06-08 09:40] LABS: PLATELET COUNT (AUTO) 877 K/uL (140-450)
[2018-06-08 09:50] LABS: ANION GAP 14.8 (8-16); CARBON DIOXIDE 28.2 mmol/L (21-32); CREATININE 1.2 mg/dL (0.7-1.3)
[2018-06-08] MEDS: IPRATROPIUM 0.02% 0.5 MG/2.5 ML NEBU INH PRN (09:56)
[2018-06-08] MEDS: ALBUTEROL 0.083% 2.5 MG/3 ML NEBU INH PRN (09:56)
--- NOTE | 2018-06-08 09:56 | NUR ---
ADMINISTERED PRESCRIBED MEDS. PATIENT TOLERATED WELL. HEARD SWOOSH AND RESIDUAL OF 60 CC. FLUSHED WITH WATER BEFORE AND AFTER MED ADMINISTRATION. WILL CONTINUE TO MONITOR.
[2018-06-08] MEDS ORDERED: KCL 20 MEQ/WATER INJ PREMIX 100 ML IV SCH (10:30)
--- NOTE | 2018-06-08 11:16 | NUR ---
06/08/18 RD FOLLOW UP COMPLETED PLEASE REFER TO NUTRITION ASSESSMENT UNDER CARE ACTIVITY FOR ESTIMATED NUTRITIONAL NEEDS. 1. CONTINUE VITAL AF 1.2 @ 65 ML/HR - THIS WILL PROVIDE 1560 ML, 1870 KCAL, 117 GM OF PROTEIN. THIS MEETS 100% OF ESTIMATED KCAL AND 106% OF ESTIMATED PROTEIN NEEDS. 2. CONTINUE FLUSH [address] TO FOLLOW-UP 2-3 DAYS, HIGH RISK JESSICA LEON RD
[2018-06-08] MEDS: VANCOMYCIN 500 MG in DEXTROSE 5% 100 ML IV SCH (11:23)
[2018-06-08 11:33] VITALS: BP 131/87
[2018-06-08] MEDS: GAUZE TP SCH (13:00)
[2018-06-08] MEDS: KCL 20 MEQ/WATER INJ PREMIX 100 ML IV SCH ×2 (13:06→15:11)
--- NOTE | 2018-06-08 13:20 | NUR ---
PATIENT LAYING IN BED. NO DISTRESS NOTED, ON TRACH TO T PIECE 4 L. WILL CONTINUE TO MONITOR.
--- NOTE | 2018-06-08 13:29 | NUR ---
[facility] NOTE PER KATHLEEN OF [facility], NO AVAILABLE ISOLATION BED TODAY. TRACI JAY AWARE.
--- NOTE | 2018-06-08 14:25 | NUR ---
CHANGED SOILED LINENS AND SACRAL WOUND DRESSINGS. APPLIED THERA HONEY AND GEL TO WOUNDS. APPLIED Z GUARD. GAVE PATIENT BED BATH AND TURNED TO R SIDE. PATIENT TOLERATED WELL. WILL CONTINUE TO MONITOR.
[2018-06-08 16:00] VITALS: BP 118/69
--- NOTE | 2018-06-08 16:04 | NUR ---
PATIENT SLEEPING. NO DISTRESS NOTED ON TRACH TO T PIECE 4 L. WILL CONTINUE TO MONITOR.
--- NOTE | 2018-06-08 17:45 | NUR ---
AWAKE STABLE NO DISTRESS NOTED BREATH SOUNDS COARSE RHONCHI BILATERAL WITH GOOD CHEST RISE DEEP TRACHEAL SUCTION FOR COPIOUS SEMI THICK PALE YELLOW SECRETIONS AIRWAY PATENT
--- NOTE | 2018-06-08 19:24 | NUR ---
GAVE REPORT TO DIGITAL PROJECT COORDINATOR NURSE ALLISON. PATIENT ENDORSED IN STABLE CONDITION.
--- NOTE | 2018-06-08 19:35 | NUR ---
RECEIVED ENDORSEMENT FROM AM SHIFT RN. PATIENT SLEEPING. ON TRACH TO T PIECE 4 L, NO SOB OR DISTRESS NOTED. IV ON RIGHT HAND, 22 GAUGE, INTACT WITH D5W INFUSING AT 40mL/HR. PATIENT ON CONTACT PRECAUTIONS FOR MRSA AND ESBL OF WOUNDS. PATIENT ON TELE MONITOR. SKIN WOUND DRESSINGS CHANGED DURING CABLE ASSEMBLER. HEEL PROTECTORS IN PLACE. PATIENT ON WOUND CARE BED. BED IN LOW POSITION, CALL LIGHT WITHIN REACH. WILL CONTINUE TO MONITOR.
[2018-06-08 20:00] VITALS: BP 111/74
[2018-06-08] MEDS: MEROPENEM 1,000 MG in NACL 0.9% 50 ML IV SCH (20:54)
[2018-06-08] MEDS: DEXTROSE 5% 1,000 ML IV SCH (21:04)
--- NOTE | 2018-06-08 21:10 | NUR ---
PATIENT ASLEEP, NO SOB OR DISTRESS NOTED.
--- NOTE | 2018-06-08 23:58 | NUR ---
CHECKS MADE, VITALS TAKEN. NO DISTRESS NOTED.
[2018-06-09] VITALS: BP 117/81
[2018-06-09] MEDS: Z-GUARD PASTE TP SCH ×2 (00:11→17:38)
[2018-06-09] MEDS: WOUND CARE PREPARATION 178 ML SPR TP SCH ×2 (00:12→17:38)
[2018-06-09] MEDS: NYSTATIN OINT 100 MU/GM 15 GM TUBE TP SCH ×2 (00:12→17:38)
[2018-06-09] MEDS: THERAHONEY WOUND DRESSING TP SCH ×2 (00:12→17:38)
--- NOTE | 2018-06-09 02:01 | NUR ---
ROUNDS MADE. PATIENT ASLEEP, EYES CLOSED, VISIBLE CHEST RISE AND FALL NOTED.
[2018-06-09 04:00] VITALS: BP 120/89
--- NOTE | 2018-06-09 04:10 | NUR ---
VITALS TAKEN, NO SOB OR DISTRESS NOTED.
--- NOTE | 2018-06-09 05:57 | NUR ---
IV SITE ON RIGHT HAND DISLODGED, TIP INTACT. NEW IV SITE ON LEFT FOREARM, 24 GAUGE. INTACT, FLUSHED AND PATENT.
[2018-06-09] MEDS: LANSOPRAZOLE 30 MG CAPDR GT SCH (06:18)
--- NOTE | 2018-06-09 07:15 | NUR ---
ENDORSED PATIENT TO AM SHIFT RN. PATIENT IN STABLE CONDITION.
--- NOTE | 2018-06-09 07:16 | NUR ---
RECEIVED REPORT FROM MANAGER CONVENTION NURSE. PT IN STABLE CONDITION. RESPIRATIONS EVEN AND UNLABORED. T-BAR TO O2 HUMIDIFIER AT 6L. IV INTACT AND PATENT. SAFETY MEASURES IN PLACE. BED IN LOW POSITION. BED ALARM ON. CALL LIGHT AT BEDSIDE. WILL CONTINUE TO MONITOR.
[2018-06-09 08:00] VITALS: BP 117/79
[2018-06-09] MEDS: FLUCONAZOLE 100 MG TAB PO SCH (09:15)
[2018-06-09] MEDS: MEROPENEM 1,000 MG in NACL 0.9% 50 ML IV SCH ×2 (09:15→21:07)
[2018-06-09] MEDS: METOPROLOL 25 MG TAB PO SCH ×2 (09:15→21:22)
[2018-06-09] MEDS: SPIRONOLACTONE 25 MG TAB PO SCH (09:15)
[2018-06-09] MEDS: EPOETIN ALFA 10,000 UNITS/ML VIAL SUBQ SCH (09:17)
[2018-06-09] MEDS ORDERED: KCL 20 MEQ/WATER INJ PREMIX 200 ML IV ONE (09:25)
[2018-06-09] MEDS ORDERED: POTASSIUM CHLORIDE 20% 40 MEQ/15 ML UDC GT ONE ×2 (09:25→21:00)
--- NOTE | 2018-06-09 09:36 | NUR ---
REPOSITIONED PT AND GAVE ORDERED DUE MEDICATIONS. PT TOLERATED WELL. WILL CONTINUE TO MONITOR.
--- NOTE | 2018-06-09 10:12 | NUR ---
SPOKE WITH CARO AT [facility]. NO ISOLATION BED YET. I CALLED [facility] AND SPOKE WITH LOLA, . SHE GAVE ME THE AUTH FOR [facility], [id number] AND THE AUTH FOR [facility] IS [id number]. I CALLED CARO AT [facility] AND GAVE HER THE AUTH.
--- NOTE | 2018-06-09 11:10 | NUR ---
REPOSITIONED PT AND GAVE ORDERED DUE MEDICATIONS. PT TOLERATED WELL. WILL CONTINUE TO MONITOR.
[2018-06-09 11:36] LABS: ANION GAP 11.9 (8-16); CARBON DIOXIDE 26.2 mmol/L (21-32); CREATININE 0.8 mg/dL (0.7-1.3); POTASSIUM 3.1 mmol/L (3.5-5.1)
[2018-06-09 12:00] VITALS: BP 120/78
--- NOTE | 2018-06-09 12:02 | NUR ---
SPOKE WITH CARO AT [facility] I TOLD HER WHEN A BED BECOMES AVAILABLE, PLEASE CALL THE FLOOR. [phone] I INFORMED NAKUL JAY CHARGE NURSE.
[2018-06-09] MEDS: VANCOMYCIN 500 MG in DEXTROSE 5% 100 ML IV SCH (12:07)
[2018-06-09] MEDS: DEXTROSE 5% 1,000 ML IV SCH (12:22)
--- NOTE | 2018-06-09 13:00 | NUR ---
CHANGED AND REPOSITIONED PT. CHANGED WOUND DRESSINGS AT THIS TIME. PT TOLERATED WELL. WILL CONTINUE TO MONITOR.
--- NOTE | 2018-06-09 15:00 | NUR ---
PT LYING IN BED IN STABLE CONDITION WATCHING TV. WILL CONTINUE TO MONITOR.
--- NOTE | 2018-06-09 15:27 | NUR ---
Assisted Living Coordinator Note: I called patient's daughter Sho Khalil to ask her if she would be okay if patient was transferred to another subacute facility since [facility] has not been able to accept patient at this time, no answer, recording states voicemail is full, I was unable to leave her a message. Addendum: 06/09/18 at 1605 by Genesis Patten SS I contacted the following subacute facilities in case patient's daughter Mirlande Khalil is agreement with transferring patient to another subacute. Per Coreen from [facility] , they don't have any male beds available at this time, she requested we call back on Tuesday. Per Elena from [facility] , no beds available in their subacute unit at this time.
[2018-06-09 16:00] VITALS: BP 120/79
--- NOTE | 2018-06-09 17:30 | NUR ---
CHANGED TUBE FEED AND TUBING. PT TOLERATED WELL. WILL CONTINUE TO MONITOR. BED IN LOW POSITION. BED ALARM ON.
[2018-06-09] MEDS: GAUZE TP SCH (17:37)
--- NOTE | 2018-06-09 18:10 | NUR ---
CALLED [facility] AND SPOKE WITH MALLORY IF THEY HAVE A ROOM AVAILABLE FOR PT TODAY. PER MALLORY, NO ISOLATION ROOM AVAILABLE RIGHT NOW.
--- NOTE | 2018-06-09 19:10 | NUR ---
RECD. RESTING IN BED, AWAKE, APHASIC. NO RESPIRATORY DISTRESS NOTED. ON 02 AT 6 LITERS VIA TRACH. ON GT FEEDING OF VITAL AF 1.2 LIZETH AT 65 ML/HR. WITH CONTRACTURES BILATERAL UPPER AND LOWER EXTREMITIES. BOTH FEET ON BOOT HEEL PROTECTORS. F/C PATENT DRAINING CLEAR YELLOW URINE. WITH MULTIPLE WOUNDS COVERED WITH DRESSING DRY AND INTACT. ON AIR MATTRESS. PLAN OF CARE FOR THE SHIFT DISCUSSED. NEEDS REINFORCEMENT. NO APPEARANCE OF PAIN NOTED 0/10.
--- NOTE | 2018-06-09 19:25 | NUR ---
GAVE REPORT TO TANK CAR RECONDITIONER NURSE FOR CONTINUITY OF CARE. PT IN STABLE CONDITION.
--- NOTE | 2018-06-09 19:30 | NUR ---
Patient's Plan of Care was discussed and reviewed with PROJECT CONTROLS SPECIALIST: TRISH
[2018-06-09 20:00] VITALS: BP 120/75
[2018-06-09] MEDS: HYDROcodone/APAP 5/325 MG 1 TAB TAB PO PRN (21:22)
--- NOTE | 2018-06-09 21:22 | NUR ---
RESIDUAL CHECKED - 60 ML. TOLERATING GT FEEDING. DUE PO MEDICATION GIVEN.
--- NOTE | 2018-06-09 22:23 | NUR ---
DR. PLATA CAME. INFORMED THAT AM NURSE ENDORSED PHARMACY IS TRYING TO CONTACT HIM REGARDING ANTIBIOTICS FOR PATIENT. WILL FOLLOW UP WITH ANY NEW ORDER.
--- NOTE | 2018-06-09 23:00 | NUR ---
SUCTIONED, ABLE TO OBTAINED SMALL AMOUNT OF WHILE PHLEGM.
[2018-06-10] VITALS: BP 118/74
[2018-06-10] MEDS: Z-GUARD PASTE TP SCH ×2 (01:26→13:07)
[2018-06-10] MEDS: NYSTATIN OINT 100 MU/GM 15 GM TUBE TP SCH ×2 (01:27→13:07)
[2018-06-10] MEDS: WOUND CARE PREPARATION 178 ML SPR TP SCH ×2 (01:27→13:07)
[2018-06-10] MEDS: THERAHONEY WOUND DRESSING TP SCH ×2 (01:27→13:07)
--- NOTE | 2018-06-10 02:30 | NUR ---
RECEIVED REPORT FROM SAHARA NEGRON FOR CONTINUOUS OF CARE, PT IN STABLE CONDITION NO DISTRESS NOTED. CALL LIGHT WITHIN REACH, WILL CONTINUE TO MONITOR.
--- NOTE | 2018-06-10 03:05 | NUR ---
IV INFILTRATED. D/C AND STARTED A NEW LINE. NO ACTIVE BLEEDING SEEN.
[2018-06-10] MEDS: IPRATROPIUM 0.02% 0.5 MG/2.5 ML NEBU INH PRN (03:19)
[2018-06-10] MEDS: ALBUTEROL 0.083% 2.5 MG/3 ML NEBU INH PRN (03:19)
[2018-06-10 04:00] VITALS: BP 111/72
[2018-06-10] MEDS: LANSOPRAZOLE 30 MG CAPDR GT SCH (06:13)
--- NOTE | 2018-06-10 07:30 | NUR ---
RECEIVED PT REPORT FROM KEELER POLYGRAPH OPERATOR NURSE BRANDY AT BEDSIDE. PT IN BED, AWAKE, APHASIC. FLACC 0. NO S/S OF RESPIRATORY DISTRESS NOTED. TRACH TO T PIECE, FIO2 28%. GT FEEDING OF VITAL AF 1.2 RUNNING AT 65 ML/HR. CONTRACTURES BILATERAL UPPER AND LOWER EXTREMITIES. HEEL PROTECTORS IN PLACE. KISER CATH IN PLACE DRAINING CLEAR YELLOW URINE. ON AIR MATTRESS. PLAN OF CARE DISCUSSED. NEEDS REINFORCEMENT. FALL AND ASPIRATION PRECAUTIONS IN PLACE. PT ON TELE MONITORING.
--- NOTE | 2018-06-10 07:30 | NUR ---
ENDORSED PT TO DAY SHIFT NURSE HALIMA RN, PT STABLE, NO DISTRESS NOTED, CALL LIGHT WITHIN REACH.
[2018-06-10 08:00] VITALS: BP 114/72
[2018-06-10] MEDS: MEROPENEM 1,000 MG in NACL 0.9% 50 ML IV SCH ×2 (08:40→21:20)
[2018-06-10] MEDS: FLUCONAZOLE 100 MG TAB PO SCH (08:49)
[2018-06-10] MEDS: SPIRONOLACTONE 50 MG TAB PO SCH (08:50)
[2018-06-10] MEDS: METOPROLOL 25 MG TAB PO SCH ×2 (08:50→20:09)
[2018-06-10] MEDS: FOAM DRESSING TP SCH (08:51)
[2018-06-10] MEDS: THERAHONEY GEL 42.5 GM TP SCH (08:51)
--- NOTE | 2018-06-10 09:00 | NUR ---
G TUBE RESIDUAL 340, FEEDING HELD FOR NOW. WILL RECHECK AFTER 1 HR.
[2018-06-10] MEDS: LINEZOLID 600MG PREMIX 300 ML IV SCH ×2 (09:16→20:08)
[2018-06-10 09:22] LABS: BASOPHILS # (AUTO) 0.1 K/uL (0.00-0.22); BASOPHILS % (AUTO) 0.6 % (0.0-2.0); EOSINOPHILS # (AUTO) 2.1 K/uL (0-0.4); EOSINOPHILS % (AUTO) 9.4 % (0.0-4.0); HEMATOCRIT 30.5 % (36-52); HEMOGLOBIN 9.4 g/dL (12.0-18.0); LYMPHOCYTES # (AUTO) 1.9 K/uL (2.0-11.5); LYMPHOCYTES % (AUTO) 8.6 % (20.5-51.1); MEAN CORPUSCULAR HEMOGLOBIN 26 pg (27-31); MEAN CORPUSCULAR HGB CONC 31 g/dL (33-37); MEAN CORPUSCULAR VOLUME 84.4 fL (80-94); MONOCYTES % (AUTO) 4.6 % (1.7-9.3); NEUTROPHILS # (AUTO) 16.8 K/uL (1.8-7.7); NEUTROPHILS % (AUTO) 76.8 % (42.2-75.2); RED BLOOD CELL COUNT(AUTO) 3.61 MIL/uL (4.20-6.10); RED CELL DISTRIBUTION WIDTH 18.2 % (11.6-13.7); WHITE BLOOD COUNT (AUTO) 21.9 K/uL (4.8-10.8)
[2018-06-10 09:28] LABS: PLATELET COUNT (AUTO) 946 K/uL (140-450)
--- NOTE | 2018-06-10 09:40 | NUR ---
PAGED DR GALLEGOS, WHO IS AIR LIAISON AND SPECIAL STAFF FOR DR JANG
[2018-06-10 09:46] LABS: ANION GAP 15.6 (8-16); CARBON DIOXIDE 22.7 mmol/L (21-32); POTASSIUM 3.3 mmol/L (3.5-5.1)
[2018-06-10 09:47] LABS: CREATININE 0.8 mg/dL (0.7-1.3)
[2018-06-10 09:48] LABS: TOTAL BILIRUBIN 0.3 mg/dL (0.0-1.0)
[2018-06-10 09:49] LABS: ALBUMIN 1.9 g/dL (3.4-5.0)
--- NOTE | 2018-06-10 10:14 | NUR ---
PAGED [phone] DR PLATA.
--- NOTE | 2018-06-10 10:20 | NUR ---
G TUBE RESIDUAL 10, RESUMED FEEDING. Addendum: 06/10/18 at 1547 by Hamilton Askew RN 10 ML
[2018-06-10] MEDS ORDERED: VANCOMYCIN 750 MG in DEXTROSE 5% 250 ML IV SCH (11:00)
--- NOTE | 2018-06-10 11:10 | NUR ---
ADMINISTERED NEW FEEDING BOTTLE, RUNNING VITAL 1.2 AT 65ML/HR.
--- NOTE | 2018-06-10 11:44 | NUR ---
[facility] CALLED TO INQUIRE ABOUT AVAILABILITY OF ISOLATION BED, THEY DO NOT HAVE ANY ISOLATION BED AT THIS TIME PER
[2018-06-10 12:00] VITALS: BP 113/77
--- NOTE | 2018-06-10 12:46 | NUR ---
SXN PT MODERATE AMT OF THICK WHITE SECRETIONS
[2018-06-10] MEDS: POTASSIUM CHLORIDE 20% 40 MEQ/15 ML UDC GT PRN (13:06)
[2018-06-10] MEDS: GAUZE TP SCH (13:06)
--- NOTE | 2018-06-10 14:18 | NUR ---
06/10/18 RD FOLLOW UP COMPLETED PLEASE REFER TO NUTRITION PROGRESS NOTE UNDER CARE ACTIVITY FOR ESTIMATED NUTRITION NEEDS. RD RECOMMENDATIONS: 1. CONTINUE VITAL AF 1.2 @ 65 ML/HR - THIS WILL PROVIDE 1560 ML, 1870 KCAL, 117 GM OF PROTEIN. THIS MEETS 100% OF ESTIMATED KCAL AND 106% OF ESTIMATED PROTEIN NEEDS. 3.CONTINUE FLUSH 100 ML Q4H 4.RECOMMEND MULTIVITAMIN, VITAMIN C 500MG DAILY AND ZINC SULFATE 220MG DAILY FOR WOUND HEALING. 3. RD TO FOLLOW-UP 2-3 DAYS, HIGH RISK AMBROCIO SUBRAMANIAN RD
[2018-06-10 16:00] VITALS: BP 109/74
--- NOTE | 2018-06-10 16:40 | NUR ---
PT HAD BMX1. SOILED DRESSING ON SACRAL WOUND AND HIP WOUND WAS CHANGED.
--- NOTE | 2018-06-10 19:20 | NUR ---
ENDORSED PT TO BREAD RACKER RN. PT IN STABLE CONDITION.
--- NOTE | 2018-06-10 19:21 | NUR ---
REPORT RECEIVED FROM AM NURSE AT BEDSIDE. PT IN STABLE CONDITION. AAOX1. INTRODUCED SELF TO PT. BOARD UPDATED. PT IS APHASIC. FLACC 0. NO SOB. TRACH TO T-PIECE 6LPM 28% FIO2. AFEBRILE. IV SITE R HAND 24G RUNNING D5W@40ML/HR PATENT AND INTACT. SKIN WARM, DRY, AND NOT INTACT DUE TO MULTIPLE WOUNDS. SEE WOUND NOTES. PT HAS GTUBE. GTUBE SITE IS REDDENED. MYCOSTATIN PRESCRIBED. GTUBE FEEDING VITAL AF 1.2 RUNNING@65ML/HR WITH 100ML FLUSH Q4H. KISER IN PLACE. WOUND BED LOCKED IN LOW POSITION. CALL MURO WITHIN REACH. SAFETY PRECAUTIONS IN PLACE. ALL NEEDS MET AT THIS TIME.
--- NOTE | 2018-06-10 19:25 | NUR ---
RECEIVED PATIENT TRACH SHILEY 6 XLT TO COOL AEROSOL MIST AT 28% FIO2. PULSE OX SAT 95%. SUCTIONED MODERATE AMOUNT OF THICK, PALE YELLOW SECRETIONS. STERILE WATER CHANGED. DRAIN BAG EMPTIED. NO SOB/WHEEZING NOTED AT THIS TIME. HHN NOT INDICATED AT THIS TIME. NO RESPIRATORY DISTRESS NOTED. WILL CONTINUE TO MONITOR.
[2018-06-10 20:00] VITALS: BP 129/76
--- NOTE | 2018-06-10 20:08 | NUR ---
KARIMEZOMIN DWYER AND RUNNING. METROPROLOL GIVEN THROUGH GTUBE. PT TOLERATED WELL. Addendum: 06/11/18 at 0205 by Troy Gutierres RN RESIDUAL OF 20ML. CONTINUE WITH FEEDING OF VITAL AF.
[2018-06-10] MEDS: DEXTROSE 5% 1,000 ML IV SCH (20:21)
--- NOTE | 2018-06-10 21:20 | NUR ---
RAMÓN HUNG AND RUNNING. PT TOLERATING WELL.
--- NOTE | 2018-06-10 22:30 | NUR ---
PT AWAKE IN BED WITH THE TV ON LEFT LATERAL. NO S/S OF DISTRESS NOTED. WILL CONTINUE TO MONITOR.
[2018-06-11] VITALS: BP 125/76
--- NOTE | 2018-06-11 | NUR ---
WOUND CARE DONE DUE TO BM. SEASPRAY USED. THERAHONEY AND DRESSING APPLIED. ZGUARD APPLIED. MYCOSTATIN CREAM APPLIED.
[2018-06-11] MEDS: THERAHONEY WOUND DRESSING TP SCH ×2 (00:01→13:20)
[2018-06-11] MEDS: Z-GUARD PASTE TP SCH ×2 (00:01→13:20)
--- NOTE | 2018-06-11 01:30 | NUR ---
PT SLEEPING COMFORTABLY SUPINE SLIGHTLY RIGHT LATERAL. NO S/S OF DISTRESS NOTED. BREATHING THROUGH TRACH TO T-PIECE@6LPM 28% FIO2 WITH NO SOB. WILL CONTINUE TO MONITOR.
--- NOTE | 2018-06-11 03:30 | NUR ---
PT LAYING IN BED SLEEPING COMFORTABLY. NO S/S OF DISTRESS NOTED. BREATHING NORMAL ON TRACH TO T-PIECE AT 6LPM. WILL CONTINUE TO MONITOR.
[2018-06-11 04:00] VITALS: BP 120/76
[2018-06-11] MEDS: LANSOPRAZOLE 30 MG CAPDR GT SCH (05:49)
--- NOTE | 2018-06-11 05:49 | NUR ---
PREVACID GIVEN THROUGH GTUBE. PT TOLERATED WELL.
--- NOTE | 2018-06-11 06:10 | NUR ---
NEW FEEDING PLACED. FIRST BOTTLE SPIKED THE CAP WAS DEFECTIVE. AFTER SPIKING THE FLUID WOULD SPILL OUT PAST THE CAP WHEN TURNED UPSIDE DOWN.
[2018-06-11 07:14] LABS: HEMATOCRIT 34.3 % (36-52); HEMOGLOBIN 10.6 g/dL (12.0-18.0); MEAN CORPUSCULAR HEMOGLOBIN 26 pg (27-31); MEAN CORPUSCULAR HGB CONC 31 g/dL (33-37); MEAN CORPUSCULAR VOLUME 84.8 fL (80-94); RED BLOOD CELL COUNT(AUTO) 4.04 MIL/uL (4.20-6.10); RED CELL DISTRIBUTION WIDTH 18.6 % (11.6-13.7); WHITE BLOOD COUNT (AUTO) 28.3 K/uL (4.8-10.8)
[2018-06-11 07:21] LABS: PLATELET COUNT (AUTO) 1089 K/uL (140-450)
--- NOTE | 2018-06-11 07:25 | NUR ---
REPORT GIVEN TO AM NURSE AT BEDSIDE. PT IN STABLE CONDITION.
--- NOTE | 2018-06-11 07:31 | NUR ---
RECEIVED BEDSIDE REPORT FROM GEODETIC SURVEYOR TECHNOLOGIST RN FOR CONTINUITY OF CARE. PT IN STABLE CONDITION. FLACC 0. EYES OPEN SPONTANEOUSLY. APHASIC WITH NO S/S DISTRESS. RESPIRATIONS EVEN AND UNLABORED. TRACH TO T PIECE 8 L/MIN, FIO2 28%. TACHY ON TELE MONITOR. ABDOMEN SOFT AND NON-DISTENDED. G-TUBE IN PLACE, INFUSING G-TUBE FEEDINGS. ERYTHEMA AROUND G-TUBE SITE. SKIN NON-INTACT, MULTIPLE WOUNDS. ALL DRESSINGS C/D/I. SEE WOUND ASSESSMENT. PT IS BEDBOUND AND INCONTINENT. KISER CATH IN PLACE, DRAIING URINE. IV SITE PATENT AND ASYMPTOMATIC, INFUSING IVF PER MD ORDERS. ALL SAFETY PRECAUTIONS IN PLACE, WILL CONTINUE TO MONITOR.
[2018-06-11 07:35] LABS: ALBUMIN 2.1 g/dL (3.4-5.0); ANION GAP 12.4 (8-16); CARBON DIOXIDE 22.1 mmol/L (21-32); CREATININE 0.7 mg/dL (0.7-1.3); POTASSIUM 3.5 mmol/L (3.5-5.1); TOTAL BILIRUBIN 0.2 mg/dL (0.0-1.0)
[2018-06-11 07:46] LABS: BASOPHILS % (MANUAL) 0 % (0-2); EOSINOPHILS % (MANUAL) 13 % (0-4); LYMPHOCYTES % (MANUAL) 7 % (20-46); MONOCYTES % (MANUAL) 4 % (5-12)
[2018-06-11 08:00] VITALS: BP 124/76
[2018-06-11] MEDS: SPIRONOLACTONE 50 MG TAB PO SCH (08:45)
[2018-06-11] MEDS: FLUCONAZOLE 100 MG TAB PO SCH (08:46)
[2018-06-11] MEDS: MEROPENEM 1,000 MG in NACL 0.9% 50 ML IV SCH ×2 (08:46→21:23)
[2018-06-11] MEDS: METOPROLOL 25 MG TAB PO SCH ×2 (08:46→21:00)
[2018-06-11] MEDS: LINEZOLID 600MG PREMIX 300 ML IV SCH ×2 (10:53→21:36)
--- NOTE | 2018-06-11 11:03 | NUR ---
PT RESTING IN BED, NO S/S DISTRESS. GASTRIC RESIDUALS 60ML. GT FEEDING CONTINUOUS.
[2018-06-11 12:00] VITALS: BP 129/77
[2018-06-11] MEDS: GAUZE TP SCH (13:00)
[2018-06-11] MEDS: WOUND CARE PREPARATION 178 ML SPR TP SCH ×2 (13:20)
[2018-06-11] MEDS: NYSTATIN OINT 100 MU/GM 15 GM TUBE TP SCH ×2 (13:20)
--- NOTE | 2018-06-11 14:01 | NUR ---
PT HAS LARGE MUSHY BROWN BM. STOOL COLLECTED FOR CDIFF. DRESSINGS CHANGED ON SACRUM, BUTTOCK, HIPS PRN SOILING. FOOT DRESSINGS C/D/I, NOT DUE FOR DRESSING CHANGE YET.
[2018-06-11 16:00] VITALS: BP 123/74
[2018-06-11 16:53] LABS: APPEARANCE,URINE CLEAR (CLEAR); BILIRUBIN,URINE NEGATIVE (NEGATIVE); BLOOD, URINE NEGATIVE (NEGATIVE); COLOR,URINE YELLOW (YELLOW); LEUKOCYTE ESTERASE ,URINE NEGATIVE (NEGATIVE); NITRITE, URINE NEGATIVE (NEGATIVE); PH,URINE 7.5 (5.0-9.0); UGLUCOSE NEGATIVE (NEGATIVE)
[2018-06-11 16:57] LABS: RBC,URINE 0-5 (RARE) /HPF (0-5); WBC,URINE 0-5 (RARE) /HPF (0-5)
--- NOTE | 2018-06-11 17:23 | NUR ---
SENT TYPE 6 STOOL SAMPLE TO LAB FOR CDIFF [id number]
--- NOTE | 2018-06-11 19:08 | NUR ---
ENDORSED POC TO ASSIGNMENT DESK ASSISTANT RN. PT IN STABLE CONDITION. Addendum: 06/11/18 at 1932 by Odette Delgado Meng RN ENDORSED TO ASSIGNMENT DESK ASSISTANT IV CARDIZEM FOR HR >100
--- NOTE | 2018-06-11 19:13 | NUR ---
RECEIVED PATIENT TRACH SHILEY 6 XLT TO COOL AEROSOL MIST AT 28% FIO2. PULSE OX SAT 96%. HEART RATE 134, RN NOTIFIED. BREATH SOUNDS RHONCHI-CLEARS WITH SUCTIONING. SUCTIONED LARGE AMOUNT OF THICK WHITE SECRETIONS. AIRWAY SECURE AND PATENT. BREATHING TX NOT INDICATED AT THIS TIME. WILL CONTINUE TO MONITOR.
[2018-06-11 20:00] VITALS: BP 128/84
[2018-06-11] MEDS: DILTIAZEM 25 MG/5 ML VIAL IVP PRN (20:29)
--- NOTE | 2018-06-11 20:29 | NUR ---
WITH HIGH HEART RATE 132 - CARDIZEM ADMINISTERED ORDERED
--- NOTE | 2018-06-11 21:21 | NUR ---
LOPRESSOR WITHHELD BLOOD PRESSURE IS NORMAL AT 128/84, CARDIZEM ERECENTLY GIVEN FOR HIGH RATE 132. WILL INFORM DOCTOR
--- NOTE | 2018-06-11 21:30 | NUR ---
APR OF AFTER OFFICE HRS PHARMACY CALLED TO CHECK AVAILABILITY OF COLY-MYCIN [address] PLATA ORDERED LOADING DOSE OF 300 MG. AND ANOTHER 150 MG FOR Q12 IV. WILL CHECK WITH PASS WORKER AND CHARGE NURSE AVAILABILITY OF THE HOSPITAL
--- NOTE | 2018-06-11 21:45 | NUR ---
COOL AEROSOL WATER CHANGED. DRAINAGE BAG EMPTIED. SUCTIONED LARGE AMOUNT OF THICK WHITE SECRETIONS. NO RESPIRATORY DISTRESS NOTED. WILL CONTINUE TO MONITOR.
[2018-06-11] MEDS: DEXTROSE 5% 1,000 ML IV SCH (21:54)
[2018-06-11] MEDS ORDERED: COLISTIMETHATE SODIUM 150 MG VIAL IV SCH (22:00)
--- NOTE | 2018-06-11 22:01 | NUR ---
JUST HAVE 2 VIALS OPF 150MG EACH INFOPRMED LILLY PHARMACIST. SHE SAID WILL GIVE THE LOADING DOSE TONIGHT THEN. WILL GIVE THE 150 MG IV Q12 IN THE A.M DUIE UNAVAILABILITY OF MED
--- NOTE | 2018-06-11 22:06 | NUR ---
CALLED LAB. TO CONFORM IF STOOOL FOR C-DIFF WAS COLLECTED. THEY CONFORMED THAT IT WAS SENT AT 1723 BY AM SHIFT NURSE
--- NOTE | 2018-06-11 22:26 | NUR ---
WAS CALLED BY LAB.AND WAS INFORMED THAT THE STOOL FOR C. DIFF WAS WRONGLY ORDERED FOR STOOL CULTURE. AND THAT THE STOOL WAS SENT TO [facility] FOR STOOL CULTURE NOT FOR C. DIFF.
--- NOTE | 2018-06-11 22:27 | NUR ---
INFORMED THE CHARGE NURSE THAT I RECONFIRMED WITH LAB IF THE STOOL WAS SENT AND THEY SAID THAT A STOOL WAS SENT FOR C. DIFF. BUT JUST NOW, LAB CALLED AND SAID THAT IT WAS STOOL CULTURE THAT WAS PROCESSED FOR THE STOOL AND NOT THE C. DIFF. CHARGE NURSE WILL RE-ORDER C.DIFF. WILL NEED TO COLLECT FOR C. DIFF.
--- NOTE | 2018-06-11 23:52 | NUR ---
DR. WYATT WAS CONTACTED LAY HEALTH ADVOCATE OF DR. JANG.INFORMED HIM THAT LOPRESSOR WAS WITHHELD EARLIER BEC. CARDIZEM WAS GIVEN. BP NOW IS 118/68. WILL CONTINUE TO MONITOR BP
--- NOTE | 2018-06-11 23:52 | NUR ---
HEART RATE IS STILL 132-135, DR. WYATT AWARE. WILL GIVE CARDIZEM MEDS PRN ORDERED.
[2018-06-12] VITALS: BP 106/69
[2018-06-12] MEDS: VANCOMYCIN 500 MG VIAL PO SCH ×4 (00:19→17:56)
[2018-06-12] MEDS ORDERED: WATER STERILE 10 ML MC ONE (00:21)
--- NOTE | 2018-06-12 00:37 | NUR ---
CHECKED FOR GT RESIDUAL: GREATER THAN 100 ML. TEMP STOPPLED ORDERED. WILL MONITOR Addendum: 06/12/18 at 0040 by Dee Martinez RN RESIDUAL IS 200 ML. HELD TEMPORARILY
[2018-06-12] MEDS: DILTIAZEM 25 MG/5 ML VIAL IVP PRN ×4 (01:59→08:05)
[2018-06-12] MEDS: NYSTATIN OINT 100 MU/GM 15 GM TUBE TP SCH ×2 (02:02→11:41)
[2018-06-12] MEDS: WOUND CARE PREPARATION 178 ML SPR TP SCH ×2 (02:03→11:41)
[2018-06-12] MEDS: Z-GUARD PASTE TP SCH ×2 (02:04→11:41)
[2018-06-12] MEDS: THERAHONEY WOUND DRESSING TP SCH ×2 (02:04→11:41)
--- NOTE | 2018-06-12 02:14 | NUR ---
CHECKED FOR RESIDUAKL=50 ML. STARTED VITAL AF 1.2 INITIALLY AT 10 ML, INCREASE 15ML EVERYY 6 HRS, GOAL OF 65. 100 ML H20 Q4
[2018-06-12 04:00] VITALS: BP 106/69
--- NOTE | 2018-06-12 05:27 | NUR ---
IVF WAS DISCONNECTED FROM IV SITE. ATTEMPTS X 2X. DIFFICULT IV INSERTION DUE TO SPASTIC EXTREMITIES. CALLED FOR ER FOR AN IV INSERTION. AWAITING FOR ER STAFF FOR INSERTION
--- NOTE | 2018-06-12 05:30 | NUR ---
SUCTIONED LARGE AMOUNT OF THICK WHITE SECRETIONS. EMPTIED DRAINAGE BAG. TRACH CARE DONE WITHOUT INCIDENT. NO RESPIRATORY DISTRESS NOTED AT THIS TIME. WILL CONTINUE TO MONITOR.
[2018-06-12] MEDS: LANSOPRAZOLE 30 MG CAPDR GT SCH (05:58)
--- NOTE | 2018-06-12 06:30 | NUR ---
MULTIPLE ATTEMPTS FOR IV INSERTION FROM [facility] STAFF, CHARGE NURSE AND FROM ER. WILL INFORM DR. SERNA DIRECTOR REGULATORY AGENCY Addendum: 06/12/18 at 0756 by Dee Martinez RN AMEND NAME OF TO DR. MARLEY
[2018-06-12 06:41] LABS: HEMATOCRIT 37.4 % (36-52); HEMOGLOBIN 11.6 g/dL (12.0-18.0); MEAN CORPUSCULAR HEMOGLOBIN 26 pg (27-31); MEAN CORPUSCULAR HGB CONC 31 g/dL (33-37); MEAN CORPUSCULAR VOLUME 84.8 fL (80-94); PLATELET COUNT (AUTO) 1273 K/uL (140-450); RED BLOOD CELL COUNT(AUTO) 4.41 MIL/uL (4.20-6.10); RED CELL DISTRIBUTION WIDTH 18.8 % (11.6-13.7)
[2018-06-12 06:44] LABS: ALBUMIN 2.2 g/dL (3.4-5.0); ANION GAP 14.7 (8-16); CARBON DIOXIDE 24.1 mmol/L (21-32); CREATININE 0.7 mg/dL (0.7-1.3); POTASSIUM 3.8 mmol/L (3.5-5.1); TOTAL BILIRUBIN 0.4 mg/dL (0.0-1.0)
--- NOTE | 2018-06-12 06:47 | NUR ---
DR. SERNA NURSING CARE PARTNER OF DR. JANG CALLED BACK. HE SAID TO INSERT A MEDLINE Addendum: 06/12/18 at 0652 by Dee Martinez RN AMEND MEDLINE TO "MIDLINE INSERTION" Addendum: 06/12/18 at 0756 by Dee Martinez RN AMEND 'S NAME TO "DR. MARLEY"
[2018-06-12 07:08] LABS: WHITE BLOOD COUNT (AUTO) 35.9 K/uL (4.8-10.8)
[2018-06-12 07:09] LABS: LYMPHOCYTES % (MANUAL) 8 % (20-46)
[2018-06-12 07:10] LABS: EOSINOPHILS % (MANUAL) 2 % (0-4); MONOCYTES % (MANUAL) 4 % (5-12)
--- NOTE | 2018-06-12 07:10 | NUR ---
WAS INFORMED BY LAB THAT WBC IS 35.9. CALLED COMMERCIAL ESCROW ASSISTANT FOR DR. RONDON. NO REPLY YET. ENDORSED TO NEXT SHIFT
--- NOTE | 2018-06-12 07:34 | NUR ---
CALLED PICC LINE NURSE AND LEFT MESSAGE.
--- NOTE | 2018-06-12 07:35 | NUR ---
RECEIVED BEDSIDE REPORT FROM BARKER OPERATOR RN FOR CONTINUITY OF CARE. PT IS DROWSY. EYES OPEN TO NAME. TRACH TO T PIECE 6 L/MIN, FIO2 28%. NO S/S OF ACUTE RESPIRATORY DISTRESS. PT IS APHASIC. ST ON TELE MONITOR. ABDOMEN SOFT AND NON-DISTENDED. G-TUBE IN PLACE, RUNNING VITAL AF 1.2 AT 25ML/HR. SKIN NON-INTACT, MULTIPLE WOUNDS. ALL DRESSINGS CLEAN, DRY AND INTACT. PT IS BEDBOUND. KISER CATH IN PLACE, DRAINING CLEAR YELLOW URINE. NO IV ACCESS AT THIS TIME. ALL SAFETY PRECAUTIONS IN PLACE, WILL CONTINUE TO MONITOR.
--- NOTE | 2018-06-12 07:40 | NUR ---
ENDORSED TO AM SHIFT NURSE, FOR MIDLINE INSERTION, STILL WITH HEART RATE OF 130'S. WILL ENDORSE TO NEXT SHIFT TO MONITOR.
--- NOTE | 2018-06-12 07:50 | NUR ---
IV INSERTED BY CHARGE NURSE. ON RIGHT INDEX. 24G, PATENT AND INTACT.
[2018-06-12 08:00] VITALS: BP 107/70
--- NOTE | 2018-06-12 08:00 | NUR ---
G TUBE RESIDUAL IS 0ML. INCREASED FEEDING TO 40ML/HR.
[2018-06-12] MEDS: MEROPENEM 1,000 MG in NACL 0.9% 50 ML IV SCH ×2 (08:09→20:04)
[2018-06-12] MEDS: NACL 0.9% 1,000 ML IV SCH (08:12)
[2018-06-12] MEDS: METOPROLOL 25 MG TAB PO SCH ×2 (09:00→20:05)
[2018-06-12] MEDS: SPIRONOLACTONE 50 MG TAB PO SCH (09:00)
[2018-06-12] MEDS: FLUCONAZOLE 100 MG TAB PO SCH (09:03)
[2018-06-12] MEDS: EPOETIN ALFA 10,000 UNITS/ML VIAL SUBQ SCH (09:04)
[2018-06-12] MEDS ORDERED: NACL 0.9% 1,000 ML IV SCH (09:26)
[2018-06-12] MEDS: LINEZOLID 600MG PREMIX 300 ML IV SCH ×2 (09:33→21:08)
--- NOTE | 2018-06-12 10:25 | NUR ---
WOUND CARE RE-EVALUATION: NO CHANGE IN WOUNDS CONDITION, WILL CONTINUE SAME TREATMENTS. PT WITH ELEVATED WBC TODAY'S LAB REPORTS.
--- NOTE | 2018-06-12 10:35 | NUR ---
CALLED PICC LINE NURSE MARIVEL, LEFT HIM A MESSAGE ABOUT INSERT MID LINE, CONSENT IS READY . WAITING FOR CALL BACK.
[2018-06-12] MEDS: COLISTIMETHATE SODIUM 150 MG in NACL 0.9% 100 ML IV SCH ×2 (10:55→22:52)
[2018-06-12] MEDS ORDERED: ASCORBIC ACID 500 MG/5 ML ORASYR GT SCH (11:30)
[2018-06-12] MEDS ORDERED: ZINC SULF 220 MG CAP GT SCH (11:30)
--- NOTE | 2018-06-12 11:30 | NUR ---
G TUBE RESIDUAL 100ML, KEPT FEEDING RATE AT 40ML/HR. Addendum: 06/12/18 at 1823 by Hamilton Askew RN ADJUSTED WATER FLUSH TO 100ML Q8H
[2018-06-12] MEDS: GAUZE TP SCH (11:40)
--- NOTE | 2018-06-12 11:54 | NUR ---
I CALLED [facility] AND SPOKE WITH KIRA. NO ISOLATION BEDS.
[2018-06-12 12:00] VITALS: BP 114/76
[2018-06-12] MEDS ORDERED: ASCORBIC ACID 500 MG TAB GT SCH (12:00)
--- NOTE | 2018-06-12 12:01 | NUR ---
HAD ORDER FOR WBC INDIUM SCAN. I SPOKE WITH JORDON AT RADIOLOGY AT [facility]. SHE SAID THEY WILL HAVE A REGISTRY, PMI, COME IN TOMORROW AT ABOUT 8A.M. TO START THE PROCESS. THEY WILL DO THE SCAN AT BEDSIDE. MARIEL JAYPORTABLE MACHINE SANDER NURSE AWARE
--- NOTE | 2018-06-12 13:00 | NUR ---
CALLED PICC LINE NURSE MARIVEL, LEFT HIM A MESSAGE ABOUT INSERT MID LINE, CONSENT IS READY . WAITING FOR CALL BACK.
--- NOTE | 2018-06-12 13:50 | NUR ---
PICC LINE NURSE MARIVEL CALLED BACK, WILL COME HERE IN ABOUT 3 HRS.
[2018-06-12 16:00] VITALS: BP 117/74
--- NOTE | 2018-06-12 17:50 | NUR ---
CHECKED G TUBE RESIDUAL 80ML. INCREASED FEEDING TO 55ML/HR, WATER FLUSH KEPT AT 100ML Q8HR
--- NOTE | 2018-06-12 19:30 | NUR ---
RECEIVED REPORT FROM DAYSHIFT NURSE FOR CONTINUITY OF CARE. PATIENT IS AWAKE, RESPIRATION EVEN UNLABORED ON TRACH TO T-PIECE. NO DISTRESS NOTED. SKIN IS WARM AND DRY. IV INTACT AND PATENT. KISER CATHETER DRAINING YELLOW URINE. G-TUBE FEEDING NOTED. PLAN OF CARE WAS DISCUSSED. ALL SAFETY MEASURE IN PLACE. CALL LIGHT WITHIN REACH. BED IS AT LOW POSITION.
--- NOTE | 2018-06-12 19:39 | NUR ---
ENDORSE PT TO NURSES SUPERVISOR RN. PT IN STABLE CONDITION. Addendum: 06/12/18 at 1939 by Hamilton Askew RN TIME WAS 1919
--- NOTE | 2018-06-12 19:50 | NUR ---
OBTAINED 275CC RESIDUAL FROM THE G-TUBE FEEDING.
[2018-06-12 20:00] VITALS: BP 107/62
--- NOTE | 2018-06-12 20:00 | NUR ---
MEDS WERE GIVEN PER ORDER. VITAL SIGNS STABLE. CALL LIGHT WITHIN REACH.
--- NOTE | 2018-06-12 20:32 | NUR ---
RECEIVED PATIENT TRACH SHILEY 6 XLT TO COOL AEROSOL MIST AT 28% FIO2. BREATH SOUNDS CLEAR. NO HHN INDICATED AT THIS TIME. NO RESPIRATORY DISTRESS NOTED AT THIS TIME. WILL CONTINUE TO MONITOR.
[2018-06-12] MEDS ORDERED: COLISTIMETHATE SODIUM 150 MG VIAL ONE (22:54)
[2018-06-13] VITALS (7 sets, daily range): BP systolic 87–121; BP diastolic 50–76
--- NOTE | 2018-06-13 | NUR ---
PATIENT WAS AWAKE, RESPIRATION EVEN UNLABORED ON TRACH TO T-PIECE. NO DISTRESS NOTED AT THIS TIME. OBTAINED 50CC RESIDUAL FROM G-TUBE. VITALS STABLE. CALL LIGHT WITHIN REACH. BED IS AT LOW POSITION.
[2018-06-13] MEDS: Z-GUARD PASTE TP SCH ×2 (01:22→13:00)
[2018-06-13] MEDS: WOUND CARE PREPARATION 178 ML SPR TP SCH ×2 (01:22→13:00)
[2018-06-13] MEDS: THERAHONEY WOUND DRESSING TP SCH ×2 (01:22→13:00)
--- NOTE | 2018-06-13 01:22 | NUR ---
DRESSINGS CHANGED, PT TOLERATED WELL, NO DISTRESS NOTED, CALL LIGHT WITHIN REACH, WILL CONTINUE TO MONITOR.
[2018-06-13] MEDS: NACL 0.9% 1,000 ML IV SCH ×2 (03:25→09:25)
[2018-06-13] MEDS: LANSOPRAZOLE 30 MG CAPDR GT SCH (05:40)
--- NOTE | 2018-06-13 05:45 | NUR ---
OBTAINED 295CC RESIDUAL FROM G-TUBE. WILL HOLD FOR AN HOUR RIGHT NOW AND RECHECK LATER. WILL CONTINUE TO MONITOR
--- NOTE | 2018-06-13 07:12 | NUR ---
ENDORSED PATIENT TO DAY SHIFT NURSE FOR CONTINUITY OF CARE. PATIENT IS STABLE AT THIS TIME.
--- NOTE | 2018-06-13 07:15 | NUR ---
RECEIVED BEDSIDE REPORT FROM SENIOR RESEARCH ANALYST RN FOR CONTINUITY OF CARE. PT IS DROWSY. EYES OPEN TO NAME. TRACH TO T PIECE 6 L/MIN, FIO2 28%. NO S/S OF ACUTE RESPIRATORY DISTRESS. PT IS APHASIC. ST ON TELE MONITOR. ABDOMEN SOFT AND NON-DISTENDED. G-TUBE FEEDING HELD, WILL CHECK RESIDUAL, RESUME IF BELOW 100ML. SKIN NON-INTACT, MULTIPLE WOUNDS. DRESSINGS ARE CLEAN, INTACT AN DRY. DRESSING CHANGE DUE TODAY, WILL CHANGE LATER. PT IS BEDBOUND. KISER CATH IN PLACE, DRAINING CLEAR YELLOW URINE. IV CATH NOTED TO RIGHT INDEX, 24G, PATENT AND INTACT, ASYMPTOMATIC, RUNNING NS AT 50ML/HR. RIGHT UA, MID LINE FLUSHED, PATENT AND INTACT. ALL SAFETY PRECAUTIONS IN PLACE, WILL CONTINUE TO MONITOR.
[2018-06-13 08:26] LABS: ANION GAP 15.9 (8-16); CARBON DIOXIDE 22.4 mmol/L (21-32); CREATININE 0.6 mg/dL (0.7-1.3); POTASSIUM 3.3 mmol/L (3.5-5.1)
[2018-06-13 08:29] LABS: TOTAL BILIRUBIN 0.3 mg/dL (0.0-1.0)
[2018-06-13 08:47] LABS: HEMATOCRIT 33.6 % (36-52); HEMOGLOBIN 10.2 g/dL (12.0-18.0); MEAN CORPUSCULAR HEMOGLOBIN 26 pg (27-31); MEAN CORPUSCULAR HGB CONC 30 g/dL (33-37); MEAN CORPUSCULAR VOLUME 85.7 fL (80-94); PLATELET COUNT (AUTO) 1118 K/uL (140-450); RED BLOOD CELL COUNT(AUTO) 3.91 MIL/uL (4.20-6.10); RED CELL DISTRIBUTION WIDTH 19.2 % (11.6-13.7); WHITE BLOOD COUNT (AUTO) 28.1 K/uL (4.8-10.8)
[2018-06-13] MEDS ORDERED: ASCORBIC ACID 500 MG/5 ML ORASYR GT SCH (09:00)
[2018-06-13 09:13] LABS: EOSINOPHILS % (MANUAL) 4 % (0-4); LYMPHOCYTES % (MANUAL) 6 % (20-46); MONOCYTES % (MANUAL) 5 % (5-12)
[2018-06-13] MEDS: ZINC SULF 220 MG CAP GT SCH (09:33)
[2018-06-13] MEDS: MEROPENEM 1,000 MG in NACL 0.9% 50 ML IV SCH ×2 (09:35→20:33)
--- NOTE | 2018-06-13 09:35 | NUR ---
DR PRIEST SEEN PT, WILL PUT IN ORDER FOR BOLUS 500ML NS.
[2018-06-13] MEDS: METOPROLOL 25 MG TAB PO SCH ×2 (09:38→20:34)
[2018-06-13] MEDS: ASCORBIC ACID 500 MG TAB GT SCH (09:38)
[2018-06-13] MEDS: POTASSIUM CHLORIDE 20% 40 MEQ/15 ML UDC GT PRN (09:39)
[2018-06-13] MEDS: LINEZOLID 600MG PREMIX 300 ML IV SCH ×2 (09:39→20:33)
[2018-06-13] MEDS: FOAM DRESSING TP SCH (09:40)
[2018-06-13] MEDS: THERAHONEY GEL 42.5 GM TP SCH (09:40)
[2018-06-13] MEDS: SPIRONOLACTONE 50 MG TAB PO SCH (09:55)
[2018-06-13] MEDS ORDERED: NACL 0.9% 500 ML IV SCH (09:57)
--- NOTE | 2018-06-13 10:00 | NUR ---
ORAL CARE DONE, PT WAS REPOSITIONED. NO S/S OF DISTRESS.
--- NOTE | 2018-06-13 10:10 | NUR ---
DR GALLEGOS SEEN PT, ASKED IF LOVENOX IS NEEDED, DR GALLEGOS SAID NO. MADE DR GALLEGOS AWARE PT NOT TOLERATING FEEDING, RECOMMEND REGLAN, DR GALLEGOS SAID OK, TO ORDERED 5MG TID.
[2018-06-13] MEDS: COLISTIMETHATE SODIUM 150 MG in NACL 0.9% 100 ML IV SCH ×2 (11:01→22:15)
[2018-06-13] MEDS: METOCLOPRAMIDE 10 MG TAB PO SCH ×2 (11:48→17:11)
[2018-06-13] MEDS: GAUZE TP SCH (13:00)
--- NOTE | 2018-06-13 14:03 | NUR ---
RECEIVED A CALL FROM CARO FROM [facility]. THEY CAN TAKE THE PATIENT. HE CAN GO TO ROOM 24A UNDER DR. GALLEGOS. I INFORMED CARO THAT WE DON'T HAVE A DISCHARGE TODAY.
--- NOTE | 2018-06-13 14:43 | NUR ---
06/13/18 RD FOLLOW UP COMPLETED PLEASE REFER TO NUTRITION ASSESSMENT UNDER CARE ACTIVITY FOR ESTIMATED NUTRITIONAL NEEDS. 1. RECOMMEND VITAL AF 1.2 AT 55 ML/HR -THIS WILL PROVIDE 1320 ML, 1584 KCAL, 99 GM OF PROTEIN, WHICH MEETS 83% OF ESTIMATED KCAL AND 100% OF ESTIMATED PROTEIN NEEDS. 2. RECOMMEND FREE WATER FLUSH OF [address] TO FOLLOW-UP 2-3 DAYS, HIGH RISK JESSICA LEON RD
--- NOTE | 2018-06-13 16:30 | NUR ---
NO BM TODAY, WILL GIVE COLACE BID PRN FOR CONSTIPATION.
--- NOTE | 2018-06-13 17:00 | NUR ---
SPOKE WITH DR GALLEGOS, REPORTED BP 87/51 ON RIGHT ARM, 101/[address] GALLEGOS ORDER LACTIC ACID TEST
--- NOTE | 2018-06-13 17:10 | NUR ---
G TUBE RESIDUAL 200ML, FEEDING HELD.
[2018-06-13] MEDS: DOCUSATE SODIUM 250 MG GELCAP PO PRN (17:11)
--- NOTE | 2018-06-13 18:30 | NUR ---
RESIDUAL 80ML, RESUMED FEEDING, DECREASED RATE TO 40ML/HR, WATER FLUSH 100ML Q8H
--- NOTE | 2018-06-13 19:15 | NUR ---
ENDORSED PT TO CHIEF DIVERSITY OFFICER RN. PT IN STABLE CONDITION.
--- NOTE | 2018-06-13 19:16 | NUR ---
RECEIVED BEDSIDE REPORT FROM DAY SHIFT NURSE HALIMA RN, PT STABLE, NO DISTRESS NOTED, SLEEPING, L UA CENTRAL LINE PATENT, INTACT, SL, IV TO R INDEX FINGER 24G, PATENT, INTACT, INFUSING NS @ 80ML/HR, PT ON TUBE FEEDING, KISER CATH IN PLACE DRAINING YELLOW URINE, INITIAL ASSESSMENT DONE, ALL SAFETY PRECAUTION MET, CALL LIGHT WITHIN REACH, WILL CONTINUE TO MONITOR.
--- NOTE | 2018-06-13 20:34 | NUR ---
DUE MEDICATION ADMINISTERED, PT METOPROLOL NOT ADMINISTERED DUE TO PT BLOOD PRESSURE DECREASE, BP 95/51, HR 108, PT RESTING, NO DISTRESS NOTED, CALL LIGHT WITHIN REACH, WILL CONTINUE TO MONITOR.
[2018-06-14] VITALS (7 sets, daily range): BP systolic 91–101; BP diastolic 51–74
[2018-06-14] MEDS: ACETAMINOPHEN 650 MG SUPP RC PRN (00:21)
--- NOTE | 2018-06-14 00:21 | NUR ---
CHECKED ON PT, PT TEMPERATURE 100.8, TYLENOL PER DR ORDER ADMINISTERED, PT TOLERATED WELL, NO DISTRESS NOTED, WILL RECHECK PT TEMPERATURE IN 1 HR, WILL CONTINUE TO MONITOR PT.
--- NOTE | 2018-06-14 00:51 | NUR ---
WOUND CARE ADMINISTERED PER ORDER, PT TOLERATED WELL, NO DISTRESS NOTED, CALL LIGHT WITHIN REACH, WILL CONTINUE TO MONITOR.
[2018-06-14] MEDS: Z-GUARD PASTE TP SCH ×2 (00:54→13:49)
[2018-06-14] MEDS: WOUND CARE PREPARATION 178 ML SPR TP SCH ×2 (00:54→13:49)
[2018-06-14] MEDS: THERAHONEY WOUND DRESSING TP SCH ×2 (00:54→13:49)
--- NOTE | 2018-06-14 01:25 | NUR ---
CHECKED PT TEMPERATURE 99.1, PT RESTING, NO DISTRESS NOTED, CALL LIGHT WITHIN REACH, WILL CONTINUE TO MONITOR.
[2018-06-14] MEDS: NACL 0.9% 1,000 ML IV SCH ×2 (03:42→18:41)
--- NOTE | 2018-06-14 04:10 | NUR ---
CHECKED ON PT, PT SLEEPING, V/S TAKEN WITHIN PT BASELINE, CALL LIGHT WITHIN REACH, WILL CONTINUE TO MONITOR.
[2018-06-14] MEDS: LANSOPRAZOLE 30 MG CAPDR GT SCH (06:29)
[2018-06-14] MEDS: METOCLOPRAMIDE 10 MG TAB PO SCH ×3 (06:29→17:23)
--- NOTE | 2018-06-14 07:30 | NUR ---
ENDORSED PT TO DAY SHIFT NURSE TRAMAINE RN, PT STABLE, NO DISTRESS NOTED, CALL LIGHT WITHIN REACH.
[2018-06-14 07:34] LABS: HEMOGLOBIN 8.7 g/dL (12.0-18.0); MEAN CORPUSCULAR HEMOGLOBIN 27 pg (27-31); MEAN CORPUSCULAR HGB CONC 31 g/dL (33-37); MEAN CORPUSCULAR VOLUME 85.2 fL (80-94); RED BLOOD CELL COUNT(AUTO) 3.29 MIL/uL (4.20-6.10)
[2018-06-14 07:38] LABS: PLATELET COUNT (AUTO) 1022 K/uL (140-450)
[2018-06-14 07:47] LABS: ALBUMIN 1.8 g/dL (3.4-5.0); ANION GAP 3.2 (8-16); CARBON DIOXIDE 22.6 mmol/L (21-32); CREATININE 0.8 mg/dL (0.7-1.3); TOTAL BILIRUBIN 0.2 mg/dL (0.0-1.0)
--- NOTE | 2018-06-14 07:50 | NUR ---
PATIENT WAS RESPONSIVE TO PAIN. RESPIRATION EVEN, UNLABOR ON T PIECE. SKIN DRY AND WARM. MIDLINE AND IV PATENT AND INTACT. GTUBE DRY AND CLEAN. FLACC 0. BED AT LOW POSITION, SIDE RAILS UP. CALL LIGHT WITHIN REACH
[2018-06-14 07:52] LABS: POTASSIUM 2.8 mmol/L (3.5-5.1)
--- NOTE | 2018-06-14 08:00 | NUR ---
DR. NINO WAS PAGED REGARDING CRITICAL RESULT POTASSIUM 2.8, WILL CONTINUE TO FOLLOW UP
[2018-06-14 08:04] LABS: LYMPHOCYTES % (MANUAL) 15 % (20-46)
[2018-06-14 08:05] LABS: EOSINOPHILS % (MANUAL) 8 % (0-4); MONOCYTES % (MANUAL) 8 % (5-12)
--- NOTE | 2018-06-14 08:30 | NUR ---
DR. GALLEGOS WAS MADE AWARE OF PATIENT'S BP, AND POTASSIUM 2.8. ADVISED TO CONTINUE TO MONITOR, AND CALL AND UPDATE PATIENT'S DAUGHTER WITH HIS CONDITION.
--- NOTE | 2018-06-14 08:53 | NUR ---
DAUGHTER KENDALL WAS CALLED TO UPDATE ABOUT PATIENT'S CONDITION. DAUGHTER WAS UPSET AND STATED THAT SHE WILL COME TOMORROW AT 1 PM, SHE DOES NOT WANT TO BE CALLED EVERYDAY, SHE UNDERSTANDS THE PATIENT'S CONDITION, AND WILL COME IN WHEN SHE CAN. DR. GALLEGOS AND CHARGE NURSE JUAN JOSE WERE MADE AWARE.
[2018-06-14] MEDS: METOPROLOL 25 MG TAB PO SCH ×2 (09:00→21:00)
[2018-06-14] MEDS: SPIRONOLACTONE 50 MG TAB PO SCH ×2 (09:00→17:23)
[2018-06-14] MEDS: MEROPENEM 1,000 MG in NACL 0.9% 50 ML IV SCH (09:21)
[2018-06-14] MEDS: ASCORBIC ACID 500 MG TAB GT SCH (09:21)
[2018-06-14] MEDS: ZINC SULF 220 MG CAP GT SCH (09:21)
[2018-06-14] MEDS: LINEZOLID 600MG PREMIX 300 ML IV SCH ×2 (09:25→21:07)
[2018-06-14] MEDS: EPOETIN ALFA 10,000 UNITS/ML VIAL SUBQ SCH (09:25)
--- NOTE | 2018-06-14 10:30 | NUR ---
DR. PRIEST WAS MADE AWARE ALDACTON WAS HELD THIS AM DUE TO LOW BP. OK TO RESUME ALDACTON PER DR. PRIEST Addendum: 06/14/18 at 1701 by Nunu Jeffers RN AND GIVE K RIDER 20 MEQ IF LAB RECHECK POTASSIUM IS LESS THAN 3.5
[2018-06-14] MEDS: COLISTIMETHATE SODIUM 150 MG in NACL 0.9% 100 ML IV SCH ×2 (10:31→23:11)
--- NOTE | 2018-06-14 10:50 | NUR ---
IV ON RIGHT HAND CAME OFF, CATHETER INTACT, NO ACTIVE BLEEDING SEEN. IV MEDS WERE GIVEN PER ORDER VIA MIDLINE. PATIENT TOLERATED WELL. IV TUBING WAS CHANGED
[2018-06-14] MEDS ORDERED: POTASSIUM CHLORIDE 10 MEQ TABER PO SCH (11:30)
[2018-06-14] MEDS ORDERED: KCL 20 MEQ/WATER INJ PREMIX 200 ML IV SCH ×2 (12:00→17:00)
[2018-06-14] MEDS ORDERED: ALBUMIN HUMAN 25% 50 ML IV SCH (12:00)
--- NOTE | 2018-06-14 12:00 | NUR ---
WOUND DRESSINGS WERE CHANGED PER ORDER. PATIENT WAS REPOSITIONED TO RIGHT LATERAL. VS WAS STABLE. PATIENT TOLERATED WELL
[2018-06-14] MEDS: DOCUSATE SODIUM 250 MG GELCAP PO PRN (13:40)
[2018-06-14] MEDS: MIDODRINE 5 MG TAB PO SCH ×2 (13:40→18:13)
--- NOTE | 2018-06-14 13:40 | NUR ---
TUBE FEEDING RESIDUAL WAS MEASURED AT 30 ML. PATIENT TOLERATED DIET WELL
[2018-06-14] MEDS: GAUZE TP SCH (13:48)
--- NOTE | 2018-06-14 16:00 | NUR ---
PATIENT WAS RESTING COMFORTABLY. RESPIRATION EVEN, UNLABOR ON TRACH TO T PIECE. FLACC 0. NO DISTRESS NOTED AT THIS TIME.
[2018-06-14] MEDS ORDERED: SPIRONOLACTONE 25 MG TAB PO SCH (17:00)
[2018-06-14 17:13] LABS: ANION GAP 14.1 (8-16); CARBON DIOXIDE 23.4 mmol/L (21-32); CREATININE 0.7 mg/dL (0.7-1.3); POTASSIUM 4.5 mmol/L (3.5-5.1)
--- NOTE | 2018-06-14 17:30 | NUR ---
PATIENT WAS REPOSITIONED TO RIGHT LATERAL. PATIENT WAS SUCTIONED X 3. ORAL CARE WAS GIVEN. PATIENT TOLERATED WELL. TUBING RESIDUAL WAS AT 5 ML. PATIENT TOLERATED FEEDING WELL
--- NOTE | 2018-06-14 17:38 | NUR ---
RECHECKED POTASSIUM 4.5. HOLD K RIDER [address] PRIEST
--- NOTE | 2018-06-14 18:31 | NUR ---
PATIENT WAS RESTING COMFORTABLY. RESPIRATION EVEN, UNLABOR ON T PIECE. MIDLINE PATENT AND INTACT. NO DISTRESS NOTED AT THIS TIME
--- NOTE | 2018-06-14 19:33 | NUR ---
ENDORSEMENT GIVEN TO MANAGER DRIVE NURSE. PATIENT IS STABLE AT THIS TIME
--- NOTE | 2018-06-14 19:35 | NUR ---
RECEIVED PT FROM QI JAY PT NONVERBAL ON TRACH TO T BAR QUADRIPLEGIC IV ON LEFT ARM INFUSING WELL ON MIDLINE , ON TELEMETRY ST, G TUBE FEEDING WELL TOLERATED , FOLEYCATH DRAINING WELL YELLOW URINE, PT SUCTIONED NECESSARY REPOSITIONED DRSSING DRYAND INTACT ON MULTIPLES WOUNDS INITIAL ASSESSMENT DONE
[2018-06-14] MEDS: MEROPENEM 1,000 MG in NACL 0.9% 100 ML IV SCH (21:07)
--- NOTE | 2018-06-14 21:29 | NUR ---
RECEIVED PATIENT ON COOL AEROSOL AT 6L/M FIO2 28%. PT IS TRACH'D WITH A SHILEY 6 XLT THAT IS SECURE WITH TRACH TIES AND AREA IS CLEAN. PT AWAKE AND QUIET. B/S: CLEAR BILATERALLY IN THE UPPER LOBES AND DIMINISHED IN THE BASES. WATER FOR AEROSOL IS ABOUT 85% FULL. TUBES ARE DRAINED. WILL CONTINUE TO MONITOR.
--- NOTE | 2018-06-14 22:00 | NUR ---
PT REPOSITIONED Q2H , SUCTIONED NECESSARY ON TELEMETRY ST. NOT DISTRESS NOTED
[2018-06-15] VITALS: BP 95/66
[2018-06-15] MEDS: WOUND CARE PREPARATION 178 ML SPR TP SCH (01:00)
[2018-06-15] MEDS: Z-GUARD PASTE TP SCH ×2 (01:00→12:32)
[2018-06-15] MEDS: THERAHONEY WOUND DRESSING TP SCH (01:00)
--- NOTE | 2018-06-15 01:00 | NUR ---
LINEN CHANGED A BIG BM DRESSING CHANGED ORDER SUCTIONED NECESSARY ON TELMETRY ST
--- NOTE | 2018-06-15 03:21 | NUR ---
BREATHING TX GIVEN PT SUCTIONED NECESSARY ON TELEMETRY ST NOT DISTRESS NOTED
--- NOTE | 2018-06-15 03:30 | NUR ---
PATIENT AWAKE AND QUIET WHEN ENTERED ROOM. SPO2 95 ON 28% FIO2 VIA COOL AEROSOL. SUCTIONED PT TWICE AND RECEIVED MODERATE WHITE THIN SECRETIONS. PATIENT HAS STRONG AND EFFECTIVE COUGH. B/S: RHONCHI BILATERALLY. CLEARED DRAINAGE BAG AND TUBING. WATER FOR AEROSOL IS ABOUT 50% FULL. WILL CONTINUE TO MONITOR.
[2018-06-15 04:00] VITALS: BP 98/59
--- NOTE | 2018-06-15 05:00 | NUR ---
SPONGE BATH GIVEN LINEN CHANGED SUCTIONED NECESSARY, ON ST
--- NOTE | 2018-06-15 05:22 | NUR ---
COMPLETED TRACH CARE, CHANGED INNER CANNULA, CHANGED GAUZE AROUND TRACH, AND T PIECE WITH INCIDENT. WATER FOR AEROSOL IS ABOUT 40% FULL. CLEARED CONDENSATION IN TUBING. PATIENT AWAKE AND QUIET WITH NO DISTRESS.
[2018-06-15] MEDS: METOCLOPRAMIDE 10 MG TAB PO SCH ×3 (05:57→17:21)
[2018-06-15] MEDS: MIDODRINE 5 MG TAB PO SCH ×3 (05:57→18:25)
[2018-06-15] MEDS: LANSOPRAZOLE 30 MG CAPDR GT SCH (05:58)
--- NOTE | 2018-06-15 06:08 | NUR ---
PT SLEEPING NOT SOB NOTED REPOSITIONED Q2H ST , PT WILL BE ENDORSED TO DAY SHIFT NURSE FOR CONTINUITY OF CARE
--- NOTE | 2018-06-15 07:39 | NUR ---
PATIENT WAS RESTING COMFORTABLY, RESPONSIVE TO TOUCH. RESPIRATION EVEN, UNLABOR ON T-PIECE. SKIN DRY AND WARM. MIDLINE PATENT AND INTACT. KISER DRAINING CLEAR YELLOW URINE. GTUBE DRY AND INTACT. BED WAS AT LOW POSITION, SIDE RAILS UP. CALL LIGHT WITHIN REACH
[2018-06-15 08:00] VITALS: BP 98/65
[2018-06-15] MEDS: NACL 0.9% 1,000 ML IV SCH ×2 (08:17→20:23)
[2018-06-15] MEDS: ASCORBIC ACID 500 MG TAB GT SCH (08:18)
[2018-06-15] MEDS: ZINC SULF 220 MG CAP GT SCH (08:18)
[2018-06-15] MEDS: LINEZOLID 600MG PREMIX 300 ML IV SCH (08:18)
[2018-06-15] MEDS: SPIRONOLACTONE 50 MG TAB PO SCH ×2 (08:18→17:00)
[2018-06-15] MEDS: MEROPENEM 1,000 MG in NACL 0.9% 100 ML IV SCH (08:19)
[2018-06-15] MEDS: METOPROLOL 25 MG TAB PO SCH ×2 (08:20→20:32)
[2018-06-15] MEDS: COLISTIMETHATE SODIUM 150 MG in NACL 0.9% 100 ML IV SCH (09:26)
--- NOTE | 2018-06-15 09:45 | NUR ---
PATIENT WAS REPOSITIONED. ORAL CARE WAS GIVEN. MEDS WERE GIVEN PER ORDER. WOUND DRESSINGS WERE CHANGED. PATIENT TOLERATE WELL. NO DISTRESS NOTED
[2018-06-15] MEDS: MAG SULF 2000 MG/WATER PREMIX 100 ML IV SCH ×2 (09:55→12:22)
--- NOTE | 2018-06-15 10:45 | NUR ---
PATIENT RECEIVING 28% COOL AEROSOL MIST VIA TRACH SHILEY 6 XLT. AIRWAY SECURE AND PATENT. NO RESPIRATORY DISTRESS NOTED AT THIS TIME. NO HHN INDICATED. AEROSOL WATER CHANGED AND DRAINAGE BAG EMPTIED. WILL CONTINUE TO MONITOR.
--- NOTE | 2018-06-15 11:47 | NUR ---
PATIENT WAS RESTING COMFORTABLY. RESPIRATION EVEN, UNLABOR ON T PIECE 28%. PATIENT WAS SUCTIONED X 1 WITH SMALL AMOUNT OF SPUTUM. PATIENT TOLERATED WELL. NO DISTRESS NOTED AT THIS TIME
[2018-06-15] MEDS ORDERED: THERAHONEY GEL 42.5 GM TP SCH (11:52)
[2018-06-15 12:00] VITALS: BP 111/70
[2018-06-15] MEDS ORDERED: THERAHONEY GEL 42.5 GM TP PRN (12:10)
[2018-06-15 12:26] LABS: ANION GAP 17.5 (8-16); CARBON DIOXIDE 18.6 mmol/L (21-32); CREATININE 0.9 mg/dL (0.7-1.3); POTASSIUM 4.1 mmol/L (3.5-5.1)
--- NOTE | 2018-06-15 12:30 | NUR ---
FEEDING RESIDUAL WAS < 5 ML. PATIENT TOLERATED DIET WELL. MEDS WERE GIVEN PER ORDER
[2018-06-15] MEDS: THERAHONEY GEL 42.5 GM TP SCH (12:32)
[2018-06-15 12:47] LABS: HEMOGLOBIN 9.2 g/dL (12.0-18.0)
[2018-06-15 12:52] LABS: HEMATOCRIT 30.4 % (36-52); MEAN CORPUSCULAR HEMOGLOBIN 26 pg (27-31); MEAN CORPUSCULAR HGB CONC 30 g/dL (33-37); MEAN CORPUSCULAR VOLUME 86.8 fL (80-94); PLATELET COUNT (AUTO) 1047 K/uL (140-450); RED CELL DISTRIBUTION WIDTH 19.7 % (11.6-13.7); WHITE BLOOD COUNT (AUTO) 21.5 K/uL (4.8-10.8)
[2018-06-15 13:36] LABS: EOSINOPHILS % (MANUAL) 6 % (0-4); LYMPHOCYTES % (MANUAL) 14 % (20-46)
[2018-06-15 13:37] LABS: MONOCYTES % (MANUAL) 5 % (5-12)
--- NOTE | 2018-06-15 14:15 | NUR ---
PATIENT WAS RESTING COMFORTABLY. PATIENT WAS SUCTIONX 2, AND REPOSITIONED. PATIENT TOLERATED WELL
--- NOTE | 2018-06-15 14:46 | NUR ---
Grab Driver Note: and I met with patient's daughter Sho Khalil . informed Sho patient had poor prognosis and provided her with information about plan of care. also provided Sho with information about hospice services. Sho stated she is a nurse and comprehends patient's current medical condition and plan of care. She was slightly tearful and expressed she does not want her father to suffer. She agreed to meet with [facility] visitor services representative . I explained to Sho that I will contact [facility] visitor services representative and request visitor services representative to contact her. A new POLST was completed, in chart. I faxed inquiry to [facility]. Per Jenny from [facility] , their company has a contract with [facility] .
[2018-06-15 16:00] VITALS: BP 89/57
--- NOTE | 2018-06-15 16:15 | NUR ---
PATIENT WAS RESTING COMFORTABLY. RESPIRATION EVEN, UNLABOR ON T PIECE. FLACC 0. FEEDING RESIDUAL WAS 0 ML. PATIENT TOLERATED FEEDING WELL.
--- NOTE | 2018-06-15 16:30 | NUR ---
WOUND PICTURES WERE TAKEN.
[2018-06-15] MEDS: MORPHINE SULFATE ORAL SOLN 2 MG/ML UDC GT SCH (17:21)
--- NOTE | 2018-06-15 18:30 | NUR ---
PATIENT WAS RESTING COMFORTABLY. RESPIRATION EVEN, UNLABOR ON T PIECE. MED WAS GIVEN PER ORDER
--- NOTE | 2018-06-15 19:24 | NUR ---
ENDORSEMENT GIVEN TO WINDOWS APPLICATION PACKAGER NURSE. PATIENT IS STABLE AT THIS TIME
--- NOTE | 2018-06-15 19:30 | NUR ---
RECEIVED ENDORSEMENT FROM AM SHIFT RN; PATIENT NONVERBAL, ON TRACH TO T BAR, NO SOB OR DISTRESS NOTED. QUADRIPLEGIC, IV ON LEFT ARM INFUSING WELL ON MIDLINE , ON TELEMETRY, G-TUBE FEEDING WELL TOLERATED, KISER CATH DRAINING WELL YELLOW URINE, PT SUCTIONED NECESSARY. REPOSITIONED, DRESSING DRY AND INTACT ON MULTIPLE WOUNDS. INITIAL ASSESSMENT DONE. WILL CONTINUE TO MONITOR
[2018-06-15 20:00] VITALS: BP 99/61
--- NOTE | 2018-06-15 22:30 | NUR ---
ROUNDS DONE, VITALS TAKEN. NO SOB OR DISTRESS NOTED.
[2018-06-16] VITALS: BP 99/64
[2018-06-16] MEDS: MORPHINE SULFATE ORAL SOLN 2 MG/ML UDC GT SCH ×4 (00:34→18:42)
[2018-06-16] MEDS: Z-GUARD PASTE TP SCH ×2 (00:43→12:58)
--- NOTE | 2018-06-16 01:30 | NUR ---
PATIENT ASLEEP, EYES CLOSED, VISIBLE CHEST RISE AND FALL NOTED. WILL CONTINUE TO MONITOR.
--- NOTE | 2018-06-16 03:30 | NUR ---
VITALS TAKEN, NO DISTRESS NOTED.
[2018-06-16 04:00] VITALS: BP 89/61
[2018-06-16] MEDS: MIDODRINE 5 MG TAB PO SCH ×3 (06:23→18:42)
[2018-06-16] MEDS: LANSOPRAZOLE 30 MG CAPDR GT SCH (06:23)
[2018-06-16] MEDS: METOCLOPRAMIDE 10 MG TAB PO SCH ×3 (06:30→16:49)
--- NOTE | 2018-06-16 07:05 | NUR ---
ENORSED PATIENT TO AM SHIFT RN/ Addendum: 06/16/18 at 0741 by Jameson Yang RN ENDORSED PATIENT TO AM SHIFT RN. PATIENT IN STABLE CONDITION.
--- NOTE | 2018-06-16 07:18 | NUR ---
REPORT RECIEVED FROM HORSE RIDING COACH OR INSTRUCTOR NURSE, PT SLEEPING QUIETLY IN NAD, RESP EVNE UNLABORED, SKIN WARM DRY COLOR WNL, POC REVIEWED, NO IMMEDIATE NEEDS AT THIS TIME, WILL CONTINUE TO MONITOR
[2018-06-16 08:00] VITALS: BP 106/42
[2018-06-16] MEDS: NACL 0.9% 1,000 ML IV SCH (08:44)
[2018-06-16] MEDS: SPIRONOLACTONE 50 MG TAB PO SCH ×2 (09:00→16:49)
--- NOTE | 2018-06-16 09:08 | NUR ---
GT RESIDUAL 200ML, FEEDING HELD AT THIS TIME.
[2018-06-16] MEDS: ASCORBIC ACID 500 MG TAB GT SCH (09:56)
[2018-06-16] MEDS: METOPROLOL 25 MG TAB PO SCH ×2 (09:57→21:00)
[2018-06-16] MEDS: ZINC SULF 220 MG CAP GT SCH (09:57)
--- NOTE | 2018-06-16 10:58 | NUR ---
RESIDUAL CHECKED <5ML, FEEDING RE-STARTED.
--- NOTE | 2018-06-16 11:50 | NUR ---
BED BATH GIVE, WOUND CARE DONE PER ORDER, PT EVELIA WELL, WILL CONTINUE TO MONITOR.
[2018-06-16 12:00] VITALS: BP 88/50
[2018-06-16] MEDS: THERAHONEY GEL 42.5 GM TP SCH (12:57)
[2018-06-16] MEDS ORDERED: SODIUM CHLORIDE 1 GM TAB PO SCH (13:00)
[2018-06-16 13:38] LABS: ANION GAP 12.6 (8-16); CARBON DIOXIDE 23.9 mmol/L (21-32); CREATININE 0.8 mg/dL (0.7-1.3); POTASSIUM 3.5 mmol/L (3.5-5.1)
--- NOTE | 2018-06-16 14:20 | NUR ---
PT RESTING QUIETLY, APPEARS COMFORTABLE, SAFETY MEASURES IN [place] WILL CONTINUE TO [place].
--- NOTE | 2018-06-16 15:51 | NUR ---
06/16/18 RD FOLLOW UP COMPLETED PLEASE REFER TO NUTRITION ASSESSMENT UNDER CARE ACTIVITY FOR ESTIMATED NUTRITIONAL NEEDS. 1. RECOMMEND VITAL AF 1.2 AT 45 ML/HR -THIS WILL PROVIDE 1080 ML, 1296 KCAL, 81 GM OF PROTEIN, WHICH MEETS 77% OF ESTIMATED KCAL AND 95% OF ESTIMATED PROTEIN NEEDS. 2. RECOMMEND FREE WATER FLUSH OF [address] TO FOLLOW-UP 2-3 DAYS, HIGH RISK JESSICA LEON, RD
[2018-06-16 16:00] VITALS: BP 97/51
--- NOTE | 2018-06-16 16:58 | NUR ---
PT RESTING COMFORTABLY, APPEARS IN NO PAIN, VITALS STABLE, POSITIION CHANGED, GT FEED ON-GOING, KISER CATH DRAINING CLEAR YELLOW URINE, IVF INFUSING WELL, MIDLINE SITE WNL, TRACH TO O2, SUCTIONED SMALL AMOUNT OF SECRETION, CLEAR. ALL SAFETY MEASURES IN PLACE, WILL CONTINUE TO MONITOR.
--- NOTE | 2018-06-16 18:00 | NUR ---
GT RESIDUAL <5, GT FEED RATE INCREASED TO 55 ML/HR PER GT FEED ORDER.
--- NOTE | 2018-06-16 18:08 | NUR ---
SPOKE WITH FACUNDO FROM [facility], NO ROOM IS AVAILABLE AT [facility] OR OTHER FACILITY FOR HOSPICE WITH ISOLATION AT THIS TIME, FACUNDO STATED THAT SHE WILL CONTACT DR GALLEGOS TO DISCUSS DIFFICULTY WITH PLACEMENT.
--- NOTE | 2018-06-16 19:20 | NUR ---
REPORT GIVEN TO HOT PATCHER NURSE MAHESH, PT IN STABLE CONDITION.
--- NOTE | 2018-06-16 19:30 | NUR ---
RECEIVED ENDORSEMENT FROM AM SHIFT RN; PATIENT A/Ox1, NON-VERBAL. ON TRACH TO T BAR, NO SOB OR DISTRESS NOTED. QUADRIPLEGIC, IV ON LEFT ARM INFUSING WELL ON MIDLINE , ON TELEMETRY, G-TUBE FEEDING, KISER CATH DRAINING WELL YELLOW URINE. REPOSITIONED, DRESSING DRY AND INTACT ON MULTIPLE WOUNDS. BED IN THE LOWEST POSITION. INITIAL ASSESSMENT DONE. WILL CONTINUE TO MONITOR.
[2018-06-16 20:00] VITALS: BP 89/54
[2018-06-16] MEDS: IPRATROPIUM 0.02% 0.5 MG/2.5 ML NEBU INH PRN (20:25)
[2018-06-16] MEDS: ALBUTEROL 0.083% 2.5 MG/3 ML NEBU INH PRN (20:25)
--- NOTE | 2018-06-16 21:10 | NUR ---
ROUNDS DONE, PATIENT REPOSITIONED. NO DISTRESS NOTED.
--- NOTE | 2018-06-16 23:45 | NUR ---
VITALS TAKEN, REPOSITIONED, CHECKED BANDAGED ON WOUNDS. CLEAN AND INTACT. NO SOB OR DISTRESS NOTED.
[2018-06-17] VITALS: BP 85/53
[2018-06-17] MEDS: MORPHINE SULFATE ORAL SOLN 2 MG/ML UDC GT SCH ×3 (00:12→12:27)
[2018-06-17] MEDS: Z-GUARD PASTE TP SCH ×2 (00:13→12:33)
--- NOTE | 2018-06-17 01:22 | NUR ---
FREQUENT CHECKS MADE. EYES CLOSED, VISIBLE CHEST RISE AND FALL NOTED. NO DISTRESS NOTED.
[2018-06-17] MEDS: NACL 0.9% 1,000 ML IV SCH ×2 (02:02→22:18)
[2018-06-17 04:00] VITALS: BP 108/66
--- NOTE | 2018-06-17 04:10 | NUR ---
ROUNDS DONE, VITALS TAKEN. NO DISTRESS NOTED.
[2018-06-17] MEDS: METOCLOPRAMIDE 10 MG TAB PO SCH ×3 (06:41→17:47)
[2018-06-17] MEDS: LANSOPRAZOLE 30 MG CAPDR GT SCH (06:41)
[2018-06-17] MEDS: MIDODRINE 5 MG TAB PO SCH ×3 (06:41→18:41)
--- NOTE | 2018-06-17 07:20 | NUR ---
ENDORSED PATIENT TO AM SHIFT RN. PATIENT IN STABLE CONDITION.
--- NOTE | 2018-06-17 07:21 | NUR ---
RECEIVED BEDSIDE REPORT FROM RN NEONATAL NURSE. PATIENT IS APHASIC. TRACH TO T BAR. NO SIGNS OF RESP DISTRESS. PATIENT IS BEDBOUND. FALL RISK PROTOCOL IN PLACE. SKIN HAS GTUBE, INFUSING VITAL AF AT 65ML/HR. PATIENT TOLERATING WELL. LIV MIDLINE INFUSING NS AT 50. CLEAN, DRY AND INTACT. PATIENT HAS MULTIPLE WOUNDS, SEE ASSESSMENT. WOUND BED IN PLACE. CONTACT PRECAUTIONS IN PLACE. PATIENT IS INCONTINENT. KISER IN PLACE. BED IN LOW POSITION. CALL LIGHT WITHIN REACH. WILL CONTINUE TO MONITOR THE PATIENT.
[2018-06-17 08:00] VITALS: BP 128/76
--- NOTE | 2018-06-17 08:00 | NUR ---
O2SAT 87 SUCTIONED PATIENT BACK TO 96%
[2018-06-17] MEDS: SPIRONOLACTONE 50 MG TAB PO SCH ×2 (10:18→17:46)
[2018-06-17] MEDS: METOPROLOL 25 MG TAB PO SCH ×2 (10:18→20:51)
[2018-06-17] MEDS: ZINC SULF 220 MG CAP GT SCH (10:18)
[2018-06-17] MEDS: ASCORBIC ACID 500 MG TAB GT SCH (10:18)
--- NOTE | 2018-06-17 10:24 | NUR ---
CHECKED GTUBE PLACEMENT USING SWOOSH. SWOOSH HEARD. 20ML RESIDUAL. CRUSHED AND ADMINISTERED MEDS. FLUSHED BEFORE AND AFTER. PATIENT TOLERATED WELL. WILL CONTINUE TO MONITOR. PATIENT BEING CLEANED AND TURNED BY CNAS .
[2018-06-17 12:00] VITALS: BP 90/39
--- NOTE | 2018-06-17 12:00 | NUR ---
PATIENT IN NO DISTRESS AT THIS TIME. WILL CONTINUE TO MONITOR THE PATIENT.
[2018-06-17] MEDS: THERAHONEY GEL 42.5 GM TP SCH (12:33)
--- NOTE | 2018-06-17 13:10 | NUR ---
PER [facility]DO FROM [facility]. STILL NO ROOMS AVAILABLE D/T ISOLATION AND NO ACCEPTANCE TO HOSPICE
--- NOTE | 2018-06-17 15:00 | NUR ---
PATIENT IN NO DISTRESS. BED IN LOW POSITION. WILL CONTINUE TO MONITOR THE PATIENT
[2018-06-17 16:00] VITALS: BP 90/60
[2018-06-17] MEDS: MORPHINE SULFATE 4 MG/ML SYR IVP SCH (17:47)
--- NOTE | 2018-06-17 17:53 | NUR ---
administered meds. patient tolerated well. will continue to monitor
--- NOTE | 2018-06-17 19:25 | NUR ---
GAVE BEDSIDE REPORT TO DISTRICT ENGINEER NURSE. PATIENT ENDORSED IN STABLE CONDITION
--- NOTE | 2018-06-17 19:26 | NUR ---
RECEIVED BEDSIDE REPORT FROM DAY SHIFT NURSE DEEPAK RN, PT STABLE, NO DISTRESS NOTED, L UA MIDLINE, INTACT, INFUSING NS @ 50ML/HR, INGUSING WELL, PT ON TRACH TO T-PIECE NO SOB NOTED, DRESSINGS CLEAN DRY AND INTACT, GTUBE IN PLACE WITH TUBE FEEDINGS, TOLERATED WELL, KISER CATH IN PLACE DRAINING YELLOW URINE, INITIAL ASSESSMENT DONE, ALL SAFETY PRECAUTION DONE, CALL LIGHT WITHIN REACH, WILL CONTINUE TO MONITOR.
[2018-06-17 20:00] VITALS: BP 100/62
--- NOTE | 2018-06-17 22:40 | NUR ---
G TUBE FEEDING LINE CHANGED, PT TOLERATING FEEDING WELL, NO DISTRESS NOTED, CALL LIGHT WITHIN REACH, WILL CONTINUE TO MONITOR.
[2018-06-18] VITALS: BP 105/69
[2018-06-18] MEDS: MORPHINE SULFATE 4 MG/ML SYR IVP SCH ×5 (00:45→23:38)
--- NOTE | 2018-06-18 00:45 | NUR ---
CHECKED ON PT, PT RESTING, NO DISTRESS NOTED, V/S TAKEN, WITHIN PT BASELINE, DUE MEDICATION ADMINISTERED, PT TOLERATED WELL, NO DISTRESS NOTED, CALL LIGHT WITHIN REACH, WILL CONTINUE TO MONITOR.
[2018-06-18] MEDS: Z-GUARD PASTE TP SCH ×3 (00:46→23:51)
--- NOTE | 2018-06-18 02:16 | NUR ---
CHECKED ON PT, PT SLEEPING, NO DISTRESS NOTED, CALL LIGHT WITHIN REACH, WILL CONTINUE TO MONITOR.
[2018-06-18 04:00] VITALS: BP 117/65
--- NOTE | 2018-06-18 04:10 | NUR ---
CHECKED ON PT, PT RESTING, NO DISTRESS NOTED, V/S TAKEN WITHIN PT BASELINE, CALL LIGHT WITHIN REACH, WILL CONTINUE TO MONITOR.
[2018-06-18] MEDS: LANSOPRAZOLE 30 MG CAPDR GT SCH (05:52)
[2018-06-18] MEDS: MIDODRINE 5 MG TAB PO SCH ×3 (06:03→18:38)
[2018-06-18] MEDS: METOCLOPRAMIDE 10 MG TAB PO SCH ×3 (06:03→17:22)
--- NOTE | 2018-06-18 06:03 | NUR ---
DUE MEDICATION ADMINISTERED, PT TOLERATED WELL, NO DISTRESS NOTED, CALL LIGHT WITHIN REACH, WILL CONTINUE TO MONITOR.
--- NOTE | 2018-06-18 07:19 | NUR ---
ENDORSED PT TO DAY SHIFT NURSE DEEPAK RN, PT STABLE, NO DISTRESS NOTED, CALL LIGHT WITHIN REACH.
--- NOTE | 2018-06-18 07:20 | NUR ---
CINDY VICE PRESIDENT NURSE INCREASED FEEDING TO 30 Addendum: 06/18/18 at 1734 by Angie Lemus RN WRONG PATIENT
--- NOTE | 2018-06-18 07:20 | NUR ---
RECEIVED BEDSIDE REPORT FROM WEATHERIZATION INSTALLER NURSE. PATIENT IS APHASIC. NO SIGNS OF DISTRESS ON TRACH TO T PIECE. TELE MONITOR IN PLACE. PATIENT IS BEDBOUND. FALL RISK PROTOCOL IN PLACE. PATIENT HAS MULTIPLE WOUNDS, SEE WOUND ASSESSMENTS. DRESSINGS ARE CLEAN, DRY AND INTACT. HILL ROM BED IN PLACE. HEEL RAISERS IN PLACE. PATIENT HAS A KISER, INCONTINENT. CONTACT PRECAUTIONS IN PLACE. MIDLINE LIV, CLEAN, DRY AND INTACT. GTUBE IN PLACE INFUSING VITAL AF AT 65, CLEAN, DRY AND INTACT. BED IN LOW POSITION. CALL LIGHT WITHIN REACH. WILL CONTINUE TO MONITOR THE PATIENT
[2018-06-18 08:00] VITALS: BP 104/74
[2018-06-18] MEDS: SPIRONOLACTONE 50 MG TAB PO SCH ×2 (09:46→17:22)
[2018-06-18] MEDS: ASCORBIC ACID 500 MG TAB GT SCH (09:46)
[2018-06-18] MEDS: METOPROLOL 25 MG TAB PO SCH ×2 (09:47→21:00)
[2018-06-18] MEDS: ZINC SULF 220 MG CAP GT SCH (09:47)
--- NOTE | 2018-06-18 09:58 | NUR ---
CHECKED FOR GTUBE PLACEMENT USING SWOOSH. SWOOSH HEARD. 30ML RESIDUAL, PLACED BACK TO PATIENT. CRUSHED AND ADMINISTERED MEDS. FLUSHED BEFORE AND AFTER MEDS. PATIENT TOLERATED WELL. SUCTIONED PATIENT. PATIENT TOLERATED WELL. WILL CONTINUE TO MONITOR THE PATIENT.
--- NOTE | 2018-06-18 11:00 | NUR ---
PATIENT IN NO DISTRESS, SLEEPING AT THIS TIME. WILL CONTINUE TO MONITOR THE PATIENT
--- NOTE | 2018-06-18 11:00 | NUR ---
CHECKED GTUBE PLACEMENT USING SWOOSH. LORETAOOSH HEARD. 5ML RESIDUAL PLACED BACK TO PATIENT. INCREASED FEEDING TO 40. WILL CONTINUE TO MONITOR THE PATIENT Addendum: 06/18/18 at 1733 by Angie Lemus RN WRONG PATIENT.
[2018-06-18 12:00] VITALS: BP 103/69
[2018-06-18] MEDS: THERAHONEY GEL 42.5 GM TP SCH (13:26)
--- NOTE | 2018-06-18 13:35 | NUR ---
CHECKED GTUBE PLACEMENT USING SWOOSH. SWOOSH HEARD. RESIDUAL 35. ADMINISTERED BACK TO PATIENT. CRUSHED AND ADMINISTERED MEDS. FLUSHED BEFORE AND AFTER. PATIENT TOLERATED WELL. WILL CONTINUE TO MONITOR THE PATIENT.
--- NOTE | 2018-06-18 15:00 | NUR ---
PATIENT IS RESTING IN BED. NO SIGNS OF DISTRESS. WILL CONTINUE TO MONITOR THE PATIENT
--- NOTE | 2018-06-18 15:00 | NUR ---
CHECKED GTUBE PLACEMENT USING HIRAM. HIRAM HEARD. NO RESIDUAL. INCREASED FEEDING TO 50. WILL CONTINUE TO MONITOR THE PATIENT. Addendum: 06/18/18 at 1734 by Angie Lemus RN WRONG PATIENT
[2018-06-18 16:00] VITALS: BP 125/57
--- NOTE | 2018-06-18 17:01 | NUR ---
PATIENT IN NO SIGNS OF DISTRESS. WILL CONTINUE TO MONITOR THE PATIENT
[2018-06-18] MEDS: NACL 0.9% 1,000 ML IV SCH (17:30)
--- NOTE | 2018-06-18 19:05 | NUR ---
GAVE BEDSIDE REPORT TO BRANCH SERVICE SPECIALIST NURSE. PATIENT ENDORSED IN STABLE CONDITION
--- NOTE | 2018-06-18 19:06 | NUR ---
RECEIVED BEDSIDE REPORT FROM DAY SHIFT NURSE DEEPAK RN, PT RESTING, NO DISTRESS NOTED, L UPPER ARM MIDLINE, DOUBLE LUMEN, PATENT, INTACT, INFUSING NS @ 50ML/HR, INFUSING WELL, PT ON TRACH TO T-PIECE, NO SOB NOTED, NO DISTRESS NOTED, KISER CATH IN PLACE DRAINING YELLOW URINE, G TUBE IN PLACE WITH TUBE FEEDINGS, RESIDUAL 25ML, TOLERATING FEEDING WELL, DRESSINGS, CLEAN DRY AND INTACT, INITIAL ASSESSMENT DONE, ALL SAFETY PRECAUTION MET, CALL LIGHT WITHIN REACH, WILL CONTINUE TO MONITOR.
[2018-06-18 20:00] VITALS: BP 106/76
--- NOTE | 2018-06-18 20:02 | NUR ---
RECEIVED PATIENT ON COOL AEROSOL VIA TRACH COLLAR AT 28% FIO2 AT 6L/M. PATIENT IS TRACH'D WITH A SHILEY 6 XLT THAT IS SECURE WITH TRACH TIES AND GAUZE THAT IS CLEAN. B/S: COARSE BILATERALLY. SUCTIONED PATIENT AND RECEIVED SMALL, WHITE, THIN SECRETIONS. CLEARED EXCESS CONDENSATION IN TUBING. WILL CONTINUE TO MONITOR.
--- NOTE | 2018-06-18 21:00 | NUR ---
DUE MEDICATION LOPRESSOR NOT ADMINISTERED, PT BP 106/76 HR 96, PT RESTING, NO DISTRESS NOTED, CALL LIGHT WITHIN REACH, WILL CONTINUE TO MONITOR.
--- NOTE | 2018-06-18 23:38 | NUR ---
CHECKED ON PT, PT SLEEPING, V/S TAKEN, WNL, DUE MEDICATION ADMINISTERED, PT TOLERATED WELL, NO DISTRESS NOTED, CALL LIGHT WITHIN REACH, WILL CONTINUE TO MONITOR.
[2018-06-19] VITALS: BP 106/71
[2018-06-19 04:00] VITALS: BP 99/63
--- NOTE | 2018-06-19 04:10 | NUR ---
CHECKED ON PT, PT SLEEPING, V/S TAKEN, WNL, CALL LIGHT WITHIN REACH, WILL CONTINUE TO MONITOR.
[2018-06-19] MEDS: LANSOPRAZOLE 30 MG CAPDR GT SCH (06:02)
[2018-06-19] MEDS: MIDODRINE 5 MG TAB PO SCH ×3 (06:02→19:25)
[2018-06-19] MEDS: DOCUSATE SODIUM 250 MG GELCAP PO PRN (06:02)
[2018-06-19] MEDS: METOCLOPRAMIDE 10 MG TAB PO SCH ×3 (06:03→17:19)
[2018-06-19] MEDS: MORPHINE SULFATE 4 MG/ML SYR IVP SCH ×3 (06:03→17:20)
--- NOTE | 2018-06-19 06:03 | NUR ---
DUE MEDICATION ADMINISTERED, COLACE PER MD ORDER GIVEN DUE TO PT HAS NOT DID BM FOR 2 DAYS. PT TOLERATED WELL, NO DISTRESS NOTED, CALL LIT WITHIN REACH, WILL CONTINUE TO MONITOR.
--- NOTE | 2018-06-19 07:20 | NUR ---
ENDORSED PT TO DAY SHIFT NURSE HETAL RN, PT STABLE, NO DISTRESS NOTED, CALL LIGHT WITHIN REACH.
--- NOTE | 2018-06-19 07:21 | NUR ---
REPORT RECEIVED FROM HYDRAULIC DESIGN ENGINEER NURSE, PT AWAKE WITH EYES OPEN, RESP EVEN UNLABORED TRACH TO T PIECE, SKIN WARM DRY COLOR WNL, PT APPEARS COMFORTABLE IN NAD, PLAN OF CARE REVIEWED, NO IMMEDIATE NEEDS AT THIS TIME, ALL SAFETY MEASURES IN PLACE, WILL CONTINUE TO MONITOR.
[2018-06-19 08:00] VITALS: BP 114/68
[2018-06-19] MEDS: SPIRONOLACTONE 50 MG TAB PO SCH ×2 (09:00→17:00)
[2018-06-19] MEDS: ASCORBIC ACID 500 MG TAB GT SCH (09:24)
[2018-06-19] MEDS: METOPROLOL 25 MG TAB PO SCH ×2 (09:24→22:28)
[2018-06-19] MEDS: ZINC SULF 220 MG CAP GT SCH (09:24)
[2018-06-19] MEDS ORDERED: ZIN220 GT (09:26)
[2018-06-19] MEDS ORDERED: SPIR50TA PO (09:26)
[2018-06-19] MEDS ORDERED: VITC500 GT (09:26)
[2018-06-19] MEDS: IPRATROPIUM 0.02% 0.5 MG/2.5 ML NEBU INH PRN ×2 (10:08→22:22)
[2018-06-19] MEDS: ALBUTEROL 0.083% 2.5 MG/3 ML NEBU INH PRN ×2 (10:09→22:22)
[2018-06-19] MEDS: Z-GUARD PASTE TP SCH (13:00)
[2018-06-19] MEDS: THERAHONEY GEL 42.5 GM TP SCH (13:00)
--- NOTE | 2018-06-19 13:20 | NUR ---
WOUND CARE DONE PER WOUND CARE INSTRUCTIONS, PT EVELIA WELL, BED BATH GIVEN, POSITION CHANGED, PT EVELIA WELL.
--- NOTE | 2018-06-19 14:25 | NUR ---
1334 CALL PLACED TO [facility] TO INQUIRE ABOUT PLACEMENT FOR PATIENT. WAS INFORMED THAT LIAISON WILL BE CONTACTED AND CALL BACK.
--- NOTE | 2018-06-19 14:37 | NUR ---
1430 CALLED [facility] AND SPOKE WITH ALYSSA OWEN AND INFORMED HER THAT NO ONE HAS CALLED BACK WITH ANY INFORMATION REGARDING PLACEMENT FOR PATIENT. PER ALYSSA SHE SPOKE WITH A RIB PULLER AND THEY ARE HAVING DIFFICULTY WITH FINDING PLACEMENT FOR PATIENT DUE TO PATIENT HAS A TRACH. I REQUESTED THAT A LIAISON OR A NURSE KEEP THE CM DEPARTMENT UPDATED REGARDING PLACEMENT.
--- NOTE | 2018-06-19 15:45 | NUR ---
06/19/18 RD FOLLOW UP COMPLETED PLEASE REFER TO NUTRITION ASSESSMENT UNDER CARE ACTIVITY FOR ESTIMATED NUTRITIONAL NEEDS. 1. CONTINUE VITAL AF 1.2 AT 65 ML/HR -THIS WILL PROVIDE 1560 ML, 1870 KCAL, 117 GM OF PROTEIN WHICH MEETS 100% OF ESTIMATED KCAL AND 106% OF ESTIMATED PROTEIN NEEDS. 2. CONTINUED FREE WATER FLUSH OF [address] TO FOLLOW-UP 2-3 DAYS, HIGH RISK JESSICA LEON RD
[2018-06-19 16:00] VITALS: BP 110/60
--- NOTE | 2018-06-19 17:30 | NUR ---
BROTHER AND FATHER OF PATIENT AT BEDSIDE FOR VISIT.
--- NOTE | 2018-06-19 18:30 | NUR ---
PT AWAKE ALERT, RESPONDING TO FAMILY BE SLIGHT NODS AND SHAKES OF HEAD, APPEARS COMFORTABLE, RESP EVEN UNLABORED, TRACH TO T AT 6L O2, GT FEED CONTINUES AT 65ML/HR, KISER DRAINING TO GRAVITY, IVF INFUSING TO LEFT UA MIDLINE, ALL SAFETY MEASURES IN PLACE, WILL CONTINUE TO MONITOR
--- NOTE | 2018-06-19 19:25 | NUR ---
RECEIVED REPORT FORM ARLENE MÁRQUEZSDKHRIS NURSE AT BEDSIDE FOR CONTINUITY OF CARE, PT IN STABLE CONDITION. Addendum: 06/19/18 at 1949 by Susan Lemus RN REPORT RECEIVED FROM JULIANO MÁRQUEZSDFT NURSE. DU JACOBS
--- NOTE | 2018-06-19 19:25 | NUR ---
REPORT GIVEN TO SECRETARY OF STATE NURSE, PT IN STABLE CONDITION.
--- NOTE | 2018-06-19 19:55 | NUR ---
PT IN BED WITH ALL FALLS PRECAUTIONS IN PLACE. IV SITE INTACT AND RUNNING AT N/S AT 50MLS/HR. VIA MIDLINE DOUBLE LUMEN IV SITE. PT HAS TRACH TO PIECE SUPPLEMENTAL 02 IS AT 6LITERS. PT SUCTIONED. HIS RESPIRATIONS ARE EVEN AND UNLABORED. PT HAS HEEL PROTECTORS ON AND DRESSING ON SACRAL AND HIPS ARE INTACT WITH MODERATE DRAINAGE NOTED. V/S FOLLOWS T 98.9 P 104 R 16 B/P 122/73 02 95% WITH TRACH TO PIECE RUNNING AT 6LITERS 02 SUPPLEMENTAL O2.
[2018-06-19 20:00] VITALS: BP 122/73
--- NOTE | 2018-06-19 20:40 | NUR ---
RECEIVED PATIENT ON COOL AEROSOL VIA TRACH COLLAR AT 28% FIO2 AT 6L/M. PATIENT IS TRACH'D WITH A SHILEY 6 XLT THAT IS SECURE WITH TRACH TIES AND GAUZE THAT IS CLEAN. B/S: COARSE BILATERALLY. SUCTIONED PATIENT AND RECEIVED MODERATE, YELLOW, THIN SECRETIONS. TREATMENT GIVEN INLINE WITH NO INCIDENT. CLEARED EXCESS CONDENSATION IN TUBING. WILL CONTINUE TO MONITOR
--- NOTE | 2018-06-19 21:45 | NUR ---
PT IN LOW BED WITH ALL FALLS PRECAUTIONS AND ASPIRATION PRECAUTIONS IN PLACE. GT INTACT AND RUNNING VITAL AF AT 65MLS/HR. RESIDUAL NOTED AT 60MLS/HR. FEEDING STOPPED TEMPORARILY DUE TO RESIDUAL. PT GIVEN DUE MED OF LOPRESSOR B/P IS 145/90 HR IS 116. PT TURNED AND CHANGED AND SUCTIONS. DRESSING INTACT WITH MODERATE DRAINAGE, WILL REDO DRESSING LATER. NO S/S OF PAIN OR DISTRESS NOTED. WILL CONTINUE TO MONITOR FOR PAIN , B/P AND SAFETY.
[2018-06-20] VITALS: BP 126/73
--- NOTE | 2018-06-20 | NUR ---
PT ON WOUND BED NO S/S OF PAIN OR DISTRESS. PT SUCTIONED X1 PT GIVEN COLACE SUPPOSITORY DUR TO CONSTIPATION. SOME LIQUID STOOL NOTED IN RECTUM. RESIDUAL OF FEEDING LESS THAN 5CC. FEEDING RESTARTED. PT GIVEN ORDERED MORPHINE IVP. MIDLINE IV SITE INTACT AND RUNNING N/S AT 50MLS/HR. WILL CONTINUE TO MONITOR FOR BM, PAIN AND RESPIRATORY DISTRESS. V/S FOLLOWS T 98.1 P 96 R 18 B/P 126/73 02 100% ON TRACH TO PIECE WITH 6 LITERS SUPPLEMENTAL 02.
[2018-06-20] MEDS: BISACODYL 10 MG SUPP RC PRN (00:38)
[2018-06-20] MEDS: MORPHINE SULFATE 4 MG/ML SYR IVP SCH ×4 (00:44→17:16)
[2018-06-20] MEDS: Z-GUARD PASTE TP SCH ×2 (01:00→13:43)
--- NOTE | 2018-06-20 03:45 | NUR ---
PT HAD BM X2 HE WAS TURNED , CHANGED AND REPOSITIONED. WOUND CARE PROVIDED.
--- NOTE | 2018-06-20 05:32 | NUR ---
COMPLETED TRACH CARE, CHANGED INNER CANNULA, DRESSING, GUTIÉRREZ, AEROSOL TUBING AND T-PIECE WITHOUT INCIDENT. SPO2 96.
[2018-06-20] MEDS: METOCLOPRAMIDE 10 MG TAB PO SCH ×3 (06:20→17:16)
[2018-06-20] MEDS: LANSOPRAZOLE 30 MG CAPDR GT SCH (06:20)
[2018-06-20] MEDS: MIDODRINE 5 MG TAB PO SCH ×3 (06:23→19:32)
--- NOTE | 2018-06-20 06:31 | NUR ---
PT GIVEN AM MEDS MIDODRINE HELD DUE TO B/P 117/54.
--- NOTE | 2018-06-20 06:45 | NUR ---
YUDI FROM LAB CALLED TO REPORT CRITICAL LAB OF LOW HGB 6.9 REPORTED TO RESIDENT MD SALCEDO WHO SAID SHE WILL ORDERED PRBC AND A BLOOD REDRAW.
--- NOTE | 2018-06-20 07:38 | NUR ---
ENDORSED CARE TO DAYSHIFT NURSE FOR CONTINUITY OF CARE, PT INSTABLE CONDITION.
--- NOTE | 2018-06-20 07:39 | NUR ---
RECEIVED REPORT FROM CONSULTING SERVICES MANAGER NURSE. PT IN BED, RESTING COMFORTABLY W EYES CLOSED. RESPIRATIONS EVEN AND UNLABORED. TRACH TO T PIECE AT 6L O2. SKIN WARM AND DRY. COLOR W/N NORMAL LIMITS. PT REPOSITIONED. REVIEWED PLAN OF CARE. NO IMMEDIATE NEEDS. SAFETY MEASURES ARE IN PLACE. WILL CONTINUE TO MONITOR.
[2018-06-20] MEDS: IPRATROPIUM 0.02% 0.5 MG/2.5 ML NEBU INH PRN (07:40)
[2018-06-20] MEDS: ALBUTEROL 0.083% 2.5 MG/3 ML NEBU INH PRN (07:41)
[2018-06-20 08:00] VITALS: BP 123/53
[2018-06-20] MEDS: SPIRONOLACTONE 50 MG TAB PO SCH ×2 (09:00→17:00)
--- NOTE | 2018-06-20 09:55 | NUR ---
AM MEDS GIVEN, GT RESIDUAL 15ML ONLY, SPIRONOLACTONE HELD FOR LOW DBP.
[2018-06-20] MEDS: ZINC SULF 220 MG CAP GT SCH (10:02)
[2018-06-20] MEDS: METOPROLOL 25 MG TAB PO SCH ×2 (10:03→21:58)
[2018-06-20] MEDS: ASCORBIC ACID 500 MG TAB GT SCH (10:04)
--- NOTE | 2018-06-20 13:10 | NUR ---
WOUND CARE DONE PER ORDER, BED BATH GIVEN, POSITION CHNAGED, LINEN AND GOWN CHANGED, PT REMAINS ON 6L O2 VIA TRACH, GT FEEDING ON GOING, KISER DRAINING WELL TO GRAVITY, MIDLINE SL'D, SITE WNL, WILL CONTINUE TO MONITOR
[2018-06-20] MEDS: THERAHONEY GEL 42.5 GM TP SCH (13:43)
--- NOTE | 2018-06-20 13:49 | NUR ---
PATIENT'S AND SON FROM "OUT OF STATE" HERE TO VISIT.
--- NOTE | 2018-06-20 14:24 | NUR ---
CALLED FACUNDO FROM [facility], ASKING ABOUT WHAT IS HAPPENING WITH PLACEMENT FOR THIS PATIENT. SHE ALSO SPOKE WITH GABRIELA JAYSLITTING MACHINE OPERATOR HELPER DIRECTOR ON SPEAKER PHONE. SHE SAID THEY ARE HAVING PROBLEMS WITH PLACING THIS PATIENT DUE TO TRACH AND ISOLATION ISSUES. CALLED MARIEL JAYMONUMENT CARVER NURSE TO FIND OUT IF THIS PATIENT CAN BE COLONIZED. MARIEL JAY WILL CALL THE PHYSICIAN,.
--- NOTE | 2018-06-20 15:29 | NUR ---
CALLED [facility] AND SPOKE WITH ROBIN, [phone]. SHE SAID THEY ARE NOT ABLE TO TAKE THIS PATIENT.
[2018-06-20 16:00] VITALS: BP 113/77
--- NOTE | 2018-06-20 17:05 | NUR ---
POSITION CHAGNED, PT APPEARS COMFOTABLE, NO S/S OF DISTRESS, WILL CONTINUE TO MONTIOR.
--- NOTE | 2018-06-20 17:30 | NUR ---
DUE MEDS GIVEN, PT REMAINS ON TRACH TO T AT 6L O2, GT FEED ONGOING AT 65ML/HR, MIDLINE SITE WNL, NEEDS DRESSING CHANGE, WILL ENDORSE TO SOLIDWORKS DESIGNER NURSE, RASHEL TO GRAVITY DRAINING WELL, ALL SAFETY MEASURES IN PLACE WILL CONTINUE TO MONTIOR.
--- NOTE | 2018-06-20 19:27 | NUR ---
REPORT GIVEN TO INFORMATION LEAD NURSE. PT IN BED. TRACH T TUBE ON 6L O2.
--- NOTE | 2018-06-20 19:28 | NUR ---
RECEIVED PT FROM HETAL RN PT BEDBOUND DROWSY TRACH TO T BAR 6LTS, NOT DISTRESS NOTED, MIDLINE ON LEFT UA PATENT G TUBE FEEDING WELL TOLERATED, KISER CATHDRAINING WELL YELLOW URINE, REPOSITIONED INITIAL ASSESSMENT DONE
[2018-06-20 20:00] VITALS: BP 126/74
--- NOTE | 2018-06-20 21:00 | NUR ---
DR PLATA IS HERE AND SEE THE PT. PT LINEN CHANGED PT HAS BEEN SUCTIONED NECESSARY RESP THERAPY ASSISTING THE PT
[2018-06-21] VITALS: BP 120/87
--- NOTE | 2018-06-21 | NUR ---
SPONGE BATH GIVEN LINEN CHANGED GTUBE FEEDING WELL TOLRATED SUCTIONED NECESSARY PT OPEN EYES TRACH TO T BAR NOT DISTRESS NOTED
[2018-06-21] MEDS: MORPHINE SULFATE 4 MG/ML SYR IVP SCH ×4 (00:55→18:15)
[2018-06-21] MEDS: Z-GUARD PASTE TP SCH ×2 (01:00→13:13)
--- NOTE | 2018-06-21 03:24 | NUR ---
PT SLEEPING TRACH TO T BAR REMAIN SAME SETTING , NOT DISTRESS
[2018-06-21] MEDS: METOCLOPRAMIDE 10 MG TAB PO SCH ×3 (06:06→18:15)
[2018-06-21] MEDS: LANSOPRAZOLE 30 MG CAPDR GT SCH (06:06)
--- NOTE | 2018-06-21 07:09 | NUR ---
SXN PT MODERATE AMT OF THIN WHITE SECRETIONS, PT IS RESTING WITH NO SIGNS OF DISTRESS NOTED NO HHN NEEDED AT THIS TIME
[2018-06-21] MEDS: MIDODRINE 5 MG TAB PO SCH ×3 (09:03→18:15)
[2018-06-21] MEDS: ZINC SULF 220 MG CAP GT SCH (09:03)
[2018-06-21] MEDS: SPIRONOLACTONE 50 MG TAB PO SCH ×2 (09:03→18:15)
[2018-06-21] MEDS: METOPROLOL 25 MG TAB PO SCH ×2 (09:03→21:00)
--- NOTE | 2018-06-21 09:03 | NUR ---
MEDS ADMINISTERED VIA GTUBE. NO RESIDUALS NOTED. PT TOLERATED WELL
[2018-06-21 09:04] VITALS: BP 96/70
[2018-06-21] MEDS: ASCORBIC ACID 500 MG TAB GT SCH (09:04)
--- NOTE | 2018-06-21 10:00 | NUR ---
PT GIVEN ORAL CARE.
--- NOTE | 2018-06-21 11:45 | NUR ---
ASSISTED WOUND CARE NURSE IN CHANGING WOUND DRESSINGS. PATIENT TURNED AND REPOSITIONED FOR COMFORT. PATIENT TOLERATED WELL
[2018-06-21] MEDS: THERAHONEY GEL 42.5 GM TP SCH (13:13)
[2018-06-21 16:00] VITALS: BP 126/78
--- NOTE | 2018-06-21 19:37 | NUR ---
PATIENT REPORT GIVEN AT BEDSIDE. PATIENT ENDORSED IN STABLE CONDITION
--- NOTE | 2018-06-21 19:38 | NUR ---
RECEIVED REPORT FROM DAY SHIFT NURSE CHARLEY-PIERRE AT BEDSIDE. PT RESTING IN BED, AOX4, ON T-PIECE OXYGEN WITH LEFT MIDLINE DOUBLE LUMEN IN PLACE. MULTIPLE WOUNDS, TUBE FEEDING AND KISER CATHETER IN PLACE. CONTACT PRECAUTIONS FOR WOUND: MRSA, ESBL, ESBL SPUTUM. BED IN LOWEST POSITION, BED BREAKS ON, BOTH SIDE RAILS UP AND FALL PRECAUTIONS IN PLACE. BEDSIDE TABLE AND CALL LIGHT ARE WITHIN REACH. WILL CONTINUE TO MONITOR.
[2018-06-21 20:00] VITALS: BP 124/72
--- NOTE | 2018-06-21 20:00 | NUR ---
VITAL SIGNS TAKEN AND TOLERATED WELL. LOW O2SAT NOTED- 87%. CALLED RT JACQUI AND STATED HE HAD JUST CHANGED THE TUBINGS AND WOULD COME TO ASSESS HIM. NO S/S OF RESPIRATORY DISTRESS OR DISCOMFORT NOTED AT THIS TIME. WILL CONTINUE TO MONITOR.
--- NOTE | 2018-06-21 21:00 | NUR ---
BLOOD PRESSURE 99/73, HR 101. SCHEDULED MEDICATION LOPRESSOR NOT GIVEN DUE TO DECREASED BLOOD PRESSURE. NO S/S OF RESPIRATORY DISTRESS OR DISCOMFORT NOTED AT THIS TIME. WILL CONTINUE TO MONITOR.
--- NOTE | 2018-06-21 23:00 | NUR ---
PT SLEEPING IN BED. NO S/S OF RESPIRATORY DISTRESS OR DISCOMFORT NOTED AT THIS TIME. WILL CONTINUE TO MONITOR.
[2018-06-22] VITALS: BP 119/74
--- NOTE | 2018-06-22 | NUR ---
VITAL SIGNS TAKEN AND TOLERATED WELL. NO S/S OF RESPIRATORY DISTRESS OR DISCOMFORT NOTED AT THIS TIME. WILL CONTINUE TO MONITOR.
[2018-06-22] MEDS: MORPHINE SULFATE 4 MG/ML SYR IVP SCH ×4 (00:27→18:28)
[2018-06-22] MEDS: Z-GUARD PASTE TP SCH ×2 (00:27→12:31)
--- NOTE | 2018-06-22 00:27 | NUR ---
SCHEDULED MEDICATION GIVEN AND TOLERATED WELL. NO S/S OF RESPIRATORY DISTRESS OR DISCOMFORT NOTED AT THIS TIME. WILL CONTINUE TO MONITOR.
--- NOTE | 2018-06-22 00:40 | NUR ---
NEW FEEDING VITAL AF 1.2 @65ML/HR, H2O 100ML/HR- ZERO RESIDUAL. PT TOLERATED WELL. NO S/S OF RESPIRATORY DISTRESS OR DISCOMFORT NOTED AT THIS TIME. WILL CONTINUE TO MONITOR.
--- NOTE | 2018-06-22 02:00 | NUR ---
PT SLEEPING IN BED. NO S/S OF RESPIRATORY DISTRESS OR DISCOMFORT NOTED AT THIS TIME. WILL CONTINUE TO MONITOR.
--- NOTE | 2018-06-22 04:00 | NUR ---
PT CONTINUES TO SLEEP IN BED. NO S/S OF RESPIRATORY DISTRESS OR DISCOMFORT NOTED AT THIS TIME. WILL CONTINUE TO MONITOR.
[2018-06-22] MEDS: LANSOPRAZOLE 30 MG CAPDR GT SCH (05:33)
--- NOTE | 2018-06-22 05:33 | NUR ---
SCHEDULED MEDICATION GIVEN AND TOLERATED WELL. NO S/S OF RESPIRATORY DISTRESS OR DISCOMFORT NOTED AT THIS TIME. WILL CONTINUE TO MONITOR.
[2018-06-22] MEDS: METOCLOPRAMIDE 10 MG TAB PO SCH ×3 (06:39→16:33)
[2018-06-22] MEDS: MIDODRINE 5 MG TAB PO SCH ×3 (06:39→18:28)
--- NOTE | 2018-06-22 06:39 | NUR ---
SCHEDULED MEDICATION GIVEN AND TOLERATED WELL. NO S/S OF RESPIRATORY DISTRESS OR DISCOMFORT NOTED AT THIS TIME. WILL CONTINUE TO MONITOR.
--- NOTE | 2018-06-22 07:39 | NUR ---
REPORT GIVEN TO DAY SHIFT NURSE DEEPAK-RN FOR CONTINUITY OF CARE.
--- NOTE | 2018-06-22 07:40 | NUR ---
RECEIVED BEDSIDE REPORT FROM SHOPPER INSIGHTS MANAGER NURSE. PATIENT IS APHASIC. TRACH TO T BAR. SKIN HAS MULTIPLE WOUNDS, DRESSINGS ARE CLEAN, DRY AND INTACT. FALL RISK PROTOCOL IN PLACE, PATIENT IS BEDBOUND, QUAD. PATIENT IS INCONTINENT. KISER CATH IN PLACE. GTUBE IN PLACE. VITAL AF INFUSING AT 65. CLEAN,DRY AND INTACT. CONTACT PRECAUTIONS IN PLACE. BED IN LOW POSITION. CALL LIGHT WITHIN REACH. WILL CONTINUE TO MONITOR THE PATIENT. [facility] BED IN PLACE.
[2018-06-22] MEDS: IPRATROPIUM 0.02% 0.5 MG/2.5 ML NEBU INH PRN (07:53)
[2018-06-22] MEDS: ALBUTEROL 0.083% 2.5 MG/3 ML NEBU INH PRN (07:53)
[2018-06-22 08:00] VITALS: BP 114/71
--- NOTE | 2018-06-22 09:00 | NUR ---
PATIENT IN NO SIGNS OF DISTRESS. WILL CONTINUE TO MONITOR THE PATIENT.
[2018-06-22] MEDS: METOPROLOL 25 MG TAB PO SCH ×2 (10:02→20:56)
[2018-06-22] MEDS: ZINC SULF 220 MG CAP GT SCH (10:02)
[2018-06-22] MEDS: ASCORBIC ACID 500 MG TAB GT SCH (10:02)
[2018-06-22] MEDS: SPIRONOLACTONE 50 MG TAB PO SCH ×2 (10:02→16:33)
--- NOTE | 2018-06-22 10:09 | NUR ---
CHECKED GTUBE PLACEMENT USING SWOOSH. SWOOSH HEARD. 150 RESIDUAL. GIVEN BACK TO PATIENT. CRUSHED AND ADMINISTERED MEDS. PATIENT TOLERATED WELL. WILL CONTINUE TO MONITOR THE PATIENT. SUCTIONED PATIENT AT THIS TIME
--- NOTE | 2018-06-22 12:00 | NUR ---
PATIENT IN NO DISTRESS. WILL CONTINUE TO MONITOR THE PATIENT.
[2018-06-22] MEDS: THERAHONEY GEL 42.5 GM TP SCH (12:30)
--- NOTE | 2018-06-22 13:14 | NUR ---
CHECKED GTUBE PLACEMENT USING SWOOSH. SWOOSH HEARD. NO RESIDUAL. CRUSHED AND ADMINISTERED MEDS. FLUSHED BEFORE AND AFTER. PATIENT TOLERATED WELL. WILL CONTINUE TO MONITOR THE PATIENT
--- NOTE | 2018-06-22 14:27 | NUR ---
Manager Inspection Note: Late entry for 06/21/18: Per Jenny from [facility] / , they have not been able to find an accepting facility for patient and will continue to contact facilities.
--- NOTE | 2018-06-22 14:31 | NUR ---
Personal Property Appraiser Note: Late entry for 06/21/18: Per Jenny from [facility] / , they have not been able to find an accepting facility for patient and will continue to contact facilities.
--- NOTE | 2018-06-22 15:00 | NUR ---
PATIENT IN NO DISTRESS AT THIS TIME. BED IN LOW POSITION. CALL LIGHT WITHIN REACH. WILL CONTINUE TO MONITOR THE PATIENT.
[2018-06-22 16:00] VITALS: BP 118/78
[2018-06-22] MEDS: ACETAMINOPHEN 650 MG/20.3 ML UDC GT PRN (16:33)
--- NOTE | 2018-06-22 16:40 | NUR ---
CHECKED GTUBE PLACEMENT USING SWOOSH. SWOOSH HEARD. NO RESIDUAL AT THIS TIME. ADMINISTERED TANO MEDS AND PRN FEVER MED. PATIENT TOLERATED WELL. WILL CONTINUE TO MONITOR THE PATIENT. FAMILY AT BEDSIDE. NEW FEEDING STARTED AT THIS TIME.
--- NOTE | 2018-06-22 18:00 | NUR ---
patient in no distress. will continue to monitor
--- NOTE | 2018-06-22 19:21 | NUR ---
gave bedside report to shift foreman nurse. patient endorsed in stable condition.
--- NOTE | 2018-06-22 19:30 | NUR ---
RECEIVED REPORT FROM DAY SHIFT NURSE FOR CONTINUITY OF CARE. PATIENT IS AWAKE, RESPIRATION EVEN UNLABORED ON TRACH TO VENT. NO DISTRESS NOTED. SKIN IS WARM AND DRY. MIDLINE CATHETER NOTED. G-TUBE FEEDING RUNNING 65ML/HR. KISER CATHETER DRAINING YELLOW URINE. PLAN OF CARE WAS DISCUSSED. ALL SAFETY MEASURE IN PLACE. BED IS AT LOW POSITION. BED ALARM ON. CALL LIGHT WITHIN REACH.
--- NOTE | 2018-06-22 20:30 | NUR ---
PATIENT VITALS STABLE. INITIAL ASSESSMENT DONE. MEDS WERE GIVEN PER ORDER. OBTAINED 0CC RESIDUAL FROM THE G-TUBE. WILL CONTINUE TO MONITOR.
--- NOTE | 2018-06-22 22:30 | NUR ---
SUCTIONED PATIENT TOLERATED WELL. OBTAINED SMALL AMOUNT OF WHITE CREAMY SECRETION. WILL CONTINUE TO MONITOR.
--- NOTE | 2018-06-23 | NUR ---
PATIENT VITALS STABLE. RESPIRATION EVEN UNLABORED ON TRACH TO VENT. OBTAINED 40CC RESIDUAL FROM THE G-TUBE. WILL CONTINUE TO MONITOR.
[2018-06-23] MEDS: MORPHINE SULFATE 4 MG/ML SYR IVP SCH ×4 (00:24→18:17)
[2018-06-23] MEDS: Z-GUARD PASTE TP SCH ×2 (01:00→14:40)
--- NOTE | 2018-06-23 01:00 | NUR ---
CHANGED PATIENT WOUND DRESSING AND KEPT CLEAN AND COMFORTABLE. PATIENT STABLE. NO DISTRESS NOTED. WILL CONTINUE TO MONITOR.
--- NOTE | 2018-06-23 02:30 | NUR ---
PATIENT SLEEPING RESPIRATION EVEN UNLABORED ON TRACH TO VENT. NO DISTRESS NOTED AT THIS TIME. WILL CONTINUE TO MONITOR.
[2018-06-23 04:00] VITALS: BP 112/76
--- NOTE | 2018-06-23 04:00 | NUR ---
CHECKED PATIENT VITALS SIGN. VITALS STABLE. NO DISTRESS NOTED. WILL CONTINUE TO MONITOR.
--- NOTE | 2018-06-23 05:30 | NUR ---
PATIENT AWAKE, RESPIRATION EVEN UNLABORED ON TRACH TO VENT. NO DISTRESS NOTED. CHECKED G-TUBE FEEDING. OBTAINED 100CC RESIDUAL. WILL CONTINUE TO MONITOR.
[2018-06-23] MEDS: LANSOPRAZOLE 30 MG CAPDR GT SCH (05:54)
[2018-06-23] MEDS: MIDODRINE 5 MG TAB PO SCH ×3 (06:16→18:54)
[2018-06-23] MEDS: METOCLOPRAMIDE 10 MG TAB PO SCH ×3 (06:17→17:10)
--- NOTE | 2018-06-23 07:29 | NUR ---
ENDORSED PATIENT TO DAY SHIFT NURSE FOR CONTINUITY OF CARE. PATIENT IS STABLE AT THIS TIME.
--- NOTE | 2018-06-23 07:30 | NUR ---
RECEIVED BEDSIDE REPORT FROM PRODUCT DEVELOPMENT MANAGER NURSE. PATIENT IS AWAKE. APHASIC. BEDREST. RESPIRATION EVEN UNLABORED ON TRACH TO T PIECE. NO DISTRESS NOTED. SKIN IS WARM AND DRY. WOUND DRESSINGS ARE CLEAN AND DRY. MIDLINE CATHETER NOTED. G-TUBE FEEDING RUNNING 65ML/HR. KISER CATHETER DRAINING YELLOW URINE. REVIEWED PLAN OF CARE. CONTACT PRECAUTION IN PLACE AND SIGN POSTED. ALL SAFETY MEASURE IN PLACE. BED IS AT LOW POSITION. BED ALARM ON. CALL LIGHT WITHIN REACH.
--- NOTE | 2018-06-23 07:58 | NUR ---
RECEIVED PATIENT TRACH SHILEY 6 XLT TO COOL AEROSOL AT 28% FIO2. PULSE OX SAT 96%. SUCTIONED LARGE AMOUNT OF THICK, PALE YELLOW SECRETIONS. NO SOB/WHEEZING. HHN NOT INDICATED AT THIS TIME. NO RESPIRATORY DISTRESS NOTED. WILL CONTINUE TO MONITOR.
[2018-06-23 08:00] VITALS: BP 114/74
--- NOTE | 2018-06-23 09:25 | NUR ---
PROVIDED ORAL CARE TO PT. NO SIGNS OF DISTRESS NOTE.
[2018-06-23] MEDS: METOPROLOL 25 MG TAB PO SCH ×2 (10:33→21:03)
[2018-06-23] MEDS: ZINC SULF 220 MG CAP GT SCH (10:33)
[2018-06-23] MEDS: ASCORBIC ACID 500 MG TAB GT SCH (10:34)
[2018-06-23] MEDS: SPIRONOLACTONE 50 MG TAB PO SCH ×2 (10:34→17:10)
--- NOTE | 2018-06-23 10:35 | NUR ---
CHECKED GT RESIDUAL AND RECEIVED 20CC. ADMINISTERED MEDS PER MD ORDER VIA G-TUBE. PT TOLERATED WELL. REPOSITION PT TO HIS LIFE SIDE AND SUPPORTED PRESSURE AREAS WITH PILLOWS.
--- NOTE | 2018-06-23 10:35 | NUR ---
Crisis Clinician Note: Per Naty from [facility] , they cannot accept patients with trach on hospice at their facility, caser up Lyudmila made aware.
--- NOTE | 2018-06-23 12:05 | NUR ---
CALLED [facility] AND SPOKE WITH CAYLA, [phone]. SHE SAID THEY DO NOT TAKE PATIENTS IN [place] WITH TRACH ON HOSPICE. SHE SAID AT PRESENT THEY HAVE NO [place] BEDS, BUT SHE DID ASK THAT I FAX INQUIRY TO HER, WHICH I DID I CALLED [facility] AND [facility] . NO CALL BACK Addendum: 06/23/18 at 1210 by Lyudmila Lawton CM DAMION RITCHIE.
--- NOTE | 2018-06-23 13:02 | NUR ---
CHECKED G-TUBE RESIDUAL AND RECEIVED 40CC. ADMINISTERED MEDS VIA G-TUBE PER MD ORDER. FLUSHED G-TUBE BEFORE AND AFTER WITH 30ML OF WATER. PT TOLERATED WELL.
--- NOTE | 2018-06-23 13:17 | NUR ---
Inspector Filter Tip Note: Per Buddy Villareal , they cannot accept patients with trach on hospice at their facility.
--- NOTE | 2018-06-23 14:41 | NUR ---
Regional Operations Manager Note: I faxed inquiry to [facility] ([facility]) (located in [place]). Per Remi from [facility] , their director of strategy & mobile is reviewing inquiry, he stated he will call me back today, he isn't sure what time today. Remi stated they are able to accept patients on trachs and is aware patient will need hospice referral per patient's daughter Mirlande request.
[2018-06-23] MEDS: THERAHONEY GEL 42.5 GM TP SCH (15:13)
--- NOTE | 2018-06-23 15:18 | NUR ---
Per Es from [facility] , they are able to accept patients with trach, no beds available at this time.
--- NOTE | 2018-06-23 15:25 | NUR ---
CHECKED G-TUBE FEEDING RESIDUAL AND RECEIVED 10CC. FLACC 0 AND NO SIGNS OF DISTRESS NOTED.
--- NOTE | 2018-06-23 15:31 | NUR ---
Per Ricardo from [facility] , they can accept patients with trach, she will check with her store administrator if they can refer patient with trach to hospice once admitted at their facility and call me back. No accepting facility at this time.
--- NOTE | 2018-06-23 16:17 | NUR ---
Per learning and development administrator Jeffrey from [facility] , they have accepted patients with trach in the past and then referred to hospice once admitted at their facility. He requested inquiry to be fax to him, fax . I faxed inquiry. Pending response from Remi at [facility] , ([facility]) (located in [place]).
--- NOTE | 2018-06-23 16:34 | NUR ---
Per Katerina from [facility] , they cannot accept patients on trach on then refer to hospice once admitted at their facility, unable to accept patient. Addendum: 06/23/18 at 1639 by Genesis Patten SS correction: they cannot accept patients on trach and then refer to hospice once admitted at their facility, unable to accept patient.
--- NOTE | 2018-06-23 17:14 | NUR ---
CHECKED RESIDUAL AND RECEIVED 5CC. ADMINISTERED MEDS PER MD ORDER VIA [id number]. FLUSHED WITH 30ML OF WATER BEFORE AND AFTER MEDICATIONS ADMINISTRATION. PT TOLERATED WELL. FLACC 0.
--- NOTE | 2018-06-23 17:28 | NUR ---
REPOSITION THE PT ON THE L SIDE. USE PILLOW TO OFF LOAD PRESSURE.
--- NOTE | 2018-06-23 17:31 | NUR ---
Fire Sprinkler Fitter Note: I called and spoke with patient's daughter Sho Khalil to inquire if she had any questions or concerns regarding patient's tentative discharge plan. I also called her to offer social service and/or discharge plan assistance. Per Jenny Berkowitz from [facility] their company has not been able to find placement for patient due to G-tube. She stated Jenny asked her if she has considered removing G-tube. Sho explained to me she does not feel comfortable removing G-tube just because [facility] has not been able to find placement. She told me she does not want patient to starve. She would like patient to be as comfortable as possible. She told me that MD was the one who had recommended to maintain G-tube and therefore is confused as why Jenny asked her if she has considered removing G-tube. I told her that I understood her wanting patient to be comfortable and apologized for confusion regarding G-tube. I offered to contact any another hospice company and ask if they could accommodate patient under their service with G-tube and also assist with placement. She agreed and thanked me for my suggestion. I explained to her that as health care providers we collaborate with patient and/or patient's health care decisions to establish a discharge plan they are in agreement with. I faxed inquiry to [facility], phone number , fax . Per PIERRE Alcantar from [facility], they will review inquiry and contact patient's daughter Sho.
--- NOTE | 2018-06-23 19:10 | NUR ---
ENDORSED PATIENT TO SERVICE TECH NURSE AT BEDSIDE FOR CONTINUITY OF CARE. PT IS IN STABLE CONDITION.
--- NOTE | 2018-06-23 19:50 | NUR ---
RECEIVED REPORT FROM DAY SHIFT NURSE FOR CONTINUITY OF CARE. PATIENT IS AWAKE, RESPIRATION EVEN UNLABORED ON TRACH TO T-PIECE. NO DISTRESS NOTED. SKIN IS WARM AND DRY. MULTIPLE WOUNDS NOTED. MIDLINE CATHETER NOTED. G-TUBE FEEDING RUNNING 65ML/HR. OCC RESIDUAL. KISER CATHETER DRAINING YELLOW URINE. PLAN OF CARE WAS DISCUSSED. ALL SAFETY MEASURE IN PLACE. BED IS AT LOW POSITION. BED ALARM ON. CALL LIGHT WITHIN REACH.
[2018-06-23 20:00] VITALS: BP 109/73
--- NOTE | 2018-06-23 20:15 | NUR ---
PATIENT VITAL STABLE. INITIAL ASSESSMENT DONE. NO DISTRESS NOTED AT THIS TIME. WILL CONTINUE TO MONITOR.
--- NOTE | 2018-06-23 21:00 | NUR ---
MEDS WERE GIVEN PER ORDER. OBTAIN 1CC RESIDUAL FROM THE G-TUBE FEEDING. PATIENT TOLERATING THE FEEDING WELL. WILL CONTINUE TO MONITOR.
--- NOTE | 2018-06-23 23:25 | NUR ---
SUCTIONED PATIENT OBTAINED SMALL AMOUNT OF WHITE CREAMY SECRETION. PATIENT SATING ABOVE 90% ON TRACH TO T-PIECE. WILL CONTINUE TO MONITOR
[2018-06-23] MEDS: IPRATROPIUM 0.02% 0.5 MG/2.5 ML NEBU INH PRN (23:56)
[2018-06-23] MEDS: ALBUTEROL 0.083% 2.5 MG/3 ML NEBU INH PRN (23:56)
[2018-06-24] MEDS: MORPHINE SULFATE 4 MG/ML SYR IVP SCH ×5 (00:28→23:57)
--- NOTE | 2018-06-24 00:30 | NUR ---
CHECKED PATIENT. VITALS WERE TAKEN. WOUND ASSESSMENT DONE. PROVIDED GOOD PERICARE. NO DISTRESS NOTED. WILL CONTINUE TO MONITOR.
--- NOTE | 2018-06-24 01:45 | NUR ---
PATIENT SLEEPING COMFORTABLY RESPIRATION EVEN UNLABORED ON TRACH TO T-PIECE. NO DISTRESS NOTED. WILL CONTINUE TO MONITOR.
[2018-06-24] MEDS: Z-GUARD PASTE TP SCH ×2 (01:57→13:15)
[2018-06-24 04:00] VITALS: BP 111/60
--- NOTE | 2018-06-24 04:30 | NUR ---
SUCTIONED PATIENT OBTAINED SMALL AMOUNT OF CREAMY WHITE SECRETION. G-TUBE FEEDING STILL INFUSING. OBTAINED 150CC RESIDUAL FROM THE FEEDING. WILL CONTINUE TO MONITOR.
[2018-06-24] MEDS: LANSOPRAZOLE 30 MG CAPDR GT SCH (05:47)
--- NOTE | 2018-06-24 06:09 | NUR ---
AWAKE STABLE GOOD CHEST RISE DEEP TRACHEAL SUCTION FOR LARGE THICK TO FROTHY YELLOW SECRETIONS AIRWAY PATENT
[2018-06-24] MEDS: MIDODRINE 5 MG TAB PO SCH ×3 (06:32→19:31)
[2018-06-24] MEDS: METOCLOPRAMIDE 10 MG TAB PO SCH ×3 (06:32→16:51)
--- NOTE | 2018-06-24 07:26 | NUR ---
ENDORSED PATIENT TO DAY SHIFT NURSE FOR CONTINUITY OF CARE. PATIENT STABLE AT THIS TIME
--- NOTE | 2018-06-24 07:30 | NUR ---
RECEIVED REPORT FROM NEONATAL SPECIALIST NURSE FOR CONTINUITY OF CARE. PATIENT IS DROWSY, RESPIRATION EVEN UNLABORED ON TRACH TO T-PIECE. NO S/S OF DISTRESS NOTED. SKIN IS WARM AND MOIST, MULTIPLE WOUNDS NOTED. PT IS CONTRACTED FOR ALL EXTREMITIES. MIDLINE CATHETER NOTED, SL. G-TUBE FEEDING RUNNING 65ML/HR. KISER CATHETER DRAINING YELLOW URINE. POC DISCUSSED. ALL SAFETY MEASURE IN PLACE. BED IN LOWEST POSITION. AIR MATTRESS WORKING. BED ALARM ON. CALL LIGHT WITHIN REACH.
[2018-06-24 08:00] VITALS: BP 102/57
--- NOTE | 2018-06-24 08:10 | NUR ---
G TUBE RESIDUAL 40ML. PT TOLERATING FEEDING.
[2018-06-24] MEDS: METOPROLOL 25 MG TAB PO SCH ×2 (09:00→19:59)
--- NOTE | 2018-06-24 09:50 | NUR ---
RECEIVED PATIENT TRACH SHILEY 6 XLT TO COOL AEROSOL AT 28% FIO2. AIRWAY SECURE AND PATENT. AMBU BAG AT BEDSIDE. BREATH SOUNDS COARSE/RHONCHI. SUCTIONED MODERATE AMOUNT OF THICK, YELLOW SECRETIONS. STERILE WATER CHANGED. DRAINAGE BAG EMPTIED. NO SIGNS OF SOB. NO HHN INDICATED AT THIS TIME. NO RESPIRATORY DISTRESS NOTED. WILL CONTINUE TO MONITOR.
[2018-06-24] MEDS: SPIRONOLACTONE 50 MG TAB PO SCH ×2 (10:29→16:51)
[2018-06-24] MEDS: ASCORBIC ACID 500 MG TAB GT SCH (10:30)
[2018-06-24] MEDS: ZINC SULF 220 MG CAP GT SCH (10:30)
[2018-06-24 12:00] VITALS: BP 99/68
[2018-06-24] MEDS: THERAHONEY GEL 42.5 GM TP SCH (13:15)
--- NOTE | 2018-06-24 15:45 | NUR ---
FEEDING BOTTLE AND LINE CHANGED. KEPT SAME FEEDING RATE AND H2O FLUSH RATE.
--- NOTE | 2018-06-24 16:00 | NUR ---
G TUBE RESIDUAL 0ML. PT TOLERATED FEEDING.
[2018-06-24] MEDS: DOCUSATE SODIUM 250 MG GELCAP PO PRN (17:09)
--- NOTE | 2018-06-24 17:34 | NUR ---
SUCTIONED MODERATE AMOUNT OF THICK YELLOW SECRETIONS. DRAINAGE BAG CHANGED. TRACH CARE PERFORMED WITHOUT INCIDENT. NO RESPIRATORY DISTRESS NOTED AT THIS TIME. WILL CONTINUE TO MONITOR.
--- NOTE | 2018-06-24 19:20 | NUR ---
REPORT GIVEN TO NIGHT NURSE AT BEDSIDE. PT IN STABLE CONDITION.
--- NOTE | 2018-06-24 19:21 | NUR ---
RECEIVED BEDSIDE REPORT FROM HALIMA JAY. PT IS APHASIC. TRACH TO T PIECE TO 6L. PT HAS G TUBE AT 65ML H2O FLUSH Q 4H. FEEDING BEGAN AT 1500. PT HAS KISER CATH DRAINING YELLOW URINE. PT HAS MX WOUNDS. ON HEEL RISER. IV ON LEFT UPPER ARM SALINE LOCK. PT ON COMFORT MEASURES. ON CONTACT ISOLATION. PT ON SZ,ASPIRATION,FALL PRECAUTION. SAFETY MEASURES ARE IN PLACE. WILL CONTINUE TO MONITOR.
--- NOTE | 2018-06-24 21:26 | NUR ---
NO S/S OF DISTRESS. IS EASILY AROUSABLE. RESIDUAL 180 CC. WILL CONTINUE TO MONITOR.
--- NOTE | 2018-06-24 23:57 | NUR ---
VS ARE WITHIN NORMAL LIMITS. MORPHINE ADMINISTERED PER ORDERS. PT SUCTION THIN WHITE SECRETIONS. HAS NO RESIDUAL. FEEDING REMAINS AT 65ML/H. ALL NEEDS MET AT THIS TIME. WILL CONTINUE TO MONITOR.
[2018-06-25] VITALS: BP 114/76
--- NOTE | 2018-06-25 01:43 | NUR ---
PT RESTING COMFORTABLY IN BED. NO S/S OF DISTRESS. BED ALARM ON.
--- NOTE | 2018-06-25 04:00 | NUR ---
PT SLEEPING COMFORTABLY IN BED. RESPIRATIONS ARE EQUAL AND UNLABORED. TRACH TO T PIECE. PT SUCTION THICK WHITE SECRETIONS. ALL NEEDS MET AT HIS TIME. WILL CONTINUE TO MONITOR.
[2018-06-25] MEDS: LANSOPRAZOLE 30 MG CAPDR GT SCH (06:28)
[2018-06-25] MEDS: MIDODRINE 5 MG TAB PO SCH ×3 (06:29→18:27)
[2018-06-25] MEDS: METOCLOPRAMIDE 10 MG TAB PO SCH ×3 (06:29→16:34)
--- NOTE | 2018-06-25 06:30 | NUR ---
DUE MEDICATIONS ADMINISTERED. PT TOLERATED WELL. SAFETY MEASURES ARE IN PLACE. WILL CONTINUE TO MONITOR.
--- NOTE | 2018-06-25 07:24 | NUR ---
GAVE BEDSIDE REPORT TO HALIMA JAY. PT ENDORSED IN STABLE CONDITION.
--- NOTE | 2018-06-25 07:25 | NUR ---
RECEIVED REPORT FROM HEALTH CARE MARKETING MANAGER NURSE FOR CONTINUITY OF CARE. PT IS DROWSY, RESPIRATION EVEN UNLABORED ON TRACH TO T-PIECE, 6L, FIO2 30%. NO S/S OF DISTRESS NOTED. SKIN IS WARM AND MOIST, MULTIPLE WOUNDS NOTED. PT IS CONTRACTED FOR ALL EXTREMITIES. MIDLINE CATHETER NOTED TO LEFT UA, SL, FLUSHED AND PATENT. G-TUBE FEEDING RUNNING VITAL AF AT 65ML/HR. KISER CATHETER DRAINING YELLOW URINE. POC DISCUSSED. ALL SAFETY MEASURE IN PLACE. BED IN LOWEST POSITION. AIR MATTRESS WORKING. BED ALARM ON. CALL LIGHT WITHIN REACH.
[2018-06-25 08:00] VITALS: BP 106/71
[2018-06-25] MEDS: ASCORBIC ACID 500 MG TAB GT SCH (08:08)
[2018-06-25] MEDS: ZINC SULF 220 MG CAP GT SCH (08:08)
[2018-06-25] MEDS: METOPROLOL 25 MG TAB PO SCH ×2 (08:08→20:40)
[2018-06-25] MEDS: SPIRONOLACTONE 50 MG TAB PO SCH ×2 (08:08→16:34)
--- NOTE | 2018-06-25 08:56 | NUR ---
06/25/18 RD FOLLOW UP COMPLETED PLEASE REFER TO NUTRITION PROGRESS NOTE UNDER CARE ACTIVITY FOR ESTIMATED NUTRITION NEEDS. RD RECOMMENDATIONS: 1. CONTINUE VITAL AF 1.2 AT 65 ML/HR. THIS WILL PROVIDE 1560 ML, 1870 KCAL, 117 GM OF PROTEIN WHICH MEETS 100% OF ESTIMATED KCAL AND 106% OF ESTIMATED PROTEIN NEEDS. 2. CONTINUED FREE WATER FLUSH OF [address] TO FOLLOW-UP 2-3 DAYS, HIGH RISK MALVIN TOLEDO MS, RDN
--- NOTE | 2018-06-25 09:55 | NUR ---
ORAL CARE DONE, PT TOLERATED WELL.
--- NOTE | 2018-06-25 10:00 | NUR ---
FEEDING BOTTLE AND LINE CHANGED. KEPT SAME FEEDING RATE AND H2O FLUSH RATE.
--- NOTE | 2018-06-25 10:40 | NUR ---
PT HAD BED BATH, KISER CARE DONE, LINENS AND CHUX CHANGED. PT WAS REPOSITIONED.
[2018-06-25 12:00] VITALS: BP 102/71
[2018-06-25] MEDS: THERAHONEY GEL 42.5 GM TP SCH (12:29)
[2018-06-25] MEDS: Z-GUARD PASTE TP SCH ×2 (12:29)
--- NOTE | 2018-06-25 13:29 | NUR ---
SPOKE WITH DR RAZA OVER THE PHONE, ASKED IF HE WANTS TO RENEW THE SCHEDULED MORPHINE 4MG Q6H. DR RAZA SAID TO CHANGE IT TO PRN. DR RAZA IS AWARE THAT PT IS ON HOSPICE.
[2018-06-25] MEDS ORDERED: MORPHINE SULFATE 4 MG/ML SYR IVP PRN (13:30)
[2018-06-25] MEDS: BISACODYL 10 MG SUPP RC PRN (15:12)
--- NOTE | 2018-06-25 15:37 | NUR ---
ORAL CARE DONE, DEEP SUCTION DONE, PT TOLERATED WELL.
--- NOTE | 2018-06-25 17:04 | NUR ---
NO BM DOCUMENTED FOR 4 DAYS, NO DISTENSION NOTED THE ABD.. SUPPOSITORY WAS GIVEN EARLIER AT 1520. PT WAS CLEANED HAD ONLY SOME SMEAR OF YELLOW STOOL. ALL DRESSINGS ON THE SACRAL AND HIP AND BACK WERE CHANGED.
--- NOTE | 2018-06-25 18:10 | NUR ---
G TUBE RESIDUAL 0ML. SUCTION PERFORMED, YELLOW THICK SECRETION OBTAINED.
--- NOTE | 2018-06-25 19:15 | NUR ---
ENDORSED PT TO COOLING TOWER OPERATOR FOR CONTINUITY OF CARE. PT IN STABLE CONDITION.
--- NOTE | 2018-06-25 19:16 | NUR ---
RECEIVED BEDSIDE REPORT FROM HALIMA JAY. PT IS APHASIC. TRACH TO T PIECE TO 6L. PT HAS G TUBE AT 65ML H2O FLUSH Q 4H. FEEDING. PT HAS KISER CATH DRAINING YELLOW URINE. PT HAS MX WOUNDS. ON HEEL RISER. IV ON LEFT UPPER ARM SALINE LOCK. PT ON COMFORT MEASURES. ON CONTACT ISOLATION. PT ON SZ,ASPIRATION,FALL PRECAUTION. SAFETY MEASURES ARE IN PLACE. WILL CONTINUE TO MONITOR.
--- NOTE | 2018-06-25 20:09 | NUR ---
RECEIVED PATIENT TRACH SHILEY 6 XLT TO COOL AEROSOL MIST AT 28% FIO2. PULSE OX SAT 94%. AIRWAY SECURE AND PATENT. WATER CHANGED. GUTIÉRREZ SUCTION CHANGED. SUCTIONED A COPIOUS AMOUNT OF THICK YELLOW SECRETIONS. NO SOB NOTED AT THIS TIME. NO HHN INDICATED. NO RESPIRATORY DISTRESS NOTED. AMBU BAG AT BEDSIDE. WILL CONTINUE TO MONITOR.
--- NOTE | 2018-06-25 20:47 | NUR ---
DUE MEDICATIONS GIVEN PT TOLERATED WELL. NO RESIDUAL TOLERATING FEEDING WELL. O2 SAT 98% HAS TRACH TO T PIECE AT 6L. RESPIRATIONS ARE EQUAL AND UNLABORED. WILL CONTINUE TO MONITOR
--- NOTE | 2018-06-25 22:46 | NUR ---
PT SUCTION THICK WHITE SECRETIONS. PT IS COMFORTABLY SLEEPING IN BED. RESPIRATIONS ARE EQUAL AND UNLABORED. WILL CONTINUE TO MONITOR.
--- NOTE | 2018-06-25 23:33 | NUR ---
SUCTIONED LARGE AMOUNT OF THICK PALE, YELLOW SECRETIONS. PULSE OX SAT 93%. HEART RATE 112. NO RESPIRATORY DISTRESS NOTED. WILL CONTINUE TO MONITOR.
[2018-06-26] VITALS: BP 101/60
--- NOTE | 2018-06-26 | NUR ---
VS ARE STABLE. O2 SAT 93% ON 6L. PT SUCTION. WOUND DRESSING ARE DRY CLEAN AND INTACT. DRESSING WERE CHANGED DURING THE DAY. SAFETY MEASURES ARE IN PLACE. WILL CONTINUE TO MONITOR.
[2018-06-26] MEDS: Z-GUARD PASTE TP SCH ×2 (00:39→14:56)
--- NOTE | 2018-06-26 02:00 | NUR ---
NEW FEEDING BEGAN ON SAME SETTINGS: 65ML/H H20 FLUSH 100ML/Q4H. PT TOLERATING FEEDING VERY WELL. RESIDUAL 20CC. PT SUCTION AND REPOSITION FOR COMFORT. WILL CONTINUE TO MONITOR.
--- NOTE | 2018-06-26 03:46 | NUR ---
PT RESTING COMFORTABLY IN BED. RESPIRATIONS ARE EQUAL AND UNLABORED.
--- NOTE | 2018-06-26 04:46 | NUR ---
PT CLEANED AND REPOSITION FOR COMFORT. SUCTION THICK WHITE SECRETIONS. PT TOLERATED WELL. NO S/S OF DISTRESS. WILL CONTINUE TO MONITOR.
--- NOTE | 2018-06-26 05:10 | NUR ---
TRACH CARE DONE WITHOUT INCIDENT. SUCTIONED LARGE AMOUNT OF THICK, PALE YELLOW SECRETIONS. NO RESPIRATORY DISTRESS NOTED. WILL CONTINUE TO MONITOR.
[2018-06-26] MEDS: METOCLOPRAMIDE 10 MG TAB PO SCH ×3 (06:39→17:08)
[2018-06-26] MEDS: MIDODRINE 5 MG TAB PO SCH ×3 (06:40→19:13)
[2018-06-26] MEDS: LANSOPRAZOLE 30 MG CAPDR GT SCH (06:40)
--- NOTE | 2018-06-26 06:40 | NUR ---
DUE MEDICATIONS ADMINISTERED. PT TOLERATED WELL. PT WITH 150 RESIDUAL. SAFETY MEASURES ARE IN PLACE. WILL CONTINUE TO MONITOR.
--- NOTE | 2018-06-26 07:30 | NUR ---
REPORT RECEIVED FROM NIGHT NURSE PT AWAKE TRACKS WITH EYES, RESPONDS TO NAME. NO S/S OF ACUTE DISTRESS NOTED AT THIS TIME. . CALL LIGHT AND PERSONAL ITEMS WITHIN REACH, SAFETY AND FALL PRECAUTIONS IN PLACE, WILL CONTINUE TO MONITOR.
--- NOTE | 2018-06-26 07:30 | NUR ---
GAVE BEDSIDE REPORT TO DAY SHIFT RN. PT ENDORSED IN STABLE CONDITION.
[2018-06-26 08:00] VITALS: BP 114/78
[2018-06-26] MEDS: SPIRONOLACTONE 50 MG TAB PO SCH ×2 (09:58→17:12)
[2018-06-26] MEDS: ZINC SULF 220 MG CAP GT SCH (09:58)
[2018-06-26] MEDS: ASCORBIC ACID 500 MG TAB GT SCH (09:58)
[2018-06-26] MEDS: METOPROLOL 25 MG TAB PO SCH ×2 (09:59→21:35)
--- NOTE | 2018-06-26 10:00 | NUR ---
DR PEREZ IN HOUSE ROUNDING PER MD PT TO BE DIS[place] [facility] [place]. CHARGE NURSE NOTIFIED, PER CHARGE NURSE CASE MANAGEMENT IS INVOLVED AND WAITING FOR A BED.
--- NOTE | 2018-06-26 10:30 | NUR ---
PT AWAKE TRACKS WITH EYES, RESPONDS TO NAME. CONTINUING TO RECEIVE O2 VIA TBAR AND TRACH W SUCTION PROVIDED PRN, NO S/S SOB AT THIS TIME. MAINTAINED ON GTUBE FEEDING PER ORDER, TOLERATING WELL. NO S/S OF ACUTE DISTRESS NOTED AT THIS TIME. CALL LIGHT AND PERSONAL ITEMS WITHIN REACH, SAFETY AND FALL PRECAUTIONS IN PLACE, WILL CONTINUE TO MONITOR.
--- NOTE | 2018-06-26 12:30 | NUR ---
PT AWAKE , ALERT, CONTINUING TO RECEIVE O2 VIA TBAR AND TRACH W SUCTION PROVIDED PRN, NO S/S SOB AT THIS TIME. MAINTAINED ON GTUBE FEEDING PER ORDER, TOLERATING WELL. NO S/S OF ACUTE DISTRESS NOTED AT THIS TIME. CALL LIGHT AND PERSONAL ITEMS WITHIN REACH, SAFETY AND FALL PRECAUTIONS IN PLACE, WILL CONTINUE TO MONITOR.
--- NOTE | 2018-06-26 12:37 | NUR ---
Systems Program Manager Note: [facility] , [address] [place] [address], they are able to accept patient and then refer to hospice once admitted at their facility. I told him I will contact patient�s daughter Sho and let her know. I called and spoke with patient's daughter Sho Khalil to inform her [facility] has [facility]. She stated she is planning to tour this [facility] tomorrow and also contact RN Ortiz from [facility] . I informed Ortiz from [facility] patient has been accepted at [facility] and patient�s daughter Sho is planning to tour that facility tomorrow. I provided Sho with the address and phone number of [facility].
[2018-06-26] MEDS: THERAHONEY GEL 42.5 GM TP SCH (14:56)
--- NOTE | 2018-06-26 15:20 | NUR ---
PT AWAKE, ALERT, DRESSINGS CHANGED PER ORDER, TOLERATED WELL. NO S/S [PAIN, SOB OR OF ACUTE DISTRESS NOTED AT THIS TIME. CALL LIGHT AND PERSONAL ITEMS WITHIN REACH, SAFETY AND FALL PRECAUTIONS IN PLACE, WILL CONTINUE TO MONITOR.
[2018-06-26 16:00] VITALS: BP 116/90
--- NOTE | 2018-06-26 16:19 | NUR ---
Upholstery Cutter Note: I faxed inquiry to [facility] . Addendum: 06/26/18 at 1620 by Genesis Patten SS [facility] phone number , fax
--- NOTE | 2018-06-26 19:26 | NUR ---
PT REMAINED ALERT, WITH RESPONSE TO NAME AND TRACKING THROUGHT SHIFT. PT CONTINUING TO RECEIVE O2 VIA TBAR AND TRACH W SUCTION PROVIDED PRN, NO S/S SOB OR PAIN AT THIS TIME. RECIEVED GTUBE FEEDING PER ORDER, TOLERATING WELL. NO S/S OF ACUTE DISTRESS NOTED AT THIS TIME. CALL LIGHT AND PERSONAL ITEMS WITHIN REACH, SAFETY AND FALL PRECAUTIONS IN PLACE. REPORT ENDORSED TO ONCOMING SHIFT NURSE.
--- NOTE | 2018-06-26 19:30 | NUR ---
RECEIVED PATIENT LYING WITH HOB ELEVATED CONNECTED TO TRACH TO T-PIECE WITH 6 L O2. G-TUBE FEEDING RUNNING WITH FLUSH WATER INFUSING WELL. RESPIRATION EVEN AND UNLABORED. REPOSITIONED PATIENT TO HIS SIDE USING PILLOW. . SUCTIONED PATIENT WITH MODERATE AMOUNT OF COPIOUS SECRETIONS. CALL LIGHT WITHIN REACH .WILL CONTINUE TO MONITOR.
--- NOTE | 2018-06-26 21:00 | NUR ---
SCHEDULE MEDICATION GIVEN. REPOSITIONED PATIENT AND ELEVATED HOB . SUCTIONED PATIENT WITH MODERATE AMOUNT OF COPIOUS SECRETIONS TOLERATED WELL. NO S/S OF DISTRESS NOTED. WILL CONTINUE TO MONITOR.
--- NOTE | 2018-06-26 21:23 | NUR ---
INCRAESED FIO2 TO 30%. PT SATS 91%. PT HAS LARGE AMTS OF COPIOUS SECRETIONS
[2018-06-27] VITALS: BP 124/84
--- NOTE | 2018-06-27 | NUR ---
REPOSITIONED PATIENT AND ELEVATED HOB. SUCTIONED PATIENT WITH MODERATE COPIOUS SECRETIONS. NO S/S OF DISTRESS NOTED.WILL CONTINUE TO MONITOR.
[2018-06-27] MEDS: Z-GUARD PASTE TP SCH ×2 (01:59→14:48)
--- NOTE | 2018-06-27 02:00 | NUR ---
REPOSITIONED PATIENT ON BED. SUCTIONED WITH SMALL AMOUNT OF WHITE SECRETIONS. HOB ELEVATED.RESIDUAL OF 60ML. NO S/S OF DISTRESS NOTED. WILL CONTINUE TO MONITOR.
--- NOTE | 2018-06-27 04:30 | NUR ---
AM CARE. DRESSING CHANGED. REPOSITIONED AND ELEVATE HOB. SUCTIONED WITH MODERATE AMOUNT OF COPIOUS SECRETIONS. NO S/S OF DISTRESS NOTED. WILL CONTINUE TO MONITOR.
[2018-06-27] MEDS: LANSOPRAZOLE 30 MG CAPDR GT SCH (05:36)
--- NOTE | 2018-06-27 07:18 | NUR ---
GAVE REPORT TO AM SHIFT RN AT BEDSIDE. NO S/S OF DISTRESS NOTED. PATIENT IN STABLE CONDITION.
--- NOTE | 2018-06-27 07:19 | NUR ---
RECEIVED REPORT FROM SECONDARY SOCIAL STUDIES TEACHER NURSE. PT IN STABLE CONDITION. RESPIRATION EVEN AND UNLABORED. TRACH TO O2 VIA T-PIECE PATENT AND INTACT. SAFETY MEASURES IN PLACE. BED IN LOW POSITION, CALL LIGHT AT BEDSIDE, BED ALARM ON. WILL CONTINUE TO MONITOR.
[2018-06-27] MEDS: ALBUTEROL 0.083% 2.5 MG/3 ML NEBU INH PRN (07:34)
[2018-06-27] MEDS: IPRATROPIUM 0.02% 0.5 MG/2.5 ML NEBU INH PRN (07:34)
[2018-06-27 08:00] VITALS: BP 114/78
[2018-06-27] MEDS: SPIRONOLACTONE 50 MG TAB PO SCH ×2 (09:56→18:01)
[2018-06-27] MEDS: MIDODRINE 5 MG TAB PO SCH ×3 (09:56→20:28)
[2018-06-27] MEDS: METOCLOPRAMIDE 10 MG TAB PO SCH ×3 (09:56→18:01)
[2018-06-27] MEDS: ASCORBIC ACID 500 MG TAB GT SCH (09:57)
[2018-06-27] MEDS: ZINC SULF 220 MG CAP GT SCH (09:57)
[2018-06-27] MEDS: METOPROLOL 25 MG TAB PO SCH ×2 (09:57→20:27)
--- NOTE | 2018-06-27 10:07 | NUR ---
Health/Safety Job Titles Note: I left a voicemail for admission coordinator Maria A at [facility] .
--- NOTE | 2018-06-27 10:15 | NUR ---
HELD G-TUBE FEEDING DUE TO RESIDUAL AT 225.
--- NOTE | 2018-06-27 10:25 | NUR ---
Fire Investigation Lieutenant Note: I received a call from training administrator Jeffrey [facility] / , [address], [place] [address], he wanted to know if patient�s daughter Sho was still planning to visit their facility today. I told him I was going to contact Sho and ask her. I called Dariusz, no answer, left message. I faxed inquiry to [facility]. Per Haylee from [facility] , they don't have any beds available at this time. I faxed inquiry to [facility]. I left a message for RN Yannick Coronel , e-fax . [facility] facilities: [facility], [facility], [facility], [facility], [facility], [facility], [facility], [facility], [facility], [facility], [facility], and [facility]. I faxed inquiry to [facility], fax . Per Imani from [facility] , no beds available at this time. I faxed inquiry to [facility].
--- NOTE | 2018-06-27 11:20 | NUR ---
RESIDUAL AT 210 G-TUBE FEEDING HELD.
--- NOTE | 2018-06-27 12:15 | NUR ---
RESIDUAL AT 130 HOLD G-TUBE FEEDING.
--- NOTE | 2018-06-27 13:30 | NUR ---
RESIDUAL AT 25 RESUMED G-TUBE FEEDING AT THIS TIME.
--- NOTE | 2018-06-27 13:56 | NUR ---
06/27/18 RD FOLLOW UP COMPLETED PLEASE REFER TO NUTRITION ASSESSMENT UNDER CARE ACTIVITY FOR ESTIMATED NUTRITIONAL NEEDS. 1. IF RESIDUALS ARE GREATER THAN 200 ML, HOLD FEEDING FOR 1 HOUR. RESTART TUBE FEEDING IF RESIDUALS ARE UNDER 100 ML AND RESTART AT 30 ML/HR. ADVANCE GRADUALLY BY 10 ML/HR Q6H 2. CONTINUE VITAL AF 1.2 AT 65 ML/HR -THIS WILL PROVIDE 1560 ML, 1870 KCAL, 117 GM OF PROTEIN WHICH MEETS 100% OF ESTIMATED KCAL AND 106% OF ESTIMATED PROTEIN NEEDS 3. CONTINUED FREE WATER FLUSH OF [address] TO FOLLOW-UP 2-3 DAYS, HIGH RISK JESSICA LEON RD
[2018-06-27] MEDS: THERAHONEY GEL 42.5 GM TP SCH (14:48)
--- NOTE | 2018-06-27 15:45 | NUR ---
PT IN STABLE CONDITION. RESPIRATIONS EVEN AND UNLABORED. BED IN LOW POSITION. CALL LIGHT AT BEDSIDE. BED ALARM ON. WILL CONTINUE TO MONITOR.
[2018-06-27 16:00] VITALS: BP 126/78
--- NOTE | 2018-06-27 17:00 | NUR ---
GAVE ORDERED DUE MEDICATION AT THIS TIME. PT TOLERATED WELL. PT IN STABLE CONDITION. RESPIRATIONS EVEN AND UNLABORED. BED IN LOW POSITION. CALL LIGHT AT BEDSIDE. BED ALARM ON. WILL CONTINUE TO MONITOR.
--- NOTE | 2018-06-27 19:33 | NUR ---
GAVE REPORT TO SUPERVISOR PIPE JOINTS NURSE FOR CONTINUITY OF CARE. PT IN STABLE CONDITION.
--- NOTE | 2018-06-27 19:34 | NUR ---
REPORT RECEIVED FROM AM NURSE AT BEDSIDE. PT IN STABLE CONDITION. AAOX1. INTRODUCED SELF TO PT. BOARD UPDATED. FLACC 0. NO SOB. PT ON 6L O2 VIA TRACH TO T-PIECE. AFEBRILE. PT HAS NO IV ACCESS. PT HAS GTUBE RUNNING VITAL AF 1.2@30ML/HR WITH 100ML FLUSH Q4H PATENT AND INTACT. SKIN WARM, DRY, AND NOT INTACT DUE TO MULTIPLE WOUNDS. SEE WOUND ASSESSMENT. WOUND BED LOCKED IN LOW POSITION. CALL MURO WITHIN REACH. SAFETY PRECAUTIONS IN PLACE. ALL NEEDS MET AT THIS TIME.
--- NOTE | 2018-06-27 20:27 | NUR ---
METOPROLOL AND PROAMATINE GIVEN THROUGH GTUBE. PT TOLERATED WELL. Addendum: 06/27/18 at 2139 by Troy Gutierres RN PROAMATINE WAS ENDORSED BY APARNA JUARES.
--- NOTE | 2018-06-27 22:30 | NUR ---
PT AWAKE AND ALERT IN BED WATCHING TV. NO S/S OF DISTRESS NOTED. BREATHING EVEN, UNLABORED, AND WNL. WILL CONTINUE TO MONITOR.
[2018-06-28 01:05] VITALS: BP 114/83
[2018-06-28] MEDS: Z-GUARD PASTE TP SCH ×3 (01:11→23:33)
--- NOTE | 2018-06-28 03:45 | NUR ---
PT AWAKE IN BED WATCHING TV AND IS AROUSABLE. NO S/S OF DISTRESS NOTED. BREATHING EVEN, UNLABORED, AND WNL. WILL CONTINUE TO MONITOR.
[2018-06-28] MEDS: LANSOPRAZOLE 30 MG CAPDR GT SCH (06:31)
[2018-06-28] MEDS: MIDODRINE 5 MG TAB PO SCH ×3 (06:31→18:36)
[2018-06-28] MEDS: METOCLOPRAMIDE 10 MG TAB PO SCH ×3 (06:31→17:40)
--- NOTE | 2018-06-28 06:31 | NUR ---
REGLAN, PROTAMINE, AND PREVACID GIVEN THROUGH GTUBE. PT TOLERATED WELL. Addendum: 06/28/18 at 0740 by Troy Gutierres RN RESIDUAL WAS 175ML. FEEDING STOPPED.
--- NOTE | 2018-06-28 07:10 | NUR ---
REPORT GIVEN TO AM NURSE AT BEDSIDE. PT IN STABLE CONDITION.
--- NOTE | 2018-06-28 07:30 | NUR ---
RECEIVED PT REPORT FROM ASSOCIATE MEDICAL DIRECTOR NURSE. PT APPEARS COMFORTABLE IN BED, NO S/S OF ACUTE DISTRESS OR SOB NOTED. PT IS APHASIC. PT IS ON 6 L O2, TRACH TO T-PIECE. G TUBE NOTED, CURRENTLY NOT INFUSING TUBE FEED FORMULA DUE TO HIGH RESIDUAL. WILL CHECK RESIDUAL AGAIN LATER. KISER CATHETER NOTED TO BE DRAINING YELLOW URINE. NO IV SITE NOTED, MD IS AWARE THAT PT DOES NOT HAVE AN IV SITE, (PT DOES NOT GET ANY IV MEDICATIONS). PT HAS MULTIPLE PRESSURE WOUNDS, PRIMARILY ON HIS SACRAL AND HIP AREAS, COVERED BY OPTIFOAM DRESSINGS. CONTACT ISOLATION IN PLACE. FALL PRECAUTIONS IN PLACE, CALL LIGHT WITHIN REACH. WILL CONTINUE TO MONITOR.
[2018-06-28 08:00] VITALS: BP 108/74
--- NOTE | 2018-06-28 08:30 | NUR ---
PT'S RESIDUAL IS 180 ML. HOLDING TUBE FEEDING AT THIS TIME.
[2018-06-28] MEDS: METOPROLOL 25 MG TAB PO SCH ×2 (09:00→21:38)
[2018-06-28] MEDS: SPIRONOLACTONE 50 MG TAB PO SCH ×2 (10:45→17:40)
[2018-06-28] MEDS: ASCORBIC ACID 500 MG TAB GT SCH (10:45)
[2018-06-28] MEDS: ZINC SULF 220 MG CAP GT SCH (10:45)
--- NOTE | 2018-06-28 11:15 | NUR ---
ATTEMPTED TO INSERT IV TWICE WITHOUT SUCCESS. WILL ASK ANOTHER NURSE TO TRY.
--- NOTE | 2018-06-28 11:35 | NUR ---
Stitcher Standard Machine Note: I faxed inquiry to [facility] as per director Radha's request. Per RN Farooq, she spoke with Kimberli from [facility] regarding patient and she stated Kimberli told her patient could be referred to Palliative Care once admitted at their facility.
--- NOTE | 2018-06-28 11:50 | NUR ---
NEW IV INSERTED, L FA 22 G. PATENT AND INTACT.
[2018-06-28] MEDS: THERAHONEY GEL 42.5 GM TP SCH (13:00)
--- NOTE | 2018-06-28 13:00 | NUR ---
PT'S G-TUBE RESIDUAL IS 5 ML AT THIS TIME, TUBE FEEDING RESUMED AT 40 ML/HR.
--- NOTE | 2018-06-28 15:00 | NUR ---
PT'S WOUND CARE DONE WITH HELP FROM WOUND CARE NURSE, DENISE. PICTURES TAKEN FOR DOCUMENTATION. PT TOLERATED WELL.
--- NOTE | 2018-06-28 15:26 | NUR ---
WOUND CARE RE-EVALUATION NOTE: INTEGUMENTARY: -INCONTINENT ASSOCIATE DERMATITIS TO R/L GROINS AND SCROTAL AREA, RESOLVED -PRESSURE INJURY STAGE 4 TO RIGHT TROCHANTER, 3X2X0.3CM WOUND BED WITH 95% RED GRANULATING TISSUE WITH 5% LIGHT YELLOW SLOUGH TO VAISHALI-WOUND SKIN - PRESSURE INJURY STAGE 4 TO RIGHT JANG, 7X2X0.3 CM WOUND BED 90% GRANULATING TISSUE WITH 10% BROWN SLOUGH, MOIST, NO ODOR, VAISHALI-WOUND REDNESS - PRESSURE INJURY STAGE 2 TO MID BACK THORACIC REGION, RESOLVED - PRESSURE INJURY UN-STAGEABLE TO LEFT TROCHANTER 9X8X1.5CM, UNDERMINING BETWEEN 8 TO 10 O�CLOCK WITH 2CM DEEP TOWARD 8 O�CLOCK. WOUND BED IS RED, 80% GRANULATING TISSUE AND 20% YELLOW SLOUGH TISSUE, MODERATE AMOUNT SEROUS DRAINAGE, NO ODOR, VAISHALI-WOUND SKIN INTACT WITH REDNESS COLOR WOUND EDGING, WITH SURROUNDING REDNESS AREA INDICATED FURTHER DAMAGE -PRESSURE INJURY STAGE 4 TO RIGHT ISCHIUM, 8X5X0.5 CM, UNDERMINING 0.5CM DEEP, WOUND BED IS 100 % GRANULATING RED, SMALL AMOUNT SEROSANGUINEOUS DRAINAGE, NO ODOR, VAISHALI-WOUND SKIN INTACT WITH SURROUNDING REDNESS MERGED WITH RIGHT TROCHANTER SURROUNDING REDNESS, FURTHER DAMAGE INDICATED -DEEP TISSUE INJURY RIGHT HEEL, RESOLVED -PRESSURE INJURY UN-STAGEABLE TO LEFT LATERAL FOOT, 8X0.5CM WITH LIGHT BROWN SCAB AND VAISHALI-WOUND SKIN INTACT -PRESSURE INJURY STAGE 4 TO LEFT ISCHIUM, 6X7X0.3 CM , UNDERMINING BETWEEN 5 TO 8 O�CLOCK 0.5CM DEEP, WOUND BED 100% GRANULATING TISSUE, SMALL AMOUNT SEROUS DRAINAGE, NO ODOR, VAISHALI-WOUND SKIN INTACT. WITH SURROUNDING REDNESS AREA INDICATED FURTHER DAMAGE -PRESSURE INJURY LEFT HEEL OLD HEALED SCARS WITH FEW PIN POINTS SCABS, SKIN INTACT -PRESSURE INJURY STAGE 4 TO SACRALCOCCYX, OVAL SHAPE 6X11X0.3 CM , UNDERMINING BETWEEN 9-12 O�CLOCK WITH 0.5CM DEEP, WOUND BED IS RED WITH 100% GRANULATING TISSUE, SMALL AMOUNT OF SEROUS DRAINAGE, NO ODOR, VAISHALI-WOUND SKIN INTACT -TRACH SITE VAISHALI STOMA SKIN DRY AND CLEAN. SKIN INTACT. -GT SITE VAISHALI STOMA SKIN REDNESS, RESOLVED -UPPER BACK MULTIPLE RASHES REDNESS, RESOLVED RECOMMENDATIONS: -CLEANSE MULTIPLE PRESSURE INJURIES WITH WOUND CLEANSING SOLUTION, PAT DRY AND APPLY THERAHONEY WITH ADAPTIC DRESSING AND COVER WITH DRY DRESSING SECURE WITH PAPER TAPE QD AND PRN IF SOILING -APPLY FOAM DRESSING TO MID BACK, LEFT LATERAL FOOT AND LEFT HEEL AND RIGHT HEEL Q3DAYS AND PRN IF SOILING -APPLY HEEL PROTECTOR TO BILATERAL HEELS AT ALL TIMES -PLEASE PLACE PILLOWS IN BETWEEN KNEES, CUSHION HEEL TO ISCHIUM AREAS AT ALL TIMES -OFFLOAD BILATERAL HEELS BY PLACING PILLOWS UNDER CALVES UNLESS OTHERWISE CONTRAINDICATED -PRESSURE REDISTRIBUTION SURFACE THERAPY -KEEP SKIN DRY AND CLEAN AT ALL TIMES, PLEASE CHECK Q2H AND PRN -TURN AND REPOSITION Q2H, OFFLOAD SACRALCOCCYX AND BUTTOCKS -CONTINUE TO FOLLOW RD RECOMMENDATIONS
--- NOTE | 2018-06-28 15:45 | NUR ---
Tribal Judge Note: Per Kimberli from [facility] , they can accept patient, however, need skilled need snf authorization from health insurance plan, director Farooq made aware.
[2018-06-28 16:00] VITALS: BP 116/82
[2018-06-28] MEDS: IPRATROPIUM 0.02% 0.5 MG/2.5 ML NEBU INH PRN (17:29)
[2018-06-28] MEDS: ALBUTEROL 0.083% 2.5 MG/3 ML NEBU INH PRN (17:29)
--- NOTE | 2018-06-28 17:50 | NUR ---
NEW FEEDING TUBE FORMULA BOTTLE HUNG. PT RECEIVED TRACH CARE AND WAS REPOSITIONED IN BED.
--- NOTE | 2018-06-28 19:25 | NUR ---
PT ENDORSED TO MANAGER OF PROJECT MANAGEMENT IN STABLE CONDITION. ENDORSED TO MANAGER OF PROJECT MANAGEMENT TO NOTIFY DAY NURSE TO OBTAIN NASAL MRSA SWAB IF PT DC'S TOMORROW.
--- NOTE | 2018-06-28 19:26 | NUR ---
RECEIVED BEDSIDE REPORT FROM DAY SHIFT NURSE JULIUS RN, PT STABLE, NO DISTRESS NOTED, IV TO L FA 22G PATENT, INTACT, SL, PT ON TRACT TO T PIECE 6LPM, NO SOB NOTED, KISER CATH IN PLACE, DRAINING YELLOW URINE, INITIAL ASSESSMENT DONE, ALL SAFETY PRECAUTION MET, CALL LIGHT WITHIN REACH, WILL CONTINUE TO MONITOR.
--- NOTE | 2018-06-28 21:38 | NUR ---
CHECKED ON PT, BP 135/50 HR 129, DUE MEDICATION METOPROLOL ADMINISTERED, PT TOLERATED WELL, NO DISTRESS NOTED, CALL LIGHT WITHIN REACH, WILL CONTINUE TO MONITOR.
[2018-06-28 23:33] VITALS: BP 119/79
[2018-06-28] MEDS: ACETAMINOPHEN 650 MG/20.3 ML UDC GT PRN (23:33)
--- NOTE | 2018-06-28 23:33 | NUR ---
PT TEMPERATURE 101.4, TYLENOL PRESCRIBED ADMINISTERED, PT TOLERATED WELL, NO DISTRESS NOTED, CALL LIGHT WITHIN REACH, WILL CONTINUE TO MONITOR.
--- NOTE | 2018-06-29 00:22 | NUR ---
CHECKED ON PT, PT TEMPERATURE 99.2, NO DISTRESS NOTED, CALL LIGHT WITHIN REACH, WILL CONTINUE TO MONITOR.
--- NOTE | 2018-06-29 03:38 | NUR ---
PT SLEEPING, NO DISTRESS NOTED, V/S TAKEN, WNL, CALL LIGHT WITHIN REACH, WILL CONTINUE TO MONITOR.
--- NOTE | 2018-06-29 05:45 | NUR ---
RESTING COMFORTABLY NO APPARENT RESPIRATORY DISTRESS NOTED BREATH SOUNDS COARSE RHONCHI BILATERAL WITH GOOD CHEST RISE DEEP TRACHEAL SUCTION FOR COPIOUS THICK TO THIN PALE YELLOW SECRETIONS AIRWAY PATENT SATURATION 95% ON A COOL AEROSOL TO TRACH AT 30%/6 LPM
[2018-06-29] MEDS: MIDODRINE 5 MG TAB PO SCH ×4 (06:25→18:27)
[2018-06-29] MEDS: METOCLOPRAMIDE 10 MG TAB PO SCH ×3 (06:26→15:27)
[2018-06-29] MEDS: LANSOPRAZOLE 30 MG CAPDR GT SCH (06:26)
--- NOTE | 2018-06-29 07:30 | NUR ---
ENDORSED PT TO DAY SHIFT NURSE SERENA JAY, PT STABLE, NO DISTRESS NOTED, CALL LIGHT WITHIN REACH.
--- NOTE | 2018-06-29 07:31 | NUR ---
RECEIVED PT TO THE PATIENT FINANCIAL REPRESENTATIVE NURSE AT BEDSIDE. PT IS AWAKE. EYES TRACKING. APHASIC. PT IS HAS GTUBE FEEDING, VITAL AF AT 40ML/HR. PT HAS TRACH TO T BAR, 6L, FIO2 30%. PT HAS KISER CATH WITH YELLOW URINE IN BAG. PT IS CONTACT [facility] FOR MRSA AND ESBL OF WOUND AND SPUTUM. PT HANDS AND FEET ARE VERY CONTRACTED. MULTIPLE WOUNDS. WC ORDERS IN PLACE. IV ON R FA 22G. NO SIGNS OF DISTRESS. WILL CONTINUE TO MONITOR PT.
[2018-06-29 08:00] VITALS: BP 110/61
[2018-06-29] MEDS: SPIRONOLACTONE 50 MG TAB PO SCH ×2 (09:30→18:23)
[2018-06-29] MEDS: ASCORBIC ACID 500 MG TAB GT SCH (09:30)
[2018-06-29] MEDS: ZINC SULF 220 MG CAP GT SCH (09:30)
[2018-06-29] MEDS: METOPROLOL 25 MG TAB PO SCH ×2 (09:30→21:29)
--- NOTE | 2018-06-29 10:07 | NUR ---
Bladder Trimmer Note: I called patient�s daughter Sho to inform her patient has been accepted at [facility] and to let her know patient can be referred to palliative care services once at [facility], no answer, left message including my contact information as well as director Radha's contact information.
--- NOTE | 2018-06-29 10:42 | NUR ---
Spoke with Carlyn from [facility] AUTH # for [facility] [id number] tansportation AUTH # [id number] for TERRY.
--- NOTE | 2018-06-29 11:47 | NUR ---
1130 CALLED DAUGHTER KENDALL DODD AND INFORMED HER THAT PATIENT HAS BEEN ACCEPTED FOR ADMISSION TO [facility] IN [place] AND THAT AUTHORIZATION HAS BEEN RECEIVED FROM [facility]. KENDALL SAID THAT SHE IS IN AGREEMENT WITH THE TRANSFER SHE LIVES IN [place] AND WANTED SOMETHING CLOSER TO HER HOME. REQUESTED THAT THE ADDRESS AND PHONE NUMBER BE EMAILED TO HER SHE IS CURRENTLY DRIVING. INFORMED HER THAT WHEN A TIME OF TRANSFER IS SET SHE WILL RECEIVE A PHONE CALL.
[2018-06-29] MEDS: THERAHONEY GEL 42.5 GM TP SCH (13:00)
[2018-06-29] MEDS: ACETAMINOPHEN 650 MG/20.3 ML UDC GT PRN (15:27)
[2018-06-29] MEDS: Z-GUARD PASTE TP SCH (15:27)
--- NOTE | 2018-06-29 15:30 | NUR ---
WOUND CARE DONE. TOOK PICTURES FOR DC. MRSA DONE. PT IN TRANSPORT GOWN. ALL PERSONAL BELONGINGS PACKED IN BAG. PT IS IN STABLE CONDITION. FEBRILE 101.2F. GAVE TYLENOL. WILL REASSESS PT.
--- NOTE | 2018-06-29 15:44 | NUR ---
Spoke with Ally from [facility] pt is going to room 33 B and the accepting MD is Dr. York.
--- NOTE | 2018-06-29 15:45 | NUR ---
Arranged transportation with [facility] AUTH # [id number]. Pt will be picked up at 1900 from room 116 A and transported to [facility] with RT to room 33 B.
--- NOTE | 2018-06-29 15:48 | NUR ---
Informed Randi GREWAL pt will be picked up by [facility] with RT at 1900 and transported to [facility] [address]. [place]. [id number].
[2018-06-29 16:00] VITALS: BP 134/84
--- NOTE | 2018-06-29 16:00 | NUR ---
VS WITHIN NORMAL RANGE. TEMP AT 100F. WILL START COOLING MEASURES. WILL REASSESS PT.
--- NOTE | 2018-06-29 17:00 | NUR ---
TEMP DOWN TO 99.1
--- NOTE | 2018-06-29 18:29 | NUR ---
HELD MIDODRINE. LAST BP 134/84
--- NOTE | 2018-06-29 18:45 | NUR ---
GAVE REPORT TO [facility] AT [phone].
--- NOTE | 2018-06-29 18:55 | NUR ---
CALL FROM [facility] CALLED. WILL NOT BE ABLE TO ACCEPT PT PER DON.
--- NOTE | 2018-06-29 19:10 | NUR ---
ZAN FROM ADMISSIONS CALLED FROM [facility]. UNABLE TO ACCEPT PT. WILL CONTACT HISTORIC SITES SUPERVISOR TOMORROW.
--- NOTE | 2018-06-29 19:30 | NUR ---
CALLED [facility] RE REPORT GIVEN. PT IS ON CONTACT [facility] HERE BUT IS COLONIZED. SPOKE TO BENJI, NURSING BURIAL AGENT. DON NOT AVAILABLE. PER BENJI, CALL BACK TOMORROW TO DISCUSS. APOLOGIZED FOR INCONVENIENCE.
--- NOTE | 2018-06-29 19:35 | NUR ---
RECEIVED PATIENT AWAKE LYING COMFORTABLE WITH HOB ELEVATED. 6L 02 TRACH TO T-PIECE FI02 30%.SUCTIONED PATIENT WITH SMALL AMOUNT OF WHITE SECRETIONS. RESPIRATION EVEN AND UNLABORED .REPOSITIONED TO HIS SIDE USING PILLOWS . DRESSING CHECK DRY AND INTACT.FC IN PLACE DRAINING YELLOW CLEAR URINE. WILL CONTINUE TO MONITOR.
--- NOTE | 2018-06-29 20:10 | NUR ---
CALLED DAUGHTER, LEFT MESSAGE ON VM RE PT NOT TRANSFERRED D/T COMPLICATIONS.
--- NOTE | 2018-06-29 21:00 | NUR ---
SCHEDULE MEDICATION GIVEN TOLERATED WELL. CHECK RESIDUAL 60ML. MAINTAINED HOB ELEVATED. SUCTIONED AND REPOSITIONED. NO S/S OF DISTRESS NOTED. WILL CONTINUE TO MONITOR.
[2018-06-30] VITALS: BP 109/70
--- NOTE | 2018-06-30 | NUR ---
REPOSITIONED USING PILLOW TO HIS SIDE. HOB ELEVATED. SUCTIONED WITH MINIMAL AMOUNT OF WHITE SECRETIONS.
[2018-06-30] MEDS: Z-GUARD PASTE TP SCH ×2 (01:34→13:50)
--- NOTE | 2018-06-30 02:00 | NUR ---
SUCTIONED PATIENT WITH MINIMAL AMOUNT OF WHITE SECRETION. NO PULMONARY DISTRESS NOTED. REPOSITIONED AND ELEVATE HOB.FC DRAINING WELL. WILL CONTINUE TO MONITOR.
--- NOTE | 2018-06-30 04:30 | NUR ---
AM/ORAL CARE DONE. CLEANED PATIENT AND CHANGED. DRESSING DRY AND INTACT. TURNED AND REPOSITIONED PATIENT. HOB ELEVATED. NO S/S OF DISTRESS NOTED.
[2018-06-30] MEDS: METOCLOPRAMIDE 10 MG TAB PO SCH ×3 (06:39→16:43)
[2018-06-30] MEDS: LANSOPRAZOLE 30 MG CAPDR GT SCH (06:39)
[2018-06-30] MEDS: MIDODRINE 5 MG TAB PO SCH ×3 (06:40→18:21)
--- NOTE | 2018-06-30 07:10 | NUR ---
ENDORSEMENT GIVEN TO AM SHIFT RN AT BEDSIDE FOR CONTINUITY OF CARE. PATIENT IN STABLE CONDITION.
--- NOTE | 2018-06-30 07:12 | NUR ---
RECEIVED BEDSIDE REPORT FROM NOXIOUS WEEDS AND PEST INSPECTOR NURSE. PATIENT IS AWAKE. APHASIC. BEDREST. RESPIRATION EVEN UNLABORED ON TRACH TO T PIECE, FIO2 60% AND ON 6L/MIN. NO DISTRESS NOTED. SKIN IS WARM AND DRY. WOUND DRESSINGS ARE CLEAN AND DRY. IV ON LFA 2G, NOT INFUSING AT THIS TIME. G-TUBE FEEDING IS NOT RUNNING AT THIS TIME. KISER CATHETER DRAINING YELLOW URINE. REVIEWED PLAN OF CARE FOR TODAY. CONTACT PRECAUTION IN PLACE AND SIGN POSTED. ALL SAFETY MEASURE IN PLACE. BED IS AT LOW POSITION. BED ALARM ON. CALL LIGHT WITHIN REACH.
[2018-06-30 08:00] VITALS: BP 109/82
--- NOTE | 2018-06-30 08:05 | NUR ---
CHECKED RESIDUAL AND RECEIVED 110CC. G-TUBE IS NOT INFUSING.
[2018-06-30] MEDS: SPIRONOLACTONE 50 MG TAB PO SCH ×2 (10:08→16:48)
[2018-06-30] MEDS: ZINC SULF 220 MG CAP GT SCH (10:08)
[2018-06-30] MEDS: METOPROLOL 25 MG TAB PO SCH ×2 (10:08→21:54)
[2018-06-30] MEDS: ASCORBIC ACID 500 MG TAB GT SCH (10:08)
--- NOTE | 2018-06-30 10:08 | NUR ---
CHECKED G-TUBE PLACEMENT WITH SWOOSH AND HEARD SWOOSH. CHECKED RESIDUAL AND RECEIVED 100CC. G-TUBE IS NOT INFUSING. FLUSHED G-TUBE WITH 30ML OF WATER BEFORE AND AFTER MEDS ADMINISTER. PT TOLERATED WELL. FLACC-0. NO SIGNS OF DISTRESS NOTED.
--- NOTE | 2018-06-30 10:17 | NUR ---
REPOSITIONED PT TO HIS RIGHT LATERAL SIDE AND OFF LOADED PRESSURE WITH PILLOWS ON HIS BACK AND BETWEEN LEGS. SUCTIONED PT AND PT TOLERATED WELL.
--- NOTE | 2018-06-30 11:06 | NUR ---
CHECKED G-TUBE RESIDUAL AND RECEIVED 30CC. STARTED G-TUBE FEEDING AT 40ML/HR.
--- NOTE | 2018-06-30 11:55 | NUR ---
Sinter Machine Operator Note: Per Kimberli from [facility] , their websphere portal developer (RONALD) and legal administrator are both concern regarding [facility] skilled authorization rates. I requested Kimberli to please contact case packer and sealer Carlyn from [facility] and discuss their concerns with her. I provided Kimberli with Carlyn's phone number. I informed case packer and sealer Carlyn of my conversation with Kimberli. I also requested for Carlyn to contact [place]. I provided Carlyn with [facility]'s contact information. Per Carlyn, she will contact [place], director Radha made aware.
--- NOTE | 2018-06-30 12:04 | NUR ---
CHECKED G-TUBE FEEDING AND RECEIVED RESIDUAL 35CC. ADMINISTERED MED PER MD ORDER VIA G-TUBE. FLUSHED 30ML OF WATER BEFORE AND AFTER MED ADMINISTER. PT TOLERATED WELL. SUCTIONED PT TWICE. NO SIGNS OF DISTRESS NOTED.
--- NOTE | 2018-06-30 12:36 | NUR ---
REPOSITIONED PT TO HIS LEFT LATERAL SIDE AND USED PILLOWS TO OFF LOAD PRESSURES FROM BACK AND SACRAL AREA. SUCTIONED PT AND PT TOLERATED WELL.
--- NOTE | 2018-06-30 13:47 | NUR ---
CHECKED G-TUBE FOR RESIDUAL AND RECEIVED 100CC. HOLD G-TUBE INFUSING. ADMINISTERED MED PER MD ORDER VIA G-TUBE. FLUSHED 30ML OF WATER BEFORE AND AFTER MED ADMINISTER. SUCTIONED PT TWICE. PT TOLERATED WELL. FLACC-0. NO SIGNS OD DISTRESS NOTED.
[2018-06-30] MEDS: THERAHONEY GEL 42.5 GM TP SCH (13:50)
[2018-06-30 16:00] VITALS: BP 104/73
--- NOTE | 2018-06-30 16:50 | NUR ---
CHECKED RESIDUAL AND RECEIVED 20CC. ADMINISTERED MEDS PER MD ORDER. FLUSHED G-TUBE WITH 30ML BEFORE AND AFTER MED ADMINISTER. CONTINUE TO G-TUBE FEEDING ON 30MLL/HR.
--- NOTE | 2018-06-30 17:10 | NUR ---
REPOSITIONED PT TO HIS RIGHT SIDE AND USED PILLOWS TO OFF LOAD PRESSURE FROM SACRAL AREA AND BACK. SUCTIONED PT TWICE AND PT TOLERATED WELL. NO SIGNS OF DISTRESS NOTED.
--- NOTE | 2018-06-30 18:24 | NUR ---
CHECKED G-TUBE RESIDUAL AND RECEIVED <10CC. ADMINISTERED MED PER MD ORDER. FLUSHED G-TUBE WITH 30ML OF WATER BEFORE AND AFTER MED ADMINISTER. FLACC 0. NO SIGNS OF DISTRESS NOTED.
--- NOTE | 2018-06-30 19:20 | NUR ---
ENDORSED PT AT BEDSIDE TO HEAT READER NURSE FOR CONTINUITY OF CARE. PT IS IN STABLE CONDITION.
--- NOTE | 2018-06-30 19:22 | NUR ---
RECEIVED BEDSIDE REPORT FROM AM SHIFT NURSE. PATIENT IS AWAKE. APHASIC. BEDREST. RESPIRATION EVEN UNLABORED ON TRACH TO T PIECE, NO DISTRESS NOTED. SKIN IS WARM AND DRY. WOUND DRESSINGS ARE CLEAN AND DRY. IV ON LFA, SALINE LOCK. G-TUBE FEEDING IS NOT RUNNING AT THIS TIME. KISER CATHETER DRAINING YELLOW URINE. REVIEWED PLAN OF CARE FOR TODAY. CONTACT PRECAUTION IN PLACE AND SIGN POSTED. ALL SAFETY MEASURE IN PLACE. BED IS AT LOW POSITION. BED ALARM ON. CALL LIGHT WITHIN REACH.
--- NOTE | 2018-06-30 23:00 | NUR ---
SUNCTIONED PT,TURNED PT Q2, AND PLACED IN A COMFORTABLE POSITION. PT AWAKE, NON VERBAL. WILL CONTINUE TO MONITOR
[2018-07-01] VITALS: BP 128/80
[2018-07-01] MEDS: ACETAMINOPHEN 650 MG/20.3 ML UDC GT PRN ×3 (01:15→16:37)
[2018-07-01] MEDS: Z-GUARD PASTE TP SCH ×2 (01:15→13:27)
[2018-07-01] MEDS: MIDODRINE 5 MG TAB PO SCH ×3 (06:46→18:09)
[2018-07-01] MEDS: LANSOPRAZOLE 30 MG CAPDR GT SCH (06:47)
[2018-07-01] MEDS: METOCLOPRAMIDE 10 MG TAB PO SCH ×3 (06:47→16:36)
--- NOTE | 2018-07-01 07:30 | NUR ---
RECEIVED BEDSIDE REPORT FROM STUDENT ACCOUNTS COORDINATOR NURSE. PATIENT IS AWAKE. APHASIC. BEDREST. RESPIRATION EVEN UNLABORED ON TRACH TO T PIECE, FIO2 30% AND ON 6L/MIN. NO DISTRESS NOTED. SKIN IS WARM AND DRY. WOUND DRESSINGS ARE CLEAN AND DRY. IV ON LFA 22G, NOT INFUSING AT THIS TIME. G-TUBE FEEDING IS NOT RUNNING AT THIS TIME. KISER CATHETER DRAINING YELLOW URINE. REVIEWED PLAN OF CARE FOR TODAY. CONTACT PRECAUTION IN PLACE AND SIGN POSTED. ALL SAFETY MEASURE IN PLACE. BED IS AT LOW POSITION. BED ALARM ON. CALL LIGHT WITHIN REACH.
[2018-07-01 08:00] VITALS: BP 119/76
--- NOTE | 2018-07-01 10:00 | NUR ---
CALLED LOLA FROM [facility] FOR FOLLOW UP ON PLACEMENT, SHE SAID THEY CANNOT ACCEPT PATIENT AT THIS TIME, SHE'S WAITING FOR ARNOLD TO CALL HER BACK. SPOKE TO ARNOLD AND SHE SAID SHE LEFT 2 MESSAGES ON [employer] EHR NUMBER TO HER. WILL CONTINUE TO FOLLOW UP.
[2018-07-01] MEDS: ZINC SULF 220 MG CAP GT SCH (10:10)
--- NOTE | 2018-07-01 10:10 | NUR ---
CHECKED G-TUBE RESIDUAL PRIOR TO MED ADMINISTER, AND RECEIVED 40CC. ADMINISTERED MEDS PER MD ORDER, FLUSHED WITH 30ML OF WATER BEFORE AND AFTER MEDS ADMINISTER. CONTINUE G-TUBE FEEDING AT 30ML/HR.
[2018-07-01] MEDS: METOPROLOL 25 MG TAB PO SCH ×2 (10:11→20:43)
[2018-07-01] MEDS: ASCORBIC ACID 500 MG TAB GT SCH (10:11)
[2018-07-01] MEDS: SPIRONOLACTONE 50 MG TAB PO SCH ×2 (10:11→16:37)
--- NOTE | 2018-07-01 10:43 | NUR ---
CHANGED NEW TUBING FOR G-TUBE FEEDING AND HUNG A NEW BOTTLE OF FORMULA AF1.2. FEEDING IS RUNNING AT 30ML/HOUR.
--- NOTE | 2018-07-01 12:01 | NUR ---
CHECKED RESIDUAL AND RECEIVED 25CC. ADMINISTERED MED PER MD ORDER VIA G-TUBE. NO SIGNS OF DISTRESS NOTED.
[2018-07-01] MEDS: THERAHONEY GEL 42.5 GM TP SCH (13:27)
--- NOTE | 2018-07-01 14:00 | NUR ---
ARNOLD CALLED BACK AND SAID LOLA DIDN'T ANSWER SHE LEFT MESSAGE AGAIN.
--- NOTE | 2018-07-01 14:20 | NUR ---
PT HAS 1 BM. CLEANED PT AND CHANGED HIS WOUND DRESSING. REPOSITIONED PT TO HIS LEFT SIDE AND USED PILLOW TO OF LOAD PRESSURE FROM BACK AND SACRAL AREA.
[2018-07-01 16:00] VITALS: BP 124/87
--- NOTE | 2018-07-01 16:36 | NUR ---
PT'S TEMP 101. ADMINISTERED PRN ACETAMINOPHEN AND APPLIED COOLING MEASURE. WILL CONTINUE TO MONITOR.
--- NOTE | 2018-07-01 17:12 | NUR ---
CHECKED PT'S TEMP, TEMP. 98.8. CHECKED G-TUBE RESIDUAL AND RECEIVED 30CC.
--- NOTE | 2018-07-01 19:10 | NUR ---
ENDORSED PT AT BEDSIDE TO AIRCRAFT MECHANIC ARMAMENT NURSE FOR CONTINUITY OF CARE. PT IS IN STABLE CONDITION.
--- NOTE | 2018-07-01 19:35 | NUR ---
RECEIVED BEDSIDE REPORT FROM DAY SHIFT NURSE FOR CONTINUITY OF CARE. PATIENT AWAKE, APHASIC, TRACH TO T-PIECE TO 6L. NO DISTRESS NOTED. SKIN IS WARM AND DRY. IV PATENT AND INTACT. G-TUBE FEEDING NOTED RUNNING 40ML/HR. KISER CATHETER DRAINING YELLOW URINE. MULTIPLE WOUNDS NOTED. PLAN OF CARE WAS DISCUSSED. ALL SAFETY MEASURES ARE IN PLACE. CONTACT PRECAUTION MAINTAINED. BED IS AT LOW POSITION. CALL LIGHT WITHIN REACH.
--- NOTE | 2018-07-01 20:40 | NUR ---
PATIENT AWAKE, RESPIRATION EVEN UNLABORED TRACH TO T-PIECE. NO DISTRESS NOTED. INITIAL ASSESSMENT DONE. VITAL STABLE. ALL DUE MEDS WERE GIVEN PER ORDER. OBTAINED 5CC RESIDUAL FROM G-TUBE. BED IS AT LOW POSITION. CALL LIGHT WITHIN REACH. WILL CONTINUE TO MONITOR.
[2018-07-02] VITALS: BP 123/76
--- NOTE | 2018-07-02 | NUR ---
VITALS WERE TAKEN. PATIENT TEMP 101.2. COOLING MEASURES DONE. RECHECKED LATER STILL 101. PRN TYLENOL FEVER GIVEN. WILL CONTINUE TO MONITOR
--- NOTE | 2018-07-02 | NUR ---
VITALS WERE TAKEN. PATIENT CONDITION STABLE. NO DISTRESS NOTED WILL CONTINUE TO MONITOR. Addendum: 07/03/18 at 0235 by Luis Ayala RN INCORRECT TIME. TIME SHOULD BE MIDNIGHT 07/03/18
[2018-07-02] MEDS: ACETAMINOPHEN 650 MG/20.3 ML UDC GT PRN (00:23)
[2018-07-02] MEDS: Z-GUARD PASTE TP SCH ×2 (00:25→13:24)
--- NOTE | 2018-07-02 01:00 | NUR ---
RECHECKED PATIENT TEMP. TEMP IS NOW 99.2 NO DISTRESS NOTED. WILL CONTINUE TO MONITOR.
--- NOTE | 2018-07-02 04:30 | NUR ---
PATIENT HAD A SMALL BM. CHANGED PATIENT AND GAVE GOOD PERICARE. WILL CONTINUE TO MONITOR
--- NOTE | 2018-07-02 05:00 | NUR ---
OBTAINED 180CC RESIDUAL FROM THE G-TUBE. WILL RECHECKED LATER.
[2018-07-02] MEDS: LANSOPRAZOLE 30 MG CAPDR GT SCH (05:55)
[2018-07-02] MEDS: MIDODRINE 5 MG TAB PO SCH ×3 (06:32→18:32)
[2018-07-02] MEDS: METOCLOPRAMIDE 10 MG TAB PO SCH ×3 (06:39→16:30)
--- NOTE | 2018-07-02 07:41 | NUR ---
ENDORSED PATIENT TO DAY SHIFT NURSE. PATIENT STABLE AT THIS TIME.
--- NOTE | 2018-07-02 07:42 | NUR ---
RECEIVED BEDSIDE REPORT FROM PIERRE CALLEJAS. PATIENT APHASIC. WITH TRACH, NO RESPIRATORY DISTRESS NOTED. WOUNDS COVERED IN DRESSING BANDAGES, DRESSINGS CLEAN DRY AND INTACT. HEEL PROTECTORS IN PLACE. PATIENT ON WOUND CARE BED. G TUBE IN PLACE, SITE CLEAN DRY AND INTACT. HEARD SWOOSH. G TUBE FEDDING RUNNING AT 40/HR. IV ON L FA, ASYMPTOMATIC, PATENT AND INTACT. BED IN LOW POSITION, CALL LIGHT WITHIN REACH, SIDE RAILS X2 UP. WILL CONTINUE TO MONITOR.
[2018-07-02 08:00] VITALS: BP 120/75
[2018-07-02] MEDS: ASCORBIC ACID 500 MG TAB GT SCH (08:56)
[2018-07-02] MEDS: SPIRONOLACTONE 50 MG TAB PO SCH ×2 (08:57→17:00)
[2018-07-02] MEDS: ZINC SULF 220 MG CAP GT SCH (08:57)
[2018-07-02] MEDS: METOPROLOL 25 MG TAB PO SCH ×2 (08:57→20:36)
--- NOTE | 2018-07-02 09:12 | NUR ---
ADMINISTERED SCHEDULED MEDS VIA G TUBE. HEARD SWOOSH AND GASTRIC RESIDUAL OF 100 CC. PATIENT TOLERATED WELL. WILL CONTINUE TO MONITOR. G TUBE DRESSING CHANGED.
--- NOTE | 2018-07-02 11:29 | NUR ---
PATIENT TURNED TO R SIDE LYING POSITION. PATIENT ON TRACH TO T PIECE WITH NO DISTRESS NOTED. WILL CONTINUE TO MONITOR.
[2018-07-02] MEDS: IPRATROPIUM 0.02% 0.5 MG/2.5 ML NEBU INH PRN (11:32)
[2018-07-02] MEDS: ALBUTEROL 0.083% 2.5 MG/3 ML NEBU INH PRN (11:32)
--- NOTE | 2018-07-02 11:46 | NUR ---
RECEIVED PATIENT ON 30% COOL AEROSOL TO TRACH SHILEY 6 XLT. AIRWAY SECURE AND PATENT. SUCTIONED LARGE AMOUNTS OF THICK, YELLOW SPUTUM. PRN TX ADMINISTERED. TOLERATED TX WELL, NO ADVERSE SIDE EFFECTS. NO RESPIRATORY DISTRESS NOTED AT THIS TIME. WILL CONTINUE TO MONITOR.
[2018-07-02] MEDS: THERAHONEY GEL 42.5 GM TP SCH (13:24)
--- NOTE | 2018-07-02 14:46 | NUR ---
PATIENT TURNED TO L SIDE LYING POSITION. PT HAD SMALL BOWEL MOVEMENT. WILL CONTINUE TO MONITOR.
[2018-07-02 16:00] VITALS: BP 115/72
[2018-07-02] MEDS: MORPHINE SULFATE 50 MG in NACL 0.9% 45 ML IV PRN ×4 (16:09→21:48)
--- NOTE | 2018-07-02 16:28 | NUR ---
VITALS FOLLOWS T: 100.1, BP 115/72, HR 114, RR 22, AND O2 SAT 89%. MORPHINE DRIP STARTED FOR END OF LIFE/COMFORT CARE. WILL CONTINUE TO MONITOR PATIENT.
--- NOTE | 2018-07-02 18:32 | NUR ---
PATIENT LAYING COMFORTABLY IN BED. ON TRACH TO T PIECE 8 L O2, NO DISTRESS NOTED. WILL CONTINUE TO MONITOR.
--- NOTE | 2018-07-02 19:05 | NUR ---
GAVE REPORT TO PIERRE CALLEJAS. PATIENT IN END OF LIFE/COMFORT CARE. PATIENT CURRENTLY ON MORPHINE DRIP.
--- NOTE | 2018-07-02 19:35 | NUR ---
RECEIVED BEDSIDE REPORT FROM DAY SHIFT NURSE FOR CONTINUITY OF CARE. PATIENT AWAKE, RESPIRATION EVEN UNLABORED ON TRACH TO T-PIECE. NO DISTRESS NOTED. SKIN IS WARM AND DRY. MULTIPLE WOUNDS NOTED. IV PATENT AND INTACT. IV MORPHINE DRIP NOTED. KISER CATHETER DRAINING YELLOW URINE. G-TUBE FEEDING RUNNING 40ML/HR NOTED. PLAN OF CARE WAS DISCUSSED. ALL SAFETY MEASURE ARE IN PLACE. BED IS AT LOW POSITION. CALL LIGHT WITHIN REACH. WILL CONTINUE TO MONITOR.
--- NOTE | 2018-07-02 20:30 | NUR ---
PATIENT AWAKE RESPIRATION EVEN UNLABORED ON TRACH TO T-PIECE. NO DISTRESS NOTED. INITIAL ASSESSMENT DONE. VITALS WERE TAKEN. OBTAINED 10CC FROM G-TUBE RESIDUAL. ALL DUE MEDS WERE GIVEN PER ORDER. WILL CONTINUE TO MONITOR
--- NOTE | 2018-07-02 22:45 | NUR ---
CHECKED PATIENT. SUCTIONED OBTAINED SMALL AMOUNT OF WHITE CREAMY SECRETION. NO DISTRESS NOTED. WILL CONTINUE TO MONITOR.
[2018-07-03] VITALS: BP 102/66
[2018-07-03] MEDS: MORPHINE SULFATE 50 MG in NACL 0.9% 45 ML IV PRN ×2 (00:14→01:33)
[2018-07-03] MEDS: Z-GUARD PASTE TP SCH ×2 (00:15→13:24)
--- NOTE | 2018-07-03 01:00 | NUR ---
CLEAN AND CHANGED PATIENT WOUND DRESSING. PROVIDED GOOD PERICARE. WILL CONTINUE TO MONITOR.
--- NOTE | 2018-07-03 02:33 | NUR ---
FIRST DOSE OF IV MORPHINE DRIP DONE. SECOND DOSE AWAITING FOR PHARMACY TO DISPENSED.
[2018-07-03] MEDS ORDERED: MORPHINE SULFATE 100 MG in NACL 0.9% 90 ML IV PRN (03:20)
[2018-07-03] MEDS ORDERED: MORPHINE SULFATE 100 MG in NACL 0.9% 90 ML IV SCH (03:25)
--- NOTE | 2018-07-03 04:34 | NUR ---
CHECKED PATIENT VITAL SIGNS BP: 106/71 P 107 RR 12 SPO2 91% TEMP 98.7. STILL ON CONTINUOS IV MORPHINE DRIP.
--- NOTE | 2018-07-03 06:19 | NUR ---
CHECKED PATIENT VITAL SIGN BP 98/66 P 103 RR 10 SPO2 92% TEMP 99.1 NO DISTRESS NOTE. ON CONTINUOUS IV MORPHINE DRIP. WILL CONTINUE TO MONITOR.
[2018-07-03] MEDS: MIDODRINE 5 MG TAB PO SCH ×3 (06:22→19:00)
[2018-07-03] MEDS: LANSOPRAZOLE 30 MG CAPDR GT SCH (06:22)
[2018-07-03] MEDS: METOCLOPRAMIDE 10 MG TAB PO SCH ×3 (06:22→17:55)
--- NOTE | 2018-07-03 07:21 | NUR ---
RECEIVED BEDSIDE REPORT FROM SUPERINTENDENT STORAGE AREA NURSE FOR CONTINUITY OF CARE. PATIENT HAS EYES OPEN, RESPIRATION UNEVEN AND LOW ON TRACH TO T-PIECE. ON END OF LIFE CARE. SKIN IS WARM AND DRY. MULTIPLE WOUNDS NOTED. IV PATENT AND INTACT. IV MORPHINE DRIP NOTED. KISER CATHETER DRAINING YELLOW URINE. G-TUBE FEEDING RUNNING 40ML/HR NOTED. PLAN OF CARE WAS DISCUSSED. ALL SAFETY MEASURE ARE IN PLACE. BED IS AT LOW POSITION. CALL LIGHT WITHIN REACH. WILL CONTINUE TO MONITOR.
--- NOTE | 2018-07-03 07:23 | NUR ---
ENDORSED PATIENT TO DAY SHIFT NURSE FOR CONTINUITY OF CARE. ON CONTINUOUS MORPHINE DRIP. PATIENT IN END OF LIFE/COMFORT CARE.
[2018-07-03 08:00] VITALS: BP 97/69
[2018-07-03] MEDS: METOPROLOL 25 MG TAB PO SCH ×2 (09:00→21:00)
[2018-07-03] MEDS: SPIRONOLACTONE 50 MG TAB PO SCH ×2 (09:00→17:00)
--- NOTE | 2018-07-03 09:48 | NUR ---
ADMINISTERED MORNING MEDS TO PT VIA G-TUBE. PT TOLERATED WELL. PT RESPIRATIONS LOW BUT EXPECTED FOR CONDITION. MORPHINE DRIP AT 9MG/HR AT THIS TIME.
[2018-07-03] MEDS: ASCORBIC ACID 500 MG TAB GT SCH (09:59)
[2018-07-03] MEDS: ZINC SULF 220 MG CAP GT SCH (09:59)
[2018-07-03] MEDS: ALBUTEROL 0.083% 2.5 MG/3 ML NEBU INH PRN (11:06)
--- NOTE | 2018-07-03 11:45 | NUR ---
PT IN BED RESTING. HR AT 105. RESPIRATIONS LOW AT 4/MIN. O2 SAT AT 92%. PT BP AT 94/61.
--- NOTE | 2018-07-03 13:02 | NUR ---
PT HEART RATE AT 117 AT T HIS MOMENT. RESPIRATIONS LOW AT 6-[address] ORDERED TO ADVANCE MORPHINE DRIP ANYWAYS. MORPHINE DRIP SET TO 10MG/HR.
[2018-07-03] MEDS: THERAHONEY GEL 42.5 GM TP SCH (13:25)
[2018-07-03 16:00] VITALS: BP 112/58
[2018-07-03] MEDS: MORPHINE SULFATE 100 MG in NACL 0.9% 90 ML IV PRN (17:52)
--- NOTE | 2018-07-03 19:25 | NUR ---
ENDORSED PT TO SENIOR RESEARCH ENGINEER FOR CONTINUITY OF CARE. PT IN STABLE CONDITION AT THIS TIME.
--- NOTE | 2018-07-03 19:26 | NUR ---
REPORT RECEIVED FROM AM NURSE AT BEDSIDE. PT IS ON END OF LIFE CARE. AAOX1. PT EYES ARE OPEN, RESPIRATIONS ARE UNEVEN, DEEP, AND LOW 10L FROM TRACH TO T-PIECE. PT IS ON MORPHINE DRIP@11ML/HR. PT IS FEBRILE AT 102.7 DEGREES. IV SITE L FA 22G RUNNING MORPHINE AT 11ML/HR PATENT AND INTACT. SKIN IS WARM, DRY, AND NOT INTACT DUE TO MULTIPLE WOUNDS. SEE WOUND CARE NOTES. PT HAS KISER. PT HAS GTUBE AND GTUBE FEEDINGS VITAL AF 1.2@40ML/HR 100ML FLUSH Q4H. GTUBE IS PATENT BUT LEAKS. PT ON WOUND BED LOCKED IN LOW POSITION. CALL MURO WITHIN REACH. SAFETY PRECAUTIONS IN PLACE.
--- NOTE | 2018-07-03 21:00 | NUR ---
PT BP 89/55 BUT HR IS 120. [facility]ER FROM [facility] FLIGHT NURSE AND CALLED.
--- NOTE | 2018-07-03 21:05 | NUR ---
DR. RAZA NOTIFIED OF PATIENT'S BP AND HR. ASKED HIM IF HE WANTS ME TO HOLD METOPROLOL DUE TO DECREASED BP OF 89/55 BUT HR@120 AND INCREASE MORPHINE DRIP. NEW ORDER OF METOPROLOL 50MG THROUGH GTUBE ONCE TO DECREASE HR. TORB.
[2018-07-03] MEDS: ACETAMINOPHEN 650 MG/20.3 ML UDC GT PRN (21:14)
--- NOTE | 2018-07-03 21:14 | NUR ---
METOPROLOL GIVEN THROUGH GTUBE. TYL GIVEN THROUGH GTUBE FOR TEMPERATURE OF 102.7. PT TOLERATED WELL.
[2018-07-03] MEDS ORDERED: METOPROLOL 50 MG TAB GT SCH (21:15)
[2018-07-04] VITALS: BP 83/53
--- NOTE | 2018-07-04 00:15 | NUR ---
MORPHINE DRIP INCREASED TO 13ML/HR DUE TO INCREASED HR OF 115.
[2018-07-04] MEDS: Z-GUARD PASTE TP SCH ×2 (00:33→13:20)
--- NOTE | 2018-07-04 00:45 | NUR ---
TEMPERATURE OF 100.7 DOWN FROM 102.7.
[2018-07-04] MEDS: MORPHINE SULFATE 100 MG in NACL 0.9% 90 ML IV PRN ×2 (02:57→08:46)
--- NOTE | 2018-07-04 02:57 | NUR ---
MORPHINE BAG FOR TITRATION HUNG. PT TOLERATING WELL@13ML/HR.
--- NOTE | 2018-07-04 05:00 | NUR ---
PT PULLED UP IN BED. NO BM NOTED. GTUBE DRESSING CHANGED.
[2018-07-04] MEDS: METOCLOPRAMIDE 10 MG TAB PO SCH ×2 (06:31→13:24)
[2018-07-04] MEDS: LANSOPRAZOLE 30 MG CAPDR GT SCH (06:31)
[2018-07-04] MEDS: MIDODRINE 5 MG TAB PO SCH ×2 (06:31→13:00)
--- NOTE | 2018-07-04 06:31 | NUR ---
REGLAN, PREVACID, AND PROAMATINE GIVEN THROUGH GTUBE. PT TOLERATED WELL.
--- NOTE | 2018-07-04 07:15 | NUR ---
REPORT GIVEN TO AM NURSE AT BEDSIDE. PT IN STABLE CONDITION.
--- NOTE | 2018-07-04 07:16 | NUR ---
RECEIVED BEDSIDE REPORT FROM DESKTOP SUPPORT SPECIALIST NURSE. PATIENT IS NONVERBAL. T PIECE TO AEROSOL MIST. NO SIGNS OF DISTRESS. IV ON L FA 22G INFUSING MORPHINE AT 13MG/HR. CLEAN, DRY AND INTACT. MULTIPLE WOUNDS, SEE WOUND ASSESSMENTS. WOUNDS ARE CLEAN AND DRY. PATIENT IS BEDBOUND. FALL RISK PROTOCOL IN PLACE. [facility] BED IN PLACE. SEIZURE PRECAUTIONS AND ASPIRATION PRECAUTION. CONTACT PRECAUTIONS. GTUBE IN PLACE INFUSING VITAL AF 40 H20 100 Q 4HRS. BED IN LOW POSITION. CALL LIGHT WITHIN REACH. WILL CONTINUE TO MONITOR
[2018-07-04 08:00] VITALS: BP 111/63
[2018-07-04] MEDS: ACETAMINOPHEN 650 MG/20.3 ML UDC GT PRN (08:38)
[2018-07-04] MEDS: SPIRONOLACTONE 50 MG TAB PO SCH (08:38)
[2018-07-04] MEDS: ZINC SULF 220 MG CAP GT SCH (08:38)
[2018-07-04] MEDS: ASCORBIC ACID 500 MG TAB GT SCH (08:38)
[2018-07-04] MEDS: METOPROLOL 25 MG TAB PO SCH (08:38)
--- NOTE | 2018-07-04 08:46 | NUR ---
CHECKED GTUBE PLACEMENT USING SWOOSH. SWOOSH HEARD. NO RESIDUAL. CRUSHED AND ADMINISTERED MEDS. FLUSHED BEFORE AND AFTERED. INCREASED MORPHINE DRIP TO 14 FOR INCREASED HR AND GAVE PRN TYLENOL FOR FEVER. PATIENT TOLERATED WELL. WILL CONTINUE TO MONITOR THE PATIENT.
--- NOTE | 2018-07-04 10:00 | NUR ---
PATIENT IN NO SIGNS OF DISTRESS. WILL CONTINUE TO MONITOR THE PATIENT.
--- NOTE | 2018-07-04 12:00 | NUR ---
PATIENT IN BED. NO SIGNS OF DISTRESS. WILL CONTINUE TO MONITOR THE PATIENT.
[2018-07-04] MEDS: THERAHONEY GEL 42.5 GM TP SCH (13:19)
--- NOTE | 2018-07-04 13:26 | NUR ---
CHECKED GTUBE USING SWOOSH. SWOOSH HEARD. NO RESIDUAL. CRUSHED AND ADMINISTERED MEDS. FLUSHED BEFORE AND AFTER. PATIENT TOLERATED WELL. TEMP IS 101.9, CANNOT ADMINISTER TYLENOL AT THIS TIME, HAS NOT BEEN 6HRS.
--- NOTE | 2018-07-04 14:05 | NUR ---
Technology Consultant Note: Yesterday 07/03/18 Director PIERRE Garcia spoke with lease administrator of [facility] Renan regarding reconsidering accepting patient upon discharge and referring him to hospice or palliative care once at [facility]. Renan stated he will call Radha and let her know. Today 07/04/18 Renan informed PIERRE Garcia they are able to accept patient and will refer patient to either hospice or palliative care once he is admitted at their facility. Per Terence from [facility], patient may go to room 25B at their facility today, accepting physician is . I called patient�s daughter Sho to let her know [facility] can accept patient and refer him to hospice or palliative care, no answer, left message.
--- NOTE | 2018-07-04 15:15 | NUR ---
PATIENT RESTING IN BED, NO SIGNS OF DISTRESS
--- NOTE | 2018-07-04 15:33 | NUR ---
Qa Analyst Note: I received a call from patient�s daughter Sho , she stated she is in agreement with patient's transfer to [facility] today, Charge Nurse Nghia matta. Addendum: 07/06/18 at 0837 by Genesis Patten SS Late entry for 07/04/18: Per Sho, she had thought patient was at [facility]. I explained to her patient was still in our hospital and informed her that unfortunately [facility] and [facility] [employer] had not been able to come to agreement regarding snf authorization rates. She verbalized understanding. She stated [facility] provider relations representative stopped communicating with her and prefers to continue having communication with [facility] once patient is at [facility].
[2018-07-04] MEDS: ACETAMINOPHEN 650 MG SUPP RC PRN (16:19)
[2018-07-04 17:16] VITALS: BP 114/54
--- NOTE | 2018-07-04 17:35 | NUR ---
EDUCATED PATIENT ON DISEASE PROCESS, ABN S/SX, WHEN TO GO TO THE ER, EDUCATED ON MEDS, FOLLOW UP W DR GALLEGOS IN [facility]. EDUCATED ON WOUND CARE. PATIENT UNABLE TO VERBALIZE UNDERSTANDING. GAVE BRUNO RN AT [facility] REPORT. SHE SAID TO KEEP KISER AND IV LINE IN. CALLED PATIENTS FATHER, NO ANSWER AT THIS TIME. PATIENT LEFT IN STABLE CONDITION W [facility] STAFF. ID BANDS REMOVED. TELE REMOVED.
--- NOTE | 2018-07-05 14:40 | NUR ---
1110 RECEIVED CALL FROM KENDALL JU PATIENTS DAUGHTER WHO STATED THAT SHE HAD SEVERAL ISSUES. SHE SAID THAT SHE SPOKE WITH NURSE AT [facility] AND WAS TOLD THAT PATIENT IS NOT ON AN MS DRIP AND SHE WAS VERY UPSET REGARDING THAT. SHE ALSO STATED THAT SHE WAS NOT AWARE THAT WHEN PATIENT HAD BEEN SCHEDULED TO GO TO [facility] AND DIDN'T THAT SHE WAS NOT INFORMED. I INFORMED HER THAT I WILL CONTACT [facility] REGARDING PATIENTS PAIN MEDICATION. 1121 CALLED [facility] AND SPOKE WITH PAM AND RELAYED TO HER THAT DAUGHTER HAD CALLED AND WAS CONCERNED THAT PATIENT DOES NOT HAVE ANY RX FOR PAIN. SHE STATED THAT SHE WOULD CHECK WITH NURSING AND CALL BACK. 1401 NO CALL BACK FROM PAM SO BIOLOGICAL TECHNICAL OFFICER AJ CONTACTED WITH CONCERNS OF DAUGHTER. PER AJ LAURENT IN THE FACILITY AND WILL ORDER MORPHINE AND HE WILL HAVE HIS NURSING MILANESE KNITTING MACHINE OPERATOR CALL DAUGHTER TO UPDATE HER.
== END 2018-07-04 17:35 | DRG 252 ==
LOC: MED 18:41 → MIC 21:48 → MTU 06-05 14:30
PROVIDERS: ADMIT Hospitalist; ATTEND Hospitalist
PROC: 30233N1 Transfusion of Nonautologous Red Blood Cells into Peripheral Vein, Percutaneous Approach (ICD-10-PCS; 2018-06-03)
PROC: 0D20XUZ Change Feeding Device in Upper Intestinal Tract, External Approach (ICD-10-PCS; principal; 2018-06-04)
PROC: 05HY33Z Insertion of Infusion Device into Upper Vein, Percutaneous Approach (ICD-10-PCS; 2018-06-12)
PROC: B54NZZA Ultrasonography of Left Upper Extremity Veins, Guidance (ICD-10-PCS; 2018-06-12)
DX: K94.22 Gastrostomy infection (principal); A41.50 Gram-negative sepsis, unspecified; B45.1 Cerebral cryptococcosis; E43 Unspecified severe protein-calorie malnutrition; J15.1 Pneumonia due to Pseudomonas; N17.0 Acute kidney failure with tubular necrosis; R65.21 Severe sepsis with septic shock; G93.40 Encephalopathy, unspecified; J96.11 Chronic respiratory failure with hypoxia; R64 Cachexia; K94.23 Gastrostomy malfunction; Z99.11 Dependence on respirator [ventilator] status; L89.304 Pressure ulcer of unspecified buttock, stage 4; L89.894 Pressure ulcer of other site, stage 4; L89.154 Pressure ulcer of sacral region, stage 4; N39.0 Urinary tract infection, site not specified; Z68.1 Body mass index [BMI] 19.9 or less, adult; D63.8 Anemia in other chronic diseases classified elsewhere; R53.2 Functional quadriplegia; N18.9 Chronic kidney disease, unspecified; E87.0 Hyperosmolality and hypernatremia; J40 Bronchitis, not specified as acute or chronic; R13.10 Dysphagia, unspecified; D64.9 Anemia, unspecified; B95.2 Enterococcus as the cause of diseases classified elsewhere; B96.5 Pseudomonas (aeruginosa) (mallei) (pseudomallei) as the cause of diseases classified elsewhere; E87.6 Hypokalemia; L03.818 Cellulitis of other sites; E83.52 Hypercalcemia; D47.3 Essential (hemorrhagic) thrombocythemia; E83.42 Hypomagnesemia; Z88.1 Allergy status to other antibiotic agents; Z74.01 Bed confinement status; Z87.891 Personal history of nicotine dependence; Z51.5 Encounter for palliative care; Z21 Asymptomatic human immunodeficiency virus [HIV] infection status
CPT/HCPCS: 36415; 71045; 74018; 78807; 80048; 80053; 80202; 81001; 82948; 83605; 83735; 83880; 84100; 84484; 85025; 85610; 85730; 86704; 86706; 86708; 86709; 86803; 86886; 86900; 86901; 86920; 87040; 87045; 87070; 87081; 87086; 87186; 87205; 87340; 89220; 93005; 94640; 96361; 96365; 99285; C1751; J0692; J0696; J0770; J0885; J2001; J2020; J2185; J2270; J3370; J3475; J3480; J3490; J7030; J7042; J7060; J7613; J7644; J8597; P9016; P9046; Q0092